=== PATIENT | male | born 1970 | race Caucasian/White ===

== ENCOUNTER → 2023-05-03 08:44 | Outpatient (REF) | payer OTHER, SELFPAY | LOC: PET 08:44 | PROVIDERS: ATTENDING PHYSICIAN Radiology Radiation Oncology | DX: C32.1 Malignant neoplasm of supraglottis (principal) | CPT/HCPCS: 78815; A9552 ==

== ENCOUNTER → 2023-05-12 15:44 | Outpatient (REF) | payer OTHER, SELFPAY ==
[2023-05-12 10:53] LABS: % Basophils 0.7 % (0-2); % Eosinophils 0.7 % (0-6); % Immature Granulocytes 0.2 % (0-0.5); % Lymphocytes 10.5 % (20.5-51.1); % Neutrophils 77.9 % (42.2-75.2); Absolute Lymphocytes 0.4 10^3/uL (1.2-3.4); Absolute Monocytes 0.4 10^3/uL (0.1-0.6); Absolute Neutrophils 3.3 10^3/uL (1.4-6.5); Hematocrit 37.5 % (39.0-52.0); Hemoglobin 13.1 g/dL (13.0-18.0); Mean Corp Hgb Conc. 34.9 g/dL (33.0-37.0); Mean Corpuscular Hgb 33.9 pg (27.0-31.0); Mean Corpuscular Volume 97.2 fL (80.0-94.0); Mean Platelet Volume 11.6 fL (7.4-10.4); Nucleated Red Blood Cells % 0 % (-); Platelet Count 110 10^3/uL (130-400); Red Blood Cell Count 3.86 10^6/uL (4.70-6.10); Red Cell Dist. Width 12.3 % (11.5-14.5); White Blood Cell Count 4.2 10^3/uL (4.8-10.8)
[2023-05-12 11:06] LABS: ALT (SGPT) 22 U/L (0-50); AST (SGOT) 34 U/L (17-59); Albumin 4.3 g/dl (3.5-5.0); Alkaline Phosphatase 70 U/L (38-126); Blood Urea Nitrogen 31 mg/dl (9-20); Calcium 9.4 mg/dl (8.4-10.2); Carbon Dioxide 30 mmol/L (22-30); Chloride 100 mmol/L (98-107); Glucose 103 mg/dl (70-99); Potassium 3.7 mmol/L (3.5-5.1); Sodium 137 mmol/L (135-145); Total Bilirubin 0.6 mg/dl (0.2-1.3); Total Protein 7.2 g/dl (6.3-8.2); eGFR > 60.00
== END ==
LOC: OIDL 15:44
PROVIDERS: ATTENDING PHYSICIAN Internal Medicine Hematology & Oncology
DX: C13.2 Malignant neoplasm of posterior wall of hypopharynx (principal)
CPT/HCPCS: 80053; 85025

== ENCOUNTER → 2023-07-07 12:46 | Outpatient (REF) | payer OTHER, SELFPAY | LOC: RAD 12:46 | PROVIDERS: ATTENDING PHYSICIAN Nurse Practitioner Adult Health; FAMILY PHYSICIAN Family Medicine | DX: C13.2 Malignant neoplasm of posterior wall of hypopharynx (principal) | CPT/HCPCS: 76536; 80053; 85025 ==

== ENCOUNTER → 2023-07-07 15:10 | Outpatient (REF) | payer OTHER, SELFPAY ==
[2023-07-07 11:17] LABS: % Basophils 0.7 % (0-2); % Eosinophils 0.9 % (0-6); % Immature Granulocytes 0.5 % (0-0.5); % Lymphocytes 11.9 % (20.5-51.1); % Monocytes 9.6 % (1.7-9.3); % Neutrophils 76.4 % (42.2-75.2); Absolute Lymphocytes 0.5 10^3/uL (1.2-3.4); Absolute Monocytes 0.4 10^3/uL (0.1-0.6); Absolute Neutrophils 3.3 10^3/uL (1.4-6.5); Hematocrit 34.6 % (39.0-52.0); Hemoglobin 11.9 g/dL (13.0-18.0); Mean Corp Hgb Conc. 34.4 g/dL (33.0-37.0); Mean Corpuscular Hgb 32.9 pg (27.0-31.0); Mean Corpuscular Volume 95.6 fL (80.0-94.0); Mean Platelet Volume 11.8 fL (7.4-10.4); Nucleated Red Blood Cells % 0 % (-); Platelet Count 147 10^3/uL (130-400); Red Blood Cell Count 3.62 10^6/uL (4.70-6.10); Red Cell Dist. Width 14.4 % (11.5-14.5); White Blood Cell Count 4.4 10^3/uL (4.8-10.8)
[2023-07-07 11:30] LABS: ALT (SGPT) 22 U/L (0-50); AST (SGOT) 32 U/L (17-59); Albumin 4.1 g/dl (3.5-5.0); Alkaline Phosphatase 70 U/L (38-126); Blood Urea Nitrogen 26 mg/dl (9-20); Calcium 9.5 mg/dl (8.4-10.2); Carbon Dioxide 29 mmol/L (22-30); Chloride 102 mmol/L (98-107); Glucose 91 mg/dl (70-99); Sodium 137 mmol/L (135-145); Total Bilirubin 0.7 mg/dl (0.2-1.3); eGFR > 60.00
== END ==
LOC: OIDL 15:10
PROVIDERS: ATTENDING PHYSICIAN Internal Medicine Hematology & Oncology
DX: C13.2 Malignant neoplasm of posterior wall of hypopharynx (principal)
CPT/HCPCS: 80053; 85025

== ENCOUNTER → 2023-07-19 12:00 | Outpatient (REF) | payer OTHER, SELFPAY ==
[2023-07-19 12:47] VITALS: BP 113/72; BP_SYST 72
== END ==
LOC: RADI 12:00
PROVIDERS: ATTENDING PHYSICIAN Internal Medicine Hematology & Oncology; FAMILY PHYSICIAN Family Medicine
DX: C49.0 Malignant neoplasm of connective and soft tissue of head, face and neck (principal)
CPT/HCPCS: 88305; 38505; 76942; 88333; 88334; 88342

== ENCOUNTER → 2023-08-03 09:14 | Outpatient (REF) | payer OTHER, SELFPAY | LOC: PET 09:14 | PROVIDERS: ATTENDING PHYSICIAN Internal Medicine Hematology & Oncology | DX: C13.2 Malignant neoplasm of posterior wall of hypopharynx (principal) | CPT/HCPCS: 78815; 80053; 85025; A9552 ==

== ENCOUNTER → 2023-08-03 11:49 | Outpatient (REF) | payer OTHER, SELFPAY ==
[2023-08-03 11:52] LABS: % Basophils 0.3 % (0-2); % Eosinophils 0.9 % (0-6); % Immature Granulocytes 0.2 % (0-0.5); % Lymphocytes 7.9 % (20.5-51.1); % Neutrophils 81.7 % (42.2-75.2); Absolute Eosinophils 0.1 10^3/uL (0-0.7); Absolute Lymphocytes 0.5 10^3/uL (1.2-3.4); Absolute Monocytes 0.6 10^3/uL (0.1-0.6); Absolute Neutrophils 5.2 10^3/uL (1.4-6.5); Hematocrit 37.3 % (39.0-52.0); Hemoglobin 12.5 g/dL (13.0-18.0); Mean Corp Hgb Conc. 33.5 g/dL (33.0-37.0); Mean Corpuscular Volume 95.4 fL (80.0-94.0); Mean Platelet Volume 11.2 fL (7.4-10.4); Platelet Count 198 10^3/uL (130-400); Red Blood Cell Count 3.91 10^6/uL (4.70-6.10); Red Cell Dist. Width 13.6 % (11.5-14.5); White Blood Cell Count 6.4 10^3/uL (4.8-10.8)
[2023-08-03 15:51] LABS: ALT (SGPT) 15 U/L (0-50); AST (SGOT) 27 U/L (17-59); Albumin 4.2 g/dl (3.5-5.0); Alkaline Phosphatase 90 U/L (38-126); Blood Urea Nitrogen 28 mg/dl (9-20); Calcium 9.5 mg/dl (8.4-10.2); Carbon Dioxide 30 mmol/L (22-30); Chloride 99 mmol/L (98-107); Glucose 86 mg/dl (70-99); Potassium 4.3 mmol/L (3.5-5.1); Sodium 138 mmol/L (135-145); Total Bilirubin 0.5 mg/dl (0.2-1.3); Total Protein 7.3 g/dl (6.3-8.2); eGFR > 60.00
== END ==
LOC: OIDL 11:49
PROVIDERS: ATTENDING PHYSICIAN Internal Medicine Hematology & Oncology
DX: C13.2 Malignant neoplasm of posterior wall of hypopharynx (principal)
CPT/HCPCS: 80053; 85025

== ENCOUNTER → 2023-08-15 16:09 | Outpatient (REF) | payer OTHER, SELFPAY ==
[2023-08-15 10:24] LABS: % Basophils 0.4 % (0-2); % Eosinophils 0.6 % (0-6); % Immature Granulocytes 0.1 % (0-0.5); % Monocytes 7.4 % (1.7-9.3); % Neutrophils 85.5 % (42.2-75.2); Absolute Eosinophils 0.1 10^3/uL (0-0.7); Absolute Lymphocytes 0.5 10^3/uL (1.2-3.4); Absolute Monocytes 0.6 10^3/uL (0.1-0.6); Absolute Neutrophils 7.3 10^3/uL (1.4-6.5); Hematocrit 37.9 % (39.0-52.0); Mean Corp Hgb Conc. 34.3 g/dL (33.0-37.0); Mean Corpuscular Hgb 32.2 pg (27.0-31.0); Mean Corpuscular Volume 93.8 fL (80.0-94.0); Mean Platelet Volume 10.6 fL (7.4-10.4); Platelet Count 240 10^3/uL (130-400); Red Blood Cell Count 4.04 10^6/uL (4.70-6.10); White Blood Cell Count 8.5 10^3/uL (4.8-10.8)
[2023-08-15 11:02] LABS: ALT (SGPT) 16 U/L (0-50); AST (SGOT) 25 U/L (17-59); Albumin 4.3 g/dl (3.5-5.0); Alkaline Phosphatase 96 U/L (38-126); Blood Urea Nitrogen 30 mg/dl (9-20); Calcium 9.7 mg/dl (8.4-10.2); Carbon Dioxide 33 mmol/L (22-30); Chloride 95 mmol/L (98-107); Glucose 107 mg/dl (70-99); Potassium 4.1 mmol/L (3.5-5.1); Sodium 137 mmol/L (135-145); Total Bilirubin 0.4 mg/dl (0.2-1.3); Total Protein 7.6 g/dl (6.3-8.2); eGFR > 60.00
== END ==
LOC: OIDL 16:09
PROVIDERS: ATTENDING PHYSICIAN Internal Medicine Hematology & Oncology
DX: C13.2 Malignant neoplasm of posterior wall of hypopharynx (principal)
CPT/HCPCS: 80053; 85025

== ENCOUNTER → 2023-08-25 13:38 | Outpatient (REF) | payer OTHER, SELFPAY ==
[2023-08-25 11:34] LABS: % Basophils 0.5 % (0-2); % Eosinophils 1.3 % (0-6); % Immature Granulocytes 0.3 % (0-0.5); % Lymphocytes 6.4 % (20.5-51.1); % Neutrophils 84.5 % (42.2-75.2); Absolute Eosinophils 0.1 10^3/uL (0-0.7); Absolute Lymphocytes 0.5 10^3/uL (1.2-3.4); Absolute Monocytes 0.6 10^3/uL (0.1-0.6); Absolute Neutrophils 6.7 10^3/uL (1.4-6.5); Hematocrit 39.6 % (39.0-52.0); Hemoglobin 13.1 g/dL (13.0-18.0); Mean Corp Hgb Conc. 33.1 g/dL (33.0-37.0); Mean Corpuscular Hgb 31.3 pg (27.0-31.0); Mean Corpuscular Volume 94.7 fL (80.0-94.0); Mean Platelet Volume 11.2 fL (7.4-10.4); Nucleated Red Blood Cells % 0 % (-); Platelet Count 232 10^3/uL (130-400); Red Blood Cell Count 4.18 10^6/uL (4.70-6.10); Red Cell Dist. Width 13.7 % (11.5-14.5)
[2023-08-25 11:50] LABS: ALT (SGPT) 23 U/L (0-50); AST (SGOT) 28 U/L (17-59); Albumin 4.3 g/dl (3.5-5.0); Alkaline Phosphatase 88 U/L (38-126); Blood Urea Nitrogen 30 mg/dl (9-20); Calcium 9.9 mg/dl (8.4-10.2); Carbon Dioxide 33 mmol/L (22-30); Chloride 101 mmol/L (98-107); Glucose 103 mg/dl (70-99); Potassium 3.8 mmol/L (3.5-5.1); Sodium 143 mmol/L (135-145); Total Bilirubin 0.3 mg/dl (0.2-1.3); Total Protein 7.5 g/dl (6.3-8.2); eGFR > 60.00
== END ==
LOC: OIDL 13:38
PROVIDERS: ATTENDING PHYSICIAN Internal Medicine Hematology & Oncology
DX: C13.2 Malignant neoplasm of posterior wall of hypopharynx (principal)
CPT/HCPCS: 80053; 85025

== ENCOUNTER → 2023-11-13 09:49 | Outpatient (REF) | payer OTHER, SELFPAY | LOC: PET 09:49 | PROVIDERS: ATTENDING PHYSICIAN Internal Medicine Hematology & Oncology | DX: C13.2 Malignant neoplasm of posterior wall of hypopharynx (principal) | CPT/HCPCS: 78815; A9552 ==

== ENCOUNTER → 2023-12-18 14:33 | Outpatient (REF) | payer OTHER, SELFPAY ==
[2023-12-18 10:34] LABS: % Basophils 0.5 % (0-2); % Eosinophils 0.7 % (0-6); % Immature Granulocytes 0.3 % (0-0.5); % Lymphocytes 4.3 % (20.5-51.1); % Monocytes 7.2 % (1.7-9.3); Absolute Basophils 0.1 10^3/uL (0-0.2); Absolute Eosinophils 0.1 10^3/uL (0-0.7); Absolute Lymphocytes 0.4 10^3/uL (1.2-3.4); Absolute Monocytes 0.7 10^3/uL (0.1-0.6); Absolute Neutrophils 8.6 10^3/uL (1.4-6.5); Hematocrit 34.8 % (39.0-52.0); Hemoglobin 11.8 g/dL (13.0-18.0); Mean Corp Hgb Conc. 33.9 g/dL (33.0-37.0); Mean Corpuscular Hgb 30.3 pg (27.0-31.0); Mean Corpuscular Volume 89.5 fL (80.0-94.0); Nucleated Red Blood Cells % 0 % (-); Platelet Count 287 10^3/uL (130-400); Red Blood Cell Count 3.89 10^6/uL (4.70-6.10); Red Cell Dist. Width 12.8 % (11.5-14.5); White Blood Cell Count 9.9 10^3/uL (4.8-10.8)
[2023-12-18 10:46] LABS: ALT (SGPT) 17 U/L (0-50); AST (SGOT) 24 U/L (17-59); Albumin 3.8 g/dl (3.5-5.0); Alkaline Phosphatase 83 U/L (38-126); Blood Urea Nitrogen 25 mg/dl (9-20); Calcium 9.6 mg/dl (8.4-10.2); Carbon Dioxide 30 mmol/L (22-30); Chloride 93 mmol/L (98-107); Glucose 102 mg/dl (70-99); Potassium 4.2 mmol/L (3.5-5.1); Sodium 136 mmol/L (135-145); Total Bilirubin 0.4 mg/dl (0.2-1.3); Total Protein 6.9 g/dl (6.3-8.2); eGFR > 60.00
== END ==
LOC: OIDL 14:33
PROVIDERS: ATTENDING PHYSICIAN Internal Medicine Hematology & Oncology
DX: C13.2 Malignant neoplasm of posterior wall of hypopharynx (principal); C77.0 Secondary and unspecified malignant neoplasm of lymph nodes of head, face and neck
CPT/HCPCS: 80053; 85025

== ENCOUNTER → 2023-12-25 16:09 | Outpatient (REF) | payer OTHER, SELFPAY ==
[2023-12-25 10:42] LABS: ALT (SGPT) 17 U/L (0-50); AST (SGOT) 23 U/L (17-59); Albumin 3.6 g/dl (3.5-5.0); Alkaline Phosphatase 73 U/L (38-126); Blood Urea Nitrogen 27 mg/dl (9-20); Calcium 9.1 mg/dl (8.4-10.2); Carbon Dioxide 32 mmol/L (22-30); Chloride 92 mmol/L (98-107); Glucose 122 mg/dl (70-99); Potassium 4.1 mmol/L (3.5-5.1); Sodium 136 mmol/L (135-145); Total Bilirubin 0.5 mg/dl (0.2-1.3); Total Protein 6.6 g/dl (6.3-8.2); eGFR > 60.00
[2023-12-25 10:47] LABS: Hematocrit 31.2 % (39.0-52.0); Hemoglobin 10.7 g/dL (13.0-18.0); Mean Corp Hgb Conc. 34.3 g/dL (33.0-37.0); Mean Corpuscular Hgb 30.5 pg (27.0-31.0); Mean Corpuscular Volume 88.9 fL (80.0-94.0); Mean Platelet Volume 11.7 fL (7.4-10.4); Platelet Count 158 10^3/uL (130-400); Red Blood Cell Count 3.51 10^6/uL (4.70-6.10); Red Cell Dist. Width 12.4 % (11.5-14.5)
[2023-12-25 11:01] LABS: % Eosinophils 0.5 % (0-6); % Immature Granulocytes 0.8 % (0-0.5); % Lymphocytes 6.3 % (20.5-51.1); % Neutrophils 89.4 % (42.2-75.2); Absolute Lymphocytes 0.3 10^3/uL (1.2-3.4); Absolute Monocytes 0.1 10^3/uL (0.1-0.6); Absolute Neutrophils 3.6 10^3/uL (1.4-6.5); Nucleated Red Blood Cells % 0 % (-)
== END ==
LOC: OIDL 16:09
PROVIDERS: ATTENDING PHYSICIAN Internal Medicine Hematology & Oncology
DX: C13.2 Malignant neoplasm of posterior wall of hypopharynx (principal); C77.0 Secondary and unspecified malignant neoplasm of lymph nodes of head, face and neck
CPT/HCPCS: 80053; 85025

== ENCOUNTER → 2024-01-08 12:56 | Outpatient (REF) | payer OTHER, SELFPAY ==
[2024-01-08 12:15] LABS: % Basophils 0.5 % (0-2); % Eosinophils 0.1 % (0-6); % Immature Granulocytes 2.4 % (0-0.5); % Lymphocytes 3.1 % (20.5-51.1); % Monocytes 5.4 % (1.7-9.3); % Neutrophils 88.5 % (42.2-75.2); Absolute Basophils 0.1 10^3/uL (0-0.2); Absolute Immature Granulocytes 0.4 10^3/uL (0-0.05); Absolute Lymphocytes 0.5 10^3/uL (1.2-3.4); Absolute Monocytes 0.9 10^3/uL (0.1-0.6); Absolute Neutrophils 15.2 10^3/uL (1.4-6.5); Hematocrit 29.3 % (39.0-52.0); Hemoglobin 9.5 g/dL (13.0-18.0); Mean Corp Hgb Conc. 32.4 g/dL (33.0-37.0); Mean Corpuscular Hgb 30.3 pg (27.0-31.0); Mean Corpuscular Volume 93.3 fL (80.0-94.0); Mean Platelet Volume 11.4 fL (7.4-10.4); Nucleated Red Blood Cells % 0 % (-); Platelet Count 345 10^3/uL (130-400); Red Blood Cell Count 3.14 10^6/uL (4.70-6.10); Red Cell Dist. Width 14.6 % (11.5-14.5); White Blood Cell Count 17.2 10^3/uL (4.8-10.8)
[2024-01-08 12:39] LABS: ALT (SGPT) 22 U/L (0-50); AST (SGOT) 27 U/L (17-59); Albumin 3.4 g/dl (3.5-5.0); Alkaline Phosphatase 107 U/L (38-126); Blood Urea Nitrogen 22 mg/dl (9-20); Calcium 9.1 mg/dl (8.4-10.2); Carbon Dioxide 34 mmol/L (22-30); Chloride 91 mmol/L (98-107); Glucose 132 mg/dl (70-99); Potassium 4.3 mmol/L (3.5-5.1); Sodium 135 mmol/L (135-145); Total Bilirubin 0.2 mg/dl (0.2-1.3); Total Protein 6.5 g/dl (6.3-8.2); eGFR > 60.00
== END ==
LOC: OIDL 12:56
PROVIDERS: ATTENDING PHYSICIAN Internal Medicine Hematology & Oncology
DX: C13.2 Malignant neoplasm of posterior wall of hypopharynx (principal); C77.0 Secondary and unspecified malignant neoplasm of lymph nodes of head, face and neck
CPT/HCPCS: 80053; 85025

== ENCOUNTER → 2024-01-15 10:45 | Outpatient (REF) | payer OTHER, SELFPAY ==
[2024-01-15 09:56] LABS: % Basophils 1.1 % (0-2); % Eosinophils 0.3 % (0-6); % Immature Granulocytes 1.4 % (0-0.5); % Lymphocytes 4.7 % (20.5-51.1); % Monocytes 3.6 % (1.7-9.3); % Neutrophils 88.9 % (42.2-75.2); Absolute Basophils 0.1 10^3/uL (0-0.2); Absolute Immature Granulocytes 0.1 10^3/uL (0-0.05); Absolute Lymphocytes 0.3 10^3/uL (1.2-3.4); Absolute Monocytes 0.2 10^3/uL (0.1-0.6); Absolute Neutrophils 5.9 10^3/uL (1.4-6.5); Hematocrit 24.4 % (39.0-52.0); Hemoglobin 8.2 g/dL (13.0-18.0); Mean Corp Hgb Conc. 33.6 g/dL (33.0-37.0); Mean Corpuscular Volume 89.4 fL (80.0-94.0); Mean Platelet Volume 11.5 fL (7.4-10.4); Nucleated Red Blood Cells % 0 % (-); Platelet Count 324 10^3/uL (130-400); Red Blood Cell Count 2.73 10^6/uL (4.70-6.10); Red Cell Dist. Width 14.4 % (11.5-14.5); White Blood Cell Count 6.7 10^3/uL (4.8-10.8)
[2024-01-15 10:09] LABS: ALT (SGPT) 17 U/L (0-50); AST (SGOT) 25 U/L (17-59); Albumin 3.5 g/dl (3.5-5.0); Alkaline Phosphatase 83 U/L (38-126); Blood Urea Nitrogen 32 mg/dl (9-20); Calcium 9.2 mg/dl (8.4-10.2); Carbon Dioxide 32 mmol/L (22-30); Chloride 95 mmol/L (98-107); Glucose 111 mg/dl (70-99); Potassium 4.2 mmol/L (3.5-5.1); Sodium 138 mmol/L (135-145); Total Bilirubin 0.3 mg/dl (0.2-1.3); Total Protein 6.5 g/dl (6.3-8.2); eGFR > 60.00
== END ==
LOC: OIDL 10:45
PROVIDERS: ATTENDING PHYSICIAN Internal Medicine Hematology & Oncology
DX: C13.2 Malignant neoplasm of posterior wall of hypopharynx (principal); C77.0 Secondary and unspecified malignant neoplasm of lymph nodes of head, face and neck
CPT/HCPCS: 80053; 85025

== ENCOUNTER 2024-01-17 10:42 | Outpatient (RCR) | payer OTHER, SELFPAY ==
[2024-01-17 11:30] VITALS: BP 79/49
[2024-01-17 11:47] VITALS: BP 75/43
[2024-01-17 13:44] VITALS: BP 108/60
== END 2024-01-18 10:49 | disposition home or self-care (01) ==
LOC: OID 10:42
PROVIDERS: ATTENDING PHYSICIAN Nurse Practitioner Adult Health; FAMILY PHYSICIAN Family Medicine
DX: C13.2 Malignant neoplasm of posterior wall of hypopharynx (principal); C77.0 Secondary and unspecified malignant neoplasm of lymph nodes of head, face and neck
CPT/HCPCS: 36430; 86850; 86900; 86901; 86920; P9016

== ENCOUNTER 2024-01-24 02:17 | Inpatient (IN) | payer OTHER, SELFPAY ==
[2024-01-23 22:05] VITALS: BP 76/42
[2024-01-23 22:06] VITALS: BMI 15.5
[2024-01-23 22:07] VITALS: BP 71/58
--- NOTE | 2024-01-23 22:26 | ED.GENMED ---
History of Present Illness
<JOSH Powell - Last Filed: 01/24/24 06:16>
General
Chief Complaint: Breathing Problem
Source: patient and ambulance crew
Time Seen by Provider: 01/23/24 22:04
History of Present Illness
History of Present Illness:
A pleasant 53-year-old male with a past medical history of throat cancer, PEG tube, anemia, presents to the emergency department for labored breathing x 1 week. He states that over the last week he has noticed a sudden onset of difficulty breathing
which has not acutely worsened over the last week. He also reports right-sided central chest pain that is pleuritic in nature and increases with deep inspiration. He also reports a mild cough with small amounts of yellow sputum speckled with blood.
He complains of 'sinus problems 'which have worsened since he received neck radiation. He reports intermittent vomiting, which he believes is most likely due to his PEG tube reflux. Most recent episode was yesterday evening and was nonbloody in
nature. He denies nausea, headache, abdominal pain, diarrhea.
Past History
<JOSH Powell - Last Filed: 01/24/24 06:16>
Past History
ED Past Medical History: Cancer
ED Past Surgical History: Other (Tracheostomy tube placement)
Social History
Tobacco: Former smoker
Alcohol: None
Drug: None
Review of Systems
<JOSH Powell - Last Filed: 01/24/24 06:16>
Review of Systems
Allergies reviewed?: Yes
All Other Systems: ROS reviewed and negative except as documented in HPI and ROS
Phy Exam
<JOSH Powell - Last Filed: 01/24/24 06:16>
General Physical Exam
General Presentation: other (Patient Is hypotensive and appears in moderate respiratory distress, on 6 L nasal cannula.)
General age: appears older than age
General Skin: warm and dry
General Habitus: elderly, failure to thrive and frail
General Mental: alert
General Hydration: dry mucous membranes
ENT Exam
ENT Exam: other (Nares pale, right side gisela demonstrates small amounts of dried blood.)
Eye Exam
Eye Exam: PERRL
Cardiovascular Exam
Cardiovascular Exam: no gallop, no murmur, normal peripheral pulses and tachycardia
Pulmonary Exam
Pulmonary Exam: generalized wheezing and respiratory distress
Oxygen Status: oxygen 6 liters via NC
Cough: coarse cough
Respirations: labored
Breath Sounds: Wheeze: generalized (Anterior)
Gastrointestinal Exam
Gastrointestinal Exam: soft and non distended
Neurological Exam
Neurological Exam: alert and oriented x3
Musculoskeletal Exam
Musculoskeletal Exam: full ROM
Skin Exam
Skin Exam: warm/dry, no rash and other (Right anterolateral scarring due to radiation is present. Right side subclavicular port is noted.)
Psychiatric Exam
Psychiatric Exam: normal mood/affect
<Davie Mcqueen DO - Last Filed: 01/24/24 01:18>
Physical Exam
Physical Exam:
GENERAL: The patient is chronically ill in appearance, he is pale, cachectic
HEENT: Very dry oral mucosa,
CARDIOVASCULAR: No murmurs, tachycardic heart rate, regular rhythm, No chest wall tenderness
PULMONARY: Significant transmitted upper airway sounds, mild respiratory distress, breath sounds are equally diminished
ABDOMEN: Soft with no peritoneal signs, no tenderness
NEUROLOGIC: Weak strength all extremities, no coordination deficits, weak speech
PSYCHIATRIC: Appropriate mental status, normal insight and judgement
EXTREMITIES: Nontender, no edema, moves all extremities equally
SKIN: Pale
Scores
<Davie Mcqueen DO - Last Filed: 01/24/24 01:18>
Heart Failure Risk
Heart Failure Risk Score: Not Applicable
Sepsis
<Josue Carlton [facility] - Last Filed: 01/24/24 06:16>
Sepsis Screen
Sepsis Screen: Septic Shock
Date: 01/24/24
Time: 06:13
<Davie Tab Mcqueen DO - Last Filed: 01/24/24 01:18>
Sepsis Screening
Sepsis Assessment: Septic Shock
Sepsis Screening: Lactate >2mmol/L
Sepsis Screen
Sepsis Screen: Septic Shock
Date: 01/24/24
Time: 01:18
Course
<Josue Carlton [facility] - Last Filed: 01/24/24 06:16>
Orders/Labs/Results
Orders:
Orders
01/23/24 22:44
Complete Blood Count/With Diff Urgent
01/23/24 22:58
Basic Metabolic Panel Urgent
01/23/24 23:28
CR Chest Portable - 1 View Urgent
Comment:
Reason For Exam: sob
Reason Study Needs to be Portable: Patient Unstable
01/23/24 23:31
Add On- LAB Urgent
Tests Added?: mag, phos
01/23/24 23:40
Lactic Acid Q4H
Comment: CANCEL 2nd LACTIC ACID IF 1st LACTIC ACID IS LESS THAN 2
Blood Culture Q30M
GT Source: Blood/Venous
Specimen Description:
01/24/24 00:12
Blood Culture Q30M
GT Source: Blood/Venous
Specimen Description:
01/24/24 00:14
Cefepime HCl [Maxipime] 1,000 mg IV NOW STA
01/24/24 00:21
Yuulp-Mtko-Ayxcayy Urgent
Magnesium Urgent
Comment: ADD ON
Phosphorus Urgent
Comment: ADD ON
Potassium Urgent
01/24/24 00:25
0.9% Sodium Chloride 500 ml [Nss] 500 ml IV BOLUS
01/24/24 00:30
NORepinephrine 4 MG/250 ML [Levophed] 4 mg in 250 ml IV PER PROTOCOL
Initial dose in mcg/min, then titrate:: 8
Titrate to keep:: MAP > 65 mmHg
Titrate by mcg/min:: 1-2 mcg/min
Frequency of titrations (minutes):: 5
Maximum dose in ICU in mcg/min:: 30
Maximum dose in IMU in mcg/min:: 8
Maximum dose in IVU in mcg/min:: 4
Begin to taper infusion when:: Remained at goal for 4hrs
Taper by mcg/min:: 1-2 mcg/min
Frequency of taper (minutes) if patient maintains goal:: 30
Taper to off?: Yes
If infusion off & no longer maintaining goal:: Contact Provider
01/24/24 00:52
Vancomycin 1 Gram/200 ml [Vancocin] 1 gram in 200 ml IV NOW
01/24/24 01:13
Admit/Transfer Patient As Directed
Co-Sign Provider:
Level of Care: Inpatient admission
Assign to:: ICU
Physician / Group: Jason
Diagnosis: Pneumonia, Sepsis, Head and Neck Cancer
Reason for Hospitalization: Pneumonia, Sepsis, Head and Neck Cancer
Expected length of stay greater than two midnights?: Yes
ELOS- Estimated Length of Stay in days: 5
I certify the patient meets the requirements for IP care: Yes
PRN Pain Medication Management As Directed
May give lesser potent ordered pain med per pt: Yes
preference::
Protocol:: Medication orders for pain may be administered in a
manner that supports deferring to patient preference
when the pt is:
- Requesting an ordered lesser potent pain medication.
Least to most potent pain medications are defined
as: acetaminophen < NSAID < tramadol < opioids
(morphine, oxycodone, hydromorphone).
- Requesting a lesser dose of the same medication IF
ORDERED.
- Requesting a less intrusive route of administration
if both routes are prescribed by the provider (PO <
IV).
01/24/24 01:14
Code Status As Directed
Resuscitation Status: Do not resuscitate
Reached after discussion with pt or family/Healthcare POA: Yes
01/24/24 01:15
DNR Bracelet Application ONCE
01/24/24 01:23
EKG [Electrocardiogram (*1)] Urgent
Reason for Study: Shortness of Breath
01/24/24 01:31
COVID-19 Antigen Urgent
Source: Nasal Swab
Influenza A+B Rapid Molecular Urgent
GT Source: Nasal Swab
Specimen Description:
01/24/24 02:20
0.9% Sodium Chloride 1000 ml [Nss] 1,000 ml POTASSIUM PHOSPHATE 1mEq=0.7mM [Potassium Phosphate] 20 meq Magnesium Sulfate 1 grams IV 80 mls/hr
0.9% Sodium Chloride 1000 ml [Nss] 1,000 ml IV BOLUS
Acetaminophen [Tylenol] 650 mg TUBE Q4HPRN PRN
Albuterol Nebs [Ventolin Nebules] 2.5 mg INH R Q4HPRN PRN
NORepinephrine 4 MG/250 ML [Levophed] 4 mg in 250 ml IV PER PROTOCOL
Currently infusing. Continue current dose and titrate:: Yes
Titrate to keep:: MAP > 65 mmHg
Titrate by mcg/min:: 1-2 mcg/min
Frequency of titrations (minutes):: 5
Maximum dose in ICU in mcg/min:: 30
Maximum dose in IMU in mcg/min:: 8
Maximum dose in IVU in mcg/min:: 4
Begin to taper infusion when:: Remained at goal for 4hrs
Taper by mcg/min:: 1-2 mcg/min
Frequency of taper (minutes) if patient maintains goal:: 30
Taper to off?: Yes
If infusion off & no longer maintaining goal:: Contact Provider
Ondansetron Injectable [Zofran] 4 mg IV Q6HPRN PRN
Piperacillin/Tazo 4.5 Gram [Zosyn] 4.5 gram in 100 ml IV Q6H
Polyethylene Glycol Powder [Miralax] 17 grams TUBE DAILY PRN
VANCOMYCIN Pharmacy to Dose [VANCOCIN Pharmacy to Dose] 1 each Pharmacy To Prepare [Call Pharmacy To Prepare] 0 ml IV PER PROTOCOL
01/24/24 02:20
Consult Notification Routine
Specialty to Notify: [employer]
Consult Notification Routine
Specialty to Notify: Oncology
DIETARY CONSULT Routine
Reason for Consult: Tube Feeds
[employer] Consult Routine
Consulting Provider: Ivan Ellis
Was physician already notified: No
Reason for consult: Pneumonia, Sepsis, Head and Neck Cancer
ONCOLOGY CONSULT Routine
Consulting Provider: Caity Perez
Was physician already notified: No
Reason for consult: Pneumonia, Sepsis, Head and Neck Cancer
Activity As Directed
Activity Level: Bedrest
Bladder Scan As Directed
Follow Bladder Retention/Intermittent Cath Algorithm?: Yes
PRN if no void in __ hours: 6
Frequency: Per Retention Algorithm
If Bladder Scan Result >: 400
then:: Straight cath
EKG with chest pain [ECG as needed] As Directed
ECG as needed for:: Chest Pain
Gastrointestinal Tubes As Directed
Type: Gastrostomy
To suction?: No
Irrigate tube?: Yes
Irrigant: Tap Water
Frequency: Q4H
Amount in mls: 30
Irrigation Directions: Irrigate Q4H and PRN
I/O [Intake/ Output] As Directed
Frequency: Per unit guidelines
Pneumatic Compression Sleeves As Directed
Type: Knee high
Precautions As Directed
Type of Precautions: Aspiration
Straight Cath As Directed
Frequency: Per Retention Algorithm
Additional Instructions: straight cath as needed per acute urinary retention algorithm for 24 hrs
Additional Instructions: for bladder scan greater than 400 mL
Vital Signs As Directed
Frequency: Per unit guidelines
Oxygen Therapy [O2 Therapy] [RESP] Routine
Titrate/Wean O2 to maintain O2 sat greater than (%): 94
Ot Eval And Treat Routine
PT Consult [Pt Eval And Treat] Routine
Activity Level: Ambulate
With Assistance
DX Deep Vein Thrombosis Video Routine
01/24/24 02:54
Lactic Acid Q4H
Comment: CANCEL 2nd LACTIC ACID IF 1st LACTIC ACID IS LESS THAN 2
Troponin I Q6H
01/24/24 Breakfast
NPO
Allow oral meds: Yes
Allow clear liquids: Sips of Clears
01/24/24 06:05
Basic Metabolic Panel IN AM
Complete Blood Count/No Diff IN AM
LFT [Xptpz-Mhpf-Ocictom] IN AM
Lactic Acid IN AM
01/24/24 08:00
Ipratropium/Albuterol Sulfate [Duoneb] 3 ml INH R QID
Pantoprazole [Protonix IV] 40 mg IV DAILY
01/24/24 08:20
Troponin I Q6H
01/24/24 14:20
Troponin I Q6H
Abnormal Lab Results
01/23/24 01/23/24 01/23/24
22:44 22:58 23:40
WBC 22.1 H 10^3/uL
(4.8-10.8)
RBC 2.93 L 10^6/uL
(4.70-6.10)
Hgb 8.5 L g/dL
(13.0-18.0)
Hct 24.9 L %
(39.0-52.0)
RDW 16.1 H %
(11.5-14.5)
Plt Count 101 L 10^3/uL
(130-400)
MPV 12.8 H fL
(7.4-10.4)
Abs Immat Gran (auto) 0.3 H 10^3/uL
(0-0.05)
Absolute Neuts (auto) 20.4 H 10^3/uL
(1.4-6.5)
Absolute Lymphs (auto) 0.3 L 10^3/uL
(1.2-3.4)
Absolute Monos (auto) 1.1 H 10^3/uL
(0.1-0.6)
Immature Gran % 1.2 H %
(0-0.5)
Neutrophils % 92.4 H %
(42.2-75.2)
Lymphocytes % 1.4 L %
(20.5-51.1)
Chloride 94 L mmol/L
(98-107)
Carbon Dioxide 32 H mmol/L
(22-30)
BUN 49 H mg/dl
(9-20)
Glucose 137 H mg/dl
(70-99)
Lactic Acid 3.0 H mmol/L
(0.7-2.0)
Calcium 7.4 L mg/dl
(8.4-10.2)
Phosphorus
Magnesium
Total Protein
Albumin
01/24/24
00:21
WBC
RBC
Hgb
Hct
RDW
Plt Count
MPV
Abs Immat Gran (auto)
Absolute Neuts (auto)
Absolute Lymphs (auto)
Absolute Monos (auto)
Immature Gran %
Neutrophils %
Lymphocytes %
Chloride
Carbon Dioxide
BUN
Glucose
Lactic Acid
Calcium
Phosphorus 1.7 L mg/dl
(2.5-4.5)
Magnesium 1.5 L mg/dl
(1.6-2.3)
Total Protein 4.7 L g/dl
(6.3-8.2)
Albumin 2.2 L g/dl
(3.5-5.0)
01/23/24 22:44
01/24/24 00:21
Vital Signs
Initial and Last Documented VS:
Initial Vital Signs
BP
76/42
01/23/24 22:05
Last Documented Vital Signs
Temp Pulse Resp BP Pulse Ox
98.3 F 89 21 78/46 92
01/24/24 04:56 01/24/24 06:00 01/24/24 06:00 01/24/24 06:00 01/24/24 06:00
<Davie Mcqueen, DO - Last Filed: 01/24/24 01:18>
Orders/Labs/Results
Orders:
Orders
01/23/24 22:44
Complete Blood Count/With Diff Urgent
01/23/24 22:58
Basic Metabolic Panel Urgent
01/23/24 23:28
CR Chest Portable - 1 View Urgent
Comment:
Reason For Exam: sob
Reason Study Needs to be Portable: Patient Unstable
01/23/24 23:31
Add On- LAB Urgent
Tests Added?: mag, phos
01/23/24 23:40
Lactic Acid Q4H
Comment: CANCEL 2nd LACTIC ACID IF 1st LACTIC ACID IS LESS THAN 2
Blood Culture Q30M
GT Source: Blood/Venous
Specimen Description:
01/24/24 00:12
Blood Culture Q30M
GT Source: Blood/Venous
Specimen Description:
01/24/24 00:14
Cefepime HCl [Maxipime] 1,000 mg IV NOW STA
01/24/24 00:21
Xkeuo-Ikxf-Ueivzet Urgent
Magnesium Urgent
Comment: ADD ON
Phosphorus Urgent
Comment: ADD ON
Potassium Urgent
01/24/24 00:25
0.9% Sodium Chloride 500 ml [Nss] 500 ml IV BOLUS
01/24/24 00:30
NORepinephrine 4 MG/250 ML [Levophed] 4 mg in 250 ml IV PER PROTOCOL
Initial dose in mcg/min, then titrate:: 8
Titrate to keep:: MAP > 65 mmHg
Titrate by mcg/min:: 1-2 mcg/min
Frequency of titrations (minutes):: 5
Maximum dose in ICU in mcg/min:: 30
Maximum dose in IMU in mcg/min:: 8
Maximum dose in IVU in mcg/min:: 4
Begin to taper infusion when:: Remained at goal for 4hrs
Taper by mcg/min:: 1-2 mcg/min
Frequency of taper (minutes) if patient maintains goal:: 30
Taper to off?: Yes
If infusion off & no longer maintaining goal:: Contact Provider
01/24/24 00:52
Vancomycin 1 Gram/200 ml [Vancocin] 1 gram in 200 ml IV NOW
01/24/24 01:13
Admit/Transfer Patient As Directed
Co-Sign Provider:
Level of Care: Inpatient admission
Assign to:: ICU
Physician / Group: Jason
Diagnosis: Pneumonia, Sepsis, Head and Neck Cancer
Reason for Hospitalization: Pneumonia, Sepsis, Head and Neck Cancer
Expected length of stay greater than two midnights?: Yes
ELOS- Estimated Length of Stay in days: 5
I certify the patient meets the requirements for IP care: Yes
PRN Pain Medication Management As Directed
May give lesser potent ordered pain med per pt: Yes
preference::
Protocol:: Medication orders for pain may be administered in a
manner that supports deferring to patient preference
when the pt is:
- Requesting an ordered lesser potent pain medication.
Least to most potent pain medications are defined
as: acetaminophen < NSAID < tramadol < opioids
(morphine, oxycodone, hydromorphone).
- Requesting a lesser dose of the same medication IF
ORDERED.
- Requesting a less intrusive route of administration
if both routes are prescribed by the provider (PO <
IV).
01/24/24 01:14
Code Status As Directed
Resuscitation Status: Do not resuscitate
Reached after discussion with pt or family/Healthcare POA: Yes
01/24/24 01:15
DNR Bracelet Application ONCE
01/24/24 01:23
EKG [Electrocardiogram (*1)] Urgent
Reason for Study: Shortness of Breath
01/24/24 01:31
COVID-19 Antigen Urgent
Source: Nasal Swab
Influenza A+B Rapid Molecular Urgent
GT Source: Nasal Swab
Specimen Description:
01/24/24 02:20
0.9% Sodium Chloride 1000 ml [Nss] 1,000 ml POTASSIUM PHOSPHATE 1mEq=0.7mM [Potassium Phosphate] 20 meq Magnesium Sulfate 1 grams IV 80 mls/hr
0.9% Sodium Chloride 1000 ml [Nss] 1,000 ml IV BOLUS
Acetaminophen [Tylenol] 650 mg TUBE Q4HPRN PRN
Albuterol Nebs [Ventolin Nebules] 2.5 mg INH R Q4HPRN PRN
NORepinephrine 4 MG/250 ML [Levophed] 4 mg in 250 ml IV PER PROTOCOL
Currently infusing. Continue current dose and titrate:: Yes
Titrate to keep:: MAP > 65 mmHg
Titrate by mcg/min:: 1-2 mcg/min
Frequency of titrations (minutes):: 5
Maximum dose in ICU in mcg/min:: 30
Maximum dose in IMU in mcg/min:: 8
Maximum dose in IVU in mcg/min:: 4
Begin to taper infusion when:: Remained at goal for 4hrs
Taper by mcg/min:: 1-2 mcg/min
Frequency of taper (minutes) if patient maintains goal:: 30
Taper to off?: Yes
If infusion off & no longer maintaining goal:: Contact Provider
Ondansetron Injectable [Zofran] 4 mg IV Q6HPRN PRN
Piperacillin/Tazo 4.5 Gram [Zosyn] 4.5 gram in 100 ml IV Q6H
Polyethylene Glycol Powder [Miralax] 17 grams TUBE DAILY PRN
VANCOMYCIN Pharmacy to Dose [VANCOCIN Pharmacy to Dose] 1 each Pharmacy To Prepare [Call Pharmacy To Prepare] 0 ml IV PER PROTOCOL
01/24/24 02:20
Consult Notification Routine
Specialty to Notify: Company [employer]
Consult Notification Routine
Specialty to Notify: Oncology
DIETARY CONSULT Routine
Reason for Consult: Tube Feeds
[employer] Consult Routine
Consulting Provider: Ivan Ellis
Was physician already notified: No
Reason for consult: Pneumonia, Sepsis, Head and Neck Cancer
ONCOLOGY CONSULT Routine
Consulting Provider: Caity Perez
Was physician already notified: No
Reason for consult: Pneumonia, Sepsis, Head and Neck Cancer
Activity As Directed
Activity Level: Bedrest
Bladder Scan As Directed
Follow Bladder Retention/Intermittent Cath Algorithm?: Yes
PRN if no void in __ hours: 6
Frequency: Per Retention Algorithm
If Bladder Scan Result >: 400
then:: Straight cath
EKG with chest pain [ECG as needed] As Directed
ECG as needed for:: Chest Pain
Gastrointestinal Tubes As Directed
Type: Gastrostomy
To suction?: No
Irrigate tube?: Yes
Irrigant: Tap Water
Frequency: Q4H
Amount in mls: 30
Irrigation Directions: Irrigate Q4H and PRN
I/O [Intake/ Output] As Directed
Frequency: Per unit guidelines
Pneumatic Compression Sleeves As Directed
Type: Knee high
Precautions As Directed
Type of Precautions: Aspiration
Straight Cath As Directed
Frequency: Per Retention Algorithm
Additional Instructions: straight cath as needed per acute urinary retention algorithm for 24 hrs
Additional Instructions: for bladder scan greater than 400 mL
Vital Signs As Directed
Frequency: Per unit guidelines
Oxygen Therapy [O2 Therapy] [RESP] Routine
Titrate/Wean O2 to maintain O2 sat greater than (%): 94
Ot Eval And Treat Routine
PT Consult [Pt Eval And Treat] Routine
Activity Level: Ambulate
With Assistance
DX Deep Vein Thrombosis Video Routine
01/24/24 02:54
Lactic Acid Q4H
Comment: CANCEL 2nd LACTIC ACID IF 1st LACTIC ACID IS LESS THAN 2
Troponin I Q6H
01/24/24 Breakfast
NPO
Allow oral meds: Yes
Allow clear liquids: Sips of Clears
01/24/24 06:05
Basic Metabolic Panel IN AM
Complete Blood Count/No Diff IN AM
LFT [Pzhue-Clkz-Ppejnrq] IN AM
Lactic Acid IN AM
01/24/24 08:00
Ipratropium/Albuterol Sulfate [Duoneb] 3 ml INH R QID
Pantoprazole [Protonix IV] 40 mg IV DAILY
01/24/24 08:20
Troponin I Q6H
01/24/24 14:20
Troponin I Q6H
Abnormal Lab Results
01/23/24 01/23/24 01/23/24
22:44 22:58 23:40
WBC 22.1 H 10^3/uL
(4.8-10.8)
RBC 2.93 L 10^6/uL
(4.70-6.10)
Hgb 8.5 L g/dL
(13.0-18.0)
Hct 24.9 L %
(39.0-52.0)
RDW 16.1 H %
(11.5-14.5)
Plt Count 101 L 10^3/uL
(130-400)
MPV 12.8 H fL
(7.4-10.4)
Abs Immat Gran (auto) 0.3 H 10^3/uL
(0-0.05)
Absolute Neuts (auto) 20.4 H 10^3/uL
(1.4-6.5)
Absolute Lymphs (auto) 0.3 L 10^3/uL
(1.2-3.4)
Absolute Monos (auto) 1.1 H 10^3/uL
(0.1-0.6)
Immature Gran % 1.2 H %
(0-0.5)
Neutrophils % 92.4 H %
(42.2-75.2)
Lymphocytes % 1.4 L %
(20.5-51.1)
Chloride 94 L mmol/L
(98-107)
Carbon Dioxide 32 H mmol/L
(22-30)
BUN 49 H mg/dl
(9-20)
Glucose 137 H mg/dl
(70-99)
Lactic Acid 3.0 H mmol/L
(0.7-2.0)
Calcium 7.4 L mg/dl
(8.4-10.2)
Phosphorus
Magnesium
Total Protein
Albumin
01/24/24
00:21
WBC
RBC
Hgb
Hct
RDW
Plt Count
MPV
Abs Immat Gran (auto)
Absolute Neuts (auto)
Absolute Lymphs (auto)
Absolute Monos (auto)
Immature Gran %
Neutrophils %
Lymphocytes %
Chloride
Carbon Dioxide
BUN
Glucose
Lactic Acid
Calcium
Phosphorus 1.7 L mg/dl
(2.5-4.5)
Magnesium 1.5 L mg/dl
(1.6-2.3)
Total Protein 4.7 L g/dl
(6.3-8.2)
Albumin 2.2 L g/dl
(3.5-5.0)
01/23/24 22:44
01/24/24 00:21
Vital Signs
Initial and Last Documented VS:
Initial Vital Signs
BP
76/42
01/23/24 22:05
Last Documented Vital Signs
Temp Pulse Resp BP Pulse Ox
98.3 F 89 21 78/46 92
01/24/24 04:56 01/24/24 06:00 01/24/24 06:00 01/24/24 06:00 01/24/24 06:00
<JOSH Powell - Last Filed: 01/24/24 06:16>
MDM/Problems Addressed
Differential Diagnosis Includes:
Pulmonary embolism, plural effusion, pneumonia, bronchiolitis.
Chronic conditions affecting care: Cancer (Throat)
<JOSH Powell - Last Filed: 01/24/24 06:16>
*Critical Care Note
Total Time (30-74mins, 75-104mins- exclusive of procedures): Not Applicable
<Davie Mcqueen DO - Last Filed: 01/24/24 01:18>
*Critical Care Note
Total Time (30-74mins, 75-104mins- exclusive of procedures): 45min
comment:
The patient has been hypotensive throughout his stay in the emergency department. Treated for pneumonia/sepsis. Aggressive IV fluids given. We did also start pressors as well. Vital signs closely monitored. Discussed case with Dr. Gomez for
admission to the hospital.
<JOSH Powell - Last Filed: 01/24/24 06:16>
Update Note
Update Note:
01/24/2024 0154 AM: [facility]: Just visited with the patient. He confirms his breathing has slightly improved. Currently he is using self manual suction for sputum production.
ED Attending Note
<JOSH Powell - Last Filed: 01/24/24 06:16>
-
Portions of this chart may have been created with voice recognition software.� Occasional wrong word or��sound alike� substitutions may have occurred due to the inherent limitations of voice recognition software.
<Davie Mcqueen DO - Last Filed: 01/24/24 01:18>
ED Attending Note
Patient seen and examined by attending physician: Yes
I performed the substantive portion of visit, reviewed & personally made and approve the management plan that is documented in note by myself or ANG.: Yes
I performed a history and physical exam of patient and discussed management with resident, I reviewed resident's note and agree with documented findings and plan of care.: Yes
ED Attending Note:
Patient has a history of throat cancer, he is ill-appearing. White count is 22.1
Discharge Plan
Departure
Patient Disposition: Admit
Date of Disposition: 01/24/24
Time of Disposition: 00:30
Presentation/result/management discussed w/ accepting MD/DO: Hospitalist
Discharge Problem:
Sepsis
Interventions
Interventions:
*Risk Screen - Suicide Last Done: 01/23/24 22:06
*General Assessment Last Done: 01/23/24 22:06
*Neglect/Abuse Screening Last Done: 01/23/24 22:06
ED- Fall Risk Assessment Last Done: 01/24/24 02:25
*ED COVID-19 Vaccine History Last Done: 01/23/24 22:06
*Nursing Disposition Last Done: 01/24/24 02:25
ED- Cardiac Assessment Last Done: 01/23/24 22:06
ED- Pulmonary Assessment Last Done: 01/23/24 22:06
Discharge Date and Time
Discharge Date/Time: 01/24/24 02:26
[2024-01-23 22:40] VITALS: BP 71/52
[2024-01-23 23:00] VITALS: BP 79/53
[2024-01-23 23:08] VITALS: BP 81/50
[2024-01-23 23:12] LABS: % Basophils 0.1 % (0-2); % Immature Granulocytes 1.2 % (0-0.5); % Lymphocytes 1.4 % (20.5-51.1); % Monocytes 4.9 % (1.7-9.3); % Neutrophils 92.4 % (42.2-75.2); Absolute Immature Granulocytes 0.3 10^3/uL (0-0.05); Absolute Lymphocytes 0.3 10^3/uL (1.2-3.4); Absolute Monocytes 1.1 10^3/uL (0.1-0.6); Absolute Neutrophils 20.4 10^3/uL (1.4-6.5); Hematocrit 24.9 % (39.0-52.0); Hemoglobin 8.5 g/dL (13.0-18.0); Mean Corp Hgb Conc. 34.1 g/dL (33.0-37.0); Mean Platelet Volume 12.8 fL (7.4-10.4); Nucleated Red Blood Cells % 0.6 % (-); Platelet Count 101 10^3/uL (130-400); Red Blood Cell Count 2.93 10^6/uL (4.70-6.10); Red Cell Dist. Width 16.1 % (11.5-14.5); White Blood Cell Count 22.1 10^3/uL (4.8-10.8)
[2024-01-23 23:30] VITALS: BP 80/51
[2024-01-23 23:32] LABS: Blood Urea Nitrogen 49 mg/dl (9-20); Estimated Creatinine Clearance 66 ml/min; Glucose 137 mg/dl (70-99); eGFR > 60.00
[2024-01-23 23:33] LABS: Calcium 7.4 mg/dl (8.4-10.2); Carbon Dioxide 32 mmol/L (22-30); Chloride 94 mmol/L (98-107); Sodium 137 mmol/L (135-145)
[2024-01-24] VITALS (78 sets, daily range): BP systolic 73–117; BP diastolic 44–94; BMI 16.0
[2024-01-24] MEDS: MAXIPIME 1000 MG IV (00:24)
[2024-01-24] MEDS: NSS 500 IV (00:31)
[2024-01-24 00:48] LABS: ALT (SGPT) 25 U/L (0-50); AST (SGOT) 50 U/L (17-59); Albumin 2.2 g/dl (3.5-5.0); Alkaline Phosphatase 63 U/L (38-126); Direct Bilirubin 0.3 mg/dl (0.0-0.4); Potassium 3.5 mmol/L (3.5-5.1); Total Bilirubin 0.5 mg/dl (0.2-1.3); Total Protein 4.7 g/dl (6.3-8.2)
[2024-01-24] MEDS: LEVOPHED 250 IV ×4 (00:54→12:56)
[2024-01-24 01:01] LABS: Magnesium 1.5 mg/dl (1.6-2.3); Phosphorus 1.7 mg/dl (2.5-4.5)
[2024-01-24] MEDS: VANCOCIN 200 IV (01:06)
--- NOTE | 2024-01-24 01:21 | HPS.HSE ---
Family Physician
-
Family Physician: Javier Stallworth
Chief Complaint
-
SOB, Weakness
History of Present Illness
Patient is a 53y M with PMH significant for squamous cell cancer of the head and neck currently on chemotherapy who presents to ED complaining of cough, SOB and fatigue for the past few weeks. Patient states that symptoms started about 3 weeks
ago. They have been much worse over the past week or so. This evening he felt severely SOB and presented to the ED for further evaluation and treatment.
Patient complains of hacking cough that is productive of thick, yellow mucus with significant effort. Some small streaks of blood in the sputum.
Patient complains of chest pressure / pain that occurs with activity or exertion.
Patient is on chemotherapy as noted above.
His most recent chemo was Taxol and Gemzar on 01/08, Gemzar on 01/15.
He received G-CSF on 01/15.
He had a PRBC infusion x 1 unit on 01/16.
Patient receives his nutrition via PEG tube.
He notes that he will swish water in his mouth for dryness and admits that he occasionally accidentally aspirates while doing so.
He does not recall any specific or particular instance of this recently.
Medical History
Past Medical History
Past Medical History: Reports Other
Additional Past Medical History:
Squamous Cell Carcinoma of the Head and Neck
- Initially diagnosed 07/2020
- Recurrence 12/2022
- Recurrence 08/2023
Past Surgical History: Reports Other
Additional Past Surgical History:
Tracheostomy / Removal
PEG Placement
Multiple Biopsies (no debulking / excisions)
Social History
Tobacco: Former Smoker (Quit smoking about 3 years ago. > 30 pack years total use.)
Alcohol: Former (History of significant alcohol intake. None since initial diagnosis in 2020.)
Family History
Family History: Not pertinent
Allergies / Home Medications
Allergies reflects when Allergies were last updated in [facility].
Home Medications with original date entered in [facility]
Allergy/Medication List:
Allergies
Allergy/AdvReac Type Severity Reaction Status Date / Time
No Known Allergies Allergy Verified 01/23/24 22:05
Home Medications
acetaminophen 500 mg tablet (Tylenol Extra Strength) 1,000 mg PO Q6H PRN pain 07/11/22
Review of Systems
-
History Source: Patient
A 12 point ROS was completed and negative except as noted: Yes
Constitutional: Reports Fatigue and Chills; Denies Fever
EENT: Reports Sore Throat
Respiratory: Reports Cough and Trouble Breathing
Cardiac: Reports Chest Pain; Denies Diaphoresis, Palpitations or Syncope
Abdomen/GI: Reports Constipated (chronic - unchanged.); Denies Abdominal Pain, Nausea, Vomiting, Diarrhea, Bloody Stools or Black Stools
: Denies Dysuria, Frequency or Flank Pain
Musculoskeletal: Denies Joint Pain or Edema
Neurological: Reports Dizzy; Denies Headache
Psych: Denies Depression or Anxiety
Physical Exam
Vital Signs
Vital Signs
Temp Pulse Resp BP Pulse Ox
98.9 F 103 21 90/58 99
01/23/24 22:06 01/24/24 01:10 01/24/24 01:10 01/24/24 01:10 01/24/24 01:10
Physical Exam
General: Other (Ill-appearing 53y M. Pale and cachectic.)
HEENT: Other (Dry MM. Bitemporal wasting. Post-surgical changes of the neck.)
Respiratory: Other (Scattered rales. No wheeze / rhonchi.)
Cardiac: S1/S2, Tachycardia and Murmur (II/ SHRUTHI)
GI: Soft, Non Tender, Non Distended, Normal Bowel Sounds and Other (PEG in place. No bleeding.)
Musculoskeletal: No Clubbing, No Cyanosis and No Edema
Neuro: AO x 3 and Nonfocal/grossly intact
Laboratory Results
-
01/23/24 22:44
01/24/24 00:21
Laboratory Results
Lactic Acid 3.0 mmol/L (0.7-2.0) H 01/23/24 23:40
Total Bilirubin 0.5 mg/dl (0.2-1.3) 01/24/24 00:21
AST 50 U/L (17-59) 01/24/24 00:21
ALT 25 U/L (0-50) 01/24/24 00:21
Alkaline Phosphatase 63 U/L (38-126) 01/24/24 00:21
Impression/Plan
-
A/P: Patient is a 53y M with PMH significant for squamous cell cancer of the head and neck who presents to ED complaining of cough and SOB.
Pneumonia
Acute Hypoxemic Respiratory Insufficiency
Septic Shock secondary to the above
- Admit to ICU for further evaluation and treatment.
- Patient presents with leukocytosis, tachycardia, hypotension and abnormal CXR c/w pneumonia.
- Check COVID and influenza - especially give atypical appearance of pneumonia.
- IV abx for now with Vanco / Zosyn.
- Follow-up culture data and adjust treatment as needed.
- Supportive care including IVFs, pressor support, antipyretics, nebs, O2, etc.
- Follow for clinical improvement.
- Follow lactate level.
- Assistant Kitchen Manager evaluation for additional recommendations.
Normocytic Anemia
Thrombocytopenia
- Likely secondary to chemotherapy +/- acute infection and sepsis.
- Received PRBCs on 01/16.
- Follow H&H and transfuse additional PRBCs if indicated (consent signed).
- No evidence of acute / active bleeding at present.
- Follow cell counts for changes.
Hypomagnesemia
Hypophosphatemia
Azotemia
Severe Protein Calorie Malnutrition
- IVFs support with additives / electrolytes to correct deficits.
- Follow labs / lytes for improvement and adjust IVFs as needed.
- Dietary evaluation / resume tube feeds when able.
Chest Discomfort
- Likely secondary to pneumonia.
- EKG with nonspecific ST-T changes laterally.
- Check troponin. Follow for new / worsening symptoms.
- Treat pneumonia as noted above.
Squamous Cell Carcinoma of the Head and Neck
- Currently on chemo with Taxol and Gemzar.
- Received G-CSF on 01/15 which is likely contributing to leukocytosis.
- Currently on his 'off week'.
- Oncology evaluation for additional recommendations.
DVT Prophylaxis: SCDs
Code Status: DNR
[2024-01-24 02:15] LABS: COVID-19 Antigen Negative (Negative)
[2024-01-24] MEDS: NSS 1000 IV (02:47)
[2024-01-24] MEDS: ZOSYN 100 IV ×2 (03:17→08:04)
[2024-01-24 03:24] LABS: Lactic Acid 2.4 mmol/L (0.7-2.0)
[2024-01-24 03:36] LABS: Troponin I 0.017 ng/ml
--- NOTE | 2024-01-24 03:48 | W.PN.SEPSIS ---
Sepsis
Vital Signs
Temp Pulse Resp BP Pulse Ox
97.9 F 93 24 91/61 95
01/24/24 03:21 01/24/24 03:30 01/24/24 03:30 01/24/24 03:30 01/24/24 03:39
Physical Exam
Physical Exam:
A focused exam was performed after fluid resuscitation.
Capillary Refill
Bilateral Upper Extremity:
Sabrina Time: Less than 3 sec
Bilateral Lower Extremity:
Sabrina Time: Less than 3 sec
Pulse Evaluation
Bilateral Radial:
Pulse Evaluation: Present
Bilateral Dorsalis Pedis:
Pulse Evaluation: Present
--- NOTE | 2024-01-24 03:49 | W.PN.UPDATE ---
Update Note
Progress Note Update
Patient has unequal pupils, L 7/8mm and right 2mm, sluggish reactivity. Patient speaking clearly and able to move all extremities without difficulty, patient denies any vision loss, headache, nausea/vomiting or other neurological deficits. Unequal
pupils are likely related to receiving ipratropium and had nebulized medication get into his eyes during the treatment.
[2024-01-24] MEDS: POTASSIUM PHOSPHATE 1006.5455 GRAMS IV (04:26)
[2024-01-24] MEDS: POTASSIUM PHOSPHATE 1006.5455 MEQ IV (04:26)
--- NOTE | 2024-01-24 04:44 | PTCARENOTE ---
Patient came up from ED AAOx3, following commands, denying pain. Garbled speech/hoarse voice. Pupils unequal, right 2 mm and left 7 mm, both reactive to light. BOILERMAKER'S ASSISTANT notified, to bedside, no further interventions. Normal sinus/sinus tach 90s-100s,
normothermic, no edema, palpable radial and pedal pulses b/l. Levo gtt ongoing per protocol to maintain MAP >65. Came up on 15 liters midflow, now on 6 liters humidified midflow saturating 96%. Lung sounds diminished throughout, inspiratory and
expiratory wheeze noted. Strong, productive cough with thick, yellow mucus. PEG tube for tube feed at home, dietary consulted. Abdomen soft, hypoactive bowel sounds. Cachectic. Urinal to void putting out yellow urine. Last BM 01/22/24. CHG bath done.
Breakdown on b/l ears POA, blanchable red sacrum POA. B/l heel, hip, and sacrum foams applied. SCDs on, heels elevated. Right subcutaneous port with levo gtt ongoing. PIVs patent, WNL, NSS gtt ongoing per order. Call martinez within reach.
[2024-01-24 06:20] LABS: Hematocrit 19.6 % (39.0-52.0); Hemoglobin 6.9 g/dL (13.0-18.0); Mean Corp Hgb Conc. 35.2 g/dL (33.0-37.0); Mean Corpuscular Hgb 29.5 pg (27.0-31.0); Mean Corpuscular Volume 83.8 fL (80.0-94.0); Mean Platelet Volume 12.3 fL (7.4-10.4); Platelet Count 94 10^3/uL (130-400); Red Blood Cell Count 2.34 10^6/uL (4.70-6.10); White Blood Cell Count 23.5 10^3/uL (4.8-10.8)
--- NOTE | 2024-01-24 06:32 | PTCARENOTE ---
BP consistently 70s/50s despite increasing levo gtt, LANDSCAPE MANAGEMENT TECHNICIAN notified, vasopressin ordered. Hemoglobin 6.9, LANDSCAPE MANAGEMENT TECHNICIAN aware, type and screen sent, 1 unit PRBCs ordered.
[2024-01-24 06:40] LABS: Lactic Acid 1.5 mmol/L (0.7-2.0)
[2024-01-24 06:44] LABS: INR 1.42; PT 17.2 Sec (11.4-14.6)
[2024-01-24 06:45] LABS: ALT (SGPT) 26 U/L (0-50); APTT 43.8 Sec (23.4-35.0); AST (SGOT) 55 U/L (17-59); Albumin 2.1 g/dl (3.5-5.0); Alkaline Phosphatase 66 U/L (38-126); Blood Urea Nitrogen 41 mg/dl (9-20); Calcium 7.3 mg/dl (8.4-10.2); Carbon Dioxide 26 mmol/L (22-30); Chloride 103 mmol/L (98-107); Direct Bilirubin 0.3 mg/dl (0.0-0.4); Estimated Creatinine Clearance 91 ml/min; Glucose 128 mg/dl (70-99); Magnesium 1.7 mg/dl (1.6-2.3); Phosphorus 2.6 mg/dl (2.5-4.5); Potassium 3.3 mmol/L (3.5-5.1); Sodium 139 mmol/L (135-145); Total Bilirubin 0.6 mg/dl (0.2-1.3); Total Protein 4.5 g/dl (6.3-8.2); eGFR > 60.00
[2024-01-24] MEDS: DUONEB 3 ML INH ×4 (07:22→20:17)
--- NOTE | 2024-01-24 07:52 | PHA.VAN.IN ---
Assessment
- Assessment
Renal Function: Appears similar to baseline (SCR trending down 0.8-->0.6 vs 0.4-0.5 at baseline; BUN may be slightly elevated)
Concomitant Antimicrobials: piperacillin/tazobactam
Plan
- Plan
Initial / Loading Dose: 1000mg - 01/23 01:06
Maintenance Regimen: dosing by level - give 750mg x1 at 1800
Monitoring: random 01/24 600
MRSA Screen: Ordered per protocol
Patient unlikely to follow population-based PK
BMI < 20 and cancer --> may have increased vancomycin clearance compared to population-based PK calculations
However, BUN currently elevated in the 40's and may have decreased clearance
Will tentatively start with dosing by level to follow closely
Give 750mg x1 tonight at 1800 [Vanc 750mg Q12H predicts AUC 422, trough 10.9 using IBW for dosing weight and est CrCl ~91]
Pharmacokinetics Vancomycin I
- -
Patient Age: 53
Patient Sex: Male
Vancomycin Day #: 1
Indication: Pulmonary/Respiratory
Requesting Provider: Dr. Gomez
Pertinent Antimicrobial Allergies:
NKDA
Height / Weight:
Height 5 ft 7 in
Actual Weight 46.3 kg
IBW in k.1
Pertinent Past Medical History: BMI ~16, PEG, Squamous cell carcinoma (head & neck)
- Vital Signs / Lab Results
Temp Pulse Resp BP Pulse Ox
98.0 F 84 18 74/53 96
01/24/24 07:03 01/24/24 07:28 01/24/24 07:28 01/24/24 06:30 01/24/24 07:28
Lab Results - Hematology
01/23/24 01/24/24
22:44 06:05
WBC 22.1 H 23.5 H
Lab Results - Chemistry
01/23/24 01/23/24 01/24/24
22:44 22:58 00:21
BUN Cancelled 49 H
Creatinine Cancelled 0.8
Estimated Creat Clear Cancelled 66
Albumin Cancelled Cancelled 2.2 L
01/24/24
06:05
BUN 41 H
Creatinine 0.6 L
Estimated Creat Clear 91
Albumin 2.1 L
01/23/24 01/24/24 01/24/24
23:40 02:54 06:05
Lactic Acid 3.0 H 2.4 H 1.5
Microbiology Results
01/24/24 01:31 Influenza Types A & B (CHRYSTAL) - Final
Nasal Swab Negative for Influenza A & B, NAAT
Negative results must be combined with clinical observations
and patient history.
Nucleic Acid Amplification test (NAAT)performed on the
[employer] platform.
--- NOTE | 2024-01-24 07:54 | CON.ONC ---
Impression
Impression
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
# Septic shock, acute hypoxemic respiratory insufficiency
- Secondary to bilateral pneumonia
- COVID-negative
- Continue antibiotics (Zosyn/Vanco)
- Pt hypotensive, continue Levophed and taper as tolerated
- Blood culture pending
- Lactic acid downtrending, currently 1.5
- Wean oxygen as able
- Continue to monitor vitals
# Anemia
- Normocytic, likely in the setting of acute infection and chemotherapy
- Hemoglobin 6.9 today, transfuse 1 unit PRBC
- Monitor hemoglobins and transfuse if hemoglobin less than 7
# Hypokalemia
- Replete potassium as needed
# Squamous cell carcinoma of hypopharynx
- Outpatient follow-up with Dr. Lipscomb after discharge
Patient History
History of Present Illness
53-year-old male (BMI 16) with past medical history of metastatic squamous cell carcinoma of hypopharynx presenting with cough, chest pain, and progressive shortness of breath over the past few weeks. He is Dr. Lipscomb's patient and is currently on
chemotherapy, received Taxol and Gemzar on 01/08, Gemzar on 01/15, G-CSF on 01/15, and 1 unit PRBC on 01/16. Upon admission, patient had acute hypoxemic respiratory insufficiency and was in septic shock. Was started on antibiotics (Zosyn/Vanco) and
Levophed (currently on 4 mg). Chest x-ray is evident for bilateral pneumonia. COVID-19 and flu negative. Blood cultures pending.
Last PET/CT dated 11/13/2023 shows lymph node in suprahyoid region, bowel wall thickening suspicious for malignancy, and hepatic cysts.
Past-Medical/Surgical History
Past medical history:
SCC of hypopharynx diagnosed July 2020 with recurrence in 12/2022 and 08/2023
Metastatic lymph nodes in the neck
Past surgical history: PEG placement, tracheostomy
Former smoker and drinker
Patient Medication
�Medication �Instructions �Recorded �Confirmed �Last Taken �Type
acetaminophen 500 mg tablet 1,000 mg PO Q6H PRN pain 07/11/22 01/17/24 07/09/22 History
(Tylenol Extra Strength)
Active Medications
Generic Name Dose Route Start Last Admin
Trade Name Freq PRN Reason Stop Dose Admin
Acetaminophen 650 mg 01/24/24 02:20
Acetaminophen 325 Mg Tablet TUBE 02/21/24 02:19
Q4HPRN PRN
Mild Pain / Temp > 101
Albuterol Sulfate 2.5 mg 01/24/24 02:20
Albuterol Nebs 2.5 Mg/3 Ml Ampul INH
R Q4HPRN PRN
SOB
Protocol
Albuterol/Ipratropium 3 ml 01/24/24 08:00 01/24/24 07:22
Ipratropium 0.5/Albuterol 3 Mg (3 Ml Ampul) INH 3 ml
R QID SUKI Administration
Protocol
Norepinephrine Bitartrate 4 mg in 250 mls @ 0 mls/hr 01/24/24 00:30 01/24/24 06:30
Levophed IV 250 mls
PER PROTOCOL SUKI Administration
Protocol
Per Protocol
Norepinephrine Bitartrate 4 mg in 250 mls @ 0 mls/hr 01/24/24 02:20
Levophed IV
PER PROTOCOL SUKI
Protocol
Per Protocol
Vancomycin HCl 1 each/ Device 0 mls @ 0 mls/hr 01/24/24 02:20
IV
PER PROTOCOL SUKI
As Directed
Piperacillin Sod/Tazobactam Sod 4.5 gram in 100 mls @ 200 mls/hr 01/24/24 02:20 01/24/24 03:17
Zosyn IV 100 mls
Q6H SUKI Administration
Potassium Phosphate 20 meq/ 1,006.5455 mls @ 80 mls/hr 01/24/24 02:20 01/24/24 04:26
Magnesium Sulfate 1 grams/ IV 1,006.5455 mls
Sodium Chloride .[id number] SUKI Administration
Vasopressin 20 units in 100 mls @ 0 mls/hr 01/24/24 06:30
Pitressin IV
PER PROTOCOL SUKI
Protocol
Per Protocol
Ondansetron HCl 4 mg 01/24/24 02:20
Ondansetron 4 Mg/2 Ml Vial IV 02/21/24 02:19
Q6HPRN PRN
nausea and vomiting
Pantoprazole Sodium 40 mg 01/24/24 08:00
Pantoprazole Sodium 40 Mg/10 Ml Vial IV 02/21/24 07:59
DAILY SUKI
Polyethylene Glycol 17 grams 01/24/24 02:20
Polyethylene Glycol Powder 17 Grams Packet TUBE 02/21/24 02:19
DAILY PRN
Constipation
Sodium Chloride 0 flush 01/24/24 03:00
Sodium Chloride 0.9% (Flush) Syringe IV 02/21/24 02:59
PER PROTOCOL SUKI
Review of Systems
-
History Source: Patient
Constitutional: Reports Weakness
Respiratory: Reports Cough and Trouble Breathing
Cardiac: Reports No Symptoms
GI: Reports No Symptoms
: Reports No Symptoms
Neuro: Reports No Symptoms
Physical Exam
-
General: Appears Chronically Ill and Cachetic
Cardiology: Normal Sinus Rhythm, S1 and S2
Pulmonary: Rales (More significant on the right side)
GI: Soft and Normal Bowel Sounds
Musculoskeletal: No Clubbing, No Cyanosis and No Edema
Extremities: Pulses Present
Neurology: Other (Anisocoria, reactive to light )
Psych: Calm
Labs
Lab Results
WBC 23.5 10^3/uL (4.8-10.8) H 01/24/24 06:05
RBC 2.34 10^6/uL (4.70-6.10) L 01/24/24 06:05
Hgb 6.9 g/dL (13.0-18.0) L* 01/24/24 06:05
Hct 19.6 % (39.0-52.0) L* 01/24/24 06:05
MCV 83.8 fL (80.0-94.0) 01/24/24 06:05
MCH 29.5 pg (27.0-31.0) 01/24/24 06:05
MCHC 35.2 g/dL (33.0-37.0) 01/24/24 06:05
RDW 16.0 % (11.5-14.5) H 01/24/24 06:05
Plt Count 94 10^3/uL (130-400) L 01/24/24 06:05
MPV 12.3 fL (7.4-10.4) H 01/24/24 06:05
Abs Immat Gran (auto) 0.3 10^3/uL (0-0.05) H 01/23/24 22:44
Absolute Neuts (auto) 20.4 10^3/uL (1.4-6.5) H 01/23/24 22:44
Absolute Lymphs (auto) 0.3 10^3/uL (1.2-3.4) L 01/23/24 22:44
Absolute Monos (auto) 1.1 10^3/uL (0.1-0.6) H 01/23/24 22:44
Absolute Eos (auto) 0.0 10^3/uL (0-0.7) 01/23/24 22:44
Absolute Basos (auto) 0.0 10^3/uL (0-0.2) 01/23/24 22:44
Immature Gran % 1.2 % (0-0.5) H 01/23/24 22:44
Neutrophils % 92.4 % (42.2-75.2) H 01/23/24 22:44
Lymphocytes % 1.4 % (20.5-51.1) L 01/23/24 22:44
Monocytes % 4.9 % (1.7-9.3) 01/23/24 22:44
Eosinophils % 0.0 % (0-6) 01/23/24 22:44
Basophils % 0.1 % (0-2) 01/23/24 22:44
Creatinine 0.6 mg/dL (0.7-1.3) L 01/24/24 06:05
Vital Signs
Vital Signs
Temp Pulse Resp BP Pulse Ox
98.0 F 84 18 74/53 96
01/24/24 07:03 01/24/24 07:28 01/24/24 07:28 01/24/24 06:30 01/24/24 07:28
[2024-01-24] MEDS: PROTONIX IV 40 MG IV (08:04)
--- NOTE | 2024-01-24 08:08 | W.PN.HOSP.TC ---
Addendum entered and electronically signed by Nidia Tobar MD 01/24/24 17:11:
I saw and evaluated the patient independently. I reviewed the resident�s note and agree with findings and plan as documented by Dr. Herrera.
GENERAL: chronically ill appearing cachectic male in no apparent distress
HEENT: NC/AT on 12L O2 NC--'hot potato like' breathy voice
HEART: regular rate and rhythm, +S1, +S2
LUNGS : clear to auscultation bilaterally
ABDOM: soft, nontender, nondistended, + bowel sounds, + PEG tube
EXT: no cyanosis, clubbing, or edema
NEUROLOGIC: grossly intact
SKIN: wounds on top pinna of ear--has soft barrier on sacrum
septic shock -- due to Community acquired pneumonia with acute hypoxemic resp failure (requiring 12 L) and with pressor requirements and lactic acidosis--pt also immunocompromised due to recent chemotherapy and cancer--elevated WBC with CXR c/w
bilateral PNA (did receive G-CSF so WBC not entirely reliable)---Lactic acid 3.0 --> 2.4 --> 1.5--blood cultures positive for gm positive cocci in chains--apprec swimmer--consult ID--cont vanco/zosyn pending culture data--wean pressors as able
Normocytic anemia with Thrombocytopenia--Likely secondary to chemotherapy +/- acute infection and sepsis--no active blood loss--s/p 1 unit pRBC transfusion
Hypomagnesemia/Hypophosphatemia/Hypokalemia/Azotemia-- replete
Severe protein calorie malnutrition--IVF and start tube feeds--consult nutrition
Elevated troponin--likely due to non-ischemic myocardial injury from sepsis--trend-- EKG with nonspecific ST-T changes laterally
Squamous cell carcinoma of head/neck- Currently on chemo with taxol (01/08 last dose) and gemzar (01/15 last dose)- S/p GCSF 01/15--consult onc
Code status: DNR
DVT proph
Total Critical Care Time 33 minutes. I was immediately available to the patient and staff. I personally examined, reviewed labs, diagnostic images/reports, interpretations, treatment plans, discussed patient care with other providers and family
or caregivers (if patient is unable to make decisions), entered orders as appropriate and documented the medical record.
Original Note:
Today's Communication/Plan
-
transfuse 1u pRBC, trend H&H and troponin, follow blood cultures and continue antibiotics
consults: swimmer, oncology, infectious diseases, nutrition, wound care
Assessment / Plan
Assessment / Plan
53yo M with [facility] H/[facility] currently on chemotherapy who presented to ED 01/23/24 for >1 week of worsening shortness of breath, productive cough. Of note patient has PEG tube for nutrition and notes occasional aspiration while swishing water in mouth.
In ED, patient was found to have tachycardia, hypotension, leukocytosis, and CXR showing pneumonia. He was admitted to ICU and started on vanc/zosyn and pressors.
Community acquired pneumonia
Acute hypoxemic respiratory insufficiency
Septic shock present on admission secondary to pneumonia
Lactic acidosis present on admission
Immunocompromised status secondary to chemotherapy
- Presented with tachycardia, hypotension, leukocytosis, and CXR showing pneumonia.
- WBC 22.1 on admission --> 23.5 today. Infection and GCSF 10/29 likely contributing to leukocytosis.
- Lactic acid 3.0 --> 2.4 --> 1.5
- Remains afebrile.
- COVID, flu negative. Blood cultures pending.
- Contiue vanc/zosyn and adjust as needed based on culture data.
- Continue IVF, pressor support, antipyritics, nebs, O2 etc
Now on levophed 20mg/min, O2 12L via NC. Wean pressors/O2 as tolerated.
- Concession Attendant consult and infectious disease consult, appreciate recommendations
- Continue to trend daily cbc, monitor temperature curve, clinical improvement
- NPO, aspiration precautions
Normocytic anemia
Thrombocytopenia
- Likely secondary to chemotherapy +/- acute infection and sepsis
- S/p pRBC 01/16
- Hgb 8.5 on admission --> 6.9 this AM
- Blood consent signed this admission, on chart.
- Transfuse 1u pRBC this AM
- No signs/symptoms acute or active bleeding
- Follow H&H
Hypomagnesemia
Hypophosphatemia
Hypokalemia
Azotemia
Severe protein calorie malnutrition
- Continue IVF support with electrolyte supplementation to correct deficits
- Repeat BMP, mag, phos this afternoon and continue to trend daily
- Nutrition consult ordered, resume tube feeds when able
Elevated troponin
- Troponin 0.017 on admission --> continue to trend, repeat troponin pending
- EKG with nonspecific ST-T changes laterally
- Not reporting any chest pain or discomfort this AM
Squamous cell carcinoma of head/neck
- Currently on chemo with taxol (01/08 last dose) and gemzar (01/15 last dose)
- S/p GCSF 01/15
- Not due for chemotherapy this week
- Oncology consulted for recommendations
Code status: DNR
VTE ppx: SCDs
Diet: NPO, nutrition via PEG tube
Dispo planning: TBD
Anticipated Discharge: > 48 hours
Subjective/Interval History
-
Date of Service: January 24, 2024
Admitted overnight to ICU, on pressors 20mg levo/min, his oxygen requirements have increased now on NC 12L. Says shortness of breath and trouble breathing is sightly improved compared to when he presented to ED. Denies lightheadedness, dizziness,
headache, chest pain, nausea, vomiting, diarrhea. +Constipation, last BM 1 week ago. NPO, +PEG tube.
Objective Data
-
Labs:
Laboratory Results
01/23/24 01/23/2401/23/24
22:44 22:58 00:21
WBC 22.1 H
Hgb 8.5 L
Hct 24.9 L
Plt Count 101 L
PT
INR
APTT
Sodium Cancelled 137
Potassium Cancelled 3.5
Chloride Cancelled 94 L
Carbon Dioxide Cancelled 32 H
BUN Cancelled 49 H
Creatinine Cancelled 0.8
Glucose Cancelled 137 H
Calcium Cancelled 7.4 L
Total Bilirubin Cancelled Cancelled 0.5
AST Cancelled Cancelled 50
ALT Cancelled Cancelled 25
Alkaline Phosphatase Cancelled Cancelled 63
01/24/24 01/24/24 01/24/24
06:05 10:00 16:00
WBC 23.5 H
Hgb 6.9 L* Pending Pending
Hct 19.6 L* Pending Pending
Plt Count 94 L
PT 17.2 H
INR 1.42
APTT 43.8 H
Sodium 139
Potassium 3.3 L
Chloride 103
Carbon Dioxide 26
BUN 41 H
Creatinine 0.6 L
Glucose 128 H
Calcium 7.3 L
Total Bilirubin 0.6
AST 55
ALT 26
Alkaline Phosphatase 66
01/24/24
22:00
WBC
Hgb Pending
Hct Pending
Plt Count
PT
INR
APTT
Sodium
Potassium
Chloride
Carbon Dioxide
BUN
Creatinine
Glucose
Calcium
Total Bilirubin
AST
ALT
Alkaline Phosphatase
Vital Signs:
Vital Signs
Temp Pulse Resp BP Pulse Ox
98.0 F 84 18 74/53 96
01/24/24 07:03 01/24/24 07:28 01/24/24 07:28 01/24/24 06:30 01/24/24 07:28
I&O
01/23/24 01/24/24 01/25/24
06:59 06:59 06:59
Intake Total 1475 / 1475
Output Total 325 / 325
Balance 1150 / 1150
Review of Systems
-
History Source: Patient
All other systems: Reviewed and negative
Physical Exam
-
General: Respiratory Distress (increased work of breathing), Appears Chronically Ill, Cachectic and Other (hoarse voice); Negative Pain
HEENT: Normocephalic, Atraumatic and Oxygen (NC @ 12L)
Respiratory: Clear to Auscultation; Negative Wheezes or Crackles
Cardiac: Regular Rhythm and S1/S2
GI: Soft, Nontender, Nondistended and Normal Bowel Sounds
Musculoskeletal: No Edema
Skin: Warm, Dry and IV Access / Catheter Site (chemo port R chest wall nonerythematous)
Neuro: Awake, Alert, Oriented and AO x 3
Psych: Calm and Intact Judgement/Insight
Data Reviewed
-
Diagnostic Radiology: Image personally visualized and interpreted and Report Reviewed by me
Labs: Labs Reviewed by me, Discussed with Physician and Discussed with Nurse
--- NOTE | 2024-01-24 08:46 | CON.INTV ---
Consultation
Consultation Request
Date/Time Consultation Requested: 01/24/2024
Date/Time Consultation Performed: 01/24/2024
Requesting Provider: Dr. Gomez
Performing Provider: Dr. Ivan Frias
Reason for Consultation: Septic shock/bilateral pneumonia
Medical History
-
History of Present Illness:
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
breath over several weeks. Patient currently on chemotherapy to receive last round on 01/09/2024, also received G-CSF on 01/16/2024 as well as 1 unit of packed red blood cells.
Patient found to be hypoxemic, hypotensive, not responsive to IV fluids. Necessitating vasopressors.
He was immediately started on broad-spectrum antibiotics per
Chest x-ray consistent with bilateral pneumonia.
Patient has a PEG tube in place. Usually does not eat through the mouth.
Patient able to clear phlegm. Denies hemoptysis.
Denies chest pain at this point.
Past Medical History
Past Medical History: Other (See assessment and plan findings)
Social History
Tobacco: Former Smoker
Alcohol: Former
Drug: None
Family History
Family History: Reviewed & Not Pertinent
Allergies / Home Medications
Allergies
Allergy/AdvReac Type Severity Reaction Status Date / Time
No Known Allergies Allergy Verified 01/23/24 22:05
Home Medications
�Medication �Instructions �Recorded �Confirmed �Last Taken �Type
acetaminophen 500 mg tablet 1,000 mg PO Q6H PRN pain 07/11/22 01/17/24 07/09/22 History
(Tylenol Extra Strength)
Review of Systems
-
History Source: Patient
All other systems: Negative unless noted
Vitals / Labs / Diagnostic Testing
Vital Signs
Temp Pulse Resp BP Pulse Ox
98.0 F 87 16 87/57 93
01/24/24 07:03 01/24/24 08:15 01/24/24 08:15 01/24/24 08:00 01/24/24 08:15
Lab Data
01/24/24 06:05
Laboratory Results
01/24/24
06:05
PT 17.2 H
INR 1.42
APTT 43.8 H
Microbiology
01/24/24 01:31 Nasal Swab Influenza Types A & B (CHRYSTAL) - Final
Negative for Influenza A & B, NAAT
Negative results must be combined with clinical observations
and patient history.
Nucleic Acid Amplification test (NAAT)performed on the
[employer] platform.
Diagnostic Testing:
Physical Exam
-
HEENT: Normocephalic
Cardiovascular: S1/S2
Respiratory: Rales
GI: Soft, Non Distended and Other (PEG tube is in place)
Neurology: Awake, Alert, AO x 3 and No Motor Deficits
Skin: Warm and Other (Pale)
General: Other ( cachectic)
Assessment
-
Septic shock due to bilateral pneumonia-cannot rule out aspiration per
Chest x-ray bilateral infiltrates right greater than left
Mild hypoxemic respiratory sufficiency failure-on nasal cannula
Immunosuppression: Ongoing chemotherapy last around 01/09/2024
Acute on chronic anemia-likely due to chemotherapy-pulmonary and chronic
Status post 1 unit of packed red blood cells 01/17/2020
History of metastatic head and neck cancer
Cachectic-protein caloric malnutrition
-
Conditions present prior admission:
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
Follows up with [facility] -last chemotherapy 01/09/2024
Anemia-of chronic disease
PEG tube in place
Prior tracheotomy status post decannulation
Former smoker
Former alcohol use known since 2019
Assessment and plan:
Patient is critically ill requiring vasopressors due to septic shock.
Chest x-ray significantly abnormal-with bilateral infiltrates right greater than left
Cannot rule out aspiration
-
Patient is significantly immunosuppressed-high risk situation.
Follow fever curve and leukocytosis-currently afebrile
Continue IV broad-spectrum antibiotic
Sputum culture/blood cultures sent and pending.
Currently able to handle secretions, strong cough effort.
-
Septic shock:
Continue Levophed to maintain mean arterial blood pressure greater than 65 mmHg.
Will add vasopressin next if necessary.
Lactic acid has cleared
Renal function is normal
M[facility]uel urinary output
No further aggressive IV fluid resuscitation required
-
Patient does have history of emphysema on CAT scan.
Continue nebulizer for secretion clearance
No indication for systemic corticosteroid
Currently not bronchospastic
-
Follow hemoglobin-to get transfused today
No evidence for bleeding
-
DVT prophylaxis SCDs
Tube feedings as able
-
Critical care statement: A total of 38 minutes of critical care time was provided for this patient today. This includes management of unstable vital signs, evaluation of the patient at bedside, reviewing the patient's pertinent medical records
including radiographs, microbiology, laboratory evaluations and discussion with primary team, critical care nursing, and respiratory therapy.
--- NOTE | 2024-01-24 09:43 | CON.ID ---
Addendum entered and electronically signed by Dione Faulkner MD 01/24/24 14:13:
blood cultures x2 gpcs in chains
stopped doxycycline
zosyn switched to unasyn
Original Note:
Consultation
-
Date/Time Consultation Requested: 01/24/24 9:38
Date/Time Consultation Performed: 01/24/24 9:43
Requesting Provider: Dr Herrera
Performing Provider: Dr Faulkner
Reason for Consultation: septic shock due to pneumonia
Chief Complaint / Past History
Chief Complaint
shortness of breath, weakness
History of Present Illness
Mr Daily is a 53 year old male with history of SCC of head an neck with second recurrence on Taxol and Gemzar on 01/08, Gemzar on 01/15, G-CSF on 01/15, and 1 unit PRBC on 01/16. Patient is not very specific on my evaluations. Reports 'a few
weeks' of cough, shortness of breath and fatigue but isnt certain its that different that his baseline - reporting long standing cough and dyspnea. Then over the last week symptoms markedly progressed to the point that the evening before arrival he
felt severely short of breath. Cough is mostly nonproductive but occasionally with thick, yellow mucous with streaks of blood. Also having chest pressure/pain with activity/exertion. He is fed through his PEG tube and reports that with swishing
water in his mouth he occasionally aspirates.
Since arrival here he has been afebrile, bp unstable requiring pressors currently on norepi at 18 mcg/min down slightly from max of 20, wbc on arrival 22 now 23.5, hgb initially 8.5 now 6.9 and being trended, plt 101,L shift is noted, cr 0.6, lactic
acid 1.5, t bili 0.6, ast 55, alt 26, alk phos 66, covid ag neg, influenza neg, CXR bilateral diffuse infiltrates, mrsa pcr in progress, lactic acid initially 2.4 now 1.5, blood cultures x2 in progress, sputum culture not yet ordered, sputum from 3
years ago with PSA, qtc 448.
Past History
Additional Past Medical History:
Squamous Cell Carcinoma of the Head and Neck
- Initially diagnosed 07/2020
- Recurrence 12/2022
- Recurrence 08/2023
Cachexia
Chronic anemia
Former smoker
Former ETOH abuse
Additional Past Surgical History:
port
Tracheostomy / Removal
PEG Placement
Multiple Biopsies (no debulking / excisions)
Allergy History:
No Known Allergies Allergy (Verified 01/23/24 22:05)
Medications Reviewed: Yes
Social History
Tobacco: Former Smoker
Alcohol: Former (EtOH use disorder)
Drug: None
Family History
Family History: Not Pertinent
Review of Systems
Review of Systems
General: Negative Fever or Chills
All systems: All other systems were reviewed and were negative
Vital Signs
Temp Pulse Resp BP Pulse Ox
97.6 F 87 26 91/56 93
01/24/24 09:24 01/24/24 09:24 01/24/24 09:24 01/24/24 09:24 01/24/24 08:15
Physical Exam
Physical Exam
Constitutional: No Acute Distress, Chronically Ill and Cachetic
Cardiovascular: Regular Rate and S1/S2; Negative Murmur or Rub
Pulmonary: Clear and Symmetric; Negative Wheezes, Rales or Rhonchi
Gastrointestinal: Soft, Non Tender, Non Distended and Normal Bowel Sounds
Skin: Warm and Dry; Negative Rash or Jaundice
Lines: Other (PEG site clean, dry, no erythema)
Lab / Diagnostic Study Results
Abs Immat Gran (auto) 0.3 10^3/uL (0-0.05) H 01/23/24 22:44
Absolute Neuts (auto) 20.4 10^3/uL (1.4-6.5) H 01/23/24 22:44
Absolute Lymphs (auto) 0.3 10^3/uL (1.2-3.4) L 01/23/24 22:44
Absolute Monos (auto) 1.1 10^3/uL (0.1-0.6) H 01/23/24 22:44
Absolute Basos (auto) 0.0 10^3/uL (0-0.2) 01/23/24 22:44
Immature Gran % 1.2 % (0-0.5) H 01/23/24 22:44
Neutrophils % 92.4 % (42.2-75.2) H 01/23/24 22:44
Lymphocytes % 1.4 % (20.5-51.1) L 01/23/24 22:44
Monocytes % 4.9 % (1.7-9.3) 01/23/24 22:44
Eosinophils % 0.0 % (0-6) 01/23/24 22:44
Basophils % 0.1 % (0-2) 01/23/24 22:44
PT 17.2 Sec (11.4-14.6) H 01/24/24 06:05
INR 1.42 01/24/24 06:05
Lactic Acid 1.5 mmol/L (0.7-2.0) 01/24/24 06:05
Microbiology Results
Micro:
01/24/24 09:03 Nasal Screen MRSA (PCR) - Pending
Nose
01/24/24 01:31 Influenza Types A & B (CHRYSTAL) - Final
Nasal Swab Negative for Influenza A & B, NAAT
Negative results must be combined with clinical observations
and patient history.
Nucleic Acid Amplification test (NAAT)performed on the
[employer] platform.
01/24/24 00:12 Blood Culture - Pending
Blood/Venous
01/23/24 23:40 Blood Culture - Pending
Blood/Venous
Assessment / Plan
Acute vs Subacute Pneumonia in Immunosuppressed host, possible aspiration
SCC of head and neck
Chemotherapy: Taxol and Gemzar; also gcsf
S/p PEG and port placement
- sputum culture if able to obtain one
- blood cultures x2 in progress
- mrsa screen pending
- covid and influenza negative
- s pneumo and legionella urine ags
- will consider further workup pending the above and clinical course
- remains on pressors however lactic acidosis did clear
- continue zosyn
- add doxycycline
- continue vancomycin pending MRSA PCR - if negative can stop
- follow clinically
--- NOTE | 2024-01-24 10:11 | PTCARENOTE ---
transfusing 1U PRBC, pt tolerating well. Levo gtt titrated to 18mcg. updates with landfill gas collection operator and hospitalist at bedside. infectious disease currently at bedside. pt updated on POC. cb in reach
[2024-01-24] MEDS: KCL ELIXIR 40 MEQ TUBE (12:51)
[2024-01-24] MEDS: VIBRAMYCIN 100 MG TUBE (13:04)
--- NOTE | 2024-01-24 13:39 | CM ---
Addendum entered by Maddi Mata 01/24/24 13:52:
CM spoke with Eitan Ramsey from [facility] and she indicated that patient has been coming in to the center several times a week and has had difficulty with maintaining his weight recently. Patient did have a brief conversation with Roxy about next
steps in the last several weeks and he indicated at that time he was not ready for hospice. Roxy will come to see him shortly and would be open to being involved in supports for patient. CM will update physician.
Original Note:
Patient seen at bedside with physicians. Patient with difficulty speaking, requested CM call to Roxy Elias, Front End Developer [employer] with [facility]. left for Roxy cell phone [phone]. Patient stated that his 2 daughters Farzaneh and Sofia lived with
him in a 2 story home. Patient currently on O2 but stated he does not have any at home. Patient PCP is Dr. Stallworth and he uses the [facility] on [address]. Patient stated that he did not know provider of TPN but daughter Sofia would. CM will reach out to family
and continue to follow for discharge planning needs.
Plan; home with VN; follow up pending treatment plan
--- NOTE | 2024-01-24 14:15 | WOUNDNOTE ---
WOC RN NOTE: Patient with scabbed ears and abrasions addressed by nursing. TT resident and consult cancelled. Will sign off.
[2024-01-24 14:57] LABS: Hematocrit 25.7 % (39.0-52.0); Hemoglobin 9.1 g/dL (13.0-18.0)
[2024-01-24 15:09] LABS: Troponin I 0.021 ng/ml
[2024-01-24 15:26] LABS: Blood Urea Nitrogen 36 mg/dl (9-20); Calcium 7.6 mg/dl (8.4-10.2); Carbon Dioxide 26 mmol/L (22-30); Chloride 103 mmol/L (98-107); Estimated Creatinine Clearance 91 ml/min; Glucose 126 mg/dl (70-99); Magnesium 1.9 mg/dl (1.6-2.3); Phosphorus 3.1 mg/dl (2.5-4.5); Potassium 3.8 mmol/L (3.5-5.1); Sodium 138 mmol/L (135-145); eGFR > 60.00
[2024-01-24] MEDS: UNASYN IV ×2 (16:25→21:21)
[2024-01-24] MEDS: POTASSIUM PHOSPHATE IV ×2 (16:52)
[2024-01-24] MEDS: LR 1000 IV (16:52)
--- NOTE | 2024-01-24 17:01 | PTCARENOTE ---
pt titrated to 5mcg of levo MAP 75. IV ABT infusing. HGB and electrolytes improved. family at bedside, CB in reach, no change in assessment
[2024-01-24 21:37] LABS: Hemoglobin 8.4 g/dL (13.0-18.0)
--- NOTE | 2024-01-24 21:47 | PTCARENOTE ---
Received patient AAOx3, following commands, denying pain, hoarse/garbled speech. Normal sinus, 80s-90s, BP 80s/60s to maintain MAP>65. Normothermic, palpable radial and pedal pulses b/l. On 3 liters midflow, lung sounds diminished throughout,
inspiratory and expiratory wheeze noted. Strong, productive cough with thick, yellow mucus. PEG tube with jevity 1.5 going through it at 20 ml/hr with 25 ml/hr flush. Hyperactive bowel sounds. Urinal to void. Breakdown on ears and blanchable red
sacrum covered with foams. Foams on heels and hips b/l. Levo gtt ongoing per protocol, IVF ongoing per protocol. Call martinez within reach.
[2024-01-25] VITALS (49 sets, daily range): BP systolic 71–116; BP diastolic 45–84; PULSE 96–103; O2SAT 98; BMI 16.9
--- NOTE | 2024-01-25 00:33 | PTCARENOTE ---
Weaning oxygen and levo gtt as tolerated. Otherwise patient assessment unchanged from previous.
[2024-01-25] MEDS: LEVOPHED 250 IV (03:35)
[2024-01-25] MEDS: UNASYN IV ×4 (03:36→23:40)
[2024-01-25 04:17] LABS: Hematocrit 23.4 % (39.0-52.0); Hemoglobin 8.1 g/dL (13.0-18.0)
[2024-01-25 04:29] LABS: Hematocrit 23.4 % (39.0-52.0); Hemoglobin 8.2 g/dL (13.0-18.0); Mean Corpuscular Hgb 28.7 pg (27.0-31.0); Mean Corpuscular Volume 81.8 fL (80.0-94.0); Mean Platelet Volume 12.6 fL (7.4-10.4); Platelet Count 93 10^3/uL (130-400); Red Blood Cell Count 2.86 10^6/uL (4.70-6.10); Red Cell Dist. Width 16.5 % (11.5-14.5); White Blood Cell Count 25.4 10^3/uL (4.8-10.8)
[2024-01-25 04:39] LABS: ALT (SGPT) 27 U/L (0-50); AST (SGOT) 53 U/L (17-59); Alkaline Phosphatase 80 U/L (38-126); Blood Urea Nitrogen 25 mg/dl (9-20); Calcium 7.9 mg/dl (8.4-10.2); Carbon Dioxide 29 mmol/L (22-30); Chloride 101 mmol/L (98-107); Estimated Creatinine Clearance 91 ml/min; Glucose 89 mg/dl (70-99); Magnesium 1.6 mg/dl (1.6-2.3); Phosphorus 2.1 mg/dl (2.5-4.5); Potassium 2.9 mmol/L (3.5-5.1); Sodium 140 mmol/L (135-145); Total Bilirubin 0.5 mg/dl (0.2-1.3); Total Protein 4.4 g/dl (6.3-8.2); eGFR > 60.00
[2024-01-25] MEDS: LR 1000 IV (05:27)
[2024-01-25] MEDS: KCL ELIXIR 40 MEQ TUBE ×2 (05:27→14:10)
--- NOTE | 2024-01-25 05:37 | PTCARENOTE ---
Potassium repleted, TF advanced 10 ml/hr per order. Patient wants to get washed up later in the morning. Otherwise patient assessment unchanged from previous.
[2024-01-25] MEDS: POTASSIUM PHOSPHATE 259.0909 MEQ IV (05:38)
[2024-01-25] MEDS: DUONEB 3 ML INH ×4 (07:27→21:33)
[2024-01-25] MEDS: PROTONIX IV 40 MG IV (07:45)
--- NOTE | 2024-01-25 08:00 | W.PN.ID1 ---
Date of Service
Date of Service: January 25, 2024
Today's Communication
- continue unasyn
- restart vancomycin for now - if sputum isolate is confirmed MSSA then will stop
- consider port removal when consistently off of pressors
Assessment / Plan
Acute vs Subacute Pneumonia in Immunosuppressed host, possible aspiration
SCC of head and neck
Chemotherapy: Taxol and Gemzar; also gcsf
S/p PEG and port placement
- sputum culture with many presumptive s aureus
- blood cultures x2 obtained about 1 hour apart both with GPCS in chains
- repeat blood cultures x2 in the am
- mrsa screen negative
- s pneumo urine ags - positive
- now on a minimal dose of pressors
- on stress dose steroids with increasing leukocytosis
- continue unasyn
- restart vancomycin for now - if sputum isolate is confirmed MSSA then will stop
- would consider port removal when feasible - perhaps when off of pressors
- follow clinically
Chief Complaint
-: Bacteremia
Subjective / Review of Systems
afebrile
bp stable
strong productive cough noted
Vital Signs / Physical Exam
Vital Signs
Vital Signs
Temp Pulse Resp BP Pulse Ox
98.0 F 90 12 78/60 97
01/25/24 07:53 01/25/24 07:29 01/25/24 07:29 01/25/24 06:30 01/25/24 07:29
Physical Exam
Constitutional: Acutely Ill and Chronically Ill
Cardiovascular: Regular Rate and S1/S2; Negative Murmur or Rub
Pulmonary: Clear and Symmetric; Negative Wheezes or Rales
Gastrointestinal: Soft, Non Tender, Non Distended and Normal Bowel Sounds
Skin: Warm and Dry; Negative Rash or Jaundice
Lines: Port
Objective Data
Lab Data
Lab Results
01/25/24 03:49
01/25/24 03:49
PT 17.2 Sec (11.4-14.6) H 01/24/24 06:05
INR 1.42 01/24/24 06:05
APTT 43.8 Sec (23.4-35.0) H 01/24/24 06:05
Estimated Creat Clear 91 ml/min 01/25/24 03:49
Lactic Acid 1.5 mmol/L (0.7-2.0) 01/24/24 06:05
Total Bilirubin 0.5 mg/dl (0.2-1.3) 01/25/24 03:49
AST 53 U/L (17-59) 01/25/24 03:49
ALT 27 U/L (0-50) 01/25/24 03:49
Alkaline Phosphatase 80 U/L (38-126) 01/25/24 03:49
Most recent labs reviewed.
Micro Results:
01/24/24 16:50 Legionella Urinary Antigen - Final
Urine Negative for Legionella pneumophila Serogroup 1 antigen.
A negative result does not rule out the possiblity of
Legionella infection due to other serogroups or species of
Legionella. Clinical correlation is recommended.
Streptococcus pneumoniae Antigen (M - Final
Positive for Strep pneumo Ag
01/24/24 12:32 Respiratory Culture - Pending
Sputum Gram Stain - Preliminary
01/23/24 23:40 Blood Culture - Preliminary
Blood/Venous Positive culture in progress
Gram Stain - Final
01/24/24 00:12 Blood Culture - Preliminary
Blood/Venous Positive culture in progress
Gram Stain - Final
01/24/24 09:03 Nasal Screen MRSA (PCR) - Final
Nose MRSA not detected - performed by PCR methodology.
01/24/24 01:31 Influenza Types A & B (CHRYSTAL) - Final
Nasal Swab Negative for Influenza A & B, NAAT
Negative results must be combined with clinical observations
and patient history.
Nucleic Acid Amplification test (NAAT)performed on the
[employer] platform.
[2024-01-25 08:26] LABS: % Basophils 0.1 % (0-2); % Immature Granulocytes 2.2 % (0-0.5); % Lymphocytes 3.6 % (20.5-51.1); % Monocytes 1.6 % (1.7-9.3); % Neutrophils 92.5 % (42.2-75.2); Absolute Immature Granulocytes 0.6 10^3/uL (0-0.05); Absolute Lymphocytes 0.9 10^3/uL (1.2-3.4); Absolute Monocytes 0.4 10^3/uL (0.1-0.6); Absolute Neutrophils 23.5 10^3/uL (1.4-6.5); Nucleated Red Blood Cells % 0.3 % (-)
--- NOTE | 2024-01-25 09:16 | W.PN.HOSP.TC ---
Addendum entered and electronically signed by Nidia Tobar MD 01/25/24 19:51:
I saw and evaluated the patient independently. I reviewed the resident�s note and agree with findings and plan as documented by Dr. Herrera.
GENERAL: chronically ill appearing cachectic male in no apparent distress
HEENT: NC/AT on 2L O2 NC--'hot potato like' breathy voice
HEART: regular rate and rhythm, +S1, +S2
LUNGS : clear to auscultation bilaterally
ABDOM: soft, nontender, nondistended, + bowel sounds, + PEG tube
EXT: no cyanosis, clubbing, or edema
NEUROLOGIC: grossly intact
SKIN: wounds on top pinna of ear--has soft barrier on sacrum
septic shock -- due to Community acquired pneumonia with acute hypoxemic resp failure (requiring 12 L down to 2L) and with pressor requirements and lactic acidosis--pt also immunocompromised due to recent chemotherapy and cancer--elevated WBC with
CXR c/w bilateral PNA (did receive G-CSF so WBC not entirely reliable)---Lactic acid 3.0 --> 2.4 --> 1.5--blood cultures positive for gm positive cocci in chains, still await Identification--urine strep antigen positive, resp culture appears
contaminated BUT testing positive for Staph--apprec plate roller/ID--cont vanco/unasyn --wean pressors as able--pt gets premedicated with steroids prior to chemo, will add stress dose steroids in effort to wean pressors
Normocytic anemia with Thrombocytopenia--Likely secondary to chemotherapy +/- acute infection and sepsis--no active blood loss--s/p 1 unit pRBC transfusion
Hypomagnesemia/Hypophosphatemia/Hypokalemia/Azotemia-- replete
Severe protein calorie malnutrition--IVF and start tube feeds--apprec nutrition
Elevated troponin--likely due to non-ischemic myocardial injury from sepsis--trend-- EKG with nonspecific ST-T changes laterally
Squamous cell carcinoma of head/neck- Currently on chemo with taxol (01/08 last dose) and gemzar (01/15 last dose)- S/p GCSF 01/15--apprec onc
Code status: DNR
DVT proph
Total Critical Care Time 31 minutes. I was immediately available to the patient and staff. I personally examined, reviewed labs, diagnostic images/reports, interpretations, treatment plans, discussed patient care with other providers and family
or caregivers (if patient is unable to make decisions), entered orders as appropriate and documented the medical record.
Original Note:
Today's Communication/Plan
-
continue antibiotics per ID, wean pressors per plate roller, SW from cancer center planning to visit today
Assessment / Plan
Assessment / Plan
53yo M with [facility] currently on chemotherapy who presented to ED 01/23/24 for >1 week of worsening shortness of breath, productive cough. Of note patient has PEG tube for nutrition and notes occasional aspiration while swishing water in mouth.
In ED, patient was found to have tachycardia, hypotension, leukocytosis, and CXR showing pneumonia. He was admitted to ICU and started on vanc/zosyn and pressors.
Community acquired pneumonia
Acute hypoxemic respiratory failure (required 12L)
Septic shock present on admission secondary to pneumonia
Lactic acidosis present on admission
Immunocompromised status secondary to chemotherapy
- Presented with tachycardia, hypotension, leukocytosis, and CXR showing pneumonia.
- WBC 22.1 on admission --> 25.4 today. Infection and GCSF 01/15 likely contributing to leukocytosis.
- Lactic acid 3.0 --> 2.4 --> 1.5.
- Remains afebrile.
- COVID, flu negative. Final blood cultures pending, prelim: gram pos cocci in chains. Urine +Strep pneumo Ag.
- ID following, appreciate recs. Continue vanc/unasyn
- Continue IVF, pressor support, antipyritics, nebs, O2 etc
Now on levophed 2mg/min, O2 2L via NC. Wean pressors/O2 as tolerated per plate roller
- Continue to trend daily cbc, monitor temperature curve, clinical improvement
- NPO, aspiration precautions
Normocytic anemia
Thrombocytopenia
- Likely secondary to chemotherapy +/- acute infection and sepsis
- S/p pRBC 01/16 --> hgb 8.5 on admission
- S/p 1u pRBC / after hgb 6.9 --> followed by appropriate rise to 9.1
- Most recent hgb 8.1, stable after transfusion
- Blood consent signed this admission, on chart.
- No signs/symptoms acute or active bleeding
- Follow H&H
Hypomagnesemia
Hypophosphatemia
Hypokalemia
Azotemia
Severe protein calorie malnutrition
- Continue IVF support with electrolyte supplementation to correct deficits
- Nutrition consult ordered, continue tube feeds as tolerated
- Continue to trend labs
Elevated troponin secondary to nonischemic myocardial injury
- Troponin 0.017 on admission --> 0.021 overall stable
- EKG with nonspecific ST-T changes laterally
- Not reporting any chest pain or discomfort
Squamous cell carcinoma of head/neck
- Currently on chemo with taxol (01/08 last dose) and gemzar (01/15 last dose); not due for chemotherapy this week
- Oncology consulted, appreciate recs.
- Will discuss with outpatient oncologist and consider initiating stress dose steroids if appropriate
- SW from cancer center planning to visit today
Code status: DNR
VTE ppx: SCDs
Diet: NPO, nutrition via PEG tube
Dispo planning: TBD
Anticipated Discharge: > 48 hours
Subjective/Interval History
-
Date of Service: January 25, 2024
No acute events overnight. Levophed now at 2, O2 now at 2L. Denies lightheadedness, dizziness, chest pain, shortness of breath, nausea, vomiting, diarrhea. Feeding via PEG tube. Not ambulatory yet.
Objective Data
-
Labs:
Laboratory Results
01/24/24 01/24/24 01/25/24
16:00 21:28 03:49
WBC 25.4 H
Hgb Cancelled 8.4 L 8.2 L
Hct Cancelled 24.0 L
Plt Count
Sodium
Potassium
Chloride
Carbon Dioxide
BUN
Creatinine
Glucose
Calcium
Total Bilirubin
AST
ALT
Alkaline Phosphatase
01/25/24 01/25/24
03:49 03:49
WBC
Hgb 8.1 L
Hct 23.4 L 23.4 L
Plt Count 93 L
Sodium 140
Potassium 2.9 L
Chloride 101
Carbon Dioxide 29
BUN 25 H
Creatinine 0.4 L
Glucose 89
Calcium 7.9 L
Total Bilirubin 0.5
AST 53
ALT 27
Alkaline Phosphatase 80
Vital Signs:
Vital Signs
Temp Pulse Resp BP Pulse Ox
98.0 F 90 12 78/60 95
01/25/24 07:53 01/25/24 07:29 01/25/24 07:29 01/25/24 06:30 01/25/24 08:01
I&O
01/24/24 01/25/24 01/26/24
06:59 06:59 06:59
Intake Total 1475 / 1622.5 4010.7 / 4094.5 197.6 / 197.6
Output Total 325 / 325 1600 / 1900 300 / 300
Balance 1150 / 1297.5 2410.7 / 2194.5 -102.4 / -102.4
Review of Systems
-
History Source: Patient
All other systems: Reviewed and negative
Physical Exam
-
General: Respiratory Distress (increased work of breathing), Appears Chronically Ill, Cachectic and Other (hoarse voice); Negative Pain
HEENT: Normocephalic, Atraumatic and Oxygen (NC @ 2L)
Respiratory: Clear to Auscultation; Negative Wheezes or Crackles
Cardiac: Regular Rhythm and S1/S2
GI: Soft, Nontender, Nondistended, Normal Bowel Sounds and Peg Tube
Musculoskeletal: No Edema
Skin: Warm, Dry and IV Access / Catheter Site (chemo port R chest wall nonerythematous)
Neuro: Awake, Alert, Oriented and AO x 3
Psych: Calm and Intact Judgement/Insight
Data Reviewed
-
Diagnostic Radiology: Image personally visualized and interpreted and Report Reviewed by me
Labs: Labs Reviewed by me, Discussed with Physician and Discussed with Nurse
--- NOTE | 2024-01-25 10:24 | W.PN.ONC2 ---
Today's Communication / Plan
-
daily CBC
abx per ID
Impression
Impression
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
# Septic shock, acute hypoxemic respiratory insufficiency
- Secondary to bilateral pneumonia on IV abx & pressors
# Anemia
- Normocytic, likely in the setting of acute infection and chemotherapy
- Monitor hemoglobins and transfuse if hemoglobin less than 7
# Squamous cell carcinoma of hypopharynx
-Taxol [place] + PEG-filgastrim growth factor (C#2 01/08 & 01/15) - to resume upon recover from PNA
- Outpatient follow-up with Dr. Lipscomb after discharge
Subjective/Objective
Subjective
hypotensive on pressor, 2L midflow NC
daugher at bedside during visit, questions answered
Vital Signs:
Vital Signs
Temp Pulse Resp BP Pulse Ox
98.0 F 90 12 78/60 95
01/25/24 07:53 01/25/24 07:29 01/25/24 07:29 01/25/24 06:30 01/25/24 08:01
Lab Results:
Laboratory Data
WBC 25.4 10^3/uL (4.8-10.8) H 01/25/24 03:49
Hgb 8.1 g/dL (13.0-18.0) L 01/25/24 03:49
Hgb 8.2 g/dL (13.0-18.0) L 01/25/24 03:49
Plt Count 93 10^3/uL (130-400) L 01/25/24 03:49
PT 17.2 Sec (11.4-14.6) H 01/24/24 06:05
INR 1.42 01/24/24 06:05
APTT 43.8 Sec (23.4-35.0) H 01/24/24 06:05
eGFR > 60.00 01/25/24 03:49
Physical Exam
HEENT: No Jaundice
Cardiology: Normal Sinus Rhythm
Pulmonary: Rales
GI: Soft
Extremities: Pulses Present
--- NOTE | 2024-01-25 10:56 | PTCARENOTE ---
Pt tolerating TF @30/hr and levo titration. currently 1 mcg/hr. 90/62 96% on 2L. Pt worked with PT/OT, OOB to chair. tolerated well. CB in reach. No change in assessment.
--- NOTE | 2024-01-25 11:19 | PHA.VAN.IN ---
Assessment
- Assessment
Renal Function: Appears similar to baseline (BUN & SCR trending down from admission)
Concomitant Antimicrobials: ampicillin/sulbactam
AUC Dosing Plan
- Dosing Variables
Dosing Weight (kg): 66
Dosing CrCl (ml/min): 91-125
Vd coefficient (L/kg): 0.7
Patient may have enhanced clearance compared to population PK due to low BMI and cancer
Utilized IBW for dosing weight for BMI < 20 and utilized TBW and IBW for CrCl range
- Empiric Dosing
Initial / Loading Dose: 1500mg - administration pending
Maintenance Regimen: Vanc 1000mg Q12H starting 01/25 600
Estimated AUC (mcg*h/mL): 422 - 563
Estimated Peak (mcg*h/mL): 29.8 - 35.1
Estimated Trough (mcg/ml): 9.1 - 14.6
Estimated Half Life (H): 6.4 - 8.7
- Monitoring
No levels ordered at this time: consider levels in next few days
Pharmacokinetics Vancomycin I
- -
Patient Age: 53
Patient Sex: Male
Vancomycin Day #: 1 (originally discontinued 01/23 [likely does not have detectable level at this time])
Indication: Pulmonary/Respiratory
Requesting Provider: Dr. Faulkner
Pertinent Antimicrobial Allergies:
NKDA
Height / Weight:
Height 5 ft 7 in
Actual Weight 48.8 kg
IBW in k
Pertinent Past Medical History: BMI ~16, PEG, Squamous cell carcinoma (head & neck)
- Vital Signs / Lab Results
Temp Pulse Resp BP Pulse Ox
98.0 F 90 12 78/60 95
01/25/24 07:53 01/25/24 07:29 01/25/24 07:29 01/25/24 06:30 01/25/24 08:01
Lab Results - Hematology
01/23/24 01/24/24 01/25/24
22:44 06:05 03:49
WBC 22.1 H 23.5 H 25.4 H
Lab Results - Chemistry
01/23/24 01/23/24 01/24/24
22:44 22:58 00:21
BUN Cancelled 49 H
Creatinine Cancelled 0.8
Estimated Creat Clear Cancelled 66
Albumin Cancelled Cancelled 2.2 L
01/24/24 01/24/24 01/25/24
06:05 14:31 03:49
BUN 41 H 36 H 25 H
Creatinine 0.6 L 0.6 L 0.4 L
Estimated Creat Clear 91 91 91
Albumin 2.1 L 2.0 L
01/23/24 01/24/24 01/24/24
23:40 02:54 06:05
Lactic Acid 3.0 H 2.4 H 1.5
Microbiology Results
01/24/24 12:32 Respiratory Culture - Preliminary
Sputum Staphylococcus aureus
Gram Stain - Preliminary
01/23/24 23:40 Blood Culture - Preliminary
Blood/Venous Positive culture in progress
Gram Stain - Final
01/24/24 16:50 Legionella Urinary Antigen - Final
Urine Negative for Legionella pneumophila Serogroup 1 antigen.
A negative result does not rule out the possiblity of
Legionella infection due to other serogroups or species of
Legionella. Clinical correlation is recommended.
Streptococcus pneumoniae Antigen (M - Final
Positive for Strep pneumo Ag
01/24/24 00:12 Blood Culture - Preliminary
Blood/Venous Positive culture in progress
Gram Stain - Final
01/24/24 09:03 Nasal Screen MRSA (PCR) - Final
Nose MRSA not detected - performed by PCR methodology.
01/24/24 01:31 Influenza Types A & B (CHRYSTAL) - Final
Nasal Swab Negative for Influenza A & B, NAAT
Negative results must be combined with clinical observations
and patient history.
Nucleic Acid Amplification test (NAAT)performed on the
[employer] platform.
--- NOTE | 2024-01-25 11:49 | W.PN.INTV ---
Today's Communication / Plan
Recommendations
Weaned off vasopressors
Continue antibiotics
Stress dose of steroid
Nutritional support
Follow CBC
Assessment
-
Septic shock due to bilateral pneumonia-cannot rule out aspiration per
Chest x-ray bilateral infiltrates right greater than left
Mild hypoxemic respiratory sufficiency failure-on nasal cannula
Immunosuppression: Ongoing chemotherapy last around 01/09/2024
Acute on chronic anemia-likely due to chemotherapy-pulmonary and chronic
Status post 1 unit of packed red blood cells 01/17/2020
History of metastatic head and neck cancer
Cachectic-protein caloric malnutrition
-
Conditions present prior admission:
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
Follows up with [facility] -last chemotherapy 01/09/2024
Anemia-of chronic disease
PEG tube in place
Prior tracheotomy status post decannulation
Former smoker
Former alcohol use known since 2019
Assessment and plan:
Patient is critically ill requiring vasopressors due to septic shock.
Chest x-ray significantly abnormal-with bilateral infiltrates right greater than left
Cannot rule out aspiration
-
Patient is significantly immunosuppressed-high risk situation.
Clinically improved, vasopressor requirements better
Lactic acidosis has cleared
-
Sputum culture with staph aureous
Streptococcal antibody in the urine positive
Currently on Unasyn per infectious disease
-
Septic shock:
Continue Levophed to maintain mean arterial blood pressure greater than 65 mmHg.
Currently at 2 mics per minute
Patient received frequent steroids as part of chemotherapy regimen-discussed with Dr. Tobar will start stress dose of IV hydrocortisone.
Hopefully will help wean off vasopressors
Lactic acid has cleared
Renal function is normal
[facility] urinary output
No further aggressive IV fluid resuscitation required-will be capped after last bag
-
Patient does have history of emphysema on CAT scan.
Continue nebulizer for secretion clearance
No indication for systemic corticosteroid
Currently not bronchospastic
-
Anemia: Status post transfusion.
Good response.
Continue to follow daily CBC
No evidence for bleeding
-
Oncology following the patient: Poor prognosis regarding cancer therapy.
-
DVT prophylaxis SCDs
Tube feedings continue to advance to goal.
Patient is n.p.o. due to his prior cancer for the last 4 years.
-
Critical care statement: A total of 33 minutes of critical care time was provided for this patient today. This includes management of unstable vital signs, evaluation of the patient at bedside, reviewing the patient's pertinent medical records
including radiographs, microbiology, laboratory evaluations and discussion with primary team, critical care nursing, and respiratory therapy.
Subjective Dataa
Subjective Data
Date of Service:
Date of Service: January 25, 2024
Chief Complaint: Galvanizer Follow Up (Septic shock/bilateral pneumonia)
Subjective:
Patient feels better this morning
Remains on low-dose vasopressors
Denies significant hemoptysis or significant phlegm production
Denies shortness of breath at rest
Review of Systems
General: Fever (n)
Cardiopulmonary: Dyspnea (none at rest) and Sputum Production (minimal)
GI: Abdominal Pain (n) and Nausea (n)
Neuro: Headache (n)
Objective Data
Data Reviewed
Vital Signs / I&O / Oxygen:
Vital Signs
Temp Pulse Resp BP Pulse Ox
98.0 F 90 14 78/60 97
01/25/24 07:53 01/25/24 11:19 01/25/24 11:19 01/25/24 06:30 01/25/24 11:19
Intake and Output
01/24/24 01/25/24 01/26/24
06:59 06:59 06:59
Intake Total 1475 / 1622.5 4010.7 / 4124.5 585.2 / 585.2
Output Total 325 / 325 1600 / 1900 700 / 700
Balance 1150 / 1297.5 2410.7 / 2224.5 -114.8 / -114.8
SaO2 97
Nasal Cannula flow liters per 2
minute
Physical Exam
General: Comfortable and Other (Cachectic)
HEENT: Normocephalic
Cardiovascular: S1-S2
Respiratory: Crackles and Non-Labored Respirations
GI: Soft and Non Distended
Neurology: Awake, Alert and Oriented
Skin: Warm
Labs/Micro/Reports
Lab Data
01/25/24 03:49
01/25/24 03:49
Microbiology
01/24/24 12:32 Sputum Respiratory Culture - Preliminary
Staphylococcus aureus
01/24/24 12:32 Sputum Gram Stain - Preliminary
01/23/24 23:40 Blood/Venous Blood Culture - Preliminary
Positive culture in progress
01/23/24 23:40 Blood/Venous Gram Stain - Final
01/24/24 16:50 Urine Legionella Urinary Antigen - Final
Negative for Legionella pneumophila Serogroup 1 antigen.
A negative result does not rule out the possiblity of
Legionella infection due to other serogroups or species of
Legionella. Clinical correlation is recommended.
01/24/24 16:50 Urine Streptococcus pneumoniae Antigen (M - Final
Positive for Strep pneumo Ag
01/24/24 00:12 Blood/Venous Blood Culture - Preliminary
Positive culture in progress
01/24/24 00:12 Blood/Venous Gram Stain - Final
01/24/24 09:03 Nose Nasal Screen MRSA (PCR) - Final
MRSA not detected - performed by PCR methodology.
01/24/24 01:31 Nasal Swab Influenza Types A & B (CHRYSTAL) - Final
Negative for Influenza A & B, NAAT
Negative results must be combined with clinical observations
and patient history.
Nucleic Acid Amplification test (NAAT)performed on the
[employer] platform.
[2024-01-25] MEDS: VANCOCIN 530 MG IV (12:05)
[2024-01-25] MEDS: MAGNESIUM SULFATE 50 IV (14:10)
--- NOTE | 2024-01-25 14:53 | CM ---
Patient seen at bedside with physicians. Patient states he fells better today. Roxy cerrato from [facility] to visit. CM will continue to follow for discharge planning needs.
Plan; SNF vs home with VN pending functional status/medical treatment plan
[2024-01-25] MEDS: SOLU-CORTEF 50 MG IV ×2 (16:00→23:40)
--- NOTE | 2024-01-25 16:49 | PTCARENOTE ---
Pt tolerated OOB to chair. Continue to titrate levo per protocol. x2 assist back to bed, linens changed and pm care provided. pt in good spirits, CB in reach. No change in assessment
[2024-01-25] MEDS: COLACE LIQUID 100 MG TUBE (19:31)
--- NOTE | 2024-01-25 20:59 | PTCARENOTE ---
Resumed care of pt laying in bed AAOx3. Pt with flat affect. HR in the 70's in NSR on the monitor. POX 97% on 2 LO2 NC. Lungs course with ins wheezes. Moist productive cough, pt using yankour as needed. Hypo bowel, Bowel regimen in place. Pt stating
he would rather be constipated rather than having loose stools. Bowel education provided. Peg tube in place infusing Jevity 1.5 @40ml/hr with 25/flush. Pt using urinal as needed. Pale skin, trace pedal edema. Ears, heels and sacral foams in place.
Pt positioning self per comfort, refusing turning device at this time. Knee high seq in place. Right SQ port infusing Levophed @2mcg/min to keep SBP >90. Pt denies any complaints at this time. Call martinez in reach. Will continue to monitor.
[2024-01-25 21:44] LABS: Blood Urea Nitrogen 22 mg/dl (9-20); Carbon Dioxide 32 mmol/L (22-30); Chloride 100 mmol/L (98-107); Estimated Creatinine Clearance 96 ml/min; Glucose 133 mg/dl (70-99); Magnesium 1.8 mg/dl (1.6-2.3); Potassium 3.6 mmol/L (3.5-5.1); Sodium 137 mmol/L (135-145); eGFR > 60.00
[2024-01-25] MEDS: SENOKOT 8.6 MG TUBE (23:40)
[2024-01-26] VITALS (27 sets, daily range): BP systolic 84–102; BP diastolic 53–80; PULSE 99; O2SAT 96; BMI 17.8
--- NOTE | 2024-01-26 00:02 | PTCARENOTE ---
Pt resting comfortably. Attempting to wean off Levophed. No other changes in assessment noted at this time. Will continue to monitor.
--- NOTE | 2024-01-26 04:00 | PTCARENOTE ---
BP unable to tolerate Levophed taper. Levophed remains infusing @2mcg/min. Pt with frequent moist productive cough t/o the night, using yankour to suction sputum. TF now infusing at goal rate of 65ml.hr. No issues to report. pt denies any
complaints. Will continue to monitor.
[2024-01-26] MEDS: UNASYN IV ×4 (04:05→22:37)
[2024-01-26 04:58] LABS: Blood Urea Nitrogen 24 mg/dl (9-20); Calcium 7.9 mg/dl (8.4-10.2); Carbon Dioxide 30 mmol/L (22-30); Chloride 100 mmol/L (98-107); Estimated Creatinine Clearance 96 ml/min; Glucose 139 mg/dl (70-99); Magnesium 1.6 mg/dl (1.6-2.3); Potassium 3.7 mmol/L (3.5-5.1); Sodium 140 mmol/L (135-145); eGFR > 60.00
[2024-01-26 05:12] LABS: Hemoglobin 8.7 g/dL (13.0-18.0); Mean Corp Hgb Conc. 34.8 g/dL (33.0-37.0); Mean Corpuscular Hgb 29.4 pg (27.0-31.0); Mean Corpuscular Volume 84.5 fL (80.0-94.0); Platelet Count 141 10^3/uL (130-400); Red Blood Cell Count 2.96 10^6/uL (4.70-6.10); Red Cell Dist. Width 16.4 % (11.5-14.5); White Blood Cell Count 23.2 10^3/uL (4.8-10.8)
[2024-01-26] MEDS: VANCOCIN 200 IV (05:13)
[2024-01-26] MEDS: MAGNESIUM SULFATE 102 GRAMS IV (05:41)
[2024-01-26] MEDS: DUONEB 3 ML INH ×4 (07:09→20:37)
[2024-01-26] MEDS: PROTONIX IV 40 MG IV (07:52)
[2024-01-26] MEDS: COLACE LIQUID 100 MG TUBE ×2 (07:52→19:11)
[2024-01-26] MEDS: SOLU-CORTEF 50 MG IV ×2 (07:52→15:59)
--- NOTE | 2024-01-26 08:14 | W.PN.ONC2 ---
Today's Communication / Plan
-
septic shock secondary to bilateral pneumonia management per ID, pulm, ICU
transfuse if hemoglobin less than 7
Outpatient follow-up with Dr. Lipscomb after discharge to resume antineoplastic therapy upon hospital recovery
Impression
Impression
53-year-old male with recurrent metachronous metastatic SCC of hypopharynx admitted with septic shock secondary to bilateral pneumonia management per ID, pulm, ICU
# Anemia likely in the setting of acute infection and chemotherapy
# thrombocytopenia 2/2 chemo and infection -resolved
# leukocytosis 2/2 GCSF, infection, steroids
# Squamous cell carcinoma of hypopharynx s/p-Taxol [place] + PEG-filgastrim growth factor (C#2 01/08 & 01/15)
Subjective/Objective
Subjective
no new complaints
denies pain
Vital Signs:
Vital Signs
Temp Pulse Resp BP Pulse Ox
97.9 F 91 23 94/63 97
01/26/24 08:09 01/26/24 08:00 01/26/24 08:00 01/26/24 08:00 01/26/24 08:00
Lab Results:
Laboratory Data
WBC 23.2 10^3/uL (4.8-10.8) H 01/26/24 04:19
Hgb 8.7 g/dL (13.0-18.0) L 01/26/24 04:19
Plt Count 141 10^3/uL (130-400) D 01/26/24 04:19
PT 17.2 Sec (11.4-14.6) H 01/24/24 06:05
INR 1.42 01/24/24 06:05
APTT 43.8 Sec (23.4-35.0) H 01/24/24 06:05
eGFR > 60.00 01/26/24 04:19
Physical Exam
HEENT: No Jaundice
Cardiology: Normal Sinus Rhythm
Pulmonary: Rales
GI: Soft
Extremities: Pulses Present
--- NOTE | 2024-01-26 08:33 | W.PN.HOSP.TC ---
Addendum entered and electronically signed by Nidia Tobar MD 01/26/24 13:27:
I saw and evaluated the patient independently. I reviewed the resident�s note and agree with findings and plan as documented by Dr. Herrera.
GENERAL: chronically ill appearing cachectic male in no apparent distress
HEENT: NC/AT on 2L O2 NC--'hot potato like' breathy voice
HEART: regular rate and rhythm, +S1, +S2
LUNGS : clear to auscultation bilaterally
ABDOM: soft, nontender, nondistended, + bowel sounds, + PEG tube
EXT: no cyanosis, clubbing, or edema
NEUROLOGIC: grossly intact
SKIN: wounds on top pinna of ear--has soft barrier on sacrum
septic shock -- due to Community acquired pneumonia with acute hypoxemic resp failure (requiring 12 L down to 2L) and with pressor requirements and lactic acidosis--pt also immunocompromised due to recent chemotherapy and cancer--elevated WBC with
CXR c/w bilateral PNA (did receive G-CSF so WBC not entirely reliable)---Lactic acid 3.0 --> 2.4 --> 1.5--blood cultures positive for strep pneumo--urine strep antigen positive, resp culture appears contaminated BUT testing positive for MSSA
--apprec bottle washer machine/ID--cont unasyn --wean pressors as able--pt gets premedicated with steroids prior to chemo, will add stress dose steroids in effort to wean pressors--once off pressors can transfer out of ICU
Normocytic anemia with Thrombocytopenia--Likely secondary to chemotherapy +/- acute infection and sepsis--no active blood loss--s/p 1 unit pRBC transfusion
Hypomagnesemia/Hypophosphatemia/Hypokalemia/Azotemia-- replete
Severe protein calorie malnutrition--IVF and start tube feeds--apprec nutrition
Elevated troponin--likely due to non-ischemic myocardial injury from sepsis--trend-- EKG with nonspecific ST-T changes laterally
Squamous cell carcinoma of head/neck- Currently on chemo with taxol (01/08 last dose) and gemzar (01/15 last dose)- S/p GCSF 01/15--apprec onc
Code status: DNR
DVT proph
Total Critical Care Time 30 minutes. I was immediately available to the patient and staff. I personally examined, reviewed labs, diagnostic images/reports, interpretations, treatment plans, discussed patient care with other providers and family
or caregivers (if patient is unable to make decisions), entered orders as appropriate and documented the medical record.
Original Note:
Today's Communication/Plan
-
continue antibiotics, stress dose steroids, wean pressors per bottle washer machine
Assessment / Plan
Assessment / Plan
53yo M with [facility] currently on chemotherapy who presented to ED 01/23/24 for >1 week of worsening shortness of breath, productive cough. Of note patient has PEG tube for nutrition and notes occasional aspiration while swishing water in mouth.
In ED, patient was found to have tachycardia, hypotension, leukocytosis, and CXR showing pneumonia. He was admitted to ICU and started on vanc/zosyn and pressors.
Community acquired pneumonia
Acute hypoxemic respiratory failure (required 12L)
Septic shock present on admission secondary to pneumonia
Lactic acidosis present on admission
Immunocompromised status secondary to chemotherapy
- Presented with tachycardia, hypotension, leukocytosis, and CXR showing pneumonia.
- WBC 22.1 on admission --> 23.2 today. Infection and GCSF 01/15 likely contributing to leukocytosis.
- Lactic acid 3.0 --> 2.4 --> 1.5.
- Remains afebrile.
- COVID, flu negative. Initial blood cultures, prelim: gram pos cocci in chains. Final results/sensitivites pending. Urine +Strep pneumo Ag.
- Sputum culture MSSA though specimen was poor quality (primarily oropharyngeal contamination)
- ID following, appreciate recs. Continue unasyn/vanc
- Continue IVF, pressor support, antipyritics, nebs, O2 etc
Now on levophed 1mg/min, O2 2L via NC. Wean pressors/O2 as tolerated per bottle washer machine
- Continue stress dose steroids- hydrocortisone 50mg iv q8h
- Continue to trend daily cbc, monitor temperature curve, clinical improvement
- NPO, aspiration precautions
Normocytic anemia
Thrombocytopenia
- Likely secondary to chemotherapy +/- acute infection and sepsis
- S/p pRBC 01/16 --> hgb 8.5 on admission
- S/p 1u pRBC 01/23 after hgb 6.9 --> followed by appropriate rise to 9.1
- Most recent hgb 8.7, stable after transfusion
- Blood consent signed this admission, on chart.
- No signs/symptoms acute or active bleeding
- Follow H&H
Hypomagnesemia
Hypophosphatemia
Hypokalemia
Azotemia
Severe protein calorie malnutrition
- Continue IVF support with electrolyte supplementation to correct deficits
- Nutrition consulted, appreciate recs. Continue tube feeds as tolerated
- Continue to trend labs
Elevated troponin secondary to nonischemic myocardial injury
- Troponin 0.017 on admission --> 0.021 overall stable
- EKG with nonspecific ST-T changes laterally
- Not reporting any chest pain or discomfort
Metastatic squamous cell carcinoma of hypopharynx
- Currently on chemo with taxol (01/08 last dose) and gemzar (01/15 last dose); not due for chemotherapy this week
- Oncology following. Patient to follow up with onc outpatient
- SW from cancer center visited this admission, appreciated by patient.
Code status: DNR
VTE ppx: SCDs
Diet: NPO, nutrition via PEG tube
Dispo planning: TBD
Anticipated Discharge: > 48 hours
Subjective/Interval History
-
Date of Service: January 26, 2024
No acute events overnight. Levophed now at 1, O2 at 2L NC. Reports some shortness of breath and cough. Denies lightheadedness, dizziness, chest pain, abdominal pain, nausea, vomiting, diarrhea. Chronic constipation but last BM 2 days ago. Feeding
via PEG tube. Has been OOB to chair with PT/OT.
Objective Data
-
Labs:
Laboratory Results
01/25/24 01/26/24
21:08 04:19
WBC 23.2 H
Hgb 8.7 L
Hct 25.0 L
Plt Count 141 D
Sodium 137 140
Potassium 3.6 3.7
Chloride 100 100
Carbon Dioxide 32 H 30
BUN 22 H 24 H
Creatinine 0.3 L 0.3 L
Glucose 133 H 139 H
Calcium 8.0 L 7.9 L
Vital Signs:
Vital Signs
Temp Pulse Resp BP Pulse Ox
97.9 F 91 23 94/63 97
01/26/24 08:09 01/26/24 08:00 01/26/24 08:00 01/26/24 08:00 01/26/24 08:15
I&O
01/25/24 01/26/24 01/27/24
06:59 06:59 06:59
Intake Total 4010.7 / 4124.5 3509.35 / 3606.85 210.0 / 210.0
Output Total 1600 / 1900 1350 / 1350 150 / 150
Balance 2410.7 / 2224.5 2159.35 / 2256.85 60.0 / 60.0
Review of Systems
-
History Source: Patient
All other systems: Reviewed and negative
Physical Exam
-
General: Respiratory Distress (increased work of breathing), Appears Chronically Ill, Cachectic and Other (hoarse voice); Negative Pain
HEENT: Normocephalic, Atraumatic and Oxygen (NC @ 2L)
Respiratory: Rales; Negative Wheezes
Cardiac: Regular Rhythm and S1/S2
GI: Soft, Nontender, Nondistended, Normal Bowel Sounds and Peg Tube
Musculoskeletal: No Edema
Skin: Warm, Dry and IV Access / Catheter Site (chemo port R chest wall nonerythematous)
Neuro: Awake, Alert, Oriented and AO x 3
Psych: Calm and Intact Judgement/Insight
Data Reviewed
-
Diagnostic Radiology: Image personally visualized and interpreted and Report Reviewed by me
Labs: Labs Reviewed by me, Discussed with Physician and Discussed with Nurse
--- NOTE | 2024-01-26 08:39 | PHA.VAN.FU ---
Vancomycin Assessment / Plan
- Assessment
Renal Function: Stable
WBC's are: Trending Down (down slightly 25.4->23.2)
In the past 24 hrs, patient has been: Afebrile
Concomitant Antimicrobials: ampicillin/sulbactam
- Dosing Plan
Continue: vancomycin 1000 mg q12h - first maint dose 01/25 600
Dosing Comments: pt may have enhanced clearance compared to population PK (low BMI; Cancer)
- Monitoring Plan
No level(s) ordered at this time: consider levels when pt reaches steady state
- Follow Up
Pharmacy will continue to follow.
Vancomycin Follow UP
- -
Patient Age: 53
Patient Sex: Male
Vancomycin Day #: 2 (originally discontinued 01/23 [likely does not have detectable level at this time])
Indication: Pulmonary/Respiratory
Requesting Provider: Dr. Faulkner
Pertinent Antimicrobial Allergies:
NKDA
Height / Weight:
Height 5 ft 7 in
Actual Weight 51.6 kg
IBW in k
Pertinent Past Medical History: BMI ~16, PEG, Squamous cell carcinoma (head & neck)
- Vital Signs / Lab Results
Temp Pulse Resp BP Pulse Ox
97.9 F 91 23 94/63 97
01/26/24 08:09 01/26/24 08:00 01/26/24 08:00 01/26/24 08:00 01/26/24 08:15
Lab Results - Hematology
01/23/24 01/24/24 01/25/24
22:44 06:05 03:49
WBC 22.1 H 23.5 H 25.4 H
01/26/24
04:19
WBC 23.2 H
Lab Results - Chemistry
01/23/24 01/23/24 01/24/24
22:44 22:58 00:21
BUN Cancelled 49 H
Creatinine Cancelled 0.8
Estimated Creat Clear Cancelled 66
Albumin Cancelled Cancelled 2.2 L
01/24/24 01/24/24 01/25/24
06:05 14:31 03:49
BUN 41 H 36 H 25 H
Creatinine 0.6 L 0.6 L 0.4 L
Estimated Creat Clear 91 91 91
Albumin 2.1 L 2.0 L
01/25/24 01/26/24
21:08 04:19
BUN 22 H 24 H
Creatinine 0.3 L 0.3 L
Estimated Creat Clear 96 96
Albumin
01/23/24 01/24/24 01/24/24
23:40 02:54 06:05
Lactic Acid 3.0 H 2.4 H 1.5
Microbiology Results
01/24/24 12:32 Respiratory Culture - Preliminary
Sputum Staphylococcus aureus
Gram Stain - Preliminary
01/23/24 23:40 Blood Culture - Preliminary
Blood/Venous Positive culture in progress
Gram Stain - Final
01/24/24 00:12 Blood Culture - Preliminary
Blood/Venous Positive culture in progress
Gram Stain - Final
01/24/24 16:50 Legionella Urinary Antigen - Final
Urine Negative for Legionella pneumophila Serogroup 1 antigen.
A negative result does not rule out the possiblity of
Legionella infection due to other serogroups or species of
Legionella. Clinical correlation is recommended.
Streptococcus pneumoniae Antigen (M - Final
Positive for Strep pneumo Ag
01/24/24 09:03 Nasal Screen MRSA (PCR) - Final
Nose MRSA not detected - performed by PCR methodology.
--- NOTE | 2024-01-26 08:59 | W.PN.ID1 ---
Date of Service
Date of Service: January 26, 2024
Today's Communication
- two sets of blood cultures ordered- reviewed with RN
- continue unasyn
- c/w vancomycin for now - if sputum isolate is confirmed MSSA then will stop
- would consider port removal when feasible (off of pressors)
Assessment / Plan
Acute vs Subacute Pneumonia in Immunosuppressed host, possible aspiration
Bacteremia - likely strep pneumo
SCC of head and neck
Chemotherapy: Taxol and Gemzar; also gcsf
S/p PEG and port placement
- sputum culture with many presumptive s aureus
- blood cultures x2 obtained about 1 hour apart both with GPCS in chains - awaiting ID suspect strep pneumo
- repeat blood cultures x2 today - reviewed with RN via tiger text that both sets are necessary
- mrsa screen negative
- s pneumo urine ags - positive
- now on a minimal dose of pressors - difficulty weaning off
- on stress dose steroids with leukocytosis
- continue unasyn
- stopped vancomycin - sputum isolate confirmed MSSA
- would consider port removal when feasible (off of pressors)
- follow clinically
Chief Complaint
-: Leukocytosis and Bacteremia
Subjective / Review of Systems
afebrile
remains on minimal pressors
remains on steroids
in good spirits
Vital Signs / Physical Exam
Vital Signs
Vital Signs
Temp Pulse Resp BP Pulse Ox
97.9 F 91 23 94/63 97
01/26/24 08:09 01/26/24 08:00 01/26/24 08:00 01/26/24 08:00 01/26/24 08:15
Physical Exam
Constitutional: No Acute Distress and Chronically Ill
Cardiovascular: Regular Rate and S1/S2; Negative Murmur or Rub
Pulmonary: Clear and Symmetric; Negative Wheezes or Rales
Gastrointestinal: Soft, Non Tender, Non Distended and Normal Bowel Sounds
Skin: Warm and Dry; Negative Rash or Jaundice
Lines: Port (no erythema, warmth or drainage, accessed and fucntional )
Objective Data
Lab Data
Lab Results
01/26/24 04:19
01/26/24 04:19
PT 17.2 Sec (11.4-14.6) H 01/24/24 06:05
INR 1.42 01/24/24 06:05
APTT 43.8 Sec (23.4-35.0) H 01/24/24 06:05
Estimated Creat Clear 96 ml/min 01/26/24 04:19
Lactic Acid 1.5 mmol/L (0.7-2.0) 01/24/24 06:05
Total Bilirubin 0.5 mg/dl (0.2-1.3) 01/25/24 03:49
AST 53 U/L (17-59) 01/25/24 03:49
ALT 27 U/L (0-50) 01/25/24 03:49
Alkaline Phosphatase 80 U/L (38-126) 01/25/24 03:49
Most recent labs reviewed.
Micro Results:
01/24/24 12:32 Respiratory Culture - Preliminary
Sputum Staphylococcus aureus
Gram Stain - Preliminary
01/26/24 04:19 Blood Culture - Pending
Blood/Venous
01/23/24 23:40 Blood Culture - Preliminary
Blood/Venous Positive culture in progress
Gram Stain - Final
01/24/24 00:12 Blood Culture - Preliminary
Blood/Venous Positive culture in progress
Gram Stain - Final
01/24/24 16:50 Legionella Urinary Antigen - Final
Urine Negative for Legionella pneumophila Serogroup 1 antigen.
A negative result does not rule out the possiblity of
Legionella infection due to other serogroups or species of
Legionella. Clinical correlation is recommended.
Streptococcus pneumoniae Antigen (M - Final
Positive for Strep pneumo Ag
01/24/24 09:03 Nasal Screen MRSA (PCR) - Final
Nose MRSA not detected - performed by PCR methodology.
01/24/24 01:31 Influenza Types A & B (CHRYSTAL) - Final
Nasal Swab Negative for Influenza A & B, NAAT
Negative results must be combined with clinical observations
and patient history.
Nucleic Acid Amplification test (NAAT)performed on the
[employer] platform.
[2024-01-26] MEDS: MIRALAX 17 GRAMS TUBE (10:25)
--- NOTE | 2024-01-26 12:00 | PTCARENOTE ---
Pt AAOx3. Sinus rhythm. Trace pedal edema. SpO2 97-99% on 2L NC. Crackles noted at RLL and inspiratory wheeze on auscultation. Tolerating tube feeds at goal. Voiding in urinal. One assist OOB to chair. All other assessments unchanged.
--- NOTE | 2024-01-26 12:07 | W.PN.INTV ---
Today's Communication / Plan
Recommendations
Wean down vasopressors
Start midodrine
Continue hydrocortisone
Continue antibiotics per infectious disease
Nutritional support
Aspiration precaution
Assessment
-
Septic shock due to bilateral pneumonia-cannot rule out aspiration per
Chest x-ray bilateral infiltrates right greater than left
Mild hypoxemic respiratory sufficiency failure-on nasal cannula
Immunosuppression: Ongoing chemotherapy last around 01/09/2024
Acute on chronic anemia-likely due to chemotherapy-pulmonary and chronic
Status post 1 unit of packed red blood cells 01/17/2020
History of metastatic head and neck cancer
Cachectic-protein caloric malnutrition
-
Conditions present prior admission:
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
Follows up with [facility] -last chemotherapy 01/09/2024
Anemia-of chronic disease
PEG tube in place
Prior tracheotomy status post decannulation
Former smoker
Former alcohol use known since 2019
Assessment and plan:
Patient is critically ill requiring vasopressors due to septic shock.
Chest x-ray significantly abnormal-with bilateral infiltrates right greater than left
Cannot rule out aspiration-patient n.p.o. only on tube feedings.
-
Overall clinically improved.
Lactic acidosis resolved
Vasopressor requirements improved.
This morning on only 1 [place] per minute
Midodrine will be started
Hydrocortisone added for relative adrenal insufficiency. Patient received frequent IV dexamethasone during chemotherapy.
-
Sputum culture with staph aureous
Streptococcal antibody in the urine positive
Currently on Unasyn per infectious disease
-
Patient does have history of emphysema on CAT scan.
Continue nebulizer for secretion clearance
No indication for systemic corticosteroid from the COPD/emphysema perspective-not bronchospastic on exam
-
Anemia: Status post transfusion.
Good response.
Continue to follow daily CBC
No evidence for bleeding
-
Oncology following the patient: Poor prognosis regarding cancer therapy.
-
DVT prophylaxis SCDs
Tube feedings continue to advance to goal.
Patient is n.p.o. due to his prior cancer for the last 4 years.
-
Critical care statement: A total of 31 minutes of critical care time was provided for this patient today. This includes management of unstable vital signs, evaluation of the patient at bedside, reviewing the patient's pertinent medical records
including radiographs, microbiology, laboratory evaluations and discussion with primary team, critical care nursing, and respiratory therapy.
-
If able to wean off vasopressors hopefully can transfer to [facility] later today or tomorrow.
Subjective Dataa
Subjective Data
Date of Service:
Date of Service: January 26, 2024
Chief Complaint: [employer] Follow Up (Septic shock/bilateral pneumonia)
Subjective:
Patient states that he feels better.
Denies significant phlegm production
reports improvement on dyspnea
Continues to tolerate tube feeding
Review of Systems
General: Fever (n)
Cardiopulmonary: Dyspnea (none at rest)
GI: Abdominal Pain (n) and Nausea (n)
Objective Data
Data Reviewed
Vital Signs / I&O / Oxygen:
Vital Signs
Temp Pulse Resp BP Pulse Ox
97.8 F 87 16 94/80 95
01/26/24 11:33 01/26/24 11:27 01/26/24 11:27 01/26/24 10:00 01/26/24 11:27
Intake and Output
01/25/24 01/26/24 01/27/24
06:59 06:59 06:59
Intake Total 4010.7 / 4124.5 3509.35 / 3606.85 217.5 / 217.5
Output Total 1600 / 1900 1350 / 1350 300 / 300
Balance 2410.7 / 2224.5 2159.35 / 2256.85 -82.5 / -82.5
SaO2 95
Nasal Cannula flow liters per 2
minute
Physical Exam
General: Comfortable and Other (Cachectic)
HEENT: Normocephalic
Cardiovascular: S1-S2
Respiratory: Crackles and Non-Labored Respirations
GI: Soft and Non Distended
Neurology: Awake, Alert and Oriented
Skin: Warm
Labs/Micro/Reports
Lab Data
01/26/24 04:19
01/26/24 04:19
Microbiology
01/24/24 00:12 Blood/Venous Blood Culture - Final
Streptococcus pneumoniae
01/24/24 00:12 Blood/Venous Gram Stain - Final
01/23/24 23:40 Blood/Venous Blood Culture - Final
Streptococcus pneumoniae
01/23/24 23:40 Blood/Venous Gram Stain - Final
01/24/24 12:32 Sputum Respiratory Culture - Final
S aureus-Methicillin Sensitive
01/24/24 12:32 Sputum Gram Stain - Final
01/24/24 16:50 Urine Legionella Urinary Antigen - Final
Negative for Legionella pneumophila Serogroup 1 antigen.
A negative result does not rule out the possiblity of
Legionella infection due to other serogroups or species of
Legionella. Clinical correlation is recommended.
01/24/24 16:50 Urine Streptococcus pneumoniae Antigen (M - Final
Positive for Strep pneumo Ag
01/24/24 09:03 Nose Nasal Screen MRSA (PCR) - Final
MRSA not detected - performed by PCR methodology.
01/24/24 01:31 Nasal Swab Influenza Types A & B (CHRYSTAL) - Final
Negative for Influenza A & B, NAAT
Negative results must be combined with clinical observations
and patient history.
Nucleic Acid Amplification test (NAAT)performed on the
[employer] platform.
--- NOTE | 2024-01-26 15:36 | CM ---
Patient seen at bedside with physicians. Patient indicated that he is feeling better. CM will continue to follow for discharge planning needs.
Plan; home with VN; watch for possible antibiotic needs
[2024-01-26] MEDS: ProAmatine 10 MG TUBE ×2 (15:59→22:32)
--- NOTE | 2024-01-26 16:13 | W.PN.UPDATE ---
Update Note
Progress Note Update
Patient has been hemodynamically stable.
Vasopressors discontinued
Patient appears nontoxic and feels better.
Will transfer to [facility].
Critical care team will sign off.
Pulmonary will continue to follow for pneumonia/hypoxemia
--- NOTE | 2024-01-26 20:07 | PTCARENOTE ---
Received patient in bed on 2L/o2 nasal canula. The patient is AAOx4 and able to make his needs known. Denies pain at this time. Plan of care for the shift reviewed with the patient. Reviewed scheduled medications with the patient. The patient
vocalized not needing his stool softeners as he typically has one to two bowel movements per month. The patient stated that he prefers to be 'constipated.' The patient also stated that for as long as he could remember, he'd always been constipated
and does not mind it. Patient fears having 'liquid stool.' Encouraged the patient to at least take one of his two bowel regimen..either the 1999 or 0 order. The patient is agreeable. Sinus rhythm on the monitor. Pulses are palpable. +1 pedal
edema to bilateral feet. coarse breath sounds, crackles to RLL with some inspiratory wheezes. The patient has a harsh cough. Pt utilizes yankauer to suction himself. Hypoactive bowel sounds. Jevity 1.5 at 65 ml/hr with 25 ml flush via left peg
tube. Pt's tolerating feeding. The patient uses the urinal. UOP is dark yellow. Pt turns and repositions himself. Teaching provided on the importances of turning and repositioning while in bed. SCDs in use. All needs are met at this time. Full
documentation on the worklist.
[2024-01-26] MEDS: SENOKOT TUBE (22:30)
[2024-01-27] VITALS (16 sets, daily range): BP systolic 81–107; BP diastolic 57–71; BMI 17.9
[2024-01-27] MEDS: SOLU-CORTEF 50 MG IV ×2 (00:01→07:09)
--- NOTE | 2024-01-27 00:11 | PTCARENOTE ---
Patient reassessed. SpO2 at 95% on room air. HR 75. PT turns and repositions himself. All needs are met at this time. Call martinez and personal belongings are within reach.
[2024-01-27] MEDS: UNASYN IV ×4 (03:58→22:25)
[2024-01-27 04:21] LABS: Hematocrit 25.4 % (39.0-52.0); Hemoglobin 8.6 g/dL (13.0-18.0); Mean Corp Hgb Conc. 33.9 g/dL (33.0-37.0); Mean Corpuscular Hgb 28.9 pg (27.0-31.0); Mean Corpuscular Volume 85.2 fL (80.0-94.0); Mean Platelet Volume 12.9 fL (7.4-10.4); Platelet Count 197 10^3/uL (130-400); Red Blood Cell Count 2.98 10^6/uL (4.70-6.10); White Blood Cell Count 21.2 10^3/uL (4.8-10.8)
[2024-01-27 04:33] LABS: ALT (SGPT) 31 U/L (0-50); AST (SGOT) 39 U/L (17-59); Albumin 2.2 g/dl (3.5-5.0); Alkaline Phosphatase 79 U/L (38-126); Blood Urea Nitrogen 28 mg/dl (9-20); Calcium 8.2 mg/dl (8.4-10.2); Carbon Dioxide 35 mmol/L (22-30); Chloride 99 mmol/L (98-107); Estimated Creatinine Clearance 102 ml/min; Glucose 111 mg/dl (70-99); Magnesium 1.5 mg/dl (1.6-2.3); Phosphorus 3.1 mg/dl (2.5-4.5); Potassium 3.2 mmol/L (3.5-5.1); Sodium 140 mmol/L (135-145); Total Bilirubin 0.3 mg/dl (0.2-1.3); Total Protein 4.7 g/dl (6.3-8.2); eGFR > 60.00
[2024-01-27] MEDS: KCL ELIXIR 40 MEQ TUBE (05:18)
[2024-01-27] MEDS: OCEAN, SALINE MIST 2 SPRAYS NASAL (06:40)
--- NOTE | 2024-01-27 06:45 | PTCARENOTE ---
Patient's potassium 3.2; potassium chloride 40 meq elixir administered. ocean spray for dry nostrils per pt's request.
[2024-01-27] MEDS: MIRALAX TUBE (07:08)
[2024-01-27] MEDS: COLACE LIQUID TUBE (07:08)
[2024-01-27] MEDS: PROTONIX IV 40 MG IV (07:10)
[2024-01-27] MEDS: ProAmatine 10 MG TUBE ×3 (07:10→22:27)
--- NOTE | 2024-01-27 07:12 | PTCARENOTE ---
0700 patient in bed. SR 81 with PVC. BP via RT upper arm 93/61 MAP 70 RR 17; 93%RA. pt denies pain, nausea. Refused Miralex and Colace.Left chest port and left peripheral line Ac flushe capped. PEG tube auscultated for placement. Jevity 65/25water
flush. Call martinez within reach
[2024-01-27] MEDS: DUONEB 3 ML INH ×4 (07:21→19:41)
--- NOTE | 2024-01-27 08:55 | W.PN.HOSP.TC ---
Addendum entered and electronically signed by Nidia Tobar MD 01/27/24 13:11:
I saw and evaluated the patient independently. I reviewed the resident�s note and agree with findings and plan as documented by Dr. Herrera.
GENERAL: chronically ill appearing cachectic male in no apparent distress
HEENT: NC/AT on 2L O2 NC--'hot potato like' breathy voice
HEART: regular rate and rhythm, +S1, +S2
LUNGS : clear to auscultation bilaterally
ABDOM: soft, nontender, nondistended, + bowel sounds, + PEG tube
EXT: no cyanosis, clubbing, or edema
NEUROLOGIC: grossly intact
SKIN: wounds on top pinna of ear--has soft barrier on sacrum
septic shock -- due to Community acquired pneumonia with acute hypoxemic resp failure (requiring 12 L down to 2L, now on room air) and with pressor requirements and lactic acidosis--pt also immunocompromised due to recent chemotherapy and
cancer--elevated WBC with CXR c/w bilateral PNA (did receive G-CSF so WBC not entirely reliable)---blood cultures positive for strep pneumo--urine strep antigen positive, resp culture appears contaminated BUT testing positive for MSSA --apprec
third mate/ID--cont unasyn --off pressors--pt gets premedicated with steroids prior to chemo, wean stress dose steroids
Normocytic anemia with Thrombocytopenia--Likely secondary to chemotherapy +/- acute infection and sepsis--no active blood loss--s/p 1 unit pRBC transfusion
Hypomagnesemia/Hypophosphatemia/Hypokalemia/Azotemia-- replete
Severe protein calorie malnutrition--IVF and start tube feeds--apprec nutrition
Elevated troponin--likely due to non-ischemic myocardial injury from sepsis--trend-- EKG with nonspecific ST-T changes laterally
Squamous cell carcinoma of head/neck- Currently on chemo with taxol (01/08 last dose) and gemzar (01/15 last dose)- S/p GCSF 01/15--apprec onc
Code status: DNR
DVT proph
transfer to med/surg--PT/OT
Original Note:
Today's Communication/Plan
-
supplement K and mag, continue antibiotics per ID, adjust steroids and bowel regimen
Assessment / Plan
Assessment / Plan
53yo M with PMH SCC H/N currently on chemotherapy who presented to ED 01/23/24 for >1 week of worsening shortness of breath, productive cough. Of note patient has PEG tube for nutrition and notes occasional aspiration while swishing water in mouth.
In ED, patient was found to have tachycardia, hypotension, leukocytosis, and CXR showing pneumonia. He was admitted to ICU and started on vanc/zosyn and pressors.
Community acquired pneumonia
Acute hypoxemic respiratory failure (required 12L)
Septic shock present on admission secondary to pneumonia
Lactic acidosis present on admission
Immunocompromised status secondary to chemotherapy
- Presented with tachycardia, hypotension, leukocytosis, and CXR showing pneumonia.
- WBC 22.1 on admission --> 21.2 today. Infection and GCSF 01/15 likely contributing to leukocytosis.
- Lactic acid 3.0 --> 2.4 --> 1.5.
- Remains afebrile.
- COVID, flu negative. Blood cultures on admission 01/23/24: Strep pneumo. Urine +Strep pneumo Ag.
- Sputum culture MSSA though specimen was poor quality (primarily oropharyngeal contamination)
- Repeat blood culture 01/26/24: NG 24h, final report pending.
- ID following, appreciate recs. Continue antibiotics per ID.
- 01/25: no longer on levophed or supplemental O2 --> downgraded from icu to med/surg
- Continue midodrine 10mg TID
- Continue stress dose steroids- decrease hydrocortisone dose to 25mg IV q12h
- Continue to trend daily cbc, monitor temperature curve, clinical improvement
- NPO, aspiration precautions
Normocytic anemia
Thrombocytopenia
- Likely secondary to chemotherapy +/- acute infection and sepsis
- S/p pRBC 01/16 --> hgb 8.5 on admission
- S/p 1u pRBC 01/23 after hgb 6.9 --> followed by appropriate rise to 9.1
- Most recent hgb 8.6 today, stable after transfusion
- Blood consent signed this admission, on chart.
- No signs/symptoms acute or active bleeding
- Follow daily cbc
Hypomagnesemia
Hypophosphatemia
Hypokalemia
Azotemia
Severe protein calorie malnutrition
- Continue IVF support with electrolyte supplementation to correct deficits
- Nutrition consulted, appreciate recs. Continue tube feeds as tolerated
- Continue to trend labs
- Will add additional 40meq K supplementation and 4g mag supplementation today
Elevated troponin secondary to nonischemic myocardial injury
- Troponin 0.017 on admission --> 0.021 overall stable
- EKG with nonspecific ST-T changes laterally
- Not reporting any chest pain or discomfort
Metastatic squamous cell carcinoma of hypopharynx
- Currently on chemo with taxol (01/08 last dose) and gemzar (01/15 last dose); not due for chemotherapy this week
- Oncology following. Patient to follow up with onc outpatient
- SW from cancer center visited this admission, appreciated by patient.
Constipation
- Continue bowel regimen, adjust for stool consistency
Code status: DNR
VTE ppx: SCDs
Diet: NPO, nutrition via PEG tube
Dispo planning: TBD
Anticipated Discharge: > 48 hours
Subjective/Interval History
-
Date of Service: January 27, 2024
No acute events overnight. No new complaints though reports continued intermittent productive cough which is causing cramp in chest and some shortness of breath. Denies fevers, chills, lightheadedness, dizziness, nausea, vomiting, abdominal pain,
constipation. Had loose BM yesterday AM, no black or bloody stools. Feeding via PEG tube. OOB with assistance.
Objective Data
-
Labs:
Laboratory Results
01/27/24
03:56
WBC 21.2 H
Hgb 8.6 L
Hct 25.4 L
Plt Count 197 D
Sodium 140
Potassium 3.2 L
Chloride 99
Carbon Dioxide 35 H
BUN 28 H
Creatinine 0.3 L
Glucose 111 H
Calcium 8.2 L
Total Bilirubin 0.3
AST 39
ALT 31
Alkaline Phosphatase 79
01/26/24 04:19 Blood Culture - Preliminary
Blood/Venous No Growth in 24 hours- Final report to follow
01/24/24 00:12 Blood Culture - Final
Blood/Venous Streptococcus pneumoniae
Gram Stain - Final
01/23/24 23:40 Blood Culture - Final
Blood/Venous Streptococcus pneumoniae
Gram Stain - Final
01/24/24 12:32 Respiratory Culture - Final
Sputum S aureus-Methicillin Sensitive
Gram Stain - Final
01/24/24 16:50 Legionella Urinary Antigen - Final
Urine Negative for Legionella pneumophila Serogroup 1 antigen.
A negative result does not rule out the possiblity of
Legionella infection due to other serogroups or species of
Legionella. Clinical correlation is recommended.
Streptococcus pneumoniae Antigen (M - Final
Positive for Strep pneumo Ag
01/24/24 09:03 Nasal Screen MRSA (PCR) - Final
Nose MRSA not detected - performed by PCR methodology.
01/24/24 01:31 Influenza Types A & B (CHRYSTAL) - Final
Nasal Swab Negative for Influenza A & B, NAAT
Negative results must be combined with clinical observations
and patient history.
Nucleic Acid Amplification test (NAAT)performed on the
[employer] platform.
Vital Signs:
Vital Signs
Temp Pulse Resp BP Pulse Ox
97.9 F 82 16 93/61 93
01/27/24 07:00 01/27/24 07:23 01/27/24 07:23 01/27/24 07:10 01/27/24 07:29
I&O
01/26/24 01/27/24 01/28/24
06:59 06:59 06:59
Intake Total 3509.35 / 3606.85 2477.5 / 2477.5
Output Total 1350 / 1350 945 / 945
Balance 2159.35 / 2256.85 1532.5 / 1532.5
Review of Systems
-
History Source: Patient
All other systems: Reviewed and negative
Physical Exam
-
General: No Apparent Distress, Comfortable, Conversant (increased work of breathing while talking), Appears Chronically Ill, Cachectic and Other (hoarse voice); Negative Pain
HEENT: Normocephalic and Atraumatic; Negative Oxygen
Respiratory: Rhonchi (bilaterally lower lobes); Negative Wheezes
Cardiac: Regular Rhythm and S1/S2
GI: Soft, Nontender, Nondistended, Normal Bowel Sounds and Peg Tube
Musculoskeletal: No Edema
Skin: Warm, Dry and IV Access / Catheter Site (chemo port R chest wall nonerythematous)
Neuro: Awake, Alert, Oriented and AO x 3
Psych: Calm and Intact Judgement/Insight
Data Reviewed
-
Diagnostic Radiology: Image personally visualized and interpreted and Report Reviewed by me
Labs: Labs Reviewed by me, Discussed with Physician and Discussed with Nurse
--- NOTE | 2024-01-27 09:07 | W.PN.ID1 ---
Date of Service
Date of Service: January 27, 2024
Today's Communication
- on stress dose steroids with leukocytosis - day 2
- c/w unasyn - day 4 of effective antibiotics - eventual transition to orals, duration pending course
- would consider port removal when feasible
Assessment / Plan
Acute vs Subacute Pneumonia in Immunosuppressed host, possible aspiration
Bacteremia - likely strep pneumo
SCC of head and neck
Chemotherapy: Taxol and Gemzar; also gcsf
S/p PEG and port placement
- sputum culture with many presumptive MSSA
- blood cultures x2 01/22 and 01/23 both with s pneumoniae
- repeat blood cultures x2 01/25 in progress no growth to date
- s pneumo urine ags - positive
- on stress dose steroids with leukocytosis - day 2
- c/w unasyn - day 4 of effective antibiotics - eventual transition to orals, duration pending course
- would consider port removal when feasible
- follow clinically
Chief Complaint
-: Leukocytosis, Pneumonia and Bacteremia
Subjective / Review of Systems
remains afebrile
now off of pressors
cough remains productive
Vital Signs / Physical Exam
Vital Signs
Vital Signs
Temp Pulse Resp BP Pulse Ox
97.9 F 82 16 93/61 93
01/27/24 07:00 01/27/24 07:23 01/27/24 07:23 01/27/24 07:10 01/27/24 07:29
Physical Exam
Constitutional: Acutely Ill and Chronically Ill
Cardiovascular: Regular Rate and S1/S2; Negative Murmur or Rub
Pulmonary: Clear and Symmetric; Negative Wheezes or Rales
Gastrointestinal: Soft, Non Tender, Non Distended and Normal Bowel Sounds
Skin: Warm and Dry; Negative Rash or Jaundice
Lines: Port (no erythema, warmth, tenderness or dysfunction)
Objective Data
Lab Data
Lab Results
01/27/24 03:56
01/27/24 03:56
PT 17.2 Sec (11.4-14.6) H 01/24/24 06:05
INR 1.42 01/24/24 06:05
APTT 43.8 Sec (23.4-35.0) H 01/24/24 06:05
Estimated Creat Clear 102 ml/min 01/27/24 03:56
Lactic Acid 1.5 mmol/L (0.7-2.0) 01/24/24 06:05
Total Bilirubin 0.3 mg/dl (0.2-1.3) 01/27/24 03:56
AST 39 U/L (17-59) 01/27/24 03:56
ALT 31 U/L (0-50) 01/27/24 03:56
Alkaline Phosphatase 79 U/L (38-126) 01/27/24 03:56
Most recent labs reviewed.
Blood Culture Final 01/26/24-1133
Streptococcus pneumoniae
Organism 1 Streptococcus pneumoniae
1. Streptococcus pneumoniae
M.I.C. RX
--------- ---
Azithromycin <=0.5 S
Ceftriaxone <=0.25 S
Meningitis:
<=0.5 Susceptible
1 Intermediate
>=2 Resistant
Non-meningitis:
<=1 Susceptible
2 Intermediate
>=4 Resistant
Clindamycin <=0.06 S
Levofloxacin 0.5 S
Penicillin G <=0.03 S
Meningitis:
<=0.06 Susceptible
>=0.12 Resistant
Non-meningitis:
<=2 Susceptible
4 Intermediate
>=8 Resistant
Tetracycline <=0.5 S
Trimethoprim/Sulfamethoxazole <=.25/4.7 S
Vancomycin 0.25 S
Chest X-Ray: Image Reviewed and Report Reviewed (slightly improved pneumonia)
Micro Results:
01/26/24 04:19 Blood Culture - Preliminary
Blood/Venous No Growth in 24 hours- Final report to follow
01/24/24 00:12 Blood Culture - Final
Blood/Venous Streptococcus pneumoniae
Gram Stain - Final
01/23/24 23:40 Blood Culture - Final
Blood/Venous Streptococcus pneumoniae
Gram Stain - Final
01/26/24 11:23 Blood Culture - Pending
Blood/Venous
01/24/24 12:32 Respiratory Culture - Final
Sputum S aureus-Methicillin Sensitive
Gram Stain - Final
01/24/24 16:50 Legionella Urinary Antigen - Final
Urine Negative for Legionella pneumophila Serogroup 1 antigen.
A negative result does not rule out the possiblity of
Legionella infection due to other serogroups or species of
Legionella. Clinical correlation is recommended.
Streptococcus pneumoniae Antigen (M - Final
Positive for Strep pneumo Ag
01/24/24 09:03 Nasal Screen MRSA (PCR) - Final
Nose MRSA not detected - performed by PCR methodology.
01/24/24 01:31 Influenza Types A & B (CHRYSTAL) - Final
Nasal Swab Negative for Influenza A & B, NAAT
Negative results must be combined with clinical observations
and patient history.
Nucleic Acid Amplification test (NAAT)performed on the
[employer] platform.
--- NOTE | 2024-01-27 10:45 | W.PN.PUL3 ---
Today's Communication / Plan
-
Continue antibiotics per infectious disease
Secretion clearance with nebulizer while in the hospital
Nutritional support
Aspiration precautions
Oxygen has been weaned off
No additional recommendation from the pulmonary perspective
Sign off
Assessment
-
53-year-old man with history of metastatic head and neck cancer. Admitted with shortness of breath, hypoxemia, found to have bilateral pneumonia, septic shock in the critical care unit.
Transfer to [facility] 01/26/2024. Pulmonary following for hypoxemia.
Bilateral pneumonia: Possibly aspiration.
Chest x-ray bilateral infiltrates right greater than left
Hypoxemic respiratory failure secondary to above-on low rate supplemental oxygen
-
Septic shock due to bilateral pneumonia-cannot rule out aspiration-resolved
Immunosuppression: Ongoing chemotherapy last around 01/09/2024
Acute on chronic anemia-likely due to chemotherapy-pulmonary and chronic
Status post 1 unit of packed red blood cells 01/17/2020
History of metastatic head and neck cancer
Cachectic-protein caloric malnutrition
-
Conditions present prior admission:
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
Follows up with [facility] -last chemotherapy 01/09/2024
Anemia-of chronic disease
PEG tube in place
Prior tracheotomy status post decannulation
Former smoker
Former alcohol use known since 2019
Assessment and plan:
-
Bilateral pneumonia with mild acute respiratory failure.
Septic shock resolved
Objectively and subjectively improved
oxygen supplementation has been weaned off.
Leukocytosis possibly from steroids.
Wean down stress dose of steroids. With wean off in the next 24- 48 hours if patient remains stable
-
Continue antibiotics-Unasyn per infectious disease
-
Sputum culture with staph aureous
Streptococcal antibody in the urine positive
Currently on Unasyn per infectious disease
-
Patient does have history of emphysema on CAT scan.
Continue nebulizer for secretion clearance-while in the hospital
No indication for systemic corticosteroid from the COPD/emphysema perspective-not bronchospastic on exam
Patient not usually on inhalers
-
Anemia: Status post transfusion.
Good response.
Continue to follow daily CBC
No evidence for bleeding
-
Oncology following the patient: Poor prognosis regarding cancer therapy.
-
DVT prophylaxis SCDs
Tube feedings at goal
Patient is n.p.o. due to his prior cancer for the last 4 years.
-
Subjective Data
-
Date of Service:
Date of Service: January 27, 2024
Chief Complaint: Pulmonary Follow Up (Bilateral pneumonia)
Subjective:
Overall patient feels better
Less short of breath
Cough and able to clear secretions
Denies hemoptysis.
Review of Systems
General: Fever (n)
Cardiopulmonary: Dyspnea (none at rest)
GI: Abdominal Pain (n) and Nausea (n)
Objective Data
Data Reviewed
Vital Signs / I&O / Oxygen:
Vital Signs
Temp Pulse Resp BP Pulse Ox
97.9 F 82 16 93/61 93
01/27/24 07:00 01/27/24 07:23 01/27/24 07:23 01/27/24 07:10 01/27/24 07:29
Intake and Output
01/26/24 01/27/24 01/28/24
06:59 06:59 06:59
Intake Total 3509.35 / 3606.85 2477.5 / 2477.5
Output Total 1350 / 1350 945 / 945
Balance 2159.35 / 2256.85 1532.5 / 1532.5
SaO2 93
Nasal Cannula flow liters per 2
minute
Physical Exam
General: Comfortable, Other (Able to speak in full sentences) and Other (Cachectic)
HEENT: Normocephalic
Cardiovascular: S1-S2
Respiratory: Crackles and Rhonchi (Minimal.)
GI: Soft and Non Distended
Neurology: No Motor Deficits
Skin: Warm
Labs/Micro/Reports
Lab Data
01/27/24 03:56
01/27/24 03:56
Microbiology
01/26/24 04:19 Blood/Venous Blood Culture - Preliminary
No Growth in 24 hours- Final report to follow
01/24/24 00:12 Blood/Venous Blood Culture - Final
Streptococcus pneumoniae
01/24/24 00:12 Blood/Venous Gram Stain - Final
01/23/24 23:40 Blood/Venous Blood Culture - Final
Streptococcus pneumoniae
01/23/24 23:40 Blood/Venous Gram Stain - Final
01/24/24 12:32 Sputum Respiratory Culture - Final
S aureus-Methicillin Sensitive
01/24/24 12:32 Sputum Gram Stain - Final
01/24/24 16:50 Urine Legionella Urinary Antigen - Final
Negative for Legionella pneumophila Serogroup 1 antigen.
A negative result does not rule out the possiblity of
Legionella infection due to other serogroups or species of
Legionella. Clinical correlation is recommended.
01/24/24 16:50 Urine Streptococcus pneumoniae Antigen (M - Final
Positive for Strep pneumo Ag
01/24/24 09:03 Nose Nasal Screen MRSA (PCR) - Final
MRSA not detected - performed by PCR methodology.
[2024-01-27] MEDS: MAGNESIUM SULFATE 100 IV (11:12)
[2024-01-27] MEDS: KCL 270 MEQ IV (11:23)
--- NOTE | 2024-01-27 13:04 | CM ---
CM met with pt and daughters Sofia and Farzaneh at bedside. Discuss dispo. Pt and family are interested in VN at [place]. Offered choice of agency. Preference is for [place]. Will send referral via [facility]. Pt's preference is that daughters be the
point of contact for VN appointments Sofia being first then Farzaneh second. Will note that in the referral.
--- NOTE | 2024-01-27 16:18 | PTCARENOTE ---
pt in bed. offered a few times to get out of bed to sit in a chair; pt refusing. BP via RT upper arm 88/57 Sr 80 93% RA. Midodrine given via PEG Tube
--- NOTE | 2024-01-27 18:41 | PTCARENOTE ---
Received patient from ICU via bed. Pt AAOX3. Pox: 94% RA. Patient denies pain/SOB. Call martinez within reach. Plan of care ongoing.
--- NOTE | 2024-01-27 18:51 | PTCARENOTE ---
Patient transfer to room 321 via bed. Report given via phone to upcoming shift. At time of transfer patient AAO x3; VSS. Voiding in a urinal dark shaw urine. Farzaneh (daughter ) made aware via phone regarding transfer
[2024-01-27] MEDS: SOLU-CORTEF 25 MG IV (20:46)
[2024-01-27] MEDS: FLUSH (NSS) 2 FLUSH IV ×2 (20:48→22:26)
[2024-01-28 04:35] LABS: Hematocrit 27.6 % (39.0-52.0); Hemoglobin 9.2 g/dL (13.0-18.0); Mean Corp Hgb Conc. 33.3 g/dL (33.0-37.0); Mean Corpuscular Hgb 29.3 pg (27.0-31.0); Mean Corpuscular Volume 87.9 fL (80.0-94.0); Mean Platelet Volume 12.2 fL (7.4-10.4); Platelet Count 253 10^3/uL (130-400); Red Blood Cell Count 3.14 10^6/uL (4.70-6.10); Red Cell Dist. Width 16.8 % (11.5-14.5); White Blood Cell Count 20.7 10^3/uL (4.8-10.8)
[2024-01-28 04:51] LABS: ALT (SGPT) 35 U/L (0-50); AST (SGOT) 39 U/L (17-59); Albumin 2.2 g/dl (3.5-5.0); Alkaline Phosphatase 91 U/L (38-126); Blood Urea Nitrogen 24 mg/dl (9-20); Calcium 7.9 mg/dl (8.4-10.2); Carbon Dioxide 35 mmol/L (22-30); Chloride 100 mmol/L (98-107); Estimated Creatinine Clearance 102 ml/min; Glucose 104 mg/dl (70-99); Magnesium 1.8 mg/dl (1.6-2.3); Potassium 3.5 mmol/L (3.5-5.1); Sodium 143 mmol/L (135-145); Total Bilirubin 0.2 mg/dl (0.2-1.3); Total Protein 4.9 g/dl (6.3-8.2); eGFR > 60.00
[2024-01-28] MEDS: FLUSH (NSS) 2 FLUSH IV ×2 (05:06→19:30)
[2024-01-28] MEDS: UNASYN IV ×4 (05:06→21:34)
[2024-01-28 07:00] VITALS: BP 87/55
[2024-01-28] MEDS: MIRALAX TUBE (07:15)
[2024-01-28] MEDS: ProAmatine 10 MG TUBE ×3 (08:01→21:34)
[2024-01-28] MEDS: SOLU-CORTEF 25 MG IV ×2 (08:01→19:29)
--- NOTE | 2024-01-28 08:01 | W.PN.HOSP.TC ---
Addendum entered and electronically signed by Nidia Tobar MD 01/28/24 13:03:
I saw and evaluated the patient independently. I reviewed the resident�s note and agree with findings and plan as documented by Dr. Herrera.
GENERAL: chronically ill appearing cachectic male in no apparent distress
HEENT: NC/AT--'hot potato like' breathy voice
HEART: regular rate and rhythm, +S1, +S2
LUNGS : clear to auscultation bilaterally
ABDOM: soft, nontender, nondistended, + bowel sounds, + PEG tube
EXT: no cyanosis, clubbing, or edema
NEUROLOGIC: grossly intact
SKIN: wounds on top pinna of ear--has soft barrier on sacrum
septic shock -- due to Community acquired pneumonia with acute hypoxemic resp failure (required 12 L, now on room air) and with pressor requirements and lactic acidosis--pt also immunocompromised due to recent chemotherapy and cancer--elevated WBC
with CXR c/w bilateral PNA, repeat CXR shows improvement (did receive G-CSF so WBC not entirely reliable)---blood cultures positive for strep pneumo--urine strep antigen positive, resp culture appears contaminated BUT testing positive for MSSA
--apprec sink cutter/ID--cont unasyn --off pressors--pt gets premedicated with steroids prior to chemo, weaning stress dose steroids
Normocytic anemia with Thrombocytopenia--Likely secondary to chemotherapy +/- acute infection and sepsis--no active blood loss--s/p 1 unit pRBC transfusion
Hypomagnesemia/Hypophosphatemia/Hypokalemia/Azotemia-- replete
Severe protein calorie malnutrition--IVF and start tube feeds--apprec nutrition
Elevated troponin--likely due to non-ischemic myocardial injury from sepsis--trend-- EKG with nonspecific ST-T changes laterally
Squamous cell carcinoma of head/neck- Currently on chemo with taxol (01/08 last dose) and gemzar (01/15 last dose)- S/p GCSF 01/15--apprec onc
Code status: DNR
DVT proph
anticipate d/c this week
Original Note:
Today's Communication/Plan
-
continue antibiotics per ID and steroids
Assessment / Plan
Assessment / Plan
53yo M with [facility] currently on chemotherapy who presented to ED 01/23/24 for >1 week of worsening shortness of breath, productive cough. Of note patient has PEG tube for nutrition and notes occasional aspiration while swishing water in mouth.
In ED, patient was found to have tachycardia, hypotension, leukocytosis, and CXR showing pneumonia. He was admitted to ICU and started on vanc/zosyn and pressors.
Community acquired pneumonia
Acute hypoxemic respiratory failure (required 12L)
Septic shock present on admission secondary to pneumonia
Lactic acidosis present on admission
Immunocompromised status secondary to chemotherapy
- Presented with tachycardia, hypotension, leukocytosis, and CXR showing pneumonia.
- WBC 22.1 on admission --> 20.7 today. Infection and GCSF 01/15 likely contributing to leukocytosis.
- Lactic acid 3.0 --> 2.4 --> 1.5.
- Remains afebrile.
- COVID, flu negative. Blood cultures on admission 01/23/24: Strep pneumo. Urine +Strep pneumo Ag.
- Sputum culture MSSA though specimen was poor quality (primarily oropharyngeal contamination)
- Repeat blood culture 01/26/24: NG 48h, final report pending.
- ID following, appreciate recs. Continue antibiotics per ID.
- 01/25: no longer on levophed or supplemental O2, downgraded from icu to med/surg
- Continue midodrine 10mg TID
- Continue stress dose steroids (started 01/24)- now on hydrocortisone 25mg IV q12h
- Continue to trend daily cbc, monitor temperature curve, clinical improvement
- NPO, aspiration precautions
Normocytic anemia
Thrombocytopenia- resolved
- Likely secondary to chemotherapy +/- acute infection and sepsis
- S/p pRBC 01/16 --> hgb 8.5 on admission
- S/p 1u pRBC 01/23 after hgb 6.9 --> followed by appropriate rise to 9.1
- Most recent hgb 9.1 today, stable after transfusion
- Blood consent signed this admission, on chart.
- No signs/symptoms acute or active bleeding
- Follow daily cbc
Hypomagnesemia
Hypophosphatemia
Hypokalemia
Azotemia
Severe protein calorie malnutrition
- Continue IVF support with electrolyte supplementation to correct deficits
- Nutrition consulted, appreciate recs. Continue tube feeds as tolerated
- Continue to trend labs, supplement prn
Elevated troponin secondary to nonischemic myocardial injury
- Troponin 0.017 on admission --> 0.021 overall stable
- EKG with nonspecific ST-T changes laterally
- Not reporting any chest pain or discomfort
Metastatic squamous cell carcinoma of hypopharynx
- Currently on chemo with taxol (01/08 last dose) and gemzar (01/15 last dose); not due for chemotherapy this week
- Oncology following. Patient to follow up with onc outpatient
- SW from cancer center visited this admission, appreciated by patient.
- ID recommend port removal when feasible
Constipation
- Continue bowel regimen, adjust for stool consistency
Code status: DNR
VTE ppx: SCDs
Diet: NPO, nutrition via PEG tube
Dispo planning: TBD
Anticipated Discharge: > 48 hours
Subjective/Interval History
-
Date of Service: January 28, 2024
No acute events overnight. Says his breathing is improving. Reports blood-tinged mucus when blowing nose, feels congested. Denies lightheadedness, dizziness, chest pain, shortness of breath, abdominal pain, constipation. Reports loose bowel
movement, no black or bloody stools. Ambulating as tolerated with PT, minimal assistance. Feeding via PEG tube.
Objective Data
-
Labs:
Laboratory Results
01/28/24
04:03
WBC 20.7 H
Hgb 9.2 L
Hct 27.6 L
Plt Count 253 D
Sodium 143
Potassium 3.5
Chloride 100
Carbon Dioxide 35 H
BUN 24 H
Creatinine 0.4 L
Glucose 104 H
Calcium 7.9 L
Total Bilirubin 0.2
AST 39
ALT 35
Alkaline Phosphatase 91
01/26/24 11:23 Blood Culture - Preliminary
Blood/Venous No Growth in 48 hours- Final report to follow
01/26/24 04:19 Blood Culture - Preliminary
Blood/Venous No Growth in 48 hours- Final report to follow
01/24/24 00:12 Blood Culture - Final
Blood/Venous Streptococcus pneumoniae
Gram Stain - Final
01/23/24 23:40 Blood Culture - Final
Blood/Venous Streptococcus pneumoniae
Gram Stain - Final
01/24/24 12:32 Respiratory Culture - Final
Sputum S aureus-Methicillin Sensitive
Gram Stain - Final
01/24/24 16:50 Legionella Urinary Antigen - Final
Urine Negative for Legionella pneumophila Serogroup 1 antigen.
A negative result does not rule out the possiblity of
Legionella infection due to other serogroups or species of
Legionella. Clinical correlation is recommended.
Streptococcus pneumoniae Antigen (M - Final
Positive for Strep pneumo Ag
01/24/24 09:03 Nasal Screen MRSA (PCR) - Final
Nose MRSA not detected - performed by PCR methodology.
01/24/24 01:31 Influenza Types A & B (CHRYSTAL) - Final
Nasal Swab Negative for Influenza A & B, NAAT
Negative results must be combined with clinical observations
and patient history.
Nucleic Acid Amplification test (NAAT)performed on the
[employer] platform.
Vital Signs:
Vital Signs
Temp Pulse Resp BP Pulse Ox
97.2 F 77 20 87/55 95
01/28/24 07:00 01/28/24 07:00 01/28/24 07:00 01/28/24 07:00 01/28/24 07:00
I&O
01/27/24 01/28/24 01/29/24
06:59 06:59 06:59
Intake Total 2477.5 / 2477.5 1535 / 1535
Output Total 945 / 945 700 / 700
Balance 1532.5 / 1532.5 835 / 835
Review of Systems
-
History Source: Patient
All other systems: Reviewed and negative
Physical Exam
-
General: No Apparent Distress, Comfortable, Conversant (Appears intermittently out of breath during conversation), Appears Chronically Ill, Cachectic and Other (hoarse voice); Negative Pain
HEENT: Normocephalic and Atraumatic; Negative Oxygen
Respiratory: Rhonchi (bilaterally lower lobes); Negative Wheezes
Cardiac: Regular Rhythm and S1/S2
GI: Soft, Nontender, Nondistended, Normal Bowel Sounds and Peg Tube
Musculoskeletal: No Edema
Skin: Warm, Dry and IV Access / Catheter Site (chemo port R chest wall nonerythematous)
Neuro: Awake, Alert, Oriented and AO x 3
Psych: Calm and Intact Judgement/Insight
Data Reviewed
-
Diagnostic Radiology: Image personally visualized and interpreted and Report Reviewed by me
Labs: Labs Reviewed by me, Discussed with Physician and Discussed with Nurse
[2024-01-28] MEDS: NSS (PRESERVATIVE FREE) 10 ML IV (08:03)
[2024-01-28] MEDS: PROTONIX IV 40 MG IV (08:03)
[2024-01-28] MEDS: DUONEB 3 ML INH ×4 (08:11→17:50)
--- NOTE | 2024-01-28 08:45 | VATNOTE ---
Contacted infectious disease MD (ID) regarding possible port removal, asked if we can continue to use it or if it should be deaccessed and establish peripheral vascular access. Per ID, better to deaccess at this time. Completed.
[2024-01-28] MEDS: FLUSH (NSS) 1 FLUSH IV (10:28)
[2024-01-28 14:44] VITALS: BP 85/55
[2024-01-28 18:01] VITALS: BP 96/58
[2024-01-28 23:00] VITALS: BP 98/63
[2024-01-29] VITALS (9 sets, daily range): BP systolic 87–121; BP diastolic 57–79; PULSE 94–96; O2SAT 94
[2024-01-29] MEDS: TYLENOL 650 MG TUBE (02:46)
[2024-01-29] MEDS: UNASYN IV ×4 (04:26→21:54)
[2024-01-29 07:44] LABS: Hematocrit 30.1 % (39.0-52.0); Hemoglobin 9.7 g/dL (13.0-18.0); Mean Corp Hgb Conc. 32.2 g/dL (33.0-37.0); Mean Corpuscular Hgb 29.4 pg (27.0-31.0); Mean Corpuscular Volume 91.2 fL (80.0-94.0); Mean Platelet Volume 12.4 fL (7.4-10.4); Platelet Count 306 10^3/uL (130-400); Red Cell Dist. Width 18.2 % (11.5-14.5); White Blood Cell Count 18.6 10^3/uL (4.8-10.8)
[2024-01-29] MEDS: DUONEB 3 ML INH ×4 (08:10→19:50)
[2024-01-29 08:23] LABS: ALT (SGPT) 35 U/L (0-50); AST (SGOT) 41 U/L (17-59); Albumin 2.2 g/dl (3.5-5.0); Alkaline Phosphatase 95 U/L (38-126); Blood Urea Nitrogen 21 mg/dl (9-20); Calcium 7.9 mg/dl (8.4-10.2); Carbon Dioxide 35 mmol/L (22-30); Chloride 99 mmol/L (98-107); Estimated Creatinine Clearance 102 ml/min; Glucose 91 mg/dl (70-99); Magnesium 1.6 mg/dl (1.6-2.3); Potassium 3.4 mmol/L (3.5-5.1); Sodium 141 mmol/L (135-145); Total Bilirubin 0.2 mg/dl (0.2-1.3); Total Protein 4.6 g/dl (6.3-8.2); eGFR > 60.00
--- NOTE | 2024-01-29 08:50 | W.PN.HOSP.TC ---
Today's Communication/Plan
-
continue antibiotics per ID and steroids
Assessment / Plan
Assessment / Plan
53yo M with [facility] H/N currently on chemotherapy who presented to ED 01/23/24 for >1 week of worsening shortness of breath, productive cough. Of note patient has PEG tube for nutrition and notes occasional aspiration while swishing water in mouth.
In ED, patient was found to have tachycardia, hypotension, leukocytosis, and CXR showing pneumonia. He was admitted to ICU and started on vanc/zosyn and pressors.
Community acquired pneumonia
Acute hypoxemic respiratory failure (required 12L)
Septic shock present on admission secondary to pneumonia
Lactic acidosis present on admission
Immunocompromised status secondary to chemotherapy
- Presented with tachycardia, hypotension, leukocytosis, and CXR showing pneumonia.
- WBC 22.1 on admission- Infection and GCSF 01/15 likely contributing to leukocytosis. WBC downtrending, now 18.6 today.
- Lactic acid 3.0 --> 2.4 --> 1.5.
- Remains afebrile throughout entire admission
- COVID, flu negative. Blood cultures on admission 01/23/24: Strep pneumo. Urine +Strep pneumo Ag.
- Sputum culture MSSA though specimen was poor quality (primarily oropharyngeal contamination)
- Repeat blood culture 01/26/24: NG 72h, final report pending.
- ID following, appreciate recs. Continue IV antibiotics per ID. Antibiotic duration TBD, eventual transition to PO.
- 01/25: no longer on levophed or supplemental O2, downgraded from icu to med/surg
- Continue midodrine 10mg TID
- Continue stress dose steroids (started 01/24)- now on hydrocortisone 25mg IV q12h
- Continue to trend daily cbc, monitor temperature curve, clinical improvement
- NPO, aspiration precautions
Normocytic anemia
Thrombocytopenia- resolved
- Likely secondary to chemotherapy +/- acute infection and sepsis
- S/p pRBC 01/16 --> hgb 8.5 on admission
- S/p 1u pRBC 01/23 after hgb 6.9 --> followed by appropriate rise to 9.1. Remains stable after transfusion.
- Most recent hgb 9.7 today, stable
- Blood consent signed this admission, on chart.
- No signs/symptoms acute or active bleeding
- Follow daily cbc
Hypomagnesemia
Hypophosphatemia
Hypokalemia
Azotemia
Severe protein calorie malnutrition
- Continue IVF support with electrolyte supplementation to correct deficits
- Nutrition consulted, appreciate recs. Continue tube feeds as tolerated
- Continue to trend labs, supplement prn
Elevated troponin secondary to nonischemic myocardial injury
- Troponin 0.017 on admission --> 0.021 overall stable
- EKG with nonspecific ST-T changes laterally
- Not reporting any chest pain or discomfort
Metastatic squamous cell carcinoma of hypopharynx
- Currently on chemo with taxol (01/08 last dose) and gemzar (01/15 last dose); not due for chemotherapy this week
- Oncology following. Patient to follow up with onc outpatient
- SW from cancer center visited this admission, appreciated by patient.
- Port removal. Reviewed with patient, per ID concern for biofilm development and relapse of bacteremia if left in.
Constipation
- Continue bowel regimen prn, adjust for stool consistency
Code status: DNR
VTE ppx: SCDs
Diet: NPO, nutrition via PEG tube
Dispo planning: TBD
Anticipated Discharge: > 48 hours
Subjective/Interval History
-
Date of Service: January 29, 2024
No acute events overnight. Reports episode of diarrhea this AM, feels short of breath with ambulation and just got back in bed. Some cramp-like chest pain associated with coughing. Congestion improving. Denies lightheadedness, dizziness, nausea,
vomiting, abdominal pain, constipation. Ambulating without assistance. Feeding via PEG tube.
Objective Data
-
Labs:
Laboratory Results
01/29/24
06:23
WBC 18.6 H
Hgb 9.7 L
Hct 30.1 L
Plt Count 306 D
Sodium 141
Potassium 3.4 L
Chloride 99
Carbon Dioxide 35 H
BUN 21 H
Creatinine 0.4 L
Glucose 91
Calcium 7.9 L
Total Bilirubin 0.2
AST 41
ALT 35
Alkaline Phosphatase 95
01/26/24 04:19 Blood/Venous Blood Culture - Preliminary
No Growth in 72 hours- Final report to follow
01/26/24 11:23 Blood/Venous Blood Culture - Preliminary
No Growth in 48 hours- Final report to follow
01/24/24 00:12 Blood/Venous Blood Culture - Final
Streptococcus pneumoniae
01/24/24 00:12 Blood/Venous Gram Stain - Final
01/23/24 23:40 Blood/Venous Blood Culture - Final
Streptococcus pneumoniae
01/23/24 23:40 Blood/Venous Gram Stain - Final
01/24/24 12:32 Sputum Respiratory Culture - Final
S aureus-Methicillin Sensitive
01/24/24 12:32 Sputum Gram Stain - Final
01/24/24 16:50 Urine Legionella Urinary Antigen - Final
Negative for Legionella pneumophila Serogroup 1 antigen.
A negative result does not rule out the possiblity of
Legionella infection due to other serogroups or species of
Legionella. Clinical correlation is recommended.
01/24/24 16:50 Urine Streptococcus pneumoniae Antigen (M - Final
Positive for Strep pneumo Ag
01/24/24 09:03 Nose Nasal Screen MRSA (PCR) - Final
MRSA not detected - performed by PCR methodology.
01/24/24 01:31 Nasal Swab Influenza Types A & B (CHRYSTAL) - Final
Negative for Influenza A & B, NAAT
Negative results must be combined with clinical observations
and patient history.
Nucleic Acid Amplification test (NAAT)performed on the
[employer] platform.
Vital Signs:
Vital Signs
Temp Pulse Resp BP Pulse Ox
97.9 F 89 18 87/57 92
01/29/24 07:40 01/29/24 08:13 01/29/24 08:13 01/29/24 07:40 01/29/24 08:13
I&O
01/28/24 01/29/24 01/30/24
06:59 06:59 06:59
Intake Total 1535 / 1535 1480 / 1480
Output Total 700 / 700 970 / 970
Balance 835 / 835 510 / 510
Review of Systems
-
History Source: Patient (see subjective)
Physical Exam
-
General: No Apparent Distress, Comfortable, Conversant (Appears intermittently out of breath during conversation), Appears Chronically Ill, Cachectic and Other (hoarse voice); Negative Pain
HEENT: Normocephalic and Atraumatic; Negative Oxygen
Respiratory: Rhonchi (bilaterally lower lobes) and Other (increased work of breathing during conversation, needs time to catch breath after ambulating); Negative Wheezes
Cardiac: Regular Rhythm and S1/S2
GI: Soft, Nontender, Nondistended, Normal Bowel Sounds and Peg Tube
Musculoskeletal: No Edema
Skin: Warm, Dry and IV Access / Catheter Site (chemo port R chest wall nonerythematous)
Neuro: Awake, Alert, Oriented and AO x 3
Psych: Calm and Intact Judgement/Insight
Data Reviewed
-
Diagnostic Radiology: Image personally visualized and interpreted and Report Reviewed by me
Labs: Labs Reviewed by me, Discussed with Physician, Discussed with Nurse and Discussed with Patient
[2024-01-29] MEDS: MIRALAX TUBE (09:56)
[2024-01-29] MEDS: ProAmatine 10 MG TUBE ×3 (10:04→21:54)
[2024-01-29] MEDS: PROTONIX IV 40 MG IV (10:05)
[2024-01-29] MEDS: SOLU-CORTEF 25 MG IV ×2 (10:07→19:25)
[2024-01-29] MEDS: NSS (PRESERVATIVE FREE) 10 ML IV (10:07)
--- NOTE | 2024-01-29 10:09 | PTCARENOTE ---
Patient inc of large loose BM. Patient states, 'I do not want any bowel medications. I cannot take them.' Patient ambulating to bathroom with assist x1 with weak, steady gait. Patient moistens mouth with gingerale and then suctions secretions out of
his mouth.
--- NOTE | 2024-01-29 10:28 | W.PN.UPDATE ---
Update Note
Progress Note Update
I saw and evaluated the patient independently. I reviewed the resident�s note and agree with findings and plan as documented by Dr. Herrera.
Pt SOB after ambulating in the hallway with PT.
Gen: NAD, AAOx3, appears chronically ill and malnourished.
Eyes: EOMI, PERRLA, no scleral icterus.
Neck: supple.
CV: RRR, +S1/S2, no m/r/g.
Resp: CTAB, no rales, wheezes, or rhonchi.
Abd: +BS, soft, NT, ND
Skin: No rashes.
Neuro: CN 2-12 intact, non-focal.
Psych: Normal mood and affect.
Septic shock and acute hypoxemic respiratory failure due to PNA:
-was on 12L, now on RA
-was on vasopressors, now off
-lactic acidosis, now resolved
-immunocompromised due to recent chemotherapy and cancer
-cont Ampicillin
-BCxs with strep pneumo
-weaning steroids
Normocytic anemia with Thrombocytopenia:
-likely due to chemotherapy +/- sepsis
-no active blood loss
-s/p 1U pRBC transfusion
Electrolyte abnormalities:
-Hypomagnesemia
-Hypophosphatemia
-Hypokalemia
-replete all PRN
Hypotension:
-cont Midodrine
Other problems:
Severe protein calorie malnutrition: cont TFs
Elevated troponin due to non-ischemic myocardial injury due to sepsis
Squamous cell carcinoma of head/neck: on Taxol/Gemzar as outpt, s/p G-CSF 01/16/24. Onc following
DNR
--- NOTE | 2024-01-29 12:21 | VNURNOTE ---
Home Health Liaison spoke with patient's daughter Sofia to discuss [facility] nurse/therapy, visits, schedule and homebound status. She is agreeable and understands that visits at home will be 2-3 x per week to assess and teach medical management.
Daughter requesting a wheelchair with larger wheels as current wheelchair is not sturdy. Aware it may be out of pocket, [facility] liaison will submit paperwork to DME. Per daughter patient independent with tube feeds/ [facility]. Daughter aware that
VN will contact them for start of care in 1-2 days after discharge from .
[facility] referral updated in [facility].
--- NOTE | 2024-01-29 13:07 | PTCARENOTE ---
KRISHNA note: Port tip did not send for culture after Confirming with .
--- NOTE | 2024-01-29 14:30 | PTCARENOTE ---
Received patient from IR, s/p removed of right SQP. Patient AAOx3, no c/o pain. Right chest wall dressing CDI. Call [facility] in reach.
[2024-01-29] MEDS: MAGNESIUM SULFATE 50 IV (14:45)
--- NOTE | 2024-01-29 15:23 | W.PN.UPDATE ---
Update Note
Progress Note Update
Patient requires a lightweight wheelchair due to ambulatory dysfunction. Patient is unable to self-propel in a standard wheelchair. A walker has been considered, but is clinically ineffective due to patient's condition.
[2024-01-29] MEDS: KCL 270 MEQ IV (16:16)
[2024-01-29] MEDS: LOVENOX 40 MG SC (16:17)
--- NOTE | 2024-01-29 17:17 | W.PN.ID1 ---
Date of Service
Date of Service: January 29, 2024
Today's Communication
- on stress dose steroids with leukocytosis
- c/w unasyn today, tomorrow switch to augmentin for 7 more days
- s/p port removal
Assessment / Plan
Acute vs Subacute Pneumonia in Immunosuppressed host, possible aspiration
Bacteremia - likely strep pneumo
SCC of head and neck
Chemotherapy: Taxol and Gemzar; also gcsf
S/p PEG and port placement
- sputum culture with many presumptive MSSA
- blood cultures x2 01/22 and 01/23 both with s pneumoniae
- repeat blood cultures x2 01/25 in progress no growth to date
- s pneumo urine ags - positive
- on stress dose steroids with leukocytosis
- c/w unasyn today, tomorrow switch to augmentin for 7 more days
- s/p port removal
- follow clinically
Chief Complaint
-: Leukocytosis, Pneumonia and Bacteremia
Subjective / Review of Systems
afebrile
bp stable
port removed
for steroid taper
Vital Signs / Physical Exam
Vital Signs
Vital Signs
Temp Pulse Resp BP Pulse Ox
97.9 F 87 16 101/66 94
01/29/24 15:20 01/29/24 16:00 01/29/24 16:00 01/29/24 15:20 01/29/24 16:00
Physical Exam
Constitutional: No Acute Distress and Chronically Ill
Cardiovascular: Regular Rate and S1/S2; Negative Murmur or Rub
Pulmonary: Clear and Symmetric; Negative Wheezes or Rales
Gastrointestinal: Soft, Non Tender, Non Distended and Normal Bowel Sounds
Skin: Warm and Dry; Negative Rash or Jaundice
Objective Data
Lab Data
Lab Results
01/29/24 06:23
01/29/24 06:23
PT 17.2 Sec (11.4-14.6) H 01/24/24 06:05
INR 1.42 01/24/24 06:05
APTT 43.8 Sec (23.4-35.0) H 01/24/24 06:05
Estimated Creat Clear 102 ml/min 01/29/24 06:23
Lactic Acid 1.5 mmol/L (0.7-2.0) 01/24/24 06:05
Total Bilirubin 0.2 mg/dl (0.2-1.3) 01/29/24 06:23
AST 41 U/L (17-59) 01/29/24 06:23
ALT 35 U/L (0-50) 01/29/24 06:23
Alkaline Phosphatase 95 U/L (38-126) 01/29/24 06:23
Most recent labs reviewed.
Micro Results:
01/26/24 11:23 Blood Culture - Preliminary
Blood/Venous No Growth in 72 hours- Final report to follow
01/26/24 04:19 Blood Culture - Preliminary
Blood/Venous No Growth in 72 hours- Final report to follow
01/24/24 00:12 Blood Culture - Final
Blood/Venous Streptococcus pneumoniae
Gram Stain - Final
01/23/24 23:40 Blood Culture - Final
Blood/Venous Streptococcus pneumoniae
Gram Stain - Final
01/24/24 12:32 Respiratory Culture - Final
Sputum S aureus-Methicillin Sensitive
Gram Stain - Final
01/24/24 16:50 Legionella Urinary Antigen - Final
Urine Negative for Legionella pneumophila Serogroup 1 antigen.
A negative result does not rule out the possiblity of
Legionella infection due to other serogroups or species of
Legionella. Clinical correlation is recommended.
Streptococcus pneumoniae Antigen (M - Final
Positive for Strep pneumo Ag
01/24/24 09:03 Nasal Screen MRSA (PCR) - Final
Nose MRSA not detected - performed by PCR methodology.
01/24/24 01:31 Influenza Types A & B (CHRYSTAL) - Final
Nasal Swab Negative for Influenza A & B, NAAT
Negative results must be combined with clinical observations
and patient history.
Nucleic Acid Amplification test (NAAT)performed on the
[employer] platform.
Care Review
Plan reviewed with: Physician (Dr Mayo - steroid taper)
[2024-01-30] MEDS: AUGMENTIN 250 MG/5 ML 500 MG PO (05:35)
[2024-01-30 06:29] LABS: Hematocrit 31.2 % (39.0-52.0); Mean Corp Hgb Conc. 32.1 g/dL (33.0-37.0); Mean Corpuscular Hgb 29.2 pg (27.0-31.0); Platelet Count 364 10^3/uL (130-400); Red Blood Cell Count 3.43 10^6/uL (4.70-6.10); Red Cell Dist. Width 18.8 % (11.5-14.5); White Blood Cell Count 15.4 10^3/uL (4.8-10.8)
[2024-01-30 07:00] LABS: ALT (SGPT) 32 U/L (0-50); AST (SGOT) 35 U/L (17-59); Albumin 2.4 g/dl (3.5-5.0); Alkaline Phosphatase 92 U/L (38-126); Blood Urea Nitrogen 20 mg/dl (9-20); Carbon Dioxide 36 mmol/L (22-30); Chloride 97 mmol/L (98-107); Estimated Creatinine Clearance 102 ml/min; Glucose 85 mg/dl (70-99); Magnesium 1.7 mg/dl (1.6-2.3); Potassium 3.8 mmol/L (3.5-5.1); Sodium 140 mmol/L (135-145); Total Bilirubin 0.2 mg/dl (0.2-1.3); eGFR > 60.00
[2024-01-30] MEDS: DUONEB 3 ML INH ×2 (07:29→11:32)
[2024-01-30 07:35] VITALS: BP 97/63
--- NOTE | 2024-01-30 09:13 | W.PN.HOSP.TC ---
Today's Communication/Plan
-
transition to Augmentin per ID, decrease steroids, monitor clinically
Assessment / Plan
Assessment / Plan
53yo M with [facility] currently on chemotherapy who presented to ED 01/23/24 for >1 week of worsening shortness of breath, productive cough. Of note patient has PEG tube for nutrition and notes occasional aspiration while swishing water in mouth.
In ED, patient was found to have tachycardia, hypotension, leukocytosis, and CXR showing pneumonia. He was admitted to ICU and started on vanc/zosyn and pressors.
Community acquired pneumonia
Acute hypoxemic respiratory failure (required 12L)
Septic shock present on admission secondary to pneumonia
Lactic acidosis present on admission
Immunocompromised status secondary to chemotherapy
- Presented with tachycardia, hypotension, leukocytosis, and CXR showing pneumonia.
- WBC 22.1 on admission- Infection and GCSF 10/29 likely contributing to leukocytosis. WBC downtrending, now 15.4 today.
- Lactic acid 3.0 --> 2.4 --> 1.5.
- Remains afebrile throughout entire admission
- COVID, flu negative. Blood cultures on admission 01/23/24: Strep pneumo. Urine +Strep pneumo Ag.
- Sputum culture MSSA though specimen was poor quality (primarily oropharyngeal contamination)
- Repeat blood culture 01/26/24: NG at 4 days, final report pending.
- ID following, appreciate recs. Change unasyn to augmentin today for 7 more days per ID.
- 01/25: no longer on levophed or supplemental O2, downgraded from icu to med/surg
- Continue midodrine 10mg TID
- Wean down stress dose steroids (started 01/24)- prednisone 10mg today, 5mg tomorrow
- Continue to trend daily cbc, monitor temperature curve, clinical improvement
- NPO, aspiration precautions
- Continue to monitor clinically on oral antibiotics and reduced steroids.
Normocytic anemia
Thrombocytopenia- resolved
- Likely secondary to chemotherapy +/- acute infection and sepsis
- S/p pRBC 01/16 --> hgb 8.5 on admission
- S/p 1u pRBC 01/23 after hgb 6.9 --> followed by appropriate rise to 9.1. Remains stable after transfusion.
- Most recent hgb 10.0 today, stable
- Blood consent signed this admission, on chart.
- No signs/symptoms acute or active bleeding
- Follow daily cbc
Hypomagnesemia
Hypophosphatemia
Hypokalemia
Azotemia
Severe protein calorie malnutrition
- Continue IVF support with electrolyte supplementation to correct deficits
- Nutrition consulted, appreciate recs. Continue tube feeds as tolerated
- Continue to trend labs, supplement prn
Elevated troponin secondary to nonischemic myocardial injury
- Troponin 0.017 on admission --> 0.021 overall stable
- EKG with nonspecific ST-T changes laterally
- Not reporting any chest pain or discomfort
Metastatic squamous cell carcinoma of hypopharynx
- Currently on chemo with taxol (01/08 last dose) and gemzar (01/15 last dose); not due for chemotherapy this week
- Oncology following. Patient to follow up with onc outpatient
- SW from cancer center visited this admission, appreciated by patient.
- S/p port removal. Reviewed with patient, per ID concern for biofilm development and relapse of bacteremia if left in.
Constipation- Continue bowel regimen prn, adjust for stool consistency
Former smoker
Code status: DNR
VTE ppx: SCDs
Diet: NPO, nutrition via PEG tube
Dispo planning: likely home with home health
Anticipated Discharge: 24 - 48 hours
Subjective/Interval History
-
Date of Service: January 30, 2024
No acute events overnight. Reports he slept well last night, and it took an hour to 'clear out' congestion and productive cough- he says the nebs are helping. Denies lightheadedness, dizziness, chest pain, shortness of breath, nausea, vomiting.
Ambulating as tolerating. Feeding via peg tube.
Objective Data
-
Labs:
Laboratory Results
01/30/24
06:04
WBC 15.4 H
Hgb 10.0 L
Hct 31.2 L
Plt Count 364
Sodium 140
Potassium 3.8
Chloride 97 L
Carbon Dioxide 36 H
BUN 20
Creatinine 0.4 L
Glucose 85
Calcium 8.0 L
Total Bilirubin 0.2
AST 35
ALT 32
Alkaline Phosphatase 92
01/26/24 04:19 Blood/Venous Blood Culture - Preliminary
No Growth in 4 days- Final report to follow
01/26/24 11:23 Blood/Venous Blood Culture - Preliminary
No Growth in 72 hours- Final report to follow
01/24/24 00:12 Blood/Venous Blood Culture - Final
Streptococcus pneumoniae
01/24/24 00:12 Blood/Venous Gram Stain - Final
01/23/24 23:40 Blood/Venous Blood Culture - Final
Streptococcus pneumoniae
01/23/24 23:40 Blood/Venous Gram Stain - Final
01/24/24 12:32 Sputum Respiratory Culture - Final
S aureus-Methicillin Sensitive
01/24/24 12:32 Sputum Gram Stain - Final
01/24/24 16:50 Urine Legionella Urinary Antigen - Final
Negative for Legionella pneumophila Serogroup 1 antigen.
A negative result does not rule out the possiblity of
Legionella infection due to other serogroups or species of
Legionella. Clinical correlation is recommended.
01/24/24 16:50 Urine Streptococcus pneumoniae Antigen (M - Final
Positive for Strep pneumo Ag
01/24/24 09:03 Nose Nasal Screen MRSA (PCR) - Final
MRSA not detected - performed by PCR methodology.
11/06/24 01:31 Nasal Swab Influenza Types A & B (CHRYSTAL) - Final
Negative for Influenza A & B, NAAT
Negative results must be combined with clinical observations
and patient history.
Nucleic Acid Amplification test (NAAT)performed on the
[employer] platform.
Vital Signs:
Vital Signs
Temp Pulse Resp BP Pulse Ox
97.5 F 95 16 97/63 95
01/30/24 07:35 01/30/24 07:35 01/30/24 07:35 01/30/24 07:35 01/30/24 07:35
I&O
01/29/24 01/30/24 01/31/24
06:59 06:59 06:59
Intake Total 1480 / 1480 2690 / 2690
Output Total 970 / 970 1400 / 1400
Balance 510 / 510 1290 / 1290
Review of Systems
-
History Source: Patient (see subjective)
Physical Exam
-
General: No Apparent Distress, Comfortable, Conversant (Appears intermittently out of breath during conversation), Appears Chronically Ill, Cachectic and Other (hoarse voice); Negative Pain
HEENT: Normocephalic and Atraumatic; Negative Oxygen
Respiratory: Clear to Auscultation and Other (increased work of breathing during conversation, needs time to catch breath after ambulating); Negative Wheezes
Cardiac: Regular Rhythm and S1/S2
GI: Soft, Nontender, Nondistended, Normal Bowel Sounds and Peg Tube
Musculoskeletal: No Edema
Skin: Warm and Dry
Neuro: Awake, Alert, Oriented and AO x 3
Psych: Calm and Intact Judgement/Insight
Data Reviewed
-
Diagnostic Radiology: Image personally visualized and interpreted and Report Reviewed by me
Labs: Labs Reviewed by me, Discussed with Physician, Discussed with Nurse and Discussed with Patient
[2024-01-30] MEDS: ProAmatine 10 MG TUBE (09:31)
[2024-01-30] MEDS: NSS (PRESERVATIVE FREE) 10 ML IV (09:34)
[2024-01-30] MEDS: PROTONIX IV 40 MG IV (09:35)
--- NOTE | 2024-01-30 09:43 | W.PN.UPDATE ---
Update Note
Progress Note Update
I saw and evaluated the patient independently. I reviewed the resident�s note and agree with findings and plan as documented by Dr. Herrera.
No new complaints.
Gen: NAD, AAOx3, appears chronically ill and malnourished.
Eyes: EOMI, PERRLA, no scleral icterus.
Neck: supple.
CV: remains RRR, +S1/S2, no m/r/g.
Resp: CTAB anteriorly, no rales, wheezes, or rhonchi.
Abd: remains +BS, soft, NT, ND
Skin: No rashes.
Neuro: CN 2-12 intact, non-focal.
Psych: Normal mood and affect.
Septic shock and acute hypoxemic respiratory failure due to PNA:
-was on 12L, now on RA
-was on vasopressors, now off
-lactic acidosis, now resolved
-immunocompromised due to recent chemotherapy and cancer
-was on Ampicillin, now on Augmentin
-BCxs with strep pneumo
-weaning steroids
Normocytic anemia with Thrombocytopenia:
-likely due to chemotherapy +/- sepsis
-no active blood loss
-s/p 1U pRBC transfusion
Electrolyte abnormalities:
-Hypomagnesemia
-Hypophosphatemia
-Hypokalemia
-replete all PRN
Hypotension:
-cont Midodrine
Other problems:
Severe protein calorie malnutrition: cont TFs
Elevated troponin due to non-ischemic myocardial injury due to sepsis
Squamous cell carcinoma of head/neck: on Taxol/Gemzar as outpt, s/p G-CSF 01/16/24. Onc following
DNR
Medically cleared for d/c. Case management aware.
[2024-01-30] MEDS: DELTASONE 10 MG TUBE (09:49)
--- NOTE | 2024-01-30 11:06 | W.PN.ID1 ---
Date of Service
Date of Service: January 30, 2024
Today's Communication
- switch to augmentin for 6 more days - patient requests suspension for ease of administration - ordered
follow up with oncology
Assessment / Plan
Acute vs Subacute Pneumonia in Immunosuppressed host, possible aspiration
Bacteremia - likely strep pneumo
SCC of head and neck
Chemotherapy: Taxol and Gemzar; also gcsf
S/p PEG and port placement
- switch to augmentin for 6 more days - patient requests suspension for ease of administration - ordered; aske manager rn case to confirm his outpatient pharmacy stocks it or can get it delivered
- follow up with oncology
Chief Complaint
-: Leukocytosis, Pneumonia and Bacteremia
Subjective / Review of Systems
afebrile
bp stable
no events overnight
Vital Signs / Physical Exam
Vital Signs
Vital Signs
Temp Pulse Resp BP Pulse Ox
97.5 F 95 16 97/63 95
01/30/24 07:35 01/30/24 09:31 01/30/24 07:35 01/30/24 09:31 01/30/24 07:35
Physical Exam
Constitutional: No Acute Distress and Chronically Ill
Cardiovascular: Regular Rate and S1/S2; Negative Murmur or Rub
Pulmonary: Clear and Symmetric; Negative Wheezes or Rales
Gastrointestinal: Soft, Non Tender, Non Distended and Normal Bowel Sounds
Skin: Warm and Dry; Negative Rash or Jaundice
Lines: Other (PEG, dressing site of port clean, dry, intact)
Objective Data
Lab Data
Lab Results
01/30/24 06:04
01/30/24 06:04
PT 17.2 Sec (11.4-14.6) H 01/24/24 06:05
INR 1.42 01/24/24 06:05
APTT 43.8 Sec (23.4-35.0) H 01/24/24 06:05
Estimated Creat Clear 102 ml/min 01/30/24 06:04
Lactic Acid 1.5 mmol/L (0.7-2.0) 01/24/24 06:05
Total Bilirubin 0.2 mg/dl (0.2-1.3) 01/30/24 06:04
AST 35 U/L (17-59) 01/30/24 06:04
ALT 32 U/L (0-50) 01/30/24 06:04
Alkaline Phosphatase 92 U/L (38-126) 01/30/24 06:04
Most recent labs reviewed.
Micro Results:
01/26/24 04:19 Blood Culture - Preliminary
Blood/Venous No Growth in 4 days- Final report to follow
01/26/24 11:23 Blood Culture - Preliminary
Blood/Venous No Growth in 72 hours- Final report to follow
01/24/24 00:12 Blood Culture - Final
Blood/Venous Streptococcus pneumoniae
Gram Stain - Final
01/23/24 23:40 Blood Culture - Final
Blood/Venous Streptococcus pneumoniae
Gram Stain - Final
01/24/24 12:32 Respiratory Culture - Final
Sputum S aureus-Methicillin Sensitive
Gram Stain - Final
01/24/24 16:50 Legionella Urinary Antigen - Final
Urine Negative for Legionella pneumophila Serogroup 1 antigen.
A negative result does not rule out the possiblity of
Legionella infection due to other serogroups or species of
Legionella. Clinical correlation is recommended.
Streptococcus pneumoniae Antigen (M - Final
Positive for Strep pneumo Ag
01/24/24 09:03 Nasal Screen MRSA (PCR) - Final
Nose MRSA not detected - performed by PCR methodology.
01/24/24 01:31 Influenza Types A & B (CHRYSTAL) - Final
Nasal Swab Negative for Influenza A & B, NAAT
Negative results must be combined with clinical observations
and patient history.
Nucleic Acid Amplification test (NAAT)performed on the
[employer] platform.
--- NOTE | 2024-01-30 13:43 | W.DCSUMMARY ---
Addendum entered and electronically signed by Cuba Mayo MD 01/30/24 14:55:
Read, reviewed, and agree. See same day progress note for additional details.
Total time spent on d/c = 34 min. This included today's physical exam, progress note, review of laboratory and diagnostic data, preparation of discharge documents and prescriptions, and discussions about the pt's hospital course and discharge plan
with the patient and other medical laboratory technicians involved in the patient's care.
Original Note:
Discharge Summary
Discharge Data
Date of Admission: 01/24/24
Date of Discharge: 01/30/24
-
Pending Results: Yes
Additional Pending Results:
01/26/24 11:23 Blood/Venous Blood Culture - Preliminary
No Growth in 4 days- Final report to follow
01/26/24 04:19 Blood/Venous Blood Culture - Preliminary
No Growth in 4 days- Final report to follow
Hospital Course
Discharging Physician : Dr. Herrera, Dr. Olvera
Disposition : Home with home health
Primary care physician : Javier Stallworth
Principal Discharge diagnosis : Community acquired pneumonia, septic shock and lactic acidosis present on admission, acute hypoxemic respiratory failure, immunocompromised status secondary to chemotherapy, electrolyte abnormalities, elevated
troponin secondary to nonischemic myocardial injury, hypotension
Chronic Discharge diagnosis : Metastatic squamous cell carcinoma of hypopharynx, PEG tube and chronic NPO, anemia of chronic disease, severe protein calorie malnutrition
Hospital Course : Presented to ED 01/23/24 for worsening shortness of breath and productive cough. He had septic shock present on admission with signs of pneumonia on chest xray, as well as acute hypoxemic respiratory failure. He was admitted to
the ICU and treated with antibiotics, pressors, and supplemental oxygen. He also received stress dose steroids because he is treated with steroids prior to chemotherapy. His urine was positive for strep pneumo antigen, and his blood cultures from
admission were also positive for strep pneumo. ID, cold mill inspector, oncology, and pulmonology were consulted this hospitalization. His condition improved and no longer required IV pressors or supplemental oxygen; he was downgraded to med/surg level.
Midodrine TID was continued for blood pressure support, and his steroids were weaned. During this hospitalization, he also had anemia requiring 1 blood transfusion, electrolyte abnormalities which resolved with appropriate supplementation, and
elevated troponin secondary to nonischemic myocardial injury which trended down. His chemotherapy port was removed due to concern for biofilm formation given bacteremia. His condition improved, chest xray showed slight improvement, repeat blood
cultures showed no growth at 4 days. On day of discharge he was stable. He was discharged home with home health, and he will follow up closely with his primary care provider and oncologist.
Important imaging findings :
Chest xray 01/23/24
IMPRESSION:
Bilateral pneumonia.
Chest xray 01/27/24
IMPRESSION:
Bilateral opacification suspicious for pneumonia, slightly improved.
Procedure findings :
Interventional radiology 01/29/24:
IMPRESSION: Single lumen right internal jugular Mediport removal.
Discharge Plan
-
Patient Disposition: Home with Home Care
Discharge Diagnosis/Procedures: Community acquired pneumonia, septic shock and lactic acidosis present on admission, acute hypoxemic respiratory failure, immunocompromised status secondary to chemotherapy, electrolyte abnormalities, elevated
troponin secondary to nonischemic myocardial injury, hypotension, metastatic squamous cell carcinoma of hypopharynx
Condition: Fair
Diet: Tube feeding
Activity: As tolerated
Driving Restrictions: No driving
Bathing Restrictions: OK to Shower
Other Services: VN, PT and OT
Instructions: Community-Acquired Pneumonia, Adult (DC)
Referrals:
Cliff Lipscomb, DO [Active] - in less than 1 week (Call your oncologist to schedule your next appointment or treatment.)
Javier Stallworth MD [Family Provider] - in less than 1 week (Call your Primary Care Provider to schedule appointment within 1 week of hospital discharge.)
Additional Discharge Medication Instructions: New medications:
- Amoxicillin/Clavulanate- Take 10mL through the feeding tube (each dose is 500mg amoxicillin) every 8 hours. Take for 7 days, then stop (01/30/24-02/05/24).
- Prednisone- Take 5mg through the feeding tube ONCE on 01/31/24. Then stop taking this medication.
- Midodrine- Take 10mg through the feeding tube three times per day. Continue taking until you see your primary care doctor or oncologist. You should ask them for refills if needed.
- Ipratropium-albuterol nebulizer- Use 4 times per day.
- Albuterol nebulizer- Use as needed, up to once every 4 hours.
Continue taking your other medications as you were prior to this hospitalization. Follow up with your primary care doctor and your oncologist about any changes or refills.
Prescriptions:
New
amoxicillin-pot clavulanate 250-62.5 mg/5 mL Suspension For Reconstitution
10 ml feeding tube Q8 7 Days Qty: 210 0RF
ipratropium-albuterol 0.5 mg-3 mg(2.5 mg base)/3 mL Solution For Nebulization
3 ml inhalation R QID Qty: 90 0RF
midodrine 5 mg Tablet
10 mg feeding tube TID Qty: 90 0RF
albuterol sulfate 2.5 mg /3 mL (0.083 %) Solution For Nebulization
2.5 mg inhalation R Q4HPRN PRN (Reason: SOB) Qty: 75 0RF
prednisone 5 mg/5 mL solution
5 mg feeding tube ONCE Qty: 120 0RF
Continued
acetaminophen [Tylenol Extra Strength] 500 mg Tablet
1,000 mg PO Q6H PRN (Reason: pain )
paclitaxel protein-bound 100 mg Suspension For Reconstitution
300 mg IV . DIRECTED
gemcitabine 2 gram Recon Soln
IV . DIRECTED
Nyvepria 6 mg/0.6 mL Syringe
6 mg SC . DIRECTED
Discharge Orders:
Discharge Patient (As Directed); Ordered 01/30/24
Ordered By: Heena Herrera
Discharge Date and Time
Print Language: GERMAN
[2024-01-30] MEDS: DUONEB INH (15:22)
[2024-01-30 15:40] VITALS: BP 114/73
--- NOTE | 2024-01-30 17:44 | CM ---
Reviewed chart, patient medically stable for discharge. Spoke with patient's daughter who confirmed that VN was set up and that she had heard from RAZIA, Dinorah sanders. She also stated that she had received a call from a wallpaper embosser helper for
tomorrow. She had no further questions or concerns.
Plan: Case management will continue to follow and assist with discharge planning. Home with [facility].
--- NOTE | 2024-01-31 12:10 | VNURNOTE ---
late entry: clinicals, rx faxed to [facility] for WC. RIMA Oconnor will reach out to daughter Sofia to explain coverage for other DME needed.
--- NOTE | 2024-01-31 12:42 | VNURNOTE ---
Late Entry Addendum:
[facility] does not accept patient's insurance. Faxed info and Rx to Rita at [facility]. DME co can deliver WC tomorrow.
--- NOTE | 2024-01-31 17:10 | CM ---
Placed a call to patient's daughter, Sofia, to discuss DME. She stated that the 20 percent co-pay for the w/c is going to make it difficult for her to afford other DME for patient. She confirmed she can warp picker the Neb, scripts and can get a
script at patient's MD for a suction. She was provided with information for pre-owned medical equipment for a shower chair and other items that may be beneficial.
[phone]. Patient's daughter stated that she is appreciative of the resource and will call them.
== END 2024-01-30 15:40 | disposition home health service (06) | DRG 871 ==
LOC: 3 WEST ACU 02:17
PROVIDERS: Nurse Practitioner Family; Nurse Practitioner Primary Care; Radiology Vascular & Interventional Radiology; Student in an Organized Health Care Education/Training Program; ADMITTING PHYSICIAN Hospitalist; ATTENDING PHYSICIAN Internal Medicine; CONSULT PHYSICIAN Internal Medicine Critical Care Medicine; CONSULT PHYSICIAN Student in an Organized Health Care Education/Training Program; EMERGENCY PHYSICIAN Emergency Medicine; FAMILY PHYSICIAN Family Medicine; OTHER PHYSICIAN Internal Medicine Hematology & Oncology
PROC: 30233N1 Transfusion of Nonautologous Red Blood Cells into Peripheral Vein, Percutaneous Approach (ICD-10-PCS; 2024-01-24)
PROC: 02PY33Z Removal of Infusion Device from Great Vessel, Percutaneous Approach (ICD-10-PCS; 2024-01-29)
PROC: 0JPT0WZ Removal of Totally Implantable Vascular Access Device from Trunk Subcutaneous Tissue and Fascia, Open Approach (ICD-10-PCS; 2024-01-29)
DX: A40.3 Sepsis due to Streptococcus pneumoniae (principal); E43 Unspecified severe protein-calorie malnutrition; J96.01 Acute respiratory failure with hypoxia; R65.21 Severe sepsis with septic shock; J15.211 Pneumonia due to Methicillin susceptible Staphylococcus aureus; J69.0 Pneumonitis due to inhalation of food and vomit; R64 Cachexia; I5A Non-ischemic myocardial injury (non-traumatic); E87.20 Acidosis, unspecified; Z68.1 Body mass index [BMI] 19.9 or less, adult; D84.821 Immunodeficiency due to drugs; C79.9 Secondary malignant neoplasm of unspecified site; Z66 Do not resuscitate; R62.7 Adult failure to thrive; K21.9 Gastro-esophageal reflux disease without esophagitis; D64.81 Anemia due to antineoplastic chemotherapy; T45.1X5A Adverse effect of antineoplastic and immunosuppressive drugs, initial encounter; D69.59 Other secondary thrombocytopenia; E83.39 Other disorders of phosphorus metabolism; E83.42 Hypomagnesemia; E87.6 Hypokalemia; I95.89 Other hypotension; C13.9 Malignant neoplasm of hypopharynx, unspecified; D63.0 Anemia in neoplastic disease; Z95.828 Presence of other vascular implants and grafts; Z93.1 Gastrostomy status; Z87.891 Personal history of nicotine dependence; Z79.899 Other long term (current) drug therapy; Z20.822 Contact with and (suspected) exposure to COVID-19
CPT/HCPCS: 36590; 71045; 77001; 80048; 80053; 80076; 83605; 83735; 84100; 84132; 84484; 85014; 85018; 85025; 85027; 85610; 85730; 86850; 86900; 86901; 86920; 87040; 87070; 87077; 87147; 87186; 87205; 87449; 87502; 87641; 87811; 87899; 90686; 93005; 93306; 94640; 97116; 97163; 97166; 97530; 97535; 99291; G0008; P9016

== ENCOUNTER 2024-02-08 12:58 | Inpatient (IN) | payer OTHER, SELFPAY ==
[2024-02-08] VITALS (8 sets, daily range): BP systolic 87–93; BP diastolic 57–75; BMI 15.5; BMI 15.6
--- NOTE | 2024-02-08 10:07 | ED.GENMED ---
History of Present Illness
<Geno Schafer PA-C - Last Filed: 02/08/24 15:36>
General
Chief Complaint: Throat Problem
Source: patient
Exam Limitations: none
Time Seen by Provider: 02/08/24 09:46
Nursing documentation reviewed up to this point in time: agreed with
History of Present Illness
History of Present Illness:
53 y/o M with h/o throat cancer, vocal cord paralysis, h/o tracheostomy
dysphagia chroinc PEG tube
anemia
was just admitted 01/23-01/29 for strep pna bacteremia and b/l PNA, ws in septic shock and received pressors and o2 (not intubated), steroids
transitioned to aumentin and completed course 02/04
here with hemoptysis
says that he is still trying to bring up secretions, which he chronically needs to becuase he has such issues with vocal cord paralysis
but normally it is not blood-tinged. Patient says that the blood was floating within the saliva and not a significant volume but enough that he was worried about it. He talked to his daughter who spoke with a home visiting nurse who did not
actually physically see him yesterday or today but said he should come in and get seen. Patient does not have oxygen supplementation at home. He does use nebulizer treatments routinely 4 times a day and has been continuing with that regimen. He
has not had a new fever that he knows of. He does need midodrine for his chronic hypotension and he says he did use it today, took via PEG.
Past History
<Geno Schafer PA-C - Last Filed: 02/08/24 15:36>
Past History
ED Past Medical History: Cancer
ED Past Surgical History: Other (Tracheostomy tube placement, PEG)
Social History
Tobacco: Former smoker
Alcohol: None
Drug: None
Review of Systems
<Geno Schafer PA-C - Last Filed: 02/08/24 15:36>
Review of Systems
Allergies reviewed?: Yes
All Other Systems: Not applicable
Phy Exam
<Geno Schafer PA-C - Last Filed: 02/08/24 15:36>
Physical Exam
Physical Exam:
GENERAL: Alert , in no apparent distress
EYE: pupils equal and reactive, pale
NECK: Supple
VOCAL CORD PARALYSIS, HOARSE VOICE CHRONICALLY
SPITS SECRETIONS
ENT: o/p clr, mmm.
CARDIAC: Regular rate and rhythm .
LUNGS: Clear breath sounds bilaterally, no acute respiratory distress, no wheezes/rales/rhonchi
ABDOMEN: Soft, without focal tenderness, no r/g, no cvat, normal bowel sounds
NEUROLOGICAL: Alert and oriented, no focal neuro deficits
SKIN: Warm and dry, skin intact.
MUSCULOSKELETAL: No edema, well perfused. neg nya's sign
PSYCH: Normal and appropriate interaction.
Course
<Geno Schafer PA-C - Last Filed: 02/08/24 15:36>
Orders/Labs/Results
Orders:
Orders
02/08/24 Breakfast
Tube Feeding
At Your Request: Non-Participating
Tube Feeding Product: Jevity 1.5
Initial continuous pump rate (mL/hr): 20 ml/hr
Advance to goal rate (mL/hr): 65
Flush Continuous pump feedings with water (mL/hr): 25
02/08/24 10:05
0.9% Sodium Chloride 500 ml [Nss] 500 ml IV BOLUS
CR Chest - 2 Views Urgent
Comment:
Reason For Exam: pna recently, worsening cough with blood tinged
02/08/24 10:13
Complete Blood Count/With Diff Urgent
Comprehensive Metabolic Panel Urgent
Lactic Acid Q4H
Comment: CANCEL 2nd LACTIC ACID IF 1st LACTIC ACID IS LESS THAN 2
PTT Urgent
Prothrombin Time Urgent
02/08/24 11:36
Ampicillin/Sulbactam 3 G [Unasyn] 3 gm 0.9% Sodium Chloride 100 ml [Nss] 100 ml IV NOW
02/08/24 12:39
Admit/Transfer Patient As Directed
Co-Sign Provider:
Level of Care: Inpatient admission
Assign to:: Medical/Surgical
Physician / Group: Burak Pickering
Diagnosis: hemoptysis, recovering PNA
Reason for Hospitalization: hemoptysis, recovering PNA
Expected length of stay greater than two midnights?: Yes
ELOS- Estimated Length of Stay in days: 2
I certify the patient meets the requirements for IP care: Yes
PRN Pain Medication Management As Directed
May give lesser potent ordered pain med per pt: Yes
preference::
Protocol:: Medication orders for pain may be administered in a
manner that supports deferring to patient preference
when the pt is:
- Requesting an ordered lesser potent pain medication.
Least to most potent pain medications are defined
as: acetaminophen < NSAID < tramadol < opioids
(morphine, oxycodone, hydromorphone).
- Requesting a lesser dose of the same medication IF
ORDERED.
- Requesting a less intrusive route of administration
if both routes are prescribed by the provider (PO <
IV).
02/08/24 12:41
Code Status As Directed
Resuscitation Status: Do not resuscitate
Reached after discussion with pt or family/Healthcare POA: Yes
DNR Bracelet Application ONCE
02/08/24 12:45
Sodium Chloride [Herscher, Saline Mist] See Dose Instructions NASAL QIDPRN PRN
02/08/24 13:59
Acetaminophen [Tylenol] 650 mg TUBE Q4HPRN PRN
Bisacodyl [Dulcolax] 10 mg RECTAL [id number] PRN
Docusate W/Senna [Senokot-S] 1 tablet PO BIDPRN PRN
Glycopyrrolate [Robinul] 1 mg TUBE TID PRN
Ipratropium/Albuterol Sulfate [Duoneb] 3 ml INH R QID PRN
Ondansetron Injectable [Zofran] 4 mg IV Q6HPRN PRN
Polyethylene Glycol Powder [Miralax] 17 grams TUBE DAILYPRN PRN
02/08/24 13:59
Consult Pulmonary [PULMONARY CONSULT] Routine
Consulting Provider: Kath Mckay
Was physician already notified: Yes
Reason for consult: hemoptysis
Activity As Directed
Activity Level: As Tolerated
Pneumatic Compression Sleeves As Directed
Type: Knee high
Vital Signs As Directed
Frequency: Per unit guidelines
DX Deep Vein Thrombosis Video Routine
02/08/24 16:00
Lactated Ringers [Lr] 1,000 ml IV 75 mls/hr
02/08/24 18:00
Midodrine [ProAmatine] 10 mg TUBE TID@0800,1300,1800
02/08/24 20:00
Sodium Chloride 3% INH [Sodium Chloride 3% For Inhalation] 1 vial INH R Q6
02/09/24 06:00
Basic Metabolic Panel IN AM
Complete Blood Count/No Diff IN AM
02/10/24 06:00
Basic Metabolic Panel IN AM
Complete Blood Count/No Diff IN AM
Abnormal Lab Results
02/08/24
10:13
WBC 16.3 H 10^3/uL
(4.8-10.8)
RBC 3.29 L 10^6/uL
(4.70-6.10)
Hgb 10.0 L g/dL
(13.0-18.0)
Hct 30.5 L %
(39.0-52.0)
MCHC 32.8 L g/dL
(33.0-37.0)
RDW 19.1 H %
(11.5-14.5)
MPV 11.8 H fL
(7.4-10.4)
Abs Immat Gran (auto) 0.1 H 10^3/uL
(0-0.05)
Absolute Neuts (auto) 14.5 H 10^3/uL
(1.4-6.5)
Absolute Lymphs (auto) 0.4 L 10^3/uL
(1.2-3.4)
Absolute Monos (auto) 1.2 H 10^3/uL
(0.1-0.6)
Immature Gran % 0.6 H %
(0-0.5)
Neutrophils % 89.0 H %
(42.2-75.2)
Lymphocytes % 2.3 L %
(20.5-51.1)
APTT 37.8 H Sec
(23.4-35.0)
Sodium 134 L mmol/L
(135-145)
Chloride 88 L mmol/L
(98-107)
Carbon Dioxide 36 H mmol/L
(22-30)
BUN 27 H mg/dl
(9-20)
Creatinine 0.4 L mg/dL
(0.7-1.3)
02/08/24 10:13
02/08/24 10:13
Vital Signs
Blood pressure: 97/62
Initial and Last Documented VS:
Initial Vital Signs
Pulse Resp BP Pulse Ox
96 13 87/62 96
02/08/24 09:49 02/08/24 09:49 02/08/24 09:49 02/08/24 09:49
Last Documented Vital Signs
Temp Pulse Resp BP Pulse Ox
37.5 C 93 17 91/60 94
02/08/24 14:04 02/08/24 14:04 02/08/24 14:04 02/08/24 14:04 02/08/24 14:04
<Davie Tab Mcqueen, DO - Last Filed: 02/08/24 11:14>
Orders/Labs/Results
Orders:
Orders
02/08/24 Breakfast
Tube Feeding
At Your Request: Non-Participating
Tube Feeding Product: Jevity 1.5
Initial continuous pump rate (mL/hr): 20 ml/hr
Advance to goal rate (mL/hr): 65
Flush Continuous pump feedings with water (mL/hr): 25
02/08/24 10:05
0.9% Sodium Chloride 500 ml [Nss] 500 ml IV BOLUS
CR Chest - 2 Views Urgent
Comment:
Reason For Exam: pna recently, worsening cough with blood tinged
02/08/24 10:13
Complete Blood Count/With Diff Urgent
Comprehensive Metabolic Panel Urgent
Lactic Acid Q4H
Comment: CANCEL 2nd LACTIC ACID IF 1st LACTIC ACID IS LESS THAN 2
PTT Urgent
Prothrombin Time Urgent
02/08/24 11:36
Ampicillin/Sulbactam 3 G [Unasyn] 3 gm 0.9% Sodium Chloride 100 ml [Nss] 100 ml IV NOW
02/08/24 12:39
Admit/Transfer Patient As Directed
Co-Sign Provider:
Level of Care: Inpatient admission
Assign to:: Medical/Surgical
Physician / Group: Burak Pickering
Diagnosis: hemoptysis, recovering PNA
Reason for Hospitalization: hemoptysis, recovering PNA
Expected length of stay greater than two midnights?: Yes
ELOS- Estimated Length of Stay in days: 2
I certify the patient meets the requirements for IP care: Yes
PRN Pain Medication Management As Directed
May give lesser potent ordered pain med per pt: Yes
preference::
Protocol:: Medication orders for pain may be administered in a
manner that supports deferring to patient preference
when the pt is:
- Requesting an ordered lesser potent pain medication.
Least to most potent pain medications are defined
as: acetaminophen < NSAID < tramadol < opioids
(morphine, oxycodone, hydromorphone).
- Requesting a lesser dose of the same medication IF
ORDERED.
- Requesting a less intrusive route of administration
if both routes are prescribed by the provider (PO <
IV).
02/08/24 12:41
Code Status As Directed
Resuscitation Status: Do not resuscitate
Reached after discussion with pt or family/Healthcare POA: Yes
DNR Bracelet Application ONCE
02/08/24 12:45
Sodium Chloride [Herscher, Saline Mist] See Dose Instructions NASAL QIDPRN PRN
02/08/24 13:59
Acetaminophen [Tylenol] 650 mg TUBE Q4HPRN PRN
Bisacodyl [Dulcolax] 10 mg RECTAL [id number] PRN
Docusate W/Senna [Senokot-S] 1 tablet PO BIDPRN PRN
Glycopyrrolate [Robinul] 1 mg TUBE TID PRN
Ipratropium/Albuterol Sulfate [Duoneb] 3 ml INH R QID PRN
Ondansetron Injectable [Zofran] 4 mg IV Q6HPRN PRN
Polyethylene Glycol Powder [Miralax] 17 grams TUBE DAILYPRN PRN
02/08/24 13:59
Consult Pulmonary [PULMONARY CONSULT] Routine
Consulting Provider: Kath Mckay
Was physician already notified: Yes
Reason for consult: hemoptysis
Activity As Directed
Activity Level: As Tolerated
Pneumatic Compression Sleeves As Directed
Type: Knee high
Vital Signs As Directed
Frequency: Per unit guidelines
DX Deep Vein Thrombosis Video Routine
02/08/24 16:00
Lactated Ringers [Lr] 1,000 ml IV 75 mls/hr
02/08/24 18:00
Midodrine [ProAmatine] 10 mg TUBE TID@0800,1300,1800
02/08/24 20:00
Sodium Chloride 3% INH [Sodium Chloride 3% For Inhalation] 1 vial INH R Q6
02/09/24 06:00
Basic Metabolic Panel IN AM
Complete Blood Count/No Diff IN AM
02/10/24 06:00
Basic Metabolic Panel IN AM
Complete Blood Count/No Diff IN AM
Abnormal Lab Results
02/08/24
10:13
WBC 16.3 H 10^3/uL
(4.8-10.8)
RBC 3.29 L 10^6/uL
(4.70-6.10)
Hgb 10.0 L g/dL
(13.0-18.0)
Hct 30.5 L %
(39.0-52.0)
MCHC 32.8 L g/dL
(33.0-37.0)
RDW 19.1 H %
(11.5-14.5)
MPV 11.8 H fL
(7.4-10.4)
Abs Immat Gran (auto) 0.1 H 10^3/uL
(0-0.05)
Absolute Neuts (auto) 14.5 H 10^3/uL
(1.4-6.5)
Absolute Lymphs (auto) 0.4 L 10^3/uL
(1.2-3.4)
Absolute Monos (auto) 1.2 H 10^3/uL
(0.1-0.6)
Immature Gran % 0.6 H %
(0-0.5)
Neutrophils % 89.0 H %
(42.2-75.2)
Lymphocytes % 2.3 L %
(20.5-51.1)
APTT 37.8 H Sec
(23.4-35.0)
Sodium 134 L mmol/L
(135-145)
Chloride 88 L mmol/L
(98-107)
Carbon Dioxide 36 H mmol/L
(22-30)
BUN 27 H mg/dl
(9-20)
Creatinine 0.4 L mg/dL
(0.7-1.3)
02/08/24 10:13
02/08/24 10:13
Vital Signs
Initial and Last Documented VS:
Initial Vital Signs
Pulse Resp BP Pulse Ox
96 13 87/62 96
02/08/24 09:49 02/08/24 09:49 02/08/24 09:49 02/08/24 09:49
Last Documented Vital Signs
Temp Pulse Resp BP Pulse Ox
37.5 C 93 17 91/60 94
02/08/24 14:04 02/08/24 14:04 02/08/24 14:04 02/08/24 14:04 02/08/24 14:04
<Geno Schafer PA-C - Last Filed: 02/08/24 15:36>
MDM/Problems Addressed
Differential Diagnosis Includes:
pna, dehydartion, hypotension sepsis
MDM/Problems Addressed:
53 y/o M with throat cancer admitted 01/23-01/29 by josé luis shaffer for pna, strep pneum bacteremia, septic shock requiring pressors (chronically hypotensive on midodrine)
went home on augmentin, completed the course 2 dyas ago
getting worse again, more secretions
had small amount of hemoptysis yesterday and urine has been dark, feels weak and dehydrated
bp 80s/60s, improved to 90s after IVF, o2 stable on RA, rhonchi throughout lungs, no resp distress
bun elevated from baseline, wbc chronically elevated; pna does look improved minimally on CXR;
restarting abx
<Geno Schafer PA-C - Last Filed: 02/08/24 15:36>
*Critical Care Note
Total Time (30-74mins, 75-104mins- exclusive of procedures): Not Applicable
ED Attending Note
<Geno Schafer PA-C - Last Filed: 02/08/24 15:36>
-
Portions of this chart may have been created with voice recognition software.� Occasional wrong word or��sound alike� substitutions may have occurred due to the inherent limitations of voice recognition software.
<Davie Mcqueen DO - Last Filed: 02/08/24 11:14>
ED Attending Note
Patient seen and examined by attending physician: Yes
I performed the substantive portion of visit, reviewed & personally made and approve the management plan that is documented in note by myself or ANG.: Yes
ED Attending Note:
I evaluated the patient at bedside. The patient is hypotensive and was recently here with pneumonia/septic shock. He is chronically ill in appearance. He now has hemoptysis transiently. However hemoglobin is improved. White count is chronically
elevated. Daughter feels that he is doing poorly at home.
Discharge Plan
Departure
Patient Disposition: Admit
Date of Disposition: 02/08/24
Time of Disposition: 11:25
Admit to: IMU
Presentation/result/management discussed w/ accepting MD/DO: Hospitalist
Condition: Fair
Covid-19: Negative COVID-19
Discharge Problem:
Hemoptysis, Dehydration, Chronic hypotension
Interventions
Interventions:
*Risk Screen - Suicide Last Done: 02/08/24 09:54
*General Assessment Last Done: 02/08/24 09:54
*Neglect/Abuse Screening Last Done: 02/08/24 09:54
*ED COVID-19 Vaccine History Last Done: 02/08/24 09:54
*Nursing Disposition Last Done: 02/08/24 14:27
ED-EENT Assessment Last Done: 02/08/24 10:52
ED- Pulmonary Assessment Last Done: 02/08/24 10:52
Discharge Date and Time
Discharge Date/Time: 02/08/24 14:28
[2024-02-08] MEDS: NSS 500 IV (10:16)
--- NOTE | 2024-02-08 10:33 | PHANOTE ---
med rec note- as per daughter patient chemo medications are on hold, previous chemo: Paclitaxel IV 266mg on day 1, followed by gemcitabine IV 1900mg on days 1 and day 8 and these repeat every 21 days, last dose of gemcitabine=01/16/24, last dose of
paclitaxel=01/09/24, next dose scheduled for 02/20/24 for both paclitaxel and gemcitabine
[2024-02-08 10:51] LABS: INR 1.05; PT 14.2 Sec (11.4-14.6)
[2024-02-08 10:52] LABS: APTT 37.8 Sec (23.4-35.0)
[2024-02-08 10:59] LABS: ALT (SGPT) 16 U/L (0-50); AST (SGOT) 27 U/L (17-59); Albumin 3.5 g/dl (3.5-5.0); Alkaline Phosphatase 84 U/L (38-126); Blood Urea Nitrogen 27 mg/dl (9-20); Calcium 9.2 mg/dl (8.4-10.2); Carbon Dioxide 36 mmol/L (22-30); Chloride 88 mmol/L (98-107); Estimated Creatinine Clearance 88 ml/min; Glucose 94 mg/dl (70-99); Potassium 3.9 mmol/L (3.5-5.1); Sodium 134 mmol/L (135-145); Total Bilirubin 0.5 mg/dl (0.2-1.3); Total Protein 6.6 g/dl (6.3-8.2); eGFR > 60.00
[2024-02-08 11:02] LABS: % Basophils 0.6 % (0-2); % Eosinophils 0.1 % (0-6); % Immature Granulocytes 0.6 % (0-0.5); % Lymphocytes 2.3 % (20.5-51.1); % Monocytes 7.4 % (1.7-9.3); Absolute Basophils 0.1 10^3/uL (0-0.2); Absolute Immature Granulocytes 0.1 10^3/uL (0-0.05); Absolute Lymphocytes 0.4 10^3/uL (1.2-3.4); Absolute Monocytes 1.2 10^3/uL (0.1-0.6); Absolute Neutrophils 14.5 10^3/uL (1.4-6.5); Hematocrit 30.5 % (39.0-52.0); Mean Corp Hgb Conc. 32.8 g/dL (33.0-37.0); Mean Corpuscular Hgb 30.4 pg (27.0-31.0); Mean Corpuscular Volume 92.7 fL (80.0-94.0); Mean Platelet Volume 11.8 fL (7.4-10.4); Nucleated Red Blood Cells % 0 % (-); Platelet Count 381 10^3/uL (130-400); Red Blood Cell Count 3.29 10^6/uL (4.70-6.10); Red Cell Dist. Width 19.1 % (11.5-14.5); White Blood Cell Count 16.3 10^3/uL (4.8-10.8)
[2024-02-08 11:14] LABS: Lactic Acid 1.1 mmol/L (0.7-2.0)
[2024-02-08] MEDS: UNASYN IV (11:50)
--- NOTE | 2024-02-08 12:46 | HPS.HSE ---
Family Physician
-
Family Physician: Javier Stallworth
Chief Complaint
-
Cough/hemoptysis
History of Present Illness
Patient is a 53-year-old male with history of squamous cell carcinoma of head and neck diagnosed in , history of tracheostomy with reversal, status post PEG tube, former smoker/alcohol use, recent aspiration pneumonia, chronic anemia, severe
protein calorie malnutrition came to ER after noticing blood in sputum. Patient had recent hospitalization from 01/23 to 01/29 for aspiration pneumonia/septic shock and was treated with antibiotic therapy. Patient finished home course of oral
Augmentin on 02/04. Yesterday evening patient noticed to having some blood in the sputum which persisted through the morning. Patient denies of having any dyspnea/fever. Patient have history of vocal cord paresis and dysphonia which has not
changed. Patient does also have nasal septal dryness although denies of having any epistaxis/postnasal drip noticed. Patient is on tube feed and daughter has noted that patient have regurgitation episode with tube feed.
Patient denies any associated chest pain/palpitation/dizziness/syncope. No abdominal pain/nausea/vomiting/diarrhea/dysuria.
Medical History
Past Medical History
Past Medical History: Reports Other
Additional Past Medical History:
squamous cell carcinoma of head and neck diagnosed in , history of tracheostomy with reversal, status post PEG tube, former smoker/alcohol use, recent aspiration pneumonia, chronic anemia, severe protein calorie malnutrition
Past Surgical History: Reports Other
Social History
Tobacco: Former Smoker
Alcohol: Former
Drug: None
Living: With Family
Family History
Family History: Not pertinent
Allergies / Home Medications
Allergies reflects when Allergies were last updated in [facility].
Home Medications with original date entered in [facility]
Allergy/Medication List:
Allergies
Allergy/AdvReac Type Severity Reaction Status Date / Time
No Known Allergies Allergy Verified 01/23/24 22:05
Home Medications
acetaminophen 500 mg tablet (Tylenol Extra Strength) ,000 mg feeding tube Q6H PRN pain 07/11/22
albuterol sulfate 2.5 mg/3 mL (0.083 %) solution for nebulization 2.5 mg (3 mL) inhalation R Q4HPRN PRN SOB #75 mL 01/30/24
ipratropium 0.5 mg-albuterol 3 mg (2.5 mg base)/3 mL nebulization soln 3 ml inhalation R QID Cough #90 mL 01/30/24
midodrine 5 mg tablet 10 mg (2 x 5 mg) feeding tube TID Blood pressure #90 tabs 01/30/24
Review of Systems
-
A 12 point ROS was completed and negative except as noted: Yes
Physical Exam
Vital Signs
Vital Signs
Temp Pulse Resp BP Pulse Ox
99.2 F 87 14 97/62 97
02/08/24 09:54 02/08/24 11:15 02/08/24 11:15 02/08/24 11:20 02/08/24 11:15
Physical Exam
General: No Apparent Distress and Cachectic
HEENT: Other (No stridor); No Oxygen
Respiratory: Clear
Cardiac: S1/S2 and Regular Rhythm; No Murmur or Rub
GI: Soft, Non Tender, Non Distended and Peg Tube; No Organomegaly
Musculoskeletal: No Clubbing, No Cyanosis and No Edema
Skin: No Rash
Neuro: Awake, Alert, Oriented and Nonfocal/grossly intact
Laboratory Results
-
02/08/24 10:13
02/08/24 10:13
Laboratory Results
PT 14.2 Sec (11.4-14.6) 02/08/24 10:13
INR 1.05 02/08/24 10:13
APTT 37.8 Sec (23.4-35.0) H 02/08/24 10:13
Lactic Acid Cancelled 02/08/24 14:15
Total Bilirubin 0.5 mg/dl (0.2-1.3) 02/08/24 10:13
AST 27 U/L (17-59) 02/08/24 10:13
ALT 16 U/L (0-50) 02/08/24 10:13
Alkaline Phosphatase 84 U/L (38-126) 02/08/24 10:13
Impression/Plan
-
1. Hemoptysis
-Patient of increased phlegm production/secretion and unable to clear at times
-Yesterday patient had blood in the phlegm, no mark hematemesis
-Chest x-ray reviewed and showing resolving bilateral pneumonia
-Patient has chronic hypertension, not hypoxic, not tachycardic -PE is less likely to be the reason for the hemoptysis
-No reported epistaxis/postnasal drip
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
-Will involve ENT if patient have persistent true hemoptysis issue
-Pulmonology asked for further help as well
2. SCC of pharynx/h&n
Chronic dysphagia
s/p PEG tube
Increased pharyngeal secretions
history of tracheostomy with reversal
-Patient follows up with Dr. Lipscomb, plan to get next round of chemotherapy on february
-Patient got Taxol and Gemzar Last month.
-Port-A-Cath was removed last admission with bacteremia, patient will get an PICC line by oncology office
-Patient to be put back on Jevity 1.5 at rate of 65 mL/h, daughter reported patient having some regurgitation/increased residual issues, continue monitoring
-Add lansoprazole through tube to help with reflux/GI ppx
-Starting patient on 3% saline nebulizer therapy and Robinul as needed for increased secretion
-Mechanical suction to help clear throat secretion as possible
3. Recovering bilateral pneumonia
Leukocytosis without fever
-Patient has finished course of antibiotic on 02/04
-patient afebrile and chest x-ray showing improving infiltrate
-Continue monitoring off of antibiotics with resumption of antibiotics if needed
former smoker/alcohol use
chronic anemia
severe protein calorie malnutrition
DVTPPX -scd
DNR - confirmed with patient at bedside
Total time spent : 78 mins
I personally saw and examined the patient.
I have reviewed all diagnostic interpretations and treatment plans as written.
Time includes patient management by me, time spent at the patients bedside, time to review lab and imaging results, discussing patient care, documentation in the medical record, and time spent with the family or caregiver and discussing care plan
with RN/Consultants.
--- NOTE | 2024-02-08 13:58 | CON.PUL ---
Consultation
Consultation Request
Date/Time Consultation Requested: 02/08/24
Date/Time Consultation Performed: 02/08/24
Performing Provider: Woody
Reason for Consultation: Hemoptysis
Medical History
-
History of Present Illness:
Patient is a 53-year-old male with history of squamous cell carcinoma of head and neck, history of tracheostomy with reversal, former smoker/alcohol use, chronic aspiration pneumonia s/p PEG tube, chronic anemia, severe protein calorie malnutrition
presenting to ER for hemoptysis. He notes that he saw streaks of blood in mucus, was able to produce about 1 cup size of sputum in several hours, but not all of it was blood. He notes very little of it was but could not better quantify. Since
then, he has not had recurrence. Denies any active SOB, wheezing, chest tightness, or cough.
Patient had recent hospitalization from 01/23-01/29 for aspiration pneumonia. Patient has history of vocal cord paresis and dysphonia and evaluated by speech with high aspiration risk on VSE around that time. He does still note occasional
regurgitation with TFs. CXR showing chronic RUL infiltrates, but improved from prior.
Past Medical History
Past Medical History: Other (see list below)
Social History
Tobacco: Former Smoker
Alcohol: Former
Drug: None
Family History
Family History: Reviewed & Not Pertinent
Allergies / Home Medications
Allergies
Allergy/AdvReac Type Severity Reaction Status Date / Time
No Known Allergies Allergy Verified 01/23/24 22:05
Home Medications
�Medication �Instructions �Recorded �Confirmed �Last Taken �Type
acetaminophen 500 mg tablet 1,000 mg feeding tube Q6H PRN pain 07/11/22 02/08/24 07/09/22 History
(Tylenol Extra Strength)
albuterol sulfate 2.5 mg/3 mL 2.5 mg (3 mL) inhalation R Q4HPRN 01/30/24 02/08/24 Unknown Rx
(0.083 %) solution for nebulization PRN SOB #75 mL
ipratropium 0.5 mg-albuterol 3 mg 3 ml inhalation R QID Cough #90 mL 01/30/24 02/08/24 Unknown Rx
(2.5 mg base)/3 mL nebulization
soln
midodrine 5 mg tablet 10 mg (2 x 5 mg) feeding tube TID 01/30/24 02/08/24 Unknown Rx
Blood pressure #90 tabs
Review of Systems
-
History Source: Patient
All other systems: Negative unless noted
Vitals / Labs / Diagnostic Testing
Vital Signs
Temp Pulse Resp BP Pulse Ox
99.2 F 87 14 97/62 97
02/08/24 09:54 02/08/24 11:15 02/08/24 11:15 02/08/24 11:20 02/08/24 11:15
Lab Data
02/08/24 10:13
02/08/24 10:13
Laboratory Results
02/08/24
10:13
PT 14.2
INR 1.05
APTT 37.8 H
Diagnostic Testing:
Physical Exam
-
HEENT: Normocephalic, Anicteric, Moist Mucous Membranes and Other (vocal quality poor)
Cardiovascular: S1/S2 and Regular Rhythm
Respiratory: Rales and Non-Labored Respirations
GI: Soft, Non Distended and Non Tender
Neurology: Awake, Alert and Oriented
Skin: Warm, Dry and Good Color
General: Comfortable and Other (thin appearing, cachectic, weak)
Assessment
-
Patient is a 53-year-old male with history of squamous cell carcinoma of head and neck, history of tracheostomy with reversal, former smoker/alcohol use, chronic aspiration pneumonia s/p PEG tube, chronic anemia, severe protein calorie malnutrition
presenting to ER for hemoptysis. He notes that he saw streaks of blood in mucus, was able to produce about 1 cup size of sputum in several hours, but not all of it was blood. He notes very little of it was but could not better quantify. Since
then, he has not had recurrence. Denies any active SOB, wheezing, chest tightness, or cough. We are consulted for eval.
Hemoptysis
Chronic R sided infiltrate
Chronic aspiration suspected
Hypoxemic respiratory failure secondary to above-on low rate supplemental oxygen
Cachectic-protein caloric malnutrition
Leukocytosis
Hyponatremia, mild
Metabolic alkalosis
Conditions present prior admission:
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
Follows up with [employer] -last chemotherapy 01/09/2024
Anemia-of chronic disease
PEG tube in place
Prior tracheotomy status post decannulation
Former smoker
Former alcohol use known since [address]
Plan
No oxygen was needed on admission, currently saturating >90% on RA
No complaints of SOB/wheezing, has since stopped coughing
Hemoptysis was noted at home, difficult to quantify by patient's history
Produced 1 cup of mucus that was not all blood, scant/mixed in
This has since stopped
CXR was obtained and does not show significant changes, he has chronic RUL infiltrate but better than before
Continue to quantify
Can send for sputum culture to r/o infection
More likely bleeding is from upper airway mass, most recent PET/CT showing active there with progression in size
I am hesitant to perform invasive diagnostic testing
Patient had recent hospitalization from 01/23-01/29 for aspiration pneumonia.
Patient has history of vocal cord paresis and dysphonia and evaluated by speech with high aspiration risk on VSE around that time.
He does still note occasional regurgitation with TFs. CXR showing chronic RUL infiltrates, but improved from prior.
He is NPO s/p PEG
Prior history of lung disease is noted --likely has COPD
Emphysema is noted on CT
Telephone Claims Representative PFTs for review as OP
He takes Duonebs at home QID
I can add budesonide to help if there is any airways inflammation contributing
Prior ECHO results are reviewed indicating stable function
FTT noted, chronic aspiration
Cachectic, optimize nutrition but this is difficult given constant regurgitation with TFs, ongoing
Overall prognosis poor with patient, given advanced H&N cancer/disease progression on PET
He is known to [place]
Consideration for GOC discussions
He is DNR
We will follow
Diagnostic Data
Chest X-Ray: 02/08/24-Slightly improved bilateral pneumonia.
01/27/24-Bilateral opacification suspicious for pneumonia, slightly improved.
PET/CT 11/13/23- FINDINGS:
Face and neck: There is a confluent pancho mass in the posterior triangle of the right suprahyoid neck that measures approximately 4.8 x 4.0 x 6.0 cm in AP, transverse and craniocaudal dimensions, 18.1 SUV max on initial imaging and 19.4 SUV max on
delayed imaging. This mass measured approximately 3.0 x 3.5 x 5.0 cm and 16.6 SUV max on delayed imaging. This mass has increased in both size and FDG avidity in the interval since the prior study There is low-level inflammatory FDG avidity in the
hypopharynx and oropharynx, stable compared with the prior study
CHEST: There are no areas of abnormal FDG avidity in the chest. There is a port catheter in place through right internal jugular access with its tip extending into the superior vena cava. There is mild linear interstitial scarring in the right upper
lobe and there are mild emphysematous changes in both lungs. There is no hilar, mediastinal or axillary lymphadenopathy
CT Scan:
Echo: 01/29/24- 1. Normal left ventricular size and hyperdynamic LV systolic function. Estimated LVEF of 65-70%. 2. Normal right ventricular size and systolic function. 3. No significant valvular abnormalities. 4. No significant pericardial
effusion. No prior echocardiogram available for comparison.
PFT's:
Reports and relevant images were personally reviewed.
Total time spent on this consultation __75__ minutes which includes review of history, physical exam, medications, laboratory data, personal review of imaging, extensive review of outpatient records, discussion with care team and respiratory therapy.
[2024-02-08 14:04] LABS: Urine Albumin Trace (Neg - Trace); Urine Bilirubin Negative (Negative); Urine Character Clear (Clear); Urine Color Yellow; Urine Glucose Negative (Negative); Urine Ketone Negative (Negative); Urine Leukocyte Negative (Negative); Urine Nitrite Negative (Negative); Urine Occult Blood Negative (Negative); Urine Specific Gravity 1.015 (<1.030); Urine Urobilinogen Negative (Neg - 1+)
[2024-02-08] MEDS: DUONEB 3 ML INH ×2 (15:46→19:14)
[2024-02-08] MEDS: LR 1000 IV (15:54)
[2024-02-08] MEDS: PREVACID 30 MG TUBE (16:14)
--- NOTE | 2024-02-08 18:26 | PTCARENOTE ---
Received pt from [facility] on stretcher. Walked from stretcher to bed with assist x1 no device. Jevity 1.5 ordered fro 20ml/hr with 25ml/hr flush with goal of 65ml/hr. AAOx3 able to make needs known. Oriented to room and use of call martinez. Daughter
in to visit during shift. Call martinez within reach.
[2024-02-08] MEDS: ProAmatine 10 MG TUBE (18:40)
[2024-02-08] MEDS: PULMICORT 0.5 MG INH (19:14)
[2024-02-08] MEDS: SODIUM CHLORIDE 3% FOR INHALATION 1 VIAL INH (19:14)
[2024-02-09] MEDS: SODIUM CHLORIDE 3% FOR INHALATION 1 VIAL INH ×4 (01:18→19:32)
[2024-02-09 06:00] VITALS: BMI 15.7
[2024-02-09] MEDS: LR 1000 IV ×2 (06:23→22:55)
[2024-02-09] MEDS: DUONEB 3 ML INH ×4 (07:47→19:32)
[2024-02-09] MEDS: PULMICORT 0.5 MG INH ×2 (07:47→19:32)
--- NOTE | 2024-02-09 08:29 | VNURNOTE ---
Chart reviewed. Patient is current with [facility] nursing, PT, OT, EQUIPMENT DETAILER, CARE MANAGEMENT ASSOCIATE. Will continue to follow hospital course and DC plans.
[2024-02-09 08:37] VITALS: BP 104/66
[2024-02-09] MEDS: ProAmatine 10 MG TUBE ×3 (09:08→17:01)
[2024-02-09] MEDS: PREVACID 30 MG TUBE (09:08)
[2024-02-09 09:55] VITALS: BMI 15.7
[2024-02-09 10:07] LABS: Blood Urea Nitrogen 16 mg/dl (9-20); Calcium 8.5 mg/dl (8.4-10.2); Carbon Dioxide 31 mmol/L (22-30); Chloride 94 mmol/L (98-107); Estimated Creatinine Clearance 89 ml/min; Glucose 108 mg/dl (70-99); Potassium 3.5 mmol/L (3.5-5.1); Sodium 134 mmol/L (135-145); eGFR > 60.00
[2024-02-09 10:23] LABS: Hemoglobin 8.5 g/dL (13.0-18.0); Mean Corp Hgb Conc. 32.7 g/dL (33.0-37.0); Mean Corpuscular Volume 91.9 fL (80.0-94.0); Mean Platelet Volume 10.8 fL (7.4-10.4); Platelet Count 302 10^3/uL (130-400); Red Blood Cell Count 2.83 10^6/uL (4.70-6.10); Red Cell Dist. Width 18.4 % (11.5-14.5)
--- NOTE | 2024-02-09 11:09 | W.PN.PUL3 ---
Today's Communication / Plan
-
No events ON, remains stable on RA
No further hemoptysis, sputum culture pending, prelim showing few GNR
Can treat wtih abx if indicated, chronic aspiration a likely source
Otherwise, optimize nutrition, difficult situation given recurrent regurgitation of contents
GOC discussions would be warranted here
Assessment
-
Patient is a 53-year-old male with history of squamous cell carcinoma of head and neck, history of tracheostomy with reversal, former smoker/alcohol use, chronic aspiration pneumonia s/p PEG tube, chronic anemia, severe protein calorie malnutrition
presenting to ER for hemoptysis. He notes that he saw streaks of blood in mucus, was able to produce about 1 cup size of sputum in several hours, but not all of it was blood. He notes very little of it was but could not better quantify. Since
then, he has not had recurrence. Denies any active SOB, wheezing, chest tightness, or cough. We are consulted for eval.
Hemoptysis
Chronic R sided infiltrate
Chronic aspiration suspected
Hypoxemic respiratory failure secondary to above-on low rate supplemental oxygen
Cachectic-protein caloric malnutrition
Leukocytosis
Hyponatremia, mild
Metabolic alkalosis
Conditions present prior admission:
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
Follows up with [facility] -last chemotherapy 01/09/2024
Anemia-of chronic disease
PEG tube in place
Prior tracheotomy status post decannulation
Former smoker
Former alcohol use known since [address]
Plan
No oxygen was needed on admission, currently saturating >90% on RA
No complaints of SOB/wheezing, has since stopped coughing
Hemoptysis was noted at home, difficult to quantify by patient's history
Produced 1 cup of mucus that was not all blood, scant/mixed in
This has since stopped
CXR was obtained and does not show significant changes, he has chronic RUL infiltrate but better than before
Continue to quantify
Can send for sputum culture to r/o infection--pending
More likely bleeding is from upper airway mass, most recent PET/CT showing active there with progression in size
I am hesitant to perform invasive diagnostic testing
Patient had recent hospitalization from 01/23-01/29 for aspiration pneumonia.
Patient has history of vocal cord paresis and dysphonia and evaluated by speech with high aspiration risk on VSE around that time.
He does still note occasional regurgitation with TFs. CXR showing chronic RUL infiltrates, but improved from prior.
He is NPO s/p PEG
Prior history of lung disease is noted --likely has COPD
Emphysema is noted on CT
Pressure Washer PFTs for review as OP
He takes Duonebs at home QID
I can add budesonide to help if there is any airways inflammation contributing
Prior ECHO results are reviewed indicating stable function
FTT noted, chronic aspiration
Cachectic, optimize nutrition but this is difficult given constant regurgitation with TFs, ongoing
Overall prognosis poor with patient, given advanced H&N cancer/disease progression on PET
He is known to [place]
Consideration for GOC discussions
He is DNR
Diagnostic Data
Chest X-Ray: 02/08/24-Slightly improved bilateral pneumonia.
01/27/24-Bilateral opacification suspicious for pneumonia, slightly improved.
PET/CT 11/13/23- FINDINGS:
Face and neck: There is a confluent pancho mass in the posterior triangle of the right suprahyoid neck that measures approximately 4.8 x 4.0 x 6.0 cm in AP, transverse and craniocaudal dimensions, 18.1 SUV max on initial imaging and 19.4 SUV max on
delayed imaging. This mass measured approximately 3.0 x 3.5 x 5.0 cm and 16.6 SUV max on delayed imaging. This mass has increased in both size and FDG avidity in the interval since the prior study There is low-level inflammatory FDG avidity in the
hypopharynx and oropharynx, stable compared with the prior study
CHEST: There are no areas of abnormal FDG avidity in the chest. There is a port catheter in place through right internal jugular access with its tip extending into the superior vena cava. There is mild linear interstitial scarring in the right upper
lobe and there are mild emphysematous changes in both lungs. There is no hilar, mediastinal or axillary lymphadenopathy
CT Scan:
Echo: 01/29/24- 1. Normal left ventricular size and hyperdynamic LV systolic function. Estimated LVEF of 65-70%. 2. Normal right ventricular size and systolic function. 3. No significant valvular abnormalities. 4. No significant pericardial
effusion. No prior echocardiogram available for comparison.
PFT's:
Reports and relevant images were personally reviewed.
Total time spent on this encounter __50__ minutes which includes review of history, physical exam, medications, laboratory data, personal review of imaging, extensive review of outpatient records, discussion with care team and respiratory therapy.
Subjective Data
-
Date of Service:
Date of Service: February 09, 2024
Chief Complaint: Pulmonary Follow Up
Subjective:
No events ON, remains stable on RA
Sleeping, no new complaints
Objective Data
Data Reviewed
Vital Signs / I&O / Oxygen:
Vital Signs
Temp Pulse Resp BP Pulse Ox
100.3 F 94 18 104/66 97
02/09/24 08:37 02/09/24 11:00 02/09/24 11:00 02/09/24 08:37 02/09/24 11:00
Intake and Output
02/08/24 02/09/24 02/10/24
06:59 06:59 06:59
Output Total 800 / 800
Balance -800 / -800
SaO2 97
Physical Exam
General: Comfortable, Poor Appetite and Other (thin/cachectic)
HEENT: Normocephalic, Anicteric and Other (dry MM)
Cardiovascular: S1-S2 and Regular Rhythm
Respiratory: Crackles and Non-Labored Respirations
GI: Soft, Non Distended and Non Tender
Neurology: Awake, Alert, Oriented, No Motor Deficits and Depressed
Skin: Warm and Dry
Labs/Micro/Reports
Lab Data
02/09/24 09:37
02/09/24 09:36
Microbiology
02/09/24 01:48 Sputum Gram Stain - Preliminary
[2024-02-09] MEDS: ROBINUL 1 MG TUBE (12:17)
--- NOTE | 2024-02-09 13:11 | W.PN.HOSP.TC ---
Today's Communication/Plan
-
see note
Assessment / Plan
Assessment / Plan
1. Hemoptysis - Improved
-Patient of increased phlegm production/secretion and unable to clear at times
-Yesterday patient had blood in the phlegm, no mark hematemesis
-Chest x-ray reviewed and showing resolving bilateral pneumonia
-Patient has chronic hypertension, not hypoxic, not tachycardic -PE is less likely to be the reason for the hemoptysis
-No reported epistaxis/postnasal drip
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
-Will involve ENT if patient have persistent true hemoptysis issue
-Pulmonology input noted, continue observation
2. SCC of pharynx/h&n
Chronic dysphagia
s/p PEG tube
Increased pharyngeal secretions
history of tracheostomy with reversal
-Patient follows up with Dr. Lipscomb, plan to get next round of chemotherapy on february
-Patient got Taxol and Gemzar Last month.
-Port-A-Cath was removed last admission with bacteremia, patient will get an PICC line by oncology office
-Added lansoprazole through tube to help with reflux/GI ppx
-Starting patient on 3% saline nebulizer therapy and Robinul as needed for increased secretion. Asked RN to provide a dose of robuinol
-Patient problem regurgitation with tube feed, lower regular to 55 mL/h. Continue checking residual volume. Dietitian consult requested as well.
-Mechanical suction to help clear throat secretion as possible
3. Recovering bilateral pneumonia
Leukocytosis without fever
-Patient has finished course of antibiotic on 02/04
-Patient janell 100.3F at night
-repeat cxr 2 views ordered
-possible malignancy fever vs aspiration pneumonitis
-continue watching off of abx
former smoker/alcohol use
chronic anemia
severe protein calorie malnutrition
DVTPPX -scd
DNR - confirmed with patient at bedside
Anticipated Discharge: 24 - 48 hours
Subjective/Interval History
-
Date of Service: February 09, 2024
subjectively feeling better
no blood in sputum
mild fever at night
Objective Data
-
Labs:
Laboratory Results
02/09/24 02/09/24
09:36 09:37
WBC 10.0
Hgb 8.5 L
Hct 26.0 L
Plt Count 302 D
Sodium 134 L
Potassium 3.5
Chloride 94 L
Carbon Dioxide 31 H
BUN 16
Creatinine 0.4 L
Glucose 108 H
Calcium 8.5
Vital Signs:
Vital Signs
Temp Pulse Resp BP Pulse Ox
100.3 F 94 18 104/66 97
02/09/24 08:37 02/09/24 11:00 02/09/24 11:00 02/09/24 08:37 02/09/24 11:00
I&O
02/08/24 02/09/24 02/10/24
06:59 06:59 06:59
Output Total 800 / 800
Balance -800 / -800
Review of Systems
-
Respiratory: Reports Cough; Denies Hemoptysis or Trouble Breathing
Cardiac: Reports No Symptoms
Abdomen/GI: Reports No Symptoms
Physical Exam
-
General: Comfortable and Cachectic
HEENT: Negative Oxygen
Respiratory: Clear to Auscultation
Cardiac: Regular Rhythm and S1/S2; Negative Murmur or Rub
GI: Soft, Nontender and Nondistended
Musculoskeletal: No Edema
Neuro: Awake, Alert, Oriented, No Motor Deficits and Nonfocal/Grossly Intact
Psych: Calm
[2024-02-09 15:52] VITALS: BP 105/66
--- NOTE | 2024-02-09 17:43 | CM ---
Alert awake oriented patient who lives with his dgt Sofia who lives in a 2 story home with 0 step to enter and 0 steps to bed and bathroom. He is assisted in all activities of daily living.He was offered VN he requested [facility] who is is current Dinorah [facility]
Liaison set up VN.
[facility] hx / No SNF history
Pharmacy [facility]
PCP DR Javier Stallworth
PLAN Home with [facility] resumption
[2024-02-09 23:35] VITALS: BP 101/63
[2024-02-10] MEDS: SODIUM CHLORIDE 3% FOR INHALATION INH (01:52)
[2024-02-10 06:00] VITALS: BMI 15.8
[2024-02-10 07:00] VITALS: BP 94/61
[2024-02-10] MEDS: DUONEB 3 ML INH ×4 (07:34→19:36)
[2024-02-10] MEDS: PULMICORT 0.5 MG INH ×2 (07:34→19:36)
[2024-02-10] MEDS: SODIUM CHLORIDE 3% FOR INHALATION 1 VIAL INH ×3 (07:35→19:42)
[2024-02-10] MEDS: ROBINUL 1 MG TUBE ×2 (08:08→17:58)
[2024-02-10] MEDS: PREVACID 30 MG TUBE (08:09)
[2024-02-10] MEDS: ProAmatine 10 MG TUBE ×3 (08:09→17:56)
[2024-02-10 08:36] LABS: Hematocrit 30.1 % (39.0-52.0); Hemoglobin 9.7 g/dL (13.0-18.0); Mean Corp Hgb Conc. 32.2 g/dL (33.0-37.0); Mean Corpuscular Hgb 29.9 pg (27.0-31.0); Mean Corpuscular Volume 92.9 fL (80.0-94.0); Mean Platelet Volume 11.2 fL (7.4-10.4); Platelet Count 333 10^3/uL (130-400); Red Blood Cell Count 3.24 10^6/uL (4.70-6.10); Red Cell Dist. Width 18.4 % (11.5-14.5); White Blood Cell Count 9.6 10^3/uL (4.8-10.8)
[2024-02-10 09:10] LABS: Blood Urea Nitrogen 13 mg/dl (9-20); Calcium 8.8 mg/dl (8.4-10.2); Carbon Dioxide 33 mmol/L (22-30); Chloride 92 mmol/L (98-107); Estimated Creatinine Clearance 90 ml/min; Glucose 98 mg/dl (70-99); Potassium 3.9 mmol/L (3.5-5.1); Sodium 134 mmol/L (135-145); eGFR > 60.00
--- NOTE | 2024-02-10 12:46 | W.PN.HOSP.TC ---
Today's Communication/Plan
-
reviewed with Dr. Zhu, await his further input and will then call dgt
Assessment / Plan
Assessment / Plan
1. Hemoptysis - Improved
-Patient of increased phlegm production/secretion and unable to clear at times
-Initially patient had blood in the phlegm, no mark hematemesis
-Chest x-ray 02/08: Pneumonia on the right appears more extensive but less consolidated compared to the prior study. On the left airspace disease appears unchanged
-Patient has chronic hypertension, not hypoxic, not tachycardic -PE is less likely to be the reason for the hemoptysis
-No reported epistaxis/postnasal drip
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
-Will involve ENT if patient have persistent true hemoptysis issue
-Pulmonology input noted, call placed and reviewed with Dr. Zhu
discussed with pt, he is feeling better, but would like to give it another day and request discuss further with dgt at time of dc
2. SCC of pharynx/h&n
Chronic dysphagia
s/p PEG tube
Increased pharyngeal secretions
history of tracheostomy with reversal
-Patient follows up with Dr. Lipscomb, plan to get next round of chemotherapy on february
-Patient got Taxol and Gemzar Last month.
-Port-A-Cath was removed last admission with bacteremia, patient will get an PICC line by oncology office
-Added lansoprazole through tube to help with reflux/GI ppx
-Starting patient on 3% saline nebulizer therapy and Robinul as needed for increased secretion. Asked RN to provide a dose of robuinol
-Patient problem regurgitation with tube feed, lower regular to 55 mL/h. Continue checking residual volume. Dietitian consult requested as well.
-Mechanical suction to help clear throat secretion as possible
3. Recovering bilateral pneumonia
Leukocytosis on admission without fever
WBC 16.3-->10.0-->9.6k
-Patient has finished course of antibiotic on 02/04
-Patient janell 100.3F at night of 02/08, afebrile past 24 hrs
-possible malignancy fever vs aspiration pneumonitis
-continue watching off of abx
former smoker/alcohol use
chronic anemia
severe protein calorie malnutrition
DVTPPX -scd
DNR - confirmed with patient at bedside
Anticipated Discharge: 24 - 48 hours
Subjective/Interval History
-
Date of Service: February 10, 2024
Obviously very weak
Objective Data
-
Labs:
Laboratory Results
02/10/24
08:15
WBC 9.6
Hgb 9.7 L
Hct 30.1 L
Plt Count 333
Sodium 134 L
Potassium 3.9
Chloride 92 L
Carbon Dioxide 33 H
BUN 13
Creatinine 0.4 L
Glucose 98
Calcium 8.8
Vital Signs:
Vital Signs
Temp Pulse Resp BP Pulse Ox
98.7 F 90 16 94/61 97
02/10/24 07:00 02/10/24 12:04 02/10/24 12:04 02/10/24 07:00 02/10/24 12:04
I&O
02/09/24 02/10/24 02/11/24
06:59 06:59 06:59
Intake Total 1914
Output Total 800 / 800 950 / 950
Balance -800 / -800 965 / 965
Review of Systems
-
History Source: Patient and Coordinated Provider
Constitutional: Denies Fever
EENT: Reports No Symptoms Reported
Respiratory: Reports Cough
Cardiac: Denies Chest Pain
Abdomen/GI: Reports No Symptoms
Physical Exam
-
General: Comfortable, Appears Chronically Ill and Cachectic
HEENT: Negative Oxygen
Respiratory: Clear to Auscultation (on shallow respirations)
Cardiac: Regular Rhythm and S1/S2; Negative Murmur or Rub
GI: Soft, Nontender and Nondistended
Musculoskeletal: No Edema
Neuro: Awake, Alert, Oriented, No Motor Deficits and Nonfocal/Grossly Intact
Psych: Calm
--- NOTE | 2024-02-10 12:47 | W.PN.PUL.V3 ---
Today's Communication / Plan
-
Nebulizers
Supplemental oxygen as needed
Aspiration precautions
Observe off antibiotics
Goals of care/comfort a priority
Reviewed with Dr. Lynn
Assessment
-
Patient is a 53-year-old male with history of squamous cell carcinoma of head and neck, history of tracheostomy with reversal, former smoker/alcohol use, chronic aspiration pneumonia s/p PEG tube, chronic anemia, severe protein calorie malnutrition
presenting to ER for hemoptysis. He notes that he saw streaks of blood in mucus, was able to produce about 1 cup size of sputum in several hours, but not all of it was blood. He notes very little of it was but could not better quantify. Since
then, he has not had recurrence. Denies any active SOB, wheezing, chest tightness, or cough. We are consulted for eval.
Hemoptysis
Chronic R sided infiltrate
Chronic aspiration suspected
Hypoxemic respiratory failure secondary to above-on low rate supplemental oxygen
Cachectic-protein caloric malnutrition
Leukocytosis
Hyponatremia, mild
Metabolic alkalosis
Conditions present prior admission:
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
Follows up with [facility] -last chemotherapy 01/09/2024
Anemia-of chronic disease
PEG tube in place
Prior tracheotomy status post decannulation
Former smoker
Former alcohol use known since [address]
Plan
Respiratory status is relatively stable
Supplemental oxygen if needed
Monitor oxygen saturation
Aspiration precautions
Incentive spirometry mucus clearing devices if needed
Monitor hemoptysis-appears to have resolved
CXR was obtained and does not show significant changes, he has chronic RUL infiltrate but better than before
Patient had recent hospitalization from 01/23-01/30/24 for aspiration pneumonia.
Patient has history of vocal cord paresis and dysphonia and evaluated by speech with high aspiration risk on VSE around that time.
He does still note occasional regurgitation with TFs.
CXR showing chronic RUL infiltrates, but improved from prior.
He is NPO s/p PEG
Prior history of lung disease is noted --likely has COPD
Emphysema is noted on CT
No PFTs for review as OP
He takes Duonebs at home QID
We added budesonide to help if there is any airways inflammation contributing
Cultures reviewed
Sputum culture with Pseudomonas
Recent streptococcal pneumonia antigen 01/24/2024 positive for strep
Leukocytosis resolved
Currently afebrile
Reviewed with Dr. [id number] off antibiotics
Prior ECHO results are reviewed indicating stable function
Failure to thrive and chronic aspiration noted
Cachectic, optimize nutrition but this is difficult given constant regurgitation with TFs, ongoing
Overall prognosis poor with patient, given advanced H&N cancer/disease progression on PET
He is known to [place]
Consideration for GOC discussions
He is DNR
Diagnostic Data
Chest X-Ray: 02/08/24-Slightly improved bilateral pneumonia.
01/27/24-Bilateral opacification suspicious for pneumonia, slightly improved.
PET/CT 11/13/23- FINDINGS:
Face and neck: There is a confluent pancho mass in the posterior triangle of the right suprahyoid neck that measures approximately 4.8 x 4.0 x 6.0 cm in AP, transverse and craniocaudal dimensions, 18.1 SUV max on initial imaging and 19.4 SUV max on
delayed imaging. This mass measured approximately 3.0 x 3.5 x 5.0 cm and 16.6 SUV max on delayed imaging. This mass has increased in both size and FDG avidity in the interval since the prior study There is low-level inflammatory FDG avidity in the
hypopharynx and oropharynx, stable compared with the prior study
CHEST: There are no areas of abnormal FDG avidity in the chest. There is a port catheter in place through right internal jugular access with its tip extending into the superior vena cava. There is mild linear interstitial scarring in the right upper
lobe and there are mild emphysematous changes in both lungs. There is no hilar, mediastinal or axillary lymphadenopathy
CT Scan:
Echo: 01/29/24- 1. Normal left ventricular size and hyperdynamic LV systolic function. Estimated LVEF of 65-70%. 2. Normal right ventricular size and systolic function. 3. No significant valvular abnormalities. 4. No significant pericardial
effusion. No prior echocardiogram available for comparison.
PFT's:
Reports and relevant images were personally reviewed.
Total time spent on this encounter __50__ minutes which includes review of history, physical exam, medications, laboratory data, personal review of imaging, extensive review of outpatient records, discussion with care team and respiratory therapy.
Subjective Data
-
Date of Service:
Date of Service: February 10, 2024
Chief Complaint: Pulmonary Follow Up and Dyspnea Follow Up
Subjective:
No complaints of shortness of breath, chest congestion, productive cough, states that his 'sinuses' are acting up, no abdominal pain
Review of Systems
General: Other (Per HPI)
Objective Data
Data Reviewed
Vital Signs / I&O:
Vital Signs
Temp Pulse Resp BP Pulse Ox
98.7 F 90 16 94/61 97
02/10/24 07:00 02/10/24 12:04 02/10/24 12:04 02/10/24 07:00 02/10/24 12:04
Intake and Output
02/09/24 02/10/24 02/11/24
06:59 06:59 06:59
Intake Total 1914 / 1914
Output Total 800 / 800 950 / 950
Balance -800 / -800 965 / 965
SaO2: 97
Physical Exam
General: Respiratory Distress (n), Comfortable, Poor Appetite and Other (thin/cachectic)
HEENT: Normocephalic, Anicteric and Other (dry MM)
Cardiovascular: Regular Rhythm
Respiratory: Wheeze (n), Crackles, Rhonchi (n), Non-Labored Respirations, Accessory Resp Muscle Use (n) and Stridor (n)
GI: Soft, Non Distended and Non Tender
Neurology: Awake, Alert, No Motor Deficits and Depressed
Skin: Warm, Dry and Cyanosis
Labs/Micro/Reports
Lab Data
02/10/24 08:15
02/10/24 08:15
Microbiology
02/09/24 01:48 Sputum Gram Stain - Preliminary
[2024-02-10 15:00] VITALS: BP 81/46
[2024-02-10 15:22] VITALS: BP 96/60
[2024-02-10] MEDS: TYLENOL 650 MG TUBE (18:00)
[2024-02-10 23:33] VITALS: BP 83/52
--- NOTE | 2024-02-10 23:44 | PTCARENOTE ---
patient's manual BPP 83/52 HR 88. Asymptomatic. [facility] [employer] notified and a 500ml bolus ordered and administered.
[2024-02-11] MEDS: NSS 500 IV
[2024-02-11] MEDS: SODIUM CHLORIDE 3% FOR INHALATION INH ×2 (02:32→19:45)
[2024-02-11 02:53] VITALS: BP 99/53
[2024-02-11 05:43] VITALS: BMI 15.8
[2024-02-11 07:00] VITALS: BP 86/60
[2024-02-11] MEDS: PULMICORT 0.5 MG INH (07:16)
[2024-02-11] MEDS: DUONEB 3 ML INH ×2 (07:16→15:19)
[2024-02-11] MEDS: SODIUM CHLORIDE 3% FOR INHALATION 1 VIAL INH ×2 (07:17→15:19)
[2024-02-11] MEDS: ProAmatine 10 MG TUBE ×3 (09:15→17:20)
[2024-02-11] MEDS: PREVACID 30 MG TUBE (09:16)
[2024-02-11 10:28] VITALS: BP 96/46
[2024-02-11 12:59] VITALS: BP 82/36
[2024-02-11] MEDS: TYLENOL 650 MG TUBE ×2 (13:01→23:33)
--- NOTE | 2024-02-11 13:46 | W.PN.PUL.V3 ---
Today's Communication / Plan
-
Relatively stable
Supplemental oxygen as needed
Aspiration precautions
Observe off antibiotics
Stable for proposed discharge-high risk for fairly rapid reinitiation with multiple comorbidities and extremely poor performance status
Comfort a priority
Assessment
-
Patient is a 53-year-old male with history of squamous cell carcinoma of head and neck, history of tracheostomy with reversal, former smoker/alcohol use, chronic aspiration pneumonia s/p PEG tube, chronic anemia, severe protein calorie malnutrition
presenting to ER for hemoptysis. He notes that he saw streaks of blood in mucus, was able to produce about 1 cup size of sputum in several hours, but not all of it was blood. He notes very little of it was but could not better quantify. Since
then, he has not had recurrence. Denies any active SOB, wheezing, chest tightness, or cough. We are consulted for eval.
Hemoptysis
Chronic R sided infiltrate
Chronic aspiration suspected
Hypoxemic respiratory failure secondary to above-on low rate supplemental oxygen
Cachectic-protein caloric malnutrition
Leukocytosis
Hyponatremia, mild
Metabolic alkalosis
Conditions present prior admission:
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
Follows up with [facility] -last chemotherapy 01/09/2024
Anemia-of chronic disease
PEG tube in place
Prior tracheotomy status post decannulation
Former smoker
Former alcohol use known since [address]
Plan
He continues to be stable from a respiratory perspective
Supplemental oxygen as needed
Monitor oxygen saturation
Aspiration precautions continues
Incentive spirometry mucus clearing devices if needed
Monitor hemoptysis-appears to have resolved
CXR was obtained and does not show significant changes, he has chronic RUL infiltrate but better than before
Patient had recent hospitalization from 01/23-01/30/24 for aspiration pneumonia.
Patient has history of vocal cord paresis and dysphonia and evaluated by speech with high aspiration risk on VSE around that time.
He does still note occasional regurgitation with TFs.
CXR showing chronic RUL infiltrates, but improved from prior.
He is NPO s/p PEG
Prior history of lung disease is noted --likely has COPD
Emphysema is noted on CT
No PFTs for review as OP
He takes Duonebs at home QID
We added budesonide to help if there is any airways inflammation contributing
Cultures reviewed
Sputum culture with Pseudomonas
Recent streptococcal pneumonia antigen 01/24/2024 positive for strep
Leukocytosis resolved
Currently Tmax of 100.[address] Lynn 02/09 and [id number] off antibiotics
Prior ECHO results are reviewed indicating stable function
Failure to thrive and chronic aspiration noted
Cachectic, optimize nutrition but this is difficult given constant regurgitation with TFs, ongoing
Overall prognosis poor with patient, given advanced H&N cancer/disease progression on PET
He is known to [place]
Consideration for GOC discussions
He is DNR
Stable from a pulmonary perspective for proposed discharge-high risk for rapid rehospitalization based on comorbidities and extremely poor performance status
Diagnostic Data
Chest X-Ray: 02/08/24-Slightly improved bilateral pneumonia.
01/27/24-Bilateral opacification suspicious for pneumonia, slightly improved.
PET/CT 11/13/23- FINDINGS:
Face and neck: There is a confluent pancho mass in the posterior triangle of the right suprahyoid neck that measures approximately 4.8 x 4.0 x 6.0 cm in AP, transverse and craniocaudal dimensions, 18.1 SUV max on initial imaging and 19.4 SUV max on
delayed imaging. This mass measured approximately 3.0 x 3.5 x 5.0 cm and 16.6 SUV max on delayed imaging. This mass has increased in both size and FDG avidity in the interval since the prior study There is low-level inflammatory FDG avidity in the
hypopharynx and oropharynx, stable compared with the prior study
CHEST: There are no areas of abnormal FDG avidity in the chest. There is a port catheter in place through right internal jugular access with its tip extending into the superior vena cava. There is mild linear interstitial scarring in the right upper
lobe and there are mild emphysematous changes in both lungs. There is no hilar, mediastinal or axillary lymphadenopathy
Echo: 01/29/24- 1. Normal left ventricular size and hyperdynamic LV systolic function. Estimated LVEF of 65-70%. 2. Normal right ventricular size and systolic function. 3. No significant valvular abnormalities. 4. No significant pericardial
effusion. No prior echocardiogram available for comparison.
Subjective Data
-
Date of Service:
Date of Service: February 11, 2024
Chief Complaint: Pulmonary Follow Up and Dyspnea Follow Up
Subjective:
No complaints of shortness of breath, 'better', has some chest congestion, minimal cough, no chest pain or abdominal pain
Review of Systems
General: Other (Per HPI)
Objective Data
Data Reviewed
Vital Signs / I&O:
Vital Signs
Temp Pulse Resp BP Pulse Ox
100.4 F H 99 16 82/36 97
02/11/24 12:59 02/11/24 13:02 02/11/24 07:20 02/11/24 13:02 02/11/24 07:20
Intake and Output
02/10/24 02/11/24 02/12/24
06:59 06:59 06:59
Intake Total 5 / 1915 1460 / 1460
Output Total 950 / 950 1370 / 1370
Balance 965 / 965 90 / 90
SaO2: 97
Physical Exam
General: Respiratory Distress (n), Comfortable, Poor Appetite and Other (thin/cachectic)
HEENT: Normocephalic, Anicteric and Other (dry MM)
Cardiovascular: Regular Rhythm
Respiratory: Wheeze (n), Crackles, Rhonchi (n), Non-Labored Respirations, Accessory Resp Muscle Use (n) and Stridor (n)
GI: Soft, Non Distended and Non Tender
Neurology: Awake, Alert, No Motor Deficits and Depressed
Skin: Warm, Dry and Cyanosis
Labs/Micro/Reports
Lab Data
02/10/24 08:15
02/10/24 08:15
Microbiology
02/09/24 01:48 Sputum Respiratory Culture - Final
Pseudomonas aeruginosa
Serratia marcescens
02/09/24 01:48 Sputum Gram Stain - Final
[2024-02-11 15:00] VITALS: BP 87/57
[2024-02-11] MEDS: DUONEB INH ×2 (15:19→19:45)
--- NOTE | 2024-02-11 15:53 | W.PN.HOSP.TC ---
Today's Communication/Plan
-
will watch for potential fever recurrence next 24 hrs and if remains afebrile, dc to follow
Assessment / Plan
Assessment / Plan
1. Hemoptysis - Improved
-Patient of increased phlegm production/secretion and unable to clear at times
-Initially patient had blood in the phlegm, no mark hematemesis
-Chest x-ray 02/08: Pneumonia on the right appears more extensive but less consolidated compared to the prior study. On the left airspace disease appears unchanged
-Patient has chronic hypertension, not hypoxic, not tachycardic -PE is less likely to be the reason for the hemoptysis
-No reported epistaxis/postnasal drip
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
-Pulmonology input noted, reviewed with Dr. Zhu, has cleared pt for dc, though does point out that pt is at high risk for recurrent admissions due to burden of disease
discussed with pt, he is feeling better, but would like to give it another day and request discuss further with dgt at time of dc
2. SCC of pharynx/h&n
Chronic dysphagia
s/p PEG tube
Increased pharyngeal secretions
history of tracheostomy with reversal
-Patient follows up with Dr. Lipscomb, plan to get next round of chemotherapy on february
-Patient got Taxol and Gemzar Last month.
-Port-A-Cath was removed last admission with bacteremia, patient will get an PICC line by oncology office
-Added lansoprazole through tube to help with reflux/GI ppx
-Patient remains on tube feed, lower regular to 55 mL/h. Continue checking residual volume. Dietitian consult requested as well.
-Mechanical suction to help clear throat secretion as possible
3. Recovering bilateral pneumonia
Leukocytosis on admission without fever
WBC 16.3-->10.0-->9.6k
-Patient has finished course of antibiotic on 02/04
-Patient janell 100.4F this afternoon
-possible malignancy fever vs aspiration pneumonitis
-continue watching off of abx
former smoker/alcohol use
chronic anemia
severe protein calorie malnutrition
DVTPPX -scd
DNR - confirmed with patient at bedside
Anticipated Discharge: 24 - 48 hours
Subjective/Interval History
-
Date of Service: February 11, 2024
Remains weak, but generally feels better
Objective Data
-
Vital Signs:
Vital Signs
Temp Pulse Resp BP Pulse Ox
98.7 F 79 16 87/57 95
02/11/24 15:00 02/11/24 15:21 02/11/24 15:21 02/11/24 15:00 02/11/24 15:21
I&O
02/10/24 02/11/24 02/12/24
06:59 06:59 06:59
Intake Total 1915 / 1915 1460 / 1460
Output Total 950 / 950 1370 / 1370
Balance 965 / 965 90 / 90
Review of Systems
-
History Source: Patient and Coordinated Provider
Constitutional: Denies Fever
EENT: Reports No Symptoms Reported
Respiratory: Reports Cough (better, no blood noted in sputum)
Cardiac: Denies Chest Pain
Abdomen/GI: Reports No Symptoms
Physical Exam
-
General: Comfortable, Appears Chronically Ill and Cachectic
HEENT: Negative Oxygen
Respiratory: Clear to Auscultation (on shallow respirations)
Cardiac: Regular Rhythm and S1/S2; Negative Murmur or Rub
GI: Soft, Nontender and Nondistended
Musculoskeletal: No Edema
Neuro: Awake, Alert, Oriented, No Motor Deficits and Nonfocal/Grossly Intact
Psych: Calm
[2024-02-11] MEDS: PULMICORT INH (19:45)
[2024-02-11 23:30] VITALS: BP 87/54
--- NOTE | 2024-02-11 23:46 | PTCARENOTE ---
Addendum entered by Pamela Donahue RN 02/12/24 02:04:
Updated BP at 2:00am is 83/53. CHARLEY Erickson notified. Received electronic orders for midodrine. Patient updated on plan of care.
Original Note:
PCT alerted this RN of blood pressure of 87/54. Patient is asymptomatic. CHARLEY Erickson notified. Awaiting orders.
[2024-02-12 02:03] VITALS: BP 83/53
[2024-02-12] MEDS: ProAmatine 10 MG TUBE ×2 (02:13→08:58)
[2024-02-12 05:30] VITALS: BP 84/50
[2024-02-12 05:43] VITALS: BMI 15.3
--- NOTE | 2024-02-12 05:51 | PTCARENOTE ---
Tube feed changed per protocol. Patient receiving Jevity 1.5 at 55 ml/hr and a 25 ml/hr flush. Tolerating feeds well.
[2024-02-12] MEDS: DUONEB 3 ML INH (07:14)
[2024-02-12] MEDS: PULMICORT 0.5 MG INH (07:14)
[2024-02-12] MEDS: SODIUM CHLORIDE 3% FOR INHALATION 1 VIAL INH (07:15)
[2024-02-12 07:24] VITALS: BP 96/44
[2024-02-12 07:30] LABS: % Basophils 0.7 % (0-2); % Eosinophils 1.6 % (0-6); % Immature Granulocytes 0.3 % (0-0.5); % Lymphocytes 3.5 % (20.5-51.1); % Monocytes 9.1 % (1.7-9.3); % Neutrophils 84.8 % (42.2-75.2); Absolute Basophils 0.1 10^3/uL (0-0.2); Absolute Eosinophils 0.1 10^3/uL (0-0.7); Absolute Lymphocytes 0.3 10^3/uL (1.2-3.4); Absolute Monocytes 0.8 10^3/uL (0.1-0.6); Absolute Neutrophils 7.6 10^3/uL (1.4-6.5); Hematocrit 27.7 % (39.0-52.0); Mean Corp Hgb Conc. 32.5 g/dL (33.0-37.0); Mean Corpuscular Hgb 29.7 pg (27.0-31.0); Mean Corpuscular Volume 91.4 fL (80.0-94.0); Mean Platelet Volume 11.4 fL (7.4-10.4); Nucleated Red Blood Cells % 0 % (-); Platelet Count 277 10^3/uL (130-400); Red Blood Cell Count 3.03 10^6/uL (4.70-6.10); Red Cell Dist. Width 17.8 % (11.5-14.5)
[2024-02-12 08:18] LABS: Blood Urea Nitrogen 14 mg/dl (9-20); Calcium 8.9 mg/dl (8.4-10.2); Carbon Dioxide 33 mmol/L (22-30); Chloride 91 mmol/L (98-107); Estimated Creatinine Clearance 87 ml/min; Glucose 90 mg/dl (70-99); Potassium 4.5 mmol/L (3.5-5.1); Sodium 134 mmol/L (135-145); eGFR > 60.00
[2024-02-12] MEDS: PREVACID 30 MG TUBE (08:58)
--- NOTE | 2024-02-12 09:53 | W.PN.HOSP.TC ---
Today's Communication/Plan
-
dc to home
Assessment / Plan
Assessment / Plan
1. Hemoptysis - Improved
-Patient of increased phlegm production/secretion and unable to clear at times
-Initially patient had blood in the phlegm, no mark hematemesis, now resolved
-Chest x-ray 02/08: Pneumonia on the right appears more extensive but less consolidated compared to the prior study. On the left airspace disease appears unchanged
-Patient has chronic hypertension, not hypoxic, not tachycardic -PE is less likely to be the reason for the hemoptysis
-No reported epistaxis/postnasal drip
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
-Pulmonology input noted, reviewed with Dr. Zhu, has cleared pt for dc, though does point out that pt is at high risk for recurrent admissions due to burden of disease
discussed with pt, he is feeling better, and would like to go home. Call placed and discussed with dgt, Sofia, she is okay with him going home
2. SCC of pharynx/h&n
Chronic dysphagia
s/p PEG tube
Increased pharyngeal secretions
history of tracheostomy with reversal
-Patient follows up with Dr. Lipscomb, plan to get next round of chemotherapy on february
-Patient got Taxol and Gemzar Last month.
-Port-A-Cath was removed last admission with bacteremia, patient will get an PICC line by oncology office
-Added lansoprazole through tube to help with reflux/GI ppx
-Patient remains on tube feed, lower regular to 55 mL/h. Continue checking residual volume. Dietitian consult requested as well.
-Mechanical suction to help clear throat secretion as possible
Noted pt has not had a BM in 3 days, discussed with pt, he prefer to wait until he is home and will take a laxative there if stillneeds
3. Recovering bilateral pneumonia
Leukocytosis on admission without fever
WBC 16.3-->10.0-->9.6-->9k
-Patient has finished course of antibiotic on 02/04
-Patient temp 100.4F yesterday, none today
-possible malignancy fever vs aspiration pneumonitis
-continue watching off of abx
former smoker/alcohol use
chronic anemia
severe protein calorie malnutrition
DVTPPX -scd
DNR - confirmed with patient at bedside
reviewed with RN and dgt. Will dc now
More than 30 minutes spent in discharge including
Final examination of the patient
Summarizing hospital stay
Instructions for continuing care to all relevant caregivers
Preparation of discharge records, prescriptions, and referral forms
Total time spent (in minutes): 45
dc now
Anticipated Discharge: Today
Subjective/Interval History
-
Date of Service: February 12, 2024
Remains weak, but alert
Objective Data
-
Labs:
Laboratory Results
02/12/24
06:46
WBC 9.0
Hgb 9.0 L
Hct 27.7 L
Plt Count 277
Sodium 134 L
Potassium 4.5
Chloride 91 L
Carbon Dioxide 33 H
BUN 14
Creatinine 0.5 L
Glucose 90
Calcium 8.9
Vital Signs:
Vital Signs
Temp Pulse Resp BP Pulse Ox
98.2 F 88 17 96/44 98
02/12/24 07:24 02/12/24 08:58 02/12/24 07:24 02/12/24 08:58 02/12/24 07:24
I&O
02/11/24 02/12/24 02/13/24
06:59 06:59 06:59
Intake Total 1460 / 1460
Output Total 1370 / 1370 1850 / 1850
Balance 90 / 90 -1850 / -1850
Review of Systems
-
History Source: Patient and Coordinated Provider
Constitutional: Denies Fever
EENT: Reports No Symptoms Reported
Respiratory: Reports Cough (better, no blood noted in sputum)
Cardiac: Denies Chest Pain
Abdomen/GI: Reports No Symptoms
Physical Exam
-
General: Comfortable, Appears Chronically Ill and Cachectic
HEENT: Negative Oxygen
Respiratory: Clear to Auscultation (on shallow respirations)
Cardiac: Regular Rhythm and S1/S2; Negative Murmur or Rub
GI: Soft, Nontender and Nondistended
Musculoskeletal: No Edema
Neuro: Awake, Alert, Oriented, No Motor Deficits and Nonfocal/Grossly Intact
Psych: Calm
--- NOTE | 2024-02-12 10:51 | CM ---
CM reviewed chart and noted dc order
Bedside meeting with pt who deferred dc planning to dtr
Call with dtr- plan for home with [facility]
Info provided regarding home and community based services per her request
Community health choices info provided along with [employer] and independent enrollment anthropology instructor contact info
Hard copies of waiver resource info placed with dc packet
Update to [facility]/Dinorah S
Discharge Disposition-home with [facility], dtr transport
[2024-02-12 11:00] VITALS: BP 94/42
--- NOTE | 2024-02-12 14:12 | W.DS.TRANS ---
DC Summary - [employer]
-
Discharge Instructions:
Discharge Diagnosis/Procedures Hemoptysis, Hx of Squamous Cell Cancer of head
and Neck
Diet Tube feeding
Activity As tolerated,With assistance
Driving Restrictions No driving
Bathing Restrictions None
Other Services VN
Instructions:
Stand-Alone Forms:
Changes to Home Medications: No
Discharge Medications:
DC Medications w/original date entered in [employer]
acetaminophen 500 mg tablet (Tylenol Extra Strength) 1,000 mg feeding tube Q6H PRN pain 07/11/22
albuterol sulfate 2.5 mg/3 mL (0.083 %) solution for nebulization 2.5 mg (3 mL) inhalation R Q4HPRN PRN SOB #75 mL 01/30/24
ipratropium 0.5 mg-albuterol 3 mg (2.5 mg base)/3 mL nebulization soln 3 ml inhalation R QID Cough #90 mL 01/30/24
midodrine 5 mg tablet 10 mg (2 x 5 mg) feeding tube TID Blood pressure #90 tabs 01/30/24
Home Medication Changes
Pending Results: No
== END 2024-02-12 11:16 | disposition home health service (06) | DRG 177 ==
LOC: 3 WEST ACU 12:58
PROVIDERS: Nurse Practitioner Family; Physician Assistant; ADMITTING PHYSICIAN Hospitalist; ATTENDING PHYSICIAN Internal Medicine; CONSULT PHYSICIAN Internal Medicine; EMERGENCY PHYSICIAN Emergency Medicine; FAMILY PHYSICIAN Family Medicine
DX: J69.0 Pneumonitis due to inhalation of food and vomit (principal); E43 Unspecified severe protein-calorie malnutrition; J96.91 Respiratory failure, unspecified with hypoxia; R04.2 Hemoptysis; Z68.1 Body mass index [BMI] 19.9 or less, adult; E87.1 Hypo-osmolality and hyponatremia; E87.3 Alkalosis; R64 Cachexia; C13.9 Malignant neoplasm of hypopharynx, unspecified; R13.10 Dysphagia, unspecified; I10 Essential (primary) hypertension; J43.9 Emphysema, unspecified; R62.7 Adult failure to thrive; J38.00 Paralysis of vocal cords and larynx, unspecified; I95.89 Other hypotension; E86.0 Dehydration; R49.0 Dysphonia; D63.8 Anemia in other chronic diseases classified elsewhere; Z66 Do not resuscitate; Z87.891 Personal history of nicotine dependence; Z93.1 Gastrostomy status; Z87.01 Personal history of pneumonia (recurrent); Z85.89 Personal history of malignant neoplasm of other organs and systems; Z92.21 Personal history of antineoplastic chemotherapy
CPT/HCPCS: 71046; 80048; 80053; 81003; 83605; 85025; 85027; 85610; 85730; 87070; 87077; 87186; 87205; 94640; 96361; 96365; 99285

== ENCOUNTER → 2024-02-19 12:21 | Outpatient (REF) | payer OTHER, SELFPAY ==
[2024-02-19 12:48] VITALS: BP 92/67; BP_SYST 94
== END ==
LOC: RADI 12:21
PROVIDERS: ATTENDING PHYSICIAN Internal Medicine Hematology & Oncology; FAMILY PHYSICIAN Family Medicine
DX: Z45.2 Encounter for adjustment and management of vascular access device (principal); C13.2 Malignant neoplasm of posterior wall of hypopharynx
CPT/HCPCS: 36573; C1751; C1769

== ENCOUNTER → 2024-02-27 15:59 | Outpatient (REF) | payer OTHER, SELFPAY ==
[2024-02-27 09:40] LABS: % Basophils 0.1 % (0-2); % Eosinophils 0.1 % (0-6); % Immature Granulocytes 0.5 % (0-0.5); % Lymphocytes 2.2 % (20.5-51.1); % Monocytes 3.1 % (1.7-9.3); Absolute Immature Granulocytes 0.1 10^3/uL (0-0.05); Absolute Lymphocytes 0.5 10^3/uL (1.2-3.4); Absolute Monocytes 0.7 10^3/uL (0.1-0.6); Absolute Neutrophils 20.9 10^3/uL (1.4-6.5); Hematocrit 30.2 % (39.0-52.0); Hemoglobin 9.2 g/dL (13.0-18.0); Mean Corp Hgb Conc. 30.5 g/dL (33.0-37.0); Mean Corpuscular Hgb 29.1 pg (27.0-31.0); Mean Corpuscular Volume 95.6 fL (80.0-94.0); Platelet Count 320 10^3/uL (130-400); Red Blood Cell Count 3.16 10^6/uL (4.70-6.10); White Blood Cell Count 22.2 10^3/uL (4.8-10.8)
[2024-02-27 10:23] LABS: ALT (SGPT) 15 U/L (0-50); AST (SGOT) 23 U/L (17-59); Albumin 3.5 g/dl (3.5-5.0); Alkaline Phosphatase 81 U/L (38-126); Blood Urea Nitrogen 32 mg/dl (9-20); Calcium 11.5 mg/dl (8.4-10.2); Chloride 97 mmol/L (98-107); Glucose 147 mg/dl (70-99); Potassium 3.1 mmol/L (3.5-5.1); Sodium 146 mmol/L (135-145); Total Bilirubin 0.5 mg/dl (0.2-1.3); eGFR > 60.00
[2024-02-27 10:44] LABS: Carbon Dioxide 35 mmol/L (22-30)
== END ==
LOC: OIDL 15:59
PROVIDERS: ATTENDING PHYSICIAN Internal Medicine Hematology & Oncology
DX: C13.2 Malignant neoplasm of posterior wall of hypopharynx (principal)
CPT/HCPCS: 80053; 85025

== ENCOUNTER 2024-03-07 19:24 | Inpatient (IN) | payer OTHER, SELFPAY ==
[2024-03-07] VITALS (46 sets, daily range): BP systolic 57–113; BP diastolic 34–76; BMI 16.5; BMI 16.6
--- NOTE | 2024-03-07 15:52 | CHAP ---
Emotional and spiritual support provided for Marc's daughter, Sofia, as we walked over to the ER from the [facility]. She shared that Marc is not adventism, so if he is admitted we will introduce the emotional side of what
[facility] offers, rather than the spiritual. Will follow as able.
[2024-03-07] MEDS: NSS 1000 IV ×3 (16:00→20:46)
[2024-03-07] MEDS: OFIRMEV 100 IV (16:05)
[2024-03-07 16:24] LABS: ALT (SGPT) 17 U/L (0-50); AST (SGOT) 30 U/L (17-59); Albumin 2.8 g/dl (3.5-5.0); Alkaline Phosphatase 56 U/L (38-126); Blood Urea Nitrogen 52 mg/dl (9-20); Calcium 9.6 mg/dl (8.4-10.2); Carbon Dioxide 34 mmol/L (22-30); Chloride 104 mmol/L (98-107); Estimated Creatinine Clearance 94 ml/min; Glucose 110 mg/dl (70-99); Potassium 3.8 mmol/L (3.5-5.1); Sodium 144 mmol/L (135-145); Total Bilirubin 0.6 mg/dl (0.2-1.3); Total Protein 5.5 g/dl (6.3-8.2); eGFR > 60.00
[2024-03-07 16:33] LABS: Urine Albumin Trace (Neg - Trace); Urine Bilirubin Negative (Negative); Urine Character Clear (Clear); Urine Color Yellow; Urine Glucose Negative (Negative); Urine Ketone Negative (Negative); Urine Leukocyte Negative (Negative); Urine Nitrite Negative (Negative); Urine Occult Blood Negative (Negative); Urine Specific Gravity 1.015 (<1.030); Urine Urobilinogen 1+ (Neg - 1+)
[2024-03-07 16:34] LABS: Hematocrit 22.2 % (39.0-52.0); Hemoglobin 6.8 g/dL (13.0-18.0); Mean Corp Hgb Conc. 30.6 g/dL (33.0-37.0); Mean Corpuscular Hgb 28.5 pg (27.0-31.0); Mean Corpuscular Volume 92.9 fL (80.0-94.0); Red Blood Cell Count 2.39 10^6/uL (4.70-6.10); Red Cell Dist. Width 16.5 % (11.5-14.5); White Blood Cell Count 6.2 10^3/uL (4.8-10.8)
--- NOTE | 2024-03-07 16:34 | EDRN ---
Critical HGB reported to Jennifer WHITEHEAD at this time of 6.8.
[2024-03-07 16:37] LABS: Lactic Acid 1.8 mmol/L (0.7-2.0)
--- NOTE | 2024-03-07 16:49 | ED.GENMED ---
History of Present Illness
General
Chief Complaint: Fever
Source: patient and family (Daughter)
Exam Limitations: none
Time Seen by Provider: 03/07/24 15:48
Nursing documentation reviewed up to this point in time: agreed with
History of Present Illness
History of Present Illness:
Patient to ED from cancer center. According to daughter, he received chemo treatment yesterday and today returned for immune booster. While at center he became increasingly weak, elevated HR with low BP. Rapid response called and he was
transferred to ED. Temp 104 rectal on arrival. Daughter states he has been weak for the past week. He denies any SOB, cp/pressure, abdominal pain.
Past History
Past History
ED Past Medical History: Cancer (pharyngeal )
ED Past Surgical History: Other (Tracheostomy tube placement, PEG)
Social History
Tobacco: Former smoker
Alcohol: None
Drug: None
Review of Systems
Review of Systems
Allergies reviewed?: Yes
All Other Systems: ROS reviewed and negative except as documented in HPI and ROS
Constitutional: Reports fever
EENT: Reports no symptoms
Respiratory: Reports no symptoms
Cardiac: Reports other (Hypotensive)
ABD/GI: Reports no symptoms
: Reports no symptoms
Musculoskeletal: Reports no symptoms
Skin: Reports no symptoms
Neurological: Reports weakness
Psychiatric: Reports no symptoms
Phy Exam
General Physical Exam
General Presentation: moderate distress
General age: appears older than age
General Skin: dry
General Habitus: debilitated and frail
General Mental: alert
Cardiovascular Exam
Cardiovascular Exam: regular rate/rhythm and tachycardia
Pulmonary Exam
Pulmonary Exam: decreased breath sounds
Gastrointestinal Exam
Gastrointestinal Exam: normal bowel sounds, non tender and soft
Musculoskeletal Exam
Musculoskeletal Exam: full ROM and neuro vasc intact
Skin Exam
Skin Exam: normal color, no rash and no petechia
Psychiatric Exam
Psychiatric Exam: normal mood/affect
Sepsis
Sepsis Screening
Sepsis Assessment: Sepsis
Sepsis Screen
Sepsis Screen: Sepsis
Date: 03/10/24
Time: 21:54
Course
Orders/Labs/Results
Orders:
Orders
03/07/24 Breakfast
Tube Feeding
At Your Request: Limited, Mica Patcher Required
Reason for opting out of Merchandising Intern order writing: Provider Decision
Tube Feeding Product: Osmolite 1.2
Initial continuous pump rate (mL/hr): 20 ml/hr
Additional Tube Feeding Instructions: consult dietary to dose tube feeding
03/07/24 15:57
Electrocardiogram (*1) Urgent
Reason for Study: Chest Pain
Cardiac Monitoring- Treatment ONCE
EKG- Treatment ONCE
IV Insert/Care/Rem.- Treatment PRN
03/07/24 15:58
Complete Blood Count/With Diff Urgent
Comprehensive Metabolic Panel Urgent
Lactic Acid Urgent
Blood Culture Urgent
GT Source: Blood/Venous
Specimen Description:
03/07/24 16:04
Acetaminophen 1000MG/100Ml [Ofirmev] 1,000 mg in 100 ml .ROUTE .STK-MED
03/07/24 16:06
0.9% Sodium Chloride 1000 ml [Nss] 1,000 ml IV BOLUS
Acetaminophen 1000MG/100Ml [Ofirmev] 1,000 mg in 100 ml IV ONCE
Acetaminophen IV Indication:: No IN & No Enteral Access
03/07/24 16:20
Urinalysis Reflex To Culture Urgent
Date Specimen was Collected: 03/07/24
Time Specimen was Collected: 16:18
Blood Culture Urgent
GT Source: Blood/Venous
Specimen Description:
03/07/24 17:14
* Blood Bank Products Urgent
Blood Bank Products: *Packed RBC Leuko(PRBC's)
Quantity: 2
Transfuse Today: Yes
Reason: Anemia
03/07/24 17:24
CR Chest Portable - 1 View Urgent
Comment:
Reason For Exam: sepsis
Reason Study Needs to be Portable: Patient Unstable
03/07/24 17:26
Cefepime HCl [Maxipime] 2,000 mg IV NOW STA
03/07/24 17:28
Type And Crossmatch [Type+Screen] Urgent
03/07/24 17:30
NORepinephrine 4 MG/250 ML [Levophed] 4 mg in 250 ml IV PER PROTOCOL
Initial dose in mcg/min, then titrate:: 4
Titrate to keep:: SBP > 90 mmHg
Titrate by mcg/min:: 1-2 mcg/min
Frequency of titrations (minutes):: 5
Maximum dose in ICU in mcg/min:: 30
Maximum dose in IMU in mcg/min:: 8
Maximum dose in IVU in mcg/min:: 4
Begin to taper infusion when:: Remained at goal for 4hrs
Taper by mcg/min:: 1-2 mcg/min
Frequency of taper (minutes) if patient maintains goal:: 30
Taper to off?: Yes
If infusion off & no longer maintaining goal:: Contact Provider
03/07/24 18:31
0.9% Sodium Chloride 500 ml [Nss] 1,000 ml IV BOLUS
03/07/24 18:47
Admit/Transfer Patient As Directed
Co-Sign Provider:
Level of Care: Inpatient admission
Assign to:: ICU
Physician / Group: Annalee Adame
Diagnosis: Sepsis, anemia
Reason for Hospitalization: Sepsis, anemia
Expected length of stay greater than two midnights?: Yes
ELOS- Estimated Length of Stay in days: 3
I certify the patient meets the requirements for IP care: Yes
03/07/24 18:48
PRN Pain Medication Management As Directed
May give lesser potent ordered pain med per pt: Yes
preference::
Protocol:: Medication orders for pain may be administered in a
manner that supports deferring to patient preference
when the pt is:
- Requesting an ordered lesser potent pain medication.
Least to most potent pain medications are defined
as: acetaminophen < NSAID < tramadol < opioids
(morphine, oxycodone, hydromorphone).
- Requesting a lesser dose of the same medication IF
ORDERED.
- Requesting a less intrusive route of administration
if both routes are prescribed by the provider (PO <
IV).
03/07/24 18:49
Code Status As Directed
Resuscitation Status: Do not resuscitate
Reached after discussion with pt or family/Healthcare POA: Yes
DNR Bracelet Application ONCE
03/07/24 19:21
Code Status As Directed
Resuscitation Status: Limited DNR
Limited DNR: -No intubation
Reached after discussion with pt or family/Healthcare POA: Yes
03/07/24 19:28
0.9% Sodium Chloride 1000 ml [Nss] 1,000 ml IV 100 mls/hr
Acetaminophen [Tylenol] 650 mg TUBE Q4HPRN PRN
Ondansetron Injectable [Zofran] 4 mg IV Q6HPRN PRN
Vancomycin [Vancocin] 1,500 mg 0.9% Sodium Chloride 500 ml [Nss] 500 ml IV NOW
03/07/24 19:28
DIETARY CONSULT Routine
Reason for Consult: Dietary to Dose Tube Feeding
Hospital Housekeeper Consult Routine
Consulting Provider: Crispin Hunter
Was physician already notified: Yes
ONCOLOGY CONSULT Routine
Consulting Provider: Rudy Mcneal
Was physician already notified: Yes
Activity As Directed
Activity Level: With Assistance
Head of Bed-Restrictions As Directed
Elevation Level: 30 degress
Frequency: At all times
Intake/ Output As Directed
Frequency: Per unit guidelines
Pneumatic Compression Sleeves As Directed
Type: Knee high
Precautions As Directed
Type of Precautions: Aspiration
Vital Signs As Directed
Frequency: Per unit guidelines
Weight As Directed
Frequency: Daily
O2 Therapy [RESP] Routine
Titrate/Wean O2 to maintain O2 sat greater than (%): 93
DX Deep Vein Thrombosis Video Routine
03/07/24 20:00
Ipratropium/Albuterol Sulfate [Duoneb] 3 ml INH R QID
03/07/24 22:00
Guaifenesin Solution [Robitussin] 200 mg TUBE QID
Midodrine [ProAmatine] 10 mg TUBE TID
03/07/24 22:09
Lactic Acid Q4H
Comment: repeat q4 hours x 4 or until less than 2 mmol/L
03/08/24 02:00
Cefepime HCl [Maxipime] 2,000 mg IV Q8H
03/08/24 03:47
Complete Blood Count/No Diff IN AM
Comprehensive Metabolic Panel IN AM
Glycohemoglobin (HgbA1c) IN AM
03/08/24 06:00
CR Chest Portable - 1 View IN AM
Comment:
Reason For Exam: hypoxia
Reason Study Needs to be Portable: Unable to Transport
03/08/24 08:00
Pantoprazole [Protonix IV] 40 mg IV DAILY
Abnormal Lab Results
03/07/24 03/07/24
15:58 17:28
RBC 2.39 L 10^6/uL
(4.70-6.10)
Hgb 6.8 L* g/dL
(13.0-18.0)
Hct 22.2 L %
(39.0-52.0)
MCHC 30.6 L g/dL
(33.0-37.0)
RDW 16.5 H %
(11.5-14.5)
Plt Count 88 L 10^3/uL
(130-400)
MPV 12.8 H fL
(7.4-10.4)
Absolute Lymphs (auto) 0.2 L 10^3/uL
(1.2-3.4)
Neutrophils % 94.2 H %
(42.2-75.2)
Lymphocytes % 2.7 L %
(20.5-51.1)
Monocytes % 1.6 L %
(1.7-9.3)
Carbon Dioxide 34 H mmol/L
(22-30)
BUN 52 H mg/dl
(9-20)
Creatinine 0.6 L mg/dL
(0.7-1.3)
Glucose 110 H mg/dl
(70-99)
Total Protein 5.5 L g/dl
(6.3-8.2)
Albumin 2.8 L g/dl
(3.5-5.0)
Crossmatch IS Only See Detail
03/07/24 15:58
03/07/24 15:58
Vital Signs
Initial and Last Documented VS:
Initial Vital Signs
Pulse Resp BP Pulse Ox
128 29 113/50 85
03/07/24 15:32 03/07/24 15:32 03/07/24 15:32 03/07/24 15:32
Last Documented Vital Signs
Temp Pulse Resp BP Pulse Ox
97.5 F 91 18 113/98 94
03/10/24 19:27 03/10/24 19:20 03/10/24 19:20 03/10/24 18:00 03/10/24 19:20
*Critical Care Note
Total Time (30-74mins, 75-104mins- exclusive of procedures): Not Applicable
Update Note
Update Note:
Patient to ED from cancer center. Daughter states he has become increasingly weak over the past week. He received chemo last week and again yesterday. Returned to the cancer center today for neupogen injection. While at infusion center he was
noted to be hypoxic, hypotensive, tachycardic. Rapid response was called and he was transported to ED. Temp on aarrival to ED was 104 rectal. Given dose of ofirmev. Given 2L NSS rapid infusion. BP 80's/40's initally, incrased to mid 90's over
50's and then dropped again. Levophed infusion ordered. He is anemic at 6.8. WBC normal. Platelets 88. 2u PRBC's ordered. Daughter states he had a large amt of bleeding from his right neck tumor this AM. PUlse ox low 80's on RA. Placed on 3L
NC and he is holding at 95%. CXR pending. Cefapime ordered. Will admit to hospitalist for hypotension, fever unknown origin, hypoxemia
ED Attending Note
-
Portions of this chart may have been created with voice recognition software.� Occasional wrong word or��sound alike� substitutions may have occurred due to the inherent limitations of voice recognition software.
Discharge Plan
Departure
Patient Disposition: Admit
Date of Disposition: 03/07/24
Time of Disposition: 17:28
Presentation/result/management discussed w/ accepting MD/DO: Hospitalist
Condition: Fair
Covid-19: Not Applicable
Discharge Problem:
Fever of unknown origin, Anemia, Hypotension
Interventions
Interventions:
*Risk Screen - Suicide Last Done: 03/07/24 15:39
*General Assessment Last Done: 03/07/24 16:14
*Neglect/Abuse Screening Last Done: 03/07/24 15:39
ED- Fall Risk Assessment Last Done: 03/07/24 16:15
*ED COVID-19 Vaccine History Last Done: 03/07/24 16:14
*Nursing Disposition Last Done: 03/07/24 19:30
ED- Neurological Assessment Last Done: 03/07/24 16:15
ED-Skin Assessment Last Done: 03/07/24 16:17
Discharge Date and Time
Discharge Date/Time: 03/07/24 20:12
[2024-03-07 16:58] LABS: Platelet Count 88 10^3/uL (130-400)
[2024-03-07 16:59] LABS: Mean Platelet Volume 12.8 fL (7.4-10.4)
[2024-03-07 17:07] LABS: % Basophils 0.8 % (0-2); % Eosinophils 0.5 % (0-6); % Immature Granulocytes 0.2 % (0-0.5); % Lymphocytes 2.7 % (20.5-51.1); % Monocytes 1.6 % (1.7-9.3); % Neutrophils 94.2 % (42.2-75.2); Absolute Basophils 0.1 10^3/uL (0-0.2); Absolute Lymphocytes 0.2 10^3/uL (1.2-3.4); Absolute Monocytes 0.1 10^3/uL (0.1-0.6); Absolute Neutrophils 5.8 10^3/uL (1.4-6.5); Nucleated Red Blood Cells % 0.6 % (-)
[2024-03-07] MEDS: LEVOPHED 250 IV (17:34)
[2024-03-07] MEDS: MAXIPIME 2000 MG IV (17:39)
--- NOTE | 2024-03-07 17:49 | HPS.HSE ---
Addendum entered and electronically signed by Annalee Adame MD 03/07/24 19:23:
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 follows up with Dr. Lipscomb. Patient is currently on chemotherapy with Taxol and gemcitabine. He received PEG-filgastrim
growth factor today at the infusion center and was found to have a fever and was hypotensive. He was sent over. Patient denies any abdominal pain nausea or vomiting. He denies any fever at home but he had a fever at the infusion center and in the
ER. Denies any dysuria. No sick contacts. He has a PEG tube. History of tracheostomy which was decannulated. Daughter said that he had scratched right-sided neck and had some bleeding this morning at home.
I saw and examined the patient.
The CAPONIZER or PA's note was reviewed and I agree with the note.
Comment:
Patient is awake alert oriented denies any symptoms
Cardiovascular system S1-S2 slightly tachycardic
Chest mostly clear to auscultation
Pharynx status post surgery with abnormalities
Right side of the neck with scarring no active bleeding
No pedal edema no redness on the skin
Abdomen soft and nontender
Plan
Daughter does say that patient has chronic hypotension and his pressures were low during the previous hospital stay also. But in the setting of fever infection and septic shock should be considered admit to ICU
IV fluids, cefepime and vancomycin
History of Pseudomonas and respiratory cultures in the past
Panculture
Urinalysis and chest x-ray (reviewed by me )does not reveal any clear source of infection
Patient is immunosuppressed and on ongoing chemotherapy.
Will transfuse 2 units of packed red blood cells for anemia
Continue midodrine for chronic hypotension
Aspiration precautions and head of bed elevation
CODE STATUS addressed with daughter. Patient wants to be DNI. CPR okay. I did discuss that 1 does not work without the other in most cases.
They are in the process of getting a living will done.
Case discussed with ER nursing at bedside
Discussed with patient's daughter on the phone
Patient also has at least moderate protein calorie malnutrition--continue PEG tube feeds.
Total Critical Care Time 45 minutes. I was immediately available to the patient and staff. I personally examined, reviewed labs, diagnostic images/reports, interpretations, treatment plans, discussed patient care with other providers and family ,
entered orders as appropriate and documented the medical record.
Original Note:
Family Physician
-
Family Physician: Narayan Carey MD
Chief Complaint
-
fever
History of Present Illness
Patient is a 53-year-old male with past medical history significant for pharyngeal cancer who presented to [place] ED for evaluation of change in VS while in cancer center. Patient received chemo yesterday and returned to Cancer Center today for
immune booster where he had increased weakness, tachycardia and hypotension, rapid response called and patient transferred to ED and found to have Temp 104 rectally. Patient and daughter assist with HPI and states he has had increased weakness the
past few days, thought to possibly have temperature, daughter describes him complaining of being hot, sleeping with window open and would observe what sounds to be rigors. Patient with thick secretions that are hard to clear and this is baseline for
him. Daughter states he had a fall at home yesterday and this morning he was scratching tumor on right neck and it took >20mins to stop bleeding. Denies any chest pain, nausea, vomiting, diarrhea or urinary symptoms.
Medical History
Past Medical History
Past Medical History: Reports Other
Additional Past Medical History:
pharyngeal cancer
Past Surgical History: Reports Other
Additional Past Surgical History:
Esophageal mass biopsy
tracheotomy
PEG tube
Right chest wall port
Social History
Tobacco: Former Smoker (quit July 2020, >50 pack year history)
Alcohol: Former
Drug: Marijuana (used to smoke occasionally )
Personal: Single
Living: With Family
Employment: Not Employed
Family History
Family History: Not pertinent
Allergies / Home Medications
Allergies reflects when Allergies were last updated in [employer].
Home Medications with original date entered in [employer]
Allergy/Medication List:
Allergies
Allergy/AdvReac Type Severity Reaction Status Date / Time
No Known Allergies Allergy Verified 01/23/24 22:05
Home Medications
acetaminophen 500 mg tablet (Tylenol Extra Strength) 1,000 mg feeding tube Q6H PRN pain 07/11/22
albuterol sulfate 2.5 mg/3 mL (0.083 %) solution for nebulization 2.5 mg (3 mL) inhalation R Q4HPRN PRN SOB #75 mL 01/30/24
ipratropium 0.5 mg-albuterol 3 mg (2.5 mg base)/3 mL nebulization soln 3 ml inhalation R QID Cough #90 mL 01/30/24
midodrine 5 mg tablet 10 mg (2 x 5 mg) feeding tube TID Blood pressure #90 tabs 01/30/24
guaifenesin 600 mg tablet, extended release 12 hr (Mucinex) 600 mg PO BID 02/16/24
ondansetron 8 mg disintegrating tablet 8 mg PO Q8H PRN nausea 02/16/24
Review of Systems
-
History Source: Patient and Family
Constitutional: Reports Fever, Fatigue and Chills
EENT: Reports No Symptoms
Respiratory: Reports Cough and Trouble Breathing
Cardiac: Reports No Symptoms
Abdomen/GI: Reports No Symptoms
: Reports No Symptoms
Musculoskeletal: Reports No Symptoms
Skin: Reports No Symptoms
Neurological: Reports Weakness
Endocrine: Reports No Symptoms
Hematologic/Lymphatic: Reports No Symptoms
Psych: Reports No Symptoms
Physical Exam
Vital Signs
Vital Signs
Temp Pulse Resp BP Pulse Ox
104.4 F H 98 26 97/60 97
03/07/24 15:34 03/07/24 17:40 03/07/24 17:40 03/07/24 17:40 03/07/24 17:40
Physical Exam
General: Well Developed and No Apparent Distress
HEENT: NormoCephalic, Moist mucous membranes, Atraumatic, [place] Conjunctivae, Nose Appears Normal and Ears Appear Normal
Respiratory: Clear, Rhonchi, Crackles and Decreased Breath Sounds
Cardiac: S1/S2 and Tachycardia; No Murmur, Rub or Gallop
Breast: Deferred by me
GI: Soft, Non Tender, Non Distended and Normal Bowel Sounds; No Organomegaly
Rectal: Deferred by Provider
Genito-urinary: Deferred by me
Musculoskeletal: No Clubbing, No Cyanosis and No Edema
Skin: Warm and IV/Catheter Site; No Rash
Neuro: Awake, Alert, AO x 3 and Nonfocal/grossly intact
Hematologic/Lymphatic: No Lymphadenopathy
Psych: Calm and Intact Judgment/Insight
Laboratory Results
-
03/07/24 15:58
03/07/24 15:58
Laboratory Results
Lactic Acid 1.8 mmol/L (0.7-2.0) 03/07/24 15:58
Total Bilirubin 0.6 mg/dl (0.2-1.3) 03/07/24 15:58
AST 30 U/L (17-59) 03/07/24 15:58
ALT 17 U/L (0-50) 03/07/24 15:58
Alkaline Phosphatase 56 U/L (38-126) 03/07/24 15:58
Data Reviewed
-
Diagnostic Radiology: Report Reviewed by me (CXR: Left PICC line catheter tip at the superior right atrial margin. This may be withdrawn approximately 3 cm. No pneumothorax)
Medical Tests (Nuc Med, Echo, EKG etc): Report Reviewed by me (EKG: SINUS TACHYCARDIA WITH SHORT IN WITH PREMATURE ATRIAL COMPLEXES NONSPECIFIC ST AND T WAVE ABNORMALITY ABNORMAL ECG)
Lab Data: Labs Reviewed by me (hgb 6.8/hct 22.2, )
Impression/Plan
-
IMPRESSION/PLAN:
#Sepsis vs. neutropenic fever
WBC 6.2
CXR: Left PICC line catheter tip at the superior right atrial margin. This may be withdrawn approximately 3 cm. No pneumothorax.
- Admit to ICU
- IV Vanco and Cefepime
- Repeat CXR in morning
- IVF
- Levo gtt to maintain SBP>90
#pharyngeal cancer
increased thick secretions, difficult to clear
- Consult Oncology
- continue supportive care
- continue Mucinex, albuterol Neb PRN
#anemia
tumor bleeding after scratching on neck for >20 mins
hgb 6.8/Hct 22.2
- Consult hematology
- 2 units PRBCs
- trend H/H
Code Status: DNR
DVT Prophylaxis: SCDs
--- NOTE | 2024-03-07 18:07 | EDRN ---
Rosa WHITEHEAD in room w/ pt (w/ hospitalist group).
--- NOTE | 2024-03-07 18:26 | EDRN ---
Blood bank called and still processing blood at this time.
--- NOTE | 2024-03-07 18:38 | EDRN ---
Dr. Adame in room w/ pt at this time. Card sent to blood bank for 1st unit of blood at this time.
--- NOTE | 2024-03-07 18:58 | EDRN ---
Microwave Engineer called saying PICC needs to be pulled back. IV VAT RN called, new IV started and Levophed started in new IV access.
--- NOTE | 2024-03-07 19:20 | EDRN ---
Report to CLINICAL SOCIOLOGIST at this time for room ICU 4897
[2024-03-07] MEDS: DUONEB 3 ML INH (19:41)
--- NOTE | 2024-03-07 19:53 | PHA.VAN.IN ---
Assessment
- Assessment
Renal Function: Appears similar to baseline
Maximum Temperature: 104.4 F rectal 03/07 @ 1534
Concomitant Antimicrobials: cefepime
Plan
- Plan
Initial / Loading Dose: vanc 1500mg
Maintenance Regimen: dosing by level
Monitoring: random level 03/08 0600
MRSA Screen: Ordered per protocol
Pharmacokinetics Vancomycin I
- -
Patient Age: 53
Patient Sex: Male
Vancomycin Day #: 1
Indication: Pulmonary/Respiratory
Requesting Provider: Lisa Santos
Pertinent Antimicrobial Allergies:
no pertinent antimicrobial allergies
Height / Weight:
Height 5 ft 7 in
Actual Weight 47.6 kg
Pertinent Past Medical History: squamous cell carcinoma receiving chemotherapy, BMI ~16
- Vital Signs / Lab Results
Temp Pulse Resp BP Pulse Ox
98.5 F 96 23 95/60 98
03/07/24 19:05 03/07/24 19:45 03/07/24 19:45 03/07/24 19:05 03/07/24 19:45
Lab Results - Hematology
03/07/24
15:58
WBC 6.2
Lab Results - Chemistry
03/07/24
15:58
BUN 52 H
Creatinine 0.6 L
Estimated Creat Clear 94
Albumin 2.8 L
03/07/24
15:58
Lactic Acid 1.8
Lab Results - Urine
03/07/24
16:20
Urine Nitrite (Reflex) Negative
Leukocyte Esterase Rfl Negative
--- NOTE | 2024-03-07 20:18 | PTCARENOTE ---
On arrival pt AAOx3, denies pain and SOB at this time, 2L NC, coughing up thick white secretions,GT due to dysphasia, LUE PICC verified by IV team per dayshift RN who spoke with IV team, LEVO and blood running per MD orders, call martinez in reach
[2024-03-07] MEDS: VANCOCIN 530 MG IV (20:47)
[2024-03-07] MEDS: ProAmatine 10 MG TUBE (21:09)
[2024-03-07] MEDS: ROBITUSSIN 200 MG TUBE (21:10)
--- NOTE | 2024-03-07 21:41 | VATNOTE ---
SPOKE WITH PCN RELATED TO CXR DONE 03/07 WHICH REPORTED PICC TO BE IN RA AND SUGGESTED THAT PICC BE RETRACTED 3CM. POST INSERTION PICC FILM IN IR ON 02/18 REPORTED PICC TIP TO BE SVC WITH A TCL OF 44CM. PICC TCL REMAINS AT 44CM. WILL NOT RETRACT PICC
AT THIS TIME AND HAVE RADIOLOGY RE-EVALUATE IN AM. PICC WITH A GOOD BR. VAT TO FOLLOW.
[2024-03-07 22:34] LABS: Hematocrit 26.5 % (39.0-52.0); Hemoglobin 8.3 g/dL (13.0-18.0); Lactic Acid 0.8 mmol/L (0.7-2.0)
[2024-03-08] VITALS (70 sets, daily range): BP systolic 74–131; BP diastolic 40–81; BMI 17.7
--- NOTE | 2024-03-08 | PTCARENOTE ---
no changes from prior assessment, condom cath applied, call martinez in reach
[2024-03-08] MEDS: LEVOPHED 250 IV ×2 (00:23→05:24)
[2024-03-08] MEDS: MAXIPIME 2000 MG IV ×3 (01:22→17:04)
[2024-03-08] MEDS: NSS 1000 IV ×2 (03:52→16:04)
[2024-03-08 03:58] LABS: Hematocrit 25.5 % (39.0-52.0); Hemoglobin 7.9 g/dL (13.0-18.0); Mean Corpuscular Hgb 28.4 pg (27.0-31.0); Mean Corpuscular Volume 91.7 fL (80.0-94.0); Mean Platelet Volume 12.8 fL (7.4-10.4); Platelet Count 62 10^3/uL (130-400); Red Blood Cell Count 2.78 10^6/uL (4.70-6.10); Red Cell Dist. Width 16.3 % (11.5-14.5); White Blood Cell Count 8.1 10^3/uL (4.8-10.8)
[2024-03-08 04:03] LABS: INR 1.19; PT 15.7 Sec (11.4-14.6)
[2024-03-08 04:04] LABS: APTT 47.3 Sec (23.4-35.0)
[2024-03-08 04:20] LABS: ALT (SGPT) 18 U/L (0-50); AST (SGOT) 28 U/L (17-59); Albumin 2.4 g/dl (3.5-5.0); Alkaline Phosphatase 58 U/L (38-126); Blood Urea Nitrogen 35 mg/dl (9-20); Calcium 8.6 mg/dl (8.4-10.2); Carbon Dioxide 31 mmol/L (22-30); Chloride 110 mmol/L (98-107); Estimated Creatinine Clearance 101 ml/min; Glucose 128 mg/dl (70-99); Potassium 3.4 mmol/L (3.5-5.1); Sodium 144 mmol/L (135-145); Total Bilirubin 0.9 mg/dl (0.2-1.3); eGFR > 60.00
[2024-03-08 04:27] LABS: Vancomycin Random 12.4 ug/ml
--- NOTE | 2024-03-08 04:30 | PTCARENOTE ---
pt appears to be resting comfortably in bed, remains on Levo gtt per orders, call martinez in reach
[2024-03-08] MEDS: KCL ELIXIR 40 MEQ PO (05:24)
[2024-03-08] MEDS: PROTONIX IV 40 MG IV (07:46)
[2024-03-08] MEDS: ROBITUSSIN 200 MG TUBE ×4 (07:47→22:12)
[2024-03-08] MEDS: NSS (PRESERVATIVE FREE) 10 ML IV (07:47)
[2024-03-08] MEDS: ProAmatine 10 MG TUBE ×3 (07:47→22:12)
[2024-03-08] MEDS: DUONEB 3 ML INH ×4 (08:11→19:38)
--- NOTE | 2024-03-08 08:21 | CON.INTV ---
Consultation
Consultation Request
Date/Time Consultation Requested: 03/07/2024 - 1927
Date/Time Consultation Performed: 03/08/2024 - 819
Requesting Provider: CHARLEY Coyle
Performing Provider: Crispin Hunter MD
Reason for Consultation: Hypotension on pressors
Medical History
-
Chief Complaint: Confusion, rapid heart rate and low blood pressure with fever
History of Present Illness:
53-year-old male with a past medical history of head and neck cancer on chemotherapy + filgastrim who presented after a rapid response called at cancer center for increased confusion. Found to have rapid heart rate with low blood pressure with
fever on arrival to 104.4 �F. Patient was pale and weak. In the ER, pulse rate 128, respiratory rate 29 breaths/min, BP 113/50 and he was saturating 85% on room air. Saturations improved to 94% with 2 L/min nasal cannula. Initial labs showed Hb
6.8, WBC 6.2, platelet count 88, creatinine 0.6, BUN 52, albumin level 2.8, and urinalysis was negative for signs of UTI. Blood cultures were collected. CXR showed stable chronic pleural�parenchymal opacities. In the ER, he was given cefepime,
Ofirmev, 2 L IVF with NS 0.9%, and due to persistent hypotension with SBP in the 70s he was started on Levophed was started. He was admitted to the ICU for further care and lumber marker services consulted for additional management/recommendations.
Of note, he follows with Dr. Lipscomb with [place]. His recent PET/CT on 11/13/2023 showed progressive disease with interval increase in size of his pancho mass in the right suprahyoid neck region, now 6cm from 3cm three months prior. His prior
immunotherapy with nivolumab was DC'd and his cetuximab was also discontinued. He has multidrug-resistant disease. He initially had gone to the hospital in July 2020 with difficulty swallowing, hoarseness and throat pain and CT revealed a tumor in
the left piriform sinus. Subsequent biopsy was done on the hypopharynx and epiglottis with pathology revealing invasive squamous of carcinoma. His treatment was delayed for several weeks as he had difficulty obtaining a Medicaid number.
Patient was seen and evaluated this morning. Currently on Levophed at 10mcg/min and getting his second unit of PRBCs this morning. Heart rate 104, saturating 91% on room air BP 121/76. Currently on midodrine 10 mg TID. His daughter, Sofia, and
his daughter's fianc�, Arpit, were both at bedside. All questions were answered. He currently feels well although he overall feels fatigued and generally weak. He currently denies any worsening cough, and denies chest pain, RAINES, abdominal pain,
nausea, diarrhea, fevers or chills. He says that a few days ago he was at home and passed out in the bathroom while having a bowel movement. He denies any head trauma or preceding chest pain or shortness of breath.
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
midodrine, former tobacco smoker
PSHx: Esophageal mass biopsy, tracheotomy, PEG tube (placed at [place]), right chest wall port, tooth extractions in childhood
Past Medical History
Past Medical History: Other (Above as per HPI)
Past Surgical History: Other (Above as per HPI)
Social History
Tobacco: Former Smoker (Quit July 2020 with >10-dbgg-vktu history)
Alcohol: Former
Drug: None
Family History
Family History: Reviewed & Not Pertinent
Allergies / Home Medications
Allergies
Allergy/AdvReac Type Severity Reaction Status Date / Time
No Known Allergies Allergy Verified 01/23/24 22:05
Home Medications
�Medication �Instructions �Recorded �Confirmed �Last Taken �Type
acetaminophen 500 mg tablet 1,000 mg feeding tube Q6H PRN pain 07/11/22 03/07/24 07/09/22 History
(Tylenol Extra Strength)
albuterol sulfate 2.5 mg/3 mL 2.5 mg (3 mL) inhalation R Q4HPRN 01/30/24 03/07/24 Unknown Rx
(0.083 %) solution for nebulization PRN SOB #75 mL
ipratropium 0.5 mg-albuterol 3 mg 3 ml inhalation R QID Cough #90 mL 01/30/24 03/07/24 Unknown Rx
(2.5 mg base)/3 mL nebulization
soln
midodrine 5 mg tablet 10 mg (2 x 5 mg) feeding tube TID 01/30/24 03/07/24 Unknown Rx
Blood pressure #90 tabs
guaifenesin 600 mg tablet, 600 mg PO BID 02/16/24 03/07/24 Unknown History
extended release 12 hr (Mucinex)
ondansetron 8 mg disintegrating 8 mg PO Q8H PRN nausea 02/16/24 03/07/24 Unknown History
tablet
Review of Systems
-
History Source: Patient
All other systems: Negative unless noted
Vitals / Labs / Diagnostic Testing
Vital Signs
Temp Pulse Resp BP Pulse Ox
97.9 F 91 22 123/70 97
03/08/24 08:42 03/08/24 08:42 03/08/24 08:42 03/08/24 08:42 03/08/24 06:15
Lab Data
03/08/24 03:47
03/08/24 03:47
Laboratory Results
03/08/24
03:47
PT 15.7 H
INR 1.19
APTT 47.3 H
Diagnostic Testing:
Physical Exam
-
HEENT: Normocephalic and Anicteric
Cardiovascular: S1/S2, Rub (negative), Peripheral Edema (negative) and Other (Tachycardic)
Respiratory: Wheeze (negative), Rales (Faint rales heard on anterior right hemithorax), Rhonchi (negative), Non-Labored Respirations and Other (Diminished breath sounds bilaterally)
GI: Soft, Non Distended, Non Tender and Normal Bowel Sounds
Neurology: AO x 3 and Tremors (negative)
Skin: Warm and Dry
General: Respiratory Distress (negative), Comfortable, Fever (negative), Chills (negative) and Sweats (negative)
Assessment
-
Assessment: 53-year-old male with a past medical history of head and neck cancer on chemotherapy + filgastrim who presented after a rapid response called at cancer center for increased confusion. Found to have rapid heart rate with low blood
pressure with fever on arrival to 104.4 �F. Patient was pale and weak. In the ER, pulse rate 128, respiratory rate 29 breaths/min, BP 113/50 and he was saturating 85% on room air. Saturations improved to 94% with 2 L/min nasal cannula. Initial
labs showed Hb 6.8, WBC 6.2, platelet count 88, creatinine 0.6, BUN 52, albumin level 2.8, and urinalysis was negative for signs of UTI. Blood cultures were collected. CXR showed stable chronic pleural�parenchymal opacities. In the ER, he was
given cefepime, Ofirmev, 2 L IVF with NS 0.9%, and due to persistent hypotension with SBP in the 70s he was started on Levophed was started. He was admitted to the ICU for further care and lumber marker services consulted for additional
management/recommendations.
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
hypotension on midodrine, former tobacco smoker
Impression:
#Shock-unclear etiology at this juncture as he was in his usual state of health prior to getting filgastrim on 03/07/2024; he did syncopize at home few days ago while going to the bathroom (?vasovagal)
#History of bilateral pneumonia (R >L) first seen on CXR and 01/23/2024 with patchy opacities seen in [facility] on PET/CT on 11/13/2023
#Centrilobular emphysema
#History of invasive squamous of carcinoma in the hypopharynx + epiglottis (first biopsied in July 2020) on chemotherapy + Neupogen
#Acute anemia (baseline Hb 8.5�10g/dL)
#History of chronic thrombocytopenia
#Hypokalemia
#Hypomagnesemia
#Metabolic alkalosis
#Chronic hypotension on midodrine
#Former tobacco smoker
#Failure to thrive/severe malnutrition with PEG tube to assist with caloric intake
Plan:
- Source of his hypotension is unclear, although it does seem like he had a reaction to the filgastrim on 03/07 as he states he was in his usual state of health all day prior
- The fever does make sepsis a concerning possibility, so I do believe we should empirically continue Abx (IV vanco + cefepime) for now while blood Cx are cooking
- He does not endorse worsening cough, and appears non-toxic currently; also UA appears normal
- Blood Cx x2 (collected 03/07/2024) show NGTD
- Collect sputum Cx if pt can provide a decent sample
- He also is acutely anemic and this could be related to recent chemotherapy with bone marrow suppression --> he is being transfused his 2nd unit now (received 1 u PRBC last night) --> follow up CBC s/p transfusion with goal Hb>7g/dL
- Keep plt>20k
- Continue IVF at 100cc/hr --> once tube feeds are resumed then we can stop his IVF
- Continue with Levophed and titrate down as tolerated while keeping MAP>65
- Continue with midodrine (home med)
- Check random cortisol --> If <10 then would start stress dose steroids, and if 10-19 then consider co-syntropin stimulation test
- Of note, his lactate was normal at 1.8 --> 0.8 on 03/07/2024; no longer need to continue trending at this juncture
- Maintain SpO2 >90-94%
- Continue with DuoNebs QID with mucolytics (takes mucinex at home and this will be continued)
- prn nebulized bronchodilators - not currently bronchospastic
- Incentive spirometer encouraged 10x per hour for at least 4 hrs a day
- Of note, his serum HCO3 level is elevated; check blood gas to assess pH and pCO2
- Replete electrolytes with K>4, Mg>2
- Maintain euglycemia with goal BG 140-180
- DVT ppx: SCDs for now given his acute anemia requiring blood transfusion x2
Code Status: he wishes to be DNR/DNI; we did briefly discuss goals of care today as he feels that he is 'worsening' while on chemotherapy. He does want to keep fighting, but he is not sure how much more he can take. This will be an ongoing
discussion between him, his family and Oncology team.
If patient is weaned off of Levophed and remains hemodynamically stable off vasopressors for >6 hours, then we can downgrade him out of ICU to either telemetry or IMU. Once downgraded then we will sign off, and then please call back if there are
any additional questions or concerns.
Critical care statement: A total of 42 minutes of critical care time was provided for this patient today. This includes management of unstable vital signs, evaluation of the patient at bedside, reviewing the patient's pertinent medical records
including radiographs, microbiology, laboratory evaluations, and discussion with primary team, consultants, pharmacy, nutrition, physical therapy, case management, charge nurse, critical care nursing, and respiratory therapy.
Data:
CXR 03/07/2024: Left PICC line catheter tip at the superior right atrial margin. This may be withdrawn approximately 3 cm. No pneumothorax.
CXR 03/08/2024: No significant interval change of extensive peripheral airspace disease in the right lung. Questionable new small right pleural effusion; Left PICC line in stable position.
--- NOTE | 2024-03-08 08:33 | VNURNOTE ---
Chart reviewed. Patient is current with [facility] nursing, PT, OT, [employer]MENT OPERATOR. Will continue to follow hospital course and DC plans.
--- NOTE | 2024-03-08 09:02 | W.PN.HOSP.TC ---
Today's Communication/Plan
-
Broad-spectrum antibiotics pending cultures
Attempt to wean off Levophed
Transfuse and follow CBC
Vitamin K
Assessment / Plan
Assessment / Plan
Impression:
Sepsis with septic shock not responding to IV fluids and requiring vasopressor
Pancytopenia secondary to chemotherapy
PICC line in place upon presentation
Squamous cell carcinoma of head and neck on chemotherapy with Taxol and gemfibrozil followed by G-CSF day prior to presentation.
Other conditions:
Squamous cell carcinoma of the head and neck diagnosed in .
Dysphagia secondary to above PEG tube in place. No oral intake at baseline.
Chronic hypotension on midodrine [employer]ING [employer].
Chronic right-sided infiltrate
History of tracheostomy status post decannulation.
Cachexia with severe protein calorie malnutrition BMI of 17.
Former smoker
Former alcohol use.
Emphysema by imaging.
Plan
Sepsis with septic shock not responding to IV fluids requiring initiation of Levophed.
Status post chemotherapy with Taxol and gemfibrozil
Chest x-ray with chronic right-sided infiltrate
Remains aspiration risk.
Known airway colonization with Pseudomonas.
PICC line in place upon presentation
Offers no gastrointestinal or urinary complaints.
Broad-spectrum antibiotics: Vancomycin and cefepime
Blood cultures pending.
Aspiration precautions.
Continue isotonic solution. Getting transfused packed red blood cells.
Attempt to wean off Levophed with reintroduction of midodrine.
Pancytopenia secondary to chemotherapy.
Status post G-CSF day prior to presentation.
Severe anemia secondary to chemotherapy. Patient reports minor bleeding from the right side of the neck tumor currently resolved. Hemoglobin at the lowest at 6.9. Being transfused 2 units of packed red blood cells. Follow CBC
Thrombocytopenia. Noted coagulopathy. Monitor platelet count closely. Vitamin K.
Chronic dysphagia with PEG tube in place.
Continue tube feeding with aspiration precautions.
Squamous cell carcinoma of the head and neck.
Recurrent
Recent PET scan reviewed. Known confluent pancho mass posterior to the angle of the right suprahyoid neck. No FDG uptake at the chest, abdomen and pelvis or bony metastatic process.
DVT prophylaxis: Mechanical
DNR
Anticipated Discharge: > 48 hours
Subjective/Interval History
-
Date of Service: March 08, 2024
Objective Data
-
Labs:
Laboratory Results
03/07/24 03/08/24
22:09 03:47
WBC 8.1
Hgb 8.3 L D 7.9 L
Hct 26.5 L 25.5 L
Plt Count 62 L D
PT 15.7 H
INR 1.19
APTT 47.3 H
Sodium 144
Potassium 3.4 L
Chloride 110 H
Carbon Dioxide 31 H
BUN 35 H
Creatinine 0.4 L
Glucose 128 H
Calcium 8.6
Total Bilirubin 0.9
AST 28
ALT 18
Alkaline Phosphatase 58
Vital Signs:
Vital Signs
Temp Pulse Resp BP Pulse Ox
97.9 F 91 22 123/70 97
03/08/24 08:42 03/08/24 08:42 03/08/24 08:42 03/08/24 08:42 03/08/24 06:15
I&O
03/07/24 03/08/24 03/09/24
06:59 06:59 06:59
Intake Total 250 / 250 0 / 0
Output Total 400 / 400
Balance -150 / -150 0 / 0
Physical Exam
-
General: Well Developed and No Apparent Distress
HEENT: Normocephalic, Atraumatic, Moist Mucous Membranes and Other (Right posterior neck tumor with no evidence of bleeding)
Respiratory: Rhonchi; Negative Wheezes
Cardiac: Regular Rhythm and S1/S2; Negative Murmur, Rub or Gallop
GI: Soft, Nontender, Nondistended, Normal Bowel Sounds and Peg Tube; Negative Organomegaly
Rectal: Deferred by Provider
Musculoskeletal: No Clubbing, No Cyanosis and No Edema
Skin: Negative Rash
Neuro: Nonfocal/Grossly Intact
--- NOTE | 2024-03-08 09:29 | PTCARENOTE ---
Received pt. @ change of shift. AAOx3, denies pain. Pupils unequal in size per previous shift; verified baseline. SR on monitor. SpO2 93-94% on RA. Auscultated dim breath sounds throughout. Frequent moist productive cough w thick
white/yellow/bloody tinged sputum. +BS, cachectic. NPO w peg in place- TF initiated per orders- Osmolite @ 20mL/hr w standard 25mL/hr H20 flush; tolerating feed thus far; meds via peg. #[address] w yellow urine. L SL PICC w NSS @ 100mL/hr
and levo- see flow sheet. #20 R AC w 1 unit PRBC infusing-see TAR. Pt. able to turn self in bed, generalized weakness. Instructed on how to report care concerns and call martinez w in reach.
[2024-03-08] MEDS: MEPHYTON 10 MG TUBE (09:58)
[2024-03-08 10:02] LABS: Glycohemoglobin (HgbA1c) 5.2 % (4.0-5.6)
--- NOTE | 2024-03-08 10:58 | W.PN.UPDATE ---
Update Note
Progress Note Update
At bedside with Dr. Hunter at patient's request to discuss code status. Daughter and her fiance at bedside as well. Patient now wants to be DNR and family in agreement. Orders updated in chart.
Daughter also brought up hospice, and I informed patient and family of the option to consult the medical director of hospice while admitted. Patient would like to hold off on the consult right now as his current goals are treatment-oriented. They have no
further questions at this time. Dr. Randle updated.
--- NOTE | 2024-03-08 12:12 | CON.ONC ---
Impression
Impression
sepsis/ hypotension
pancytopenia post chemotherapy
stage IV head and neck malignancy
Plan
Plan
1. 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
-end stage malignancy w/ poor performance status
-patient is apparently interested in being DNR
-on review of case - appears to be a hospice candidate
-cont supportive care
Will continue to follow with you.
Patient History
History of Present Illness
53y/o male seen in consultation today regarding metastatic squamous cell carcinoma of the head and neck, followed by Dr. Lipscomb, currently being treated w/ palliative taxol/ gemcitabine.
He is now admitted w/ hypotension/ sepsis, on broad spectrum antibiotics and pressors.
He is anemic and receiving PRBCs today.
Clinically, he denies pain. No SOB at rest or chest pain.
Past-Medical/Surgical History
PMH:
metastatic squamous cell carcinoma of the head and neck
PSH:
Esophageal mass biopsy
tracheotomy
PEG tube
Right chest wall port
Social History
Tobacco: Former Smoker (quit July 2020, >50 pack year history)
Alcohol: Former
Family History
Family History: Not pertinent
Allergies: NKDA
Patient Medication
�Medication �Instructions �Recorded �Confirmed �Last Taken �Type
acetaminophen 500 mg tablet 1,000 mg feeding tube Q6H PRN pain 07/11/22 03/07/24 07/09/22 History
(Tylenol Extra Strength)
albuterol sulfate 2.5 mg/3 mL 2.5 mg (3 mL) inhalation R Q4HPRN 01/30/24 03/07/24 Unknown Rx
(0.083 %) solution for nebulization PRN SOB #75 mL
ipratropium 0.5 mg-albuterol 3 mg 3 ml inhalation R QID Cough #90 mL 01/30/24 03/07/24 Unknown Rx
(2.5 mg base)/3 mL nebulization
soln
midodrine 5 mg tablet 10 mg (2 x 5 mg) feeding tube TID 01/30/24 03/07/24 Unknown Rx
Blood pressure #90 tabs
guaifenesin 600 mg tablet, 600 mg PO BID Congestion 02/16/24 03/07/24 Unknown History
extended release 12 hr (Mucinex)
ondansetron 8 mg disintegrating 8 mg PO Q8H PRN nausea 02/16/24 03/07/24 Unknown History
tablet
Active Medications
Generic Name Dose Route Start Last Admin
Trade Name Freq PRN Reason Stop Dose Admin
Acetaminophen 650 mg 03/07/24 19:28
Acetaminophen 325 Mg Tablet TUBE 04/04/24 19:27
Q4HPRN PRN
mild pain/ fever>100.5F
Albuterol/Ipratropium 3 ml 03/07/24 20:00 03/08/24 11:19
Ipratropium 0.5/Albuterol 3 Mg (3 Ml Ampul) INH 3 ml
R QID SUKI Administration
Protocol
Cefepime HCl 2,000 mg 03/08/24 02:00 03/08/24 11:01
Cefepime Hcl 2,000 Mg/12.5 Ml Vial IV 2,000 mg
Q8H SUKI Administration
Guaifenesin 200 mg 03/07/24 22:00 03/08/24 12:11
Guaifenesin Oral Solution (200 Mg/10 Ml) Cup TUBE 04/04/24 21:59 200 mg
QID SUKI Administration
Norepinephrine Bitartrate 4 mg in 250 mls @ 0 mls/hr 03/07/24 17:30 03/08/24 05:24
Levophed IV 250 mls
PER PROTOCOL SUKI Administration
Protocol
Per Protocol
Sodium Chloride 1,000 mls @ 100 mls/hr 03/07/24 19:28 03/08/24 03:52
Nss IV 1,000 mls
.Q10H SUKI Administration
Vancomycin HCl 1 each/ Device 0 mls @ 0 mls/hr 03/07/24 20:00
IV
PER PROTOCOL SUKI
Protocol
As Directed
Midodrine 10 mg 03/07/24 22:00 03/08/24 07:47
Midodrine 5 Mg Tablet TUBE 04/04/24 21:59 10 mg
TID SUKI Administration
Ondansetron HCl 4 mg 03/07/24 19:28
Ondansetron 4 Mg/2 Ml Vial IV 04/04/24 19:27
Q6HPRN PRN
NAUSEA/VOMITING
Pantoprazole Sodium 40 mg 03/08/24 08:00 03/08/24 07:46
Pantoprazole Sodium 40 Mg/10 Ml Vial IV 04/05/24 07:59 40 mg
DAILY SUKI Administration
Sodium Chloride 0 flush 03/07/24 20:00
Sodium Chloride 0.9% (Flush) Syringe IV 04/04/24 19:59
PER PROTOCOL SUKI
Sodium Chloride 10 ml 03/08/24 08:00 03/08/24 07:47
Sodium Chloride 0.9% (Preservative Free) 10 Ml Vial IV 04/05/24 07:59 10 ml
DAILY SUKI Administration
Review of Systems
-
A ROS was performed w/ pertinent findings as per HPI.
Physical Exam
-
General: Appears Chronically Ill
HEENT: Negative Jaundice
Cardiology: Other (tachycardic)
Pulmonary: Other (decreased breath sounds at bases)
GI: Soft
Extremities: No C/C/E
Labs
Lab Results
WBC 8.1 10^3/uL (4.8-10.8) 03/08/24 03:47
RBC 2.78 10^6/uL (4.70-6.10) L 03/08/24 03:47
Hgb 7.9 g/dL (13.0-18.0) L 03/08/24 03:47
Hct 25.5 % (39.0-52.0) L 03/08/24 03:47
MCV 91.7 fL (80.0-94.0) 03/08/24 03:47
MCH 28.4 pg (27.0-31.0) 03/08/24 03:47
MCHC 31.0 g/dL (33.0-37.0) L 03/08/24 03:47
RDW 16.3 % (11.5-14.5) H 03/08/24 03:47
Plt Count 62 10^3/uL (130-400) L D 03/08/24 03:47
MPV 12.8 fL (7.4-10.4) H 03/08/24 03:47
Abs Immat Gran (auto) 0.0 10^3/uL (0-0.05) 03/07/24 15:58
Absolute Neuts (auto) 5.8 10^3/uL (1.4-6.5) 03/07/24 15:58
Absolute Lymphs (auto) 0.2 10^3/uL (1.2-3.4) L 03/07/24 15:58
Absolute Monos (auto) 0.1 10^3/uL (0.1-0.6) 03/07/24 15:58
Absolute Eos (auto) 0.0 10^3/uL (0-0.7) 03/07/24 15:58
Absolute Basos (auto) 0.1 10^3/uL (0-0.2) 03/07/24 15:58
Immature Gran % 0.2 % (0-0.5) 03/07/24 15:58
Neutrophils % 94.2 % (42.2-75.2) H 03/07/24 15:58
Lymphocytes % 2.7 % (20.5-51.1) L 03/07/24 15:58
Monocytes % 1.6 % (1.7-9.3) L 03/07/24 15:58
Eosinophils % 0.5 % (0-6) 03/07/24 15:58
Basophils % 0.8 % (0-2) 03/07/24 15:58
Creatinine 0.4 mg/dL (0.7-1.3) L 03/08/24 03:47
Vital Signs
Vital Signs
Temp Pulse Resp BP Pulse Ox
99.2 F 99 23 100/61 93
03/08/24 11:00 03/08/24 11:00 03/08/24 11:00 03/08/24 11:00 03/08/24 11:24
--- NOTE | 2024-03-08 12:41 | PTCARENOTE ---
Pt. and daughter requested code status discussion w . Dr. Hunter made aware and to bedside. S/P discussion further orders placed to make pt. DNR. 1 unit PRBC completed- see TAR. Attempted to wean to RA, desaturated to 84% and placed on 1LNC;
SpO2 recovered and maintaining >90%. Levo gtt weaned to off- see flow sheet; SBP remains in goal range. Lab work sent per orders; awaiting results. Call martinez placed w in reach.
[2024-03-08 12:42] LABS: Hematocrit 29.6 % (39.0-52.0); Mean Corp Hgb Conc. 33.1 g/dL (33.0-37.0); Mean Corpuscular Hgb 29.7 pg (27.0-31.0); Mean Corpuscular Volume 89.7 fL (80.0-94.0); Mean Platelet Volume 13.4 fL (7.4-10.4); Platelet Count 51 10^3/uL (130-400); Red Cell Dist. Width 15.7 % (11.5-14.5); White Blood Cell Count 7.7 10^3/uL (4.8-10.8)
[2024-03-08 12:44] LABS: Hemoglobin 9.5 g/dL (13.0-18.0)
[2024-03-08 13:00] LABS: Blood Urea Nitrogen 25 mg/dl (9-20); Carbon Dioxide 27 mmol/L (22-30); Chloride 108 mmol/L (98-107); Estimated Creatinine Clearance 101 ml/min; Glucose 105 mg/dl (70-99); Magnesium 1.3 mg/dl (1.6-2.3); Phosphorus 2.4 mg/dl (2.5-4.5); Potassium 3.7 mmol/L (3.5-5.1); Sodium 140 mmol/L (135-145); eGFR > 60.00
--- NOTE | 2024-03-08 13:14 | PHA.VAN.FU ---
Vancomycin Assessment / Plan
- Assessment
Renal Function: Stable
WBC's are: WNL
Concomitant Antimicrobials: cefepime
- Assessment - Therapeutic Drug Monitoring
Random Level: 12.4 - drawn ~7H after 1500mg loading dose
- Dosing Plan
Adjust Regimen to: Vanc 1000mg Q12H first dose now then 0600
- Monitoring Plan
No level(s) ordered at this time: consider levels in next few days
- Follow Up
Pharmacy will continue to follow.
Vancomycin Follow UP
- -
Patient Age: 53
Patient Sex: Male
Vancomycin Day #: 2
Indication: Pulmonary/Respiratory
Requesting Provider: Lisa Santos
Pertinent Antimicrobial Allergies:
no pertinent antimicrobial allergies
Height / Weight:
Height 5 ft 7 in
Actual Weight 51.2 kg
IBW in k.1
Pertinent Past Medical History: squamous cell carcinoma receiving chemotherapy, BMI ~16
- Vital Signs / Lab Results
Temp Pulse Resp BP Pulse Ox
99.2 F 99 23 100/61 93
03/08/24 11:00 03/08/24 11:00 03/08/24 11:00 03/08/24 11:00 03/08/24 11:24
Lab Results - Hematology
03/07/24 03/08/24 03/08/24
15:58 03:47 12:19
WBC 6.2 8.1 7.7
Lab Results - Chemistry
03/07/24 03/08/24 03/08/24
15:58 03:47 12:19
BUN 52 H 35 H 25 H
Creatinine 0.6 L 0.4 L 0.4 L
Estimated Creat Clear 94 101 101
Albumin 2.8 L 2.4 L
03/07/24 03/07/24 03/07/24
15:58 19:28 22:09
Lactic Acid 1.8 Cancelled 0.8
03/08/24 03/08/24
03:28 07:28
Lactic Acid Cancelled Cancelled
Lab Results - Urine
03/07/24
16:20
Urine Nitrite (Reflex) Negative
Leukocyte Esterase Rfl Negative
Microbiology Results
03/07/24 22:09 Nasal Screen MRSA (PCR) - Final
Nose MRSA not detected - performed by PCR methodology.
Therapeutic Drug Monitoring
Random Vancomycin 12.4 ug/ml 03/08/24 03:47
--- NOTE | 2024-03-08 13:34 | CM ---
CM following re: discharge planning.
Reviewed pt's chart, met with pt.
Pt is a 53 year old male admitted with primary dx of Sepsis with septic shock.
Pt reports he lives with 2 daughters in a 2[address], no steps to enter. Pt reports he uses a wheelchair to get around, has peg tube - [employer] supplier, and was getting chemotherapy at [facility]. Pt reports he is known to [facility].
PT and OT will evaluate the pt to determine a level of care at discharge. pt stated he is not sure whether or not he will continue chemotherapy treatment.
PCP: Javier Stallworth
Pharmacy: [facility]
D/C plan: uncertain at this time and will depend on pt's progress.
CM will follow with discharge plan updates as hospitalization progresses
[2024-03-08] MEDS: MAGNESIUM OXIDE 500 MG TUBE (14:13)
[2024-03-08] MEDS: MAGNESIUM SULFATE 50 IV (14:13)
[2024-03-08] MEDS: VANCOCIN 200 IV (14:13)
[2024-03-08] MEDS: KCL ELIXIR 20 MEQ TUBE (14:13)
[2024-03-08] MEDS: NEUTRA-PHOS POWDER PACKET 500 MG TUBE ×2 (14:14→17:05)
--- NOTE | 2024-03-08 15:35 | PTCARENOTE ---
Critical micro report received w positive blood cultures. Relayed to Dr. Randle. Pt. maintained on IVF and IV anx per orders. Remains off levo gtt. Call michelle w in reach.
[2024-03-08 16:09] LABS: Cortisol, Random 24.5 ug/dl
--- NOTE | 2024-03-08 18:12 | W.PN.UPDATE ---
Addendum entered and electronically signed by Crispin Hunter MD 03/08/24 18:16:
In addition, patient is DNR/DNI.
Original Note:
Update Note
Progress Note Update
Patient has been weaned off of vasopressors but still remains hypotensive with MAP in the mid 60s. Patient is stable for downgrade out of ICU to IMU. No additional recommendation at this time. Cushion Maker Hand/Pulmonary service will now sign off.
Thank you for allowing us to be involved in the care of this patient. Please reconsult if there are any additional questions/concerns, or if patient's respiratory status deteriorates.
[2024-03-09] VITALS (20 sets, daily range): BP systolic 76–108; BP diastolic 48–71; PULSE 94; O2SAT 97; BMI 17.6
[2024-03-09] MEDS: ProAmatine 10 MG PO (00:19)
--- NOTE | 2024-03-09 00:25 | PTCARENOTE ---
Marc arrived into room 3355 from ICU around 1999. Report received from LINE SUPERVISOR. CHG done, tele applied, NSR. Small incont BM in diaper. Sacrum red and intact; encouraged to turn self while in bed, pt agreed. Osmolite TF via PEG. Meds given in PEG.
IVF continue via PICC line. Condom cath intact, yellow urine. SCDs applied. HOB 30 degrees. Call michelle and jose suction at bedside, pt having large amount of oral secretions which is not new.
0000: BPs trending downward. CHARLEY Johnson made aware; order for one time dose of midodrine received, pt updated. thankful. call michelle within reach.
[2024-03-09] MEDS: MAXIPIME 2000 MG IV ×3 (02:11→18:19)
[2024-03-09] MEDS: NSS 1000 IV ×2 (02:12→12:34)
--- NOTE | 2024-03-09 02:29 | PTCARENOTE ---
BP 84/58 MAP 65 post midodrine administration. ELECTRONIC SCIENCE TEACHER Hephziba made aware. Order for STAT CBC received. Patient resting in bed, eyes closed, respirations even and unlabored. TF & IVF infusing. Call martinez within reach.
[2024-03-09 02:31] LABS: Hematocrit 26.2 % (39.0-52.0); Hemoglobin 8.5 g/dL (13.0-18.0); Mean Corp Hgb Conc. 32.4 g/dL (33.0-37.0); Mean Corpuscular Hgb 28.9 pg (27.0-31.0); Mean Corpuscular Volume 89.1 fL (80.0-94.0); Mean Platelet Volume 12.9 fL (7.4-10.4); Platelet Count 49 10^3/uL (130-400); Red Blood Cell Count 2.94 10^6/uL (4.70-6.10); Red Cell Dist. Width 15.5 % (11.5-14.5); White Blood Cell Count 7.8 10^3/uL (4.8-10.8)
[2024-03-09] MEDS: VANCOCIN 200 IV ×2 (06:14→18:19)
[2024-03-09 06:24] LABS: Venous Blood Gas B.E. 4.3 mmol/L (-4 to +4); Venous Blood Gas HCO3 29.7 mmol/L (22-27); Venous Blood Gas pCO2 48 mmHg (35-48); Venous Blood Gas pO2 129 mmHg (30-50)
[2024-03-09 06:29] LABS: PT 14.5 Sec (11.4-14.6)
[2024-03-09 06:30] LABS: APTT 42.6 Sec (23.4-35.0)
[2024-03-09 06:34] LABS: Blood Urea Nitrogen 18 mg/dl (9-20); Calcium 8.9 mg/dl (8.4-10.2); Carbon Dioxide 30 mmol/L (22-30); Chloride 102 mmol/L (98-107); Estimated Creatinine Clearance 100 ml/min; Glucose 88 mg/dl (70-99); Magnesium 1.5 mg/dl (1.6-2.3); Phosphorus 2.3 mg/dl (2.5-4.5); Potassium 3.4 mmol/L (3.5-5.1); Sodium 135 mmol/L (135-145); eGFR > 60.00
[2024-03-09 06:37] LABS: Hematocrit 27.1 % (39.0-52.0); Hemoglobin 8.8 g/dL (13.0-18.0); Mean Corp Hgb Conc. 32.5 g/dL (33.0-37.0); Mean Corpuscular Hgb 28.9 pg (27.0-31.0); Mean Corpuscular Volume 89.1 fL (80.0-94.0); Mean Platelet Volume 12.9 fL (7.4-10.4); Platelet Count 44 10^3/uL (130-400); Red Blood Cell Count 3.04 10^6/uL (4.70-6.10); Red Cell Dist. Width 15.6 % (11.5-14.5); White Blood Cell Count 8.5 10^3/uL (4.8-10.8)
[2024-03-09 06:49] LABS: Procalcitonin 0.55 ng/ml (0.0-0.25)
[2024-03-09] MEDS: DUONEB 3 ML INH ×2 (07:29→15:31)
[2024-03-09] MEDS: ROBITUSSIN 200 MG TUBE ×4 (08:15→21:34)
[2024-03-09] MEDS: PROTONIX IV 40 MG IV (08:15)
[2024-03-09] MEDS: ProAmatine 10 MG TUBE ×3 (08:15→21:34)
[2024-03-09] MEDS: NSS (PRESERVATIVE FREE) 10 ML IV (08:15)
[2024-03-09 10:03] LABS: Absolute Neutrophils -Man Diff 7.7 10^3/uL (1.4-6.5); Band Neutrophils 9 % (0-3); Eosinophils 3 % (0-6); Lymphocytes 2 % (20-51); Monocytes 1 % (2-9); Segmented Neutrophils 82 % (42-75)
[2024-03-09 10:04] LABS: Metamyelocytes 2 % (-); Myelocytes 1 % (-); Normal RBC Morphology No; Platelets Checked Yes
--- NOTE | 2024-03-09 10:04 | PHA.VAN.FU ---
Vancomycin Assessment / Plan
- Assessment
Renal Function: Stable
WBC's are: Stable
In the past 24 hrs, patient has been: Afebrile
Concomitant Antimicrobials: CEFEPIME
- Dosing Plan
Continue: Vanc 1000mg q12h
- Monitoring Plan
No level(s) ordered at this time: consider in the upcoming days
- Follow Up
Pharmacy will continue to follow.
Vancomycin Follow UP
- -
Patient Age: 53
Patient Sex: Male
Vancomycin Day #: 3
Indication: Pulmonary/Respiratory
Requesting Provider: Lisa Santos
Pertinent Antimicrobial Allergies:
no pertinent antimicrobial allergies
Height / Weight:
Height 5 ft 7 in
Actual Weight 50.9 kg
IBW in k.1
Pertinent Past Medical History: squamous cell carcinoma receiving chemotherapy, BMI ~16
- Vital Signs / Lab Results
Temp Pulse Resp BP Pulse Ox
97.9 F 93 22 90/62 94
03/09/24 07:55 03/09/24 07:31 03/09/24 07:31 03/09/24 06:14 03/09/24 07:31
Lab Results - Hematology
03/07/24 03/08/24 03/08/24
15:58 03:47 12:19
WBC 6.2 8.1 7.7
03/09/24 03/09/24
02:22 06:09
WBC 7.8 8.5
Lab Results - Chemistry
03/07/24 03/08/24 03/08/24
15:58 03:47 12:19
BUN 52 H 35 H 25 H
Creatinine 0.6 L 0.4 L 0.4 L
Estimated Creat Clear 94 101 101
Albumin 2.8 L 2.4 L
03/09/24
06:09
BUN 18
Creatinine 0.4 L
Estimated Creat Clear 100
Albumin
03/07/24 03/07/24 03/07/24
15:58 19:28 22:09
Lactic Acid 1.8 Cancelled 0.8
03/08/24 03/08/24
03:28 07:28
Lactic Acid Cancelled Cancelled
Microbiology Results
03/07/24 16:20 Blood Culture - Preliminary
Blood/Venous Staphylococcus aureus
Gram Stain - Preliminary
03/07/24 15:58 Blood Culture - Preliminary
Blood/Venous No Growth in 24 hours- Final report to follow
03/07/24 22:09 Nasal Screen MRSA (PCR) - Final
Nose MRSA not detected - performed by PCR methodology.
Therapeutic Drug Monitoring
Random Vancomycin 12.4 ug/ml 03/08/24 03:47
[2024-03-09 10:06] LABS: Anisocytosis 1+; Hypochromasia 1+; Ovalocytes Slight; Tear Drop Red Blood Cells FEW; Total Cells Counted 100
[2024-03-09] MEDS: DUONEB INH ×2 (11:23→19:06)
--- NOTE | 2024-03-09 12:46 | W.PN.ONC ---
Today's Communication / Plan
-
continue supportive care
patient with failure of multiple lines of chemotherapy and now progressive disease locally in the right neck
hospice appropriate currently not a chemotherapy candidate
Impression
Impression
sepsis/ hypotension
pancytopenia post chemotherapy
stage IV head and neck malignancy
Plan
Plan
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
Respiratory insufficiency
Recurrent aspiration
Symptomatic anemia
Subjective/Objective
Subjective/Objective
Patient having less shortness of breath.
Vital Signs:
Vital Signs
Temp Pulse Resp BP Pulse Ox
98.2 F 95 25 87/63 97
03/09/24 11:35 03/09/24 12:19 03/09/24 12:19 03/09/24 12:19 03/09/24 12:19
No scleral icterus, neck lesion appears more nodular
Upper airway wheezing improved
Lab Results:
Laboratory Data
WBC 8.5 10^3/uL (4.8-10.8) 03/09/24 06:09
Hgb 8.8 g/dL (13.0-18.0) L 03/09/24 06:09
Plt Count 44 10^3/uL (130-400) L 03/09/24 06:09
PT 14.5 Sec (11.4-14.6) 03/09/24 06:09
INR 1.10 03/09/24 06:09
APTT 42.6 Sec (23.4-35.0) H 03/09/24 06:09
eGFR > 60.00 03/09/24 06:09
--- NOTE | 2024-03-09 16:03 | W.PN.HOSP.TC ---
Today's Communication/Plan
-
Assessment / Plan
Assessment / Plan
Impression:
Sepsis with septic shock not responding to IV fluids and requiring vasopressor
Pancytopenia secondary to chemotherapy
PICC line in place upon presentation
GPB - Staph aureus in 1 bottle
Squamous cell carcinoma of head and neck on chemotherapy with Taxol and gemfibrozil followed by G-CSF day prior to presentation.
Other conditions:
Squamous cell carcinoma of the head and neck diagnosed in rr.
Dysphagia secondary to above PEG tube in place. No oral intake at baseline.
Chronic hypotension on midodrine EVENT PLANNING MANAGER.
Chronic right-sided infiltrate
History of tracheostomy status post decannulation.
Cachexia with severe protein calorie malnutrition BMI of 17.
Former smoker
Former alcohol use.
Emphysema by imaging.
Plan
Sepsis with septic shock not responding to IV fluids requiring initiation of Levophed.
Status post chemotherapy with Taxol and gemfibrozil
Chest x-ray with chronic right-sided infiltrate
Remains aspiration risk.
Known airway colonization with Pseudomonas.
PICC line in place upon presentation
Offers no gastrointestinal or urinary complaints.
Broad-spectrum antibiotics: Vancomycin and cefepime
Blood cultures pending.
Aspiration precautions.
Continue isotonic solution. Getting transfused packed red blood cells.
Attempt to wean off Levophed with reintroduction of midodrine.
Pancytopenia secondary to chemotherapy.
Status post G-CSF day prior to presentation.
Severe anemia secondary to chemotherapy. Patient reports minor bleeding from the right side of the neck tumor currently resolved. Hemoglobin at the lowest at 6.9. Being transfused 2 units of packed red blood cells. Follow CBC
Thrombocytopenia. Noted coagulopathy. Monitor platelet count closely. Vitamin K.
Chronic dysphagia with PEG tube in place.
Continue tube feeding with aspiration precautions.
Squamous cell carcinoma of the head and neck.
Recurrent
Recent PET scan reviewed. Known confluent pancho mass posterior to the angle of the right suprahyoid neck. No FDG uptake at the chest, abdomen and pelvis or bony metastatic process.
GPB - Staph aureus in 1 bottle, could be CoNs
-Repeat cultures
-2d ehco
-IV vanc, check trough prior to 4th dose
-Stop Ceepime
-Consult ID
-If determined to be a true infection, Picc line will need to be removed
Continue to have GoC discussio
DVT prophylaxis: Mechanical
DNR
Anticipated Discharge: > 48 hours
Subjective/Interval History
-
Date of Service: March 09, 2024
seen and examined
no new complaints
no acute overnight events
working with pt
-was just placed in bedside cjair
Objective Data
-
Labs:
Laboratory Results
03/09/24
06:09
WBC 8.5
Hgb 8.8 L
Hct 27.1 L
Plt Count 44 L
PT 14.5
INR 1.10
APTT 42.6 H
Sodium 135
Potassium 3.4 L
Chloride 102
Carbon Dioxide 30
BUN 18
Creatinine 0.4 L
Glucose 88
Calcium 8.9
Vital Signs:
Vital Signs
Temp Pulse Resp BP Pulse Ox
98.5 F 93 21 87/63 92
03/09/24 14:45 03/09/24 15:27 03/09/24 15:27 03/09/24 12:19 03/09/24 15:27
I&O
03/08/24 03/09/24 03/10/24
06:59 06:59 06:59
Intake Total 250 / 395 2237.5 / 2237.5
Output Total 400 / 400 2100 / 2100
Balance -150 / -5 137.5 / 137.5
Physical Exam
-
General: No Apparent Distress
HEENT: Normocephalic
Respiratory: Clear to Auscultation
Cardiac: Regular Rhythm and S1/S2
GI: Soft, Nontender, Nondistended and Normal Bowel Sounds
Skin: Warm
Neuro: Awake, Alert, Oriented and AO x 3
[2024-03-09] MEDS: KCL ELIXIR 40 MEQ TUBE (18:19)
[2024-03-10] VITALS (12 sets, daily range): BP systolic 80–113; BP diastolic 54–98; BMI 17.5
[2024-03-10] MEDS: NSS 1000 IV ×2 (00:24→14:19)
[2024-03-10] MEDS: STERILE WATER FOR INJECTION 10 ML IV ×2 (02:33→10:14)
[2024-03-10] MEDS: MAXIPIME 2000 MG IV ×2 (02:33→10:14)
[2024-03-10 04:23] LABS: Hematocrit 27.7 % (39.0-52.0); Hemoglobin 9.1 g/dL (13.0-18.0); Mean Corp Hgb Conc. 32.9 g/dL (33.0-37.0); Mean Corpuscular Hgb 29.1 pg (27.0-31.0); Mean Corpuscular Volume 88.5 fL (80.0-94.0); Mean Platelet Volume 12.2 fL (7.4-10.4); Platelet Count 34 10^3/uL (130-400); Red Blood Cell Count 3.13 10^6/uL (4.70-6.10); Red Cell Dist. Width 15.1 % (11.5-14.5); White Blood Cell Count 13.3 10^3/uL (4.8-10.8)
[2024-03-10 04:40] LABS: Blood Urea Nitrogen 13 mg/dl (9-20); Calcium 9.5 mg/dl (8.4-10.2); Carbon Dioxide 31 mmol/L (22-30); Chloride 101 mmol/L (98-107); Estimated Creatinine Clearance 100 ml/min; Glucose 93 mg/dl (70-99); Potassium 3.6 mmol/L (3.5-5.1); Sodium 134 mmol/L (135-145); eGFR > 60.00
--- NOTE | 2024-03-10 05:20 | PTCARENOTE ---
Received pt at change of shift. Pt appears comfortable. AAOx3. BP remains stable throughout shift. TF running as ordered. CC#[address] and working well. Pt c/o very dry nose and requested saline nasal spray. Notified DYE TUB OPERATOR. Ordered and
administered.
[2024-03-10] MEDS: OCEAN, SALINE MIST 2 SPRAYS NASAL (05:48)
[2024-03-10] MEDS: VANCOCIN 200 IV (05:48)
[2024-03-10] MEDS: DUONEB 3 ML INH ×3 (07:28→19:17)
[2024-03-10] MEDS: ProAmatine 10 MG TUBE ×3 (08:50→20:37)
[2024-03-10] MEDS: NSS (PRESERVATIVE FREE) 10 ML IV (08:50)
[2024-03-10] MEDS: PROTONIX IV 40 MG IV (08:50)
[2024-03-10] MEDS: ROBITUSSIN 200 MG TUBE ×4 (08:50→20:37)
--- NOTE | 2024-03-10 09:17 | PHA.VAN.FU ---
Vancomycin Assessment / Plan
- Assessment
Renal Function: Stable
WBC's are: Trending Up
In the past 24 hrs, patient has been: Afebrile
Concomitant Antimicrobials: Cefepime
- Dosing Plan
Continue: vanc 1000mg q12h
- Monitoring Plan
Peak Level: 03/10 2030
Trough Level: 03/11 530
- Follow Up
Pharmacy will continue to follow.
Vancomycin Follow UP
- -
Patient Age: 53
Patient Sex: Male
Vancomycin Day #: 4
Indication: Pulmonary/Respiratory
Requesting Provider: Lisa Santos
Pertinent Antimicrobial Allergies:
no pertinent antimicrobial allergies
Height / Weight:
Height 5 ft 7 in
Actual Weight 50.6 kg
IBW in k.1
Pertinent Past Medical History: squamous cell carcinoma receiving chemotherapy, BMI ~16
- Vital Signs / Lab Results
Temp Pulse Resp BP Pulse Ox
98.0 F 92 22 89/63 94
03/10/24 07:35 03/10/24 07:30 03/10/24 07:30 03/10/24 06:00 03/10/24 07:30
Lab Results - Hematology
03/07/24 03/08/24 03/08/24
15:58 03:47 12:19
WBC 6.2 8.1 7.7
Band Neutrophils
03/09/24 03/09/24 03/10/24
02:22 06:09 04:06
WBC 7.8 8.5 13.3 H
Band Neutrophils 9 H
Lab Results - Chemistry
03/07/24 03/08/24 03/08/24
15:58 03:47 12:19
BUN 52 H 35 H 25 H
Creatinine 0.6 L 0.4 L 0.4 L
Estimated Creat Clear 94 101 101
Albumin 2.8 L 2.4 L
03/09/24 03/10/24
06:09 04:06
BUN 18 13
Creatinine 0.4 L 0.4 L
Estimated Creat Clear 100 100
Albumin
03/07/24 03/07/24 03/07/24
15:58 19:28 22:09
Lactic Acid 1.8 Cancelled 0.8
03/08/24 03/08/24
03:28 07:28
Lactic Acid Cancelled Cancelled
Microbiology Results
03/07/24 16:20 Blood Culture - Preliminary
Blood/Venous S aureus-Methicillin Sensitive
Gram Stain - Preliminary
03/07/24 15:58 Blood Culture - Preliminary
Blood/Venous No Growth in 48 hours- Final report to follow
03/07/24 22:09 Nasal Screen MRSA (PCR) - Final
Nose MRSA not detected - performed by PCR methodology.
Therapeutic Drug Monitoring
Random Vancomycin 12.4 ug/ml 03/08/24 03:47
--- NOTE | 2024-03-10 10:12 | CON.ID ---
Consultation
-
Date/Time Consultation Requested: 03/09/24 11:35
Date/Time Consultation Performed: 03/09/24 10:12
Requesting Provider: Dr Cristina Pickering
Performing Provider: Dr Faulkner
Reason for Consultation: gram positive bacteremia
Chief Complaint / Past History
Chief Complaint
fever and hypotension at infusion center
History of Present Illness
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
to be hypotensive and febrile and referred to the ER. Note chronic hypotension on FUSE COILER midodrine. Family reported rigors at home and weakness. No abdominal pain, nausea, vomiting, dysuria, sick contacts. Port was removed 01/28 for bacteremia.
PICC was placed 02/18 and was present on arrival
Patient was febrile in the ER to 104.4 none since, bp initially hypotensive requiring levohped up to 12 mcg/min now weaned off since 03/08, on arrival wbc 6.2, hgb 6.8, plt 88, L shift, cr 0.6, ua no pyuria, previous sputum culture with pseudomonas
and serratia, 03/07 1 of two sets of blood cultures with mssa, repeat blood cultures x2 on vancomycin and cefepime no growth to date, CXR: 03/07 stable pulmonary consolidation compared to last month, 03/08 cxr: perhaps with some progression, a
sputum culture was ordered but has not been collected
Past History
Additional Past Medical History:
as per hpi
cachexia
Additional Past Surgical History:
Esophageal mass biopsy
tracheotomy
PEG tube
Right chest wall port
Allergy History:
No Known Allergies Allergy (Verified 01/23/24 22:05)
Medications Reviewed: Yes
Social History
Tobacco: Former Smoker
Alcohol: Former
Drug: Marijuana
Family History
Family History: Not Pertinent
Review of Systems
Review of Systems
General: Fever and Chills
All systems: All other systems were reviewed and were negative
Vital Signs
Temp Pulse Resp BP Pulse Ox
98.0 F 92 22 89/63 94
03/10/24 07:35 03/10/24 07:30 03/10/24 07:30 03/10/24 06:00 03/10/24 07:30
Physical Exam
Physical Exam
Constitutional: No Acute Distress
Cardiovascular: Regular Rate and S1/S2; Negative Murmur or Rub
Pulmonary: Clear and Symmetric; Negative Wheezes, Rales or Rhonchi
Gastrointestinal: Soft, Non Tender, Non Distended and Normal Bowel Sounds
Skin: Warm and Dry; Negative Rash or Jaundice
Lab / Diagnostic Study Results
03/10/24 04:06
03/10/24 04:06
Abs Immat Gran (auto) 0.0 10^3/uL (0-0.05) 03/07/24 15:58
Absolute Neuts (auto) 5.8 10^3/uL (1.4-6.5) 03/07/24 15:58
Absolute Lymphs (auto) 0.2 10^3/uL (1.2-3.4) L 03/07/24 15:58
Absolute Monos (auto) 0.1 10^3/uL (0.1-0.6) 03/07/24 15:58
Absolute Basos (auto) 0.1 10^3/uL (0-0.2) 03/07/24 15:58
Total Counted 100 03/09/24 06:09
Immature Gran % 0.2 % (0-0.5) 03/07/24 15:58
Neutrophils % 94.2 % (42.2-75.2) H 03/07/24 15:58
Lymphocytes % 2.7 % (20.5-51.1) L 03/07/24 15:58
Monocytes % 1.6 % (1.7-9.3) L 03/07/24 15:58
Eosinophils % 0.5 % (0-6) 03/07/24 15:58
Basophils % 0.8 % (0-2) 03/07/24 15:58
Abs Neuts (Manual) 7.7 10^3/uL (1.4-6.5) H 03/09/24 06:09
Segmented Neutrophils 82 % (42-75) H 03/09/24 06:09
Band Neutrophils 9 % (0-3) H 03/09/24 06:09
Lymphocytes (Manual) 2 % (20-51) L 03/09/24 06:09
Eosinophils (Manual) 3 % (0-6) 03/09/24 06:09
PT 14.5 Sec (11.4-14.6) 03/09/24 06:09
INR 1.10 03/09/24 06:09
Lactic Acid Cancelled 03/08/24 07:28
Procalcitonin 0.55 ng/ml (0.0-0.25) H 03/09/24 06:09
Blood Culture Preliminary 03/10/24-819
S aureus-Methicillin Sensitive
Organism 1 S aureus-Methicillin Sensitive
1. S aureus-Methicillin Sensitive
M.I.C. RX
--------- ---
Amoxicillin/Potas. Clavulanate <=4/2 S
Ampicillin <=2 R
Clindamycin <=0.5 R
This isolate is presumed to be resistant based on the
detection of inducible clindamycin resistance. Clindamycin
may still be effective in some patients.
Gentamicin <=4 S
Erythromycin >4 R
Levofloxacin <=1 S
Oxacillin <=0.25 S
Tetracycline <=4 S
Trimethoprim/Sulfamethoxazole <=0.5/9.5 S
Vancomycin 1 S
Microbiology Results
Micro:
03/07/24 16:20 Blood Culture - Preliminary
Blood/Venous S aureus-Methicillin Sensitive
Gram Stain - Preliminary
03/07/24 15:58 Blood Culture - Preliminary
Blood/Venous No Growth in 48 hours- Final report to follow
03/09/24 14:40 Blood Culture - Pending
Blood/Venous
03/09/24 13:37 Blood Culture - Pending
Blood/Venous
03/07/24 22:09 Nasal Screen MRSA (PCR) - Final
Nose MRSA not detected - performed by PCR methodology.
Assessment / Plan
Fever
Persistent hypotension
MSSA bacteremia
Stage IV head and neck cancer
PICC - present on arrival
H/o trache - decannulated
Dysphagia
03/07 one of two blood cultures with MSSA
03/09 blood cultures x2 no growth to date
procalcitonin has improved by 75% on 03/09 - renal function stable throughout this time
will follow up echo - anticipated monday
dc PICC line
culture tip
start cefazolin, stop vancomycin and cefepime
- if patient continues with aggressive therapies can set up for a 2 week course of cefazolin at home, would need a new midline
- alternatively if patient transitions to hospice, which I would recommend, could complete a 2 week course of oral antibiotics
Note oncology opinion that hospice is appropriate and patient is not a candidate for chemotherapy however patient is confused when I bring up this subject; RN shares that while he did have a discussion with oncology yesterday, he seems to be in
denial. He repeatedly asked me about further chemotherapy and what his prognosis would be. Suggest a family meeting.
Care Review
Plan reviewed with: Nurse and Physician (Dr Hunter - [facility])
[2024-03-10] MEDS: DUONEB INH (11:29)
[2024-03-10] MEDS: ANCEF 10 IV ×2 (12:19→20:37)
--- NOTE | 2024-03-10 13:46 | W.PN.HOSP.TC ---
Addendum entered and electronically signed by Marc Pickering MD 03/10/24 13:56:
Note was signed to early
General: No Apparent Distress
HEENT: Normocephalic
Respiratory: Clear to Auscultation
Cardiac: Regular Rhythm and S1/S2
GI: Soft, Nontender, Nondistended and Normal Bowel Sounds
Skin: Warm
Neuro: Awake, Alert, Oriented and AO x 3
MSSA Bacteremia
-Repeat cultures
-2d ehco
-Ancef
-Stop Ceepime
-Consult ID
-DC Picc line
-Tip culture
Original Note:
Today's Communication/Plan
-
Assessment / Plan
Assessment / Plan
Impression:
Sepsis with septic shock not responding to IV fluids and requiring vasopressor
Pancytopenia secondary to chemotherapy
PICC line in place upon presentation
GPB - Staph aureus in 1 bottle
Squamous cell carcinoma of head and neck on chemotherapy with Taxol and gemfibrozil followed by G-CSF day prior to presentation.
Other conditions:
Squamous cell carcinoma of the head and neck diagnosed in rr.
Dysphagia secondary to above PEG tube in place. No oral intake at baseline.
Chronic hypotension on midodrine FINANCE BROKER.
Chronic right-sided infiltrate
History of tracheostomy status post decannulation.
Cachexia with severe protein calorie malnutrition BMI of 17.
Former smoker
Former alcohol use.
Emphysema by imaging.
Plan
Sepsis with septic shock not responding to IV fluids requiring initiation of Levophed.
Status post chemotherapy with Taxol and gemfibrozil
Chest x-ray with chronic right-sided infiltrate
Remains aspiration risk.
Known airway colonization with Pseudomonas.
PICC line in place upon presentation
Offers no gastrointestinal or urinary complaints.
Broad-spectrum antibiotics: Vancomycin and cefepime
Blood cultures pending.
Aspiration precautions.
Continue isotonic solution. Getting transfused packed red blood cells.
Attempt to wean off Levophed with reintroduction of midodrine.
Pancytopenia secondary to chemotherapy.
Status post G-CSF day prior to presentation.
Severe anemia secondary to chemotherapy. Patient reports minor bleeding from the right side of the neck tumor currently resolved. Hemoglobin at the lowest at 6.9. Being transfused 2 units of packed red blood cells. Follow CBC
Thrombocytopenia. Noted coagulopathy. Monitor platelet count closely. Vitamin K.
Chronic dysphagia with PEG tube in place.
Continue tube feeding with aspiration precautions.
Squamous cell carcinoma of the head and neck.
Recurrent
Recent PET scan reviewed. Known confluent pancho mass posterior to the angle of the right suprahyoid neck. No FDG uptake at the chest, abdomen and pelvis or bony metastatic process.
GPB - MSStaph aureus in 1 bottle, could be CoNs
-Repeat cultures
-2d ehco
-Ancef
-Stop Ceepime
-Consult ID
-DC Picc line
-Tip culture
Continue to have GoC discussion
Notified me that he would like to start home hospice, when asked about present infection and treatment, would be dependent on atb duration
CM consulted to begin Hospcie signing
DVT prophylaxis: Mechanical
DNR
Anticipated Discharge: 24 - 48 hours
Subjective/Interval History
-
Date of Service: March 10, 2024
seen and examined
no new complaits
no acute ovenright events
Objective Data
-
Labs:
Laboratory Results
03/10/24
04:06
WBC 13.3 H
Hgb 9.1 L
Hct 27.7 L
Plt Count 34 L D
Sodium 134 L
Potassium 3.6
Chloride 101
Carbon Dioxide 31 H
BUN 13
Creatinine 0.4 L
Glucose 93
Calcium 9.5
Vital Signs:
Vital Signs
Temp Pulse Resp BP Pulse Ox
98.2 F 89 17 84/64 97
03/10/24 11:50 03/10/24 12:00 03/10/24 12:00 03/10/24 12:00 03/10/24 12:00
I&O
03/09/24 03/10/24 03/11/24
06:59 06:59 06:59
Intake Total 2237.5 / 2237.5
Output Total 2099 / 2099 3050 / 3050
Balance 137.5 / 137.5 -3050 / -3050
--- NOTE | 2024-03-10 15:51 | CHAP ---
Mr. Daily was welcoming; he said he would be starting hospice. We discussed his feelings about that; he expressed acceptance. Emotional and spiritual support provided, along with assurance of our on-going availability.
[2024-03-11] VITALS: BP 80/55
--- NOTE | 2024-03-11 01:24 | VATNOTE ---
LEFT PICC d/c and tip cultured per MD order. New PIV established in right arm.
[2024-03-11 02:00] VITALS: BP 93/64
[2024-03-11 03:45] VITALS: BMI 17.2
[2024-03-11 04:00] VITALS: BP 90/64
[2024-03-11] MEDS: ANCEF 10 IV ×2 (04:08→14:03)
[2024-03-11 04:44] LABS: Blood Urea Nitrogen 10 mg/dl (9-20); Calcium 9.8 mg/dl (8.4-10.2); Carbon Dioxide 29 mmol/L (22-30); Chloride 99 mmol/L (98-107); Estimated Creatinine Clearance 98 ml/min; Glucose 96 mg/dl (70-99); Hematocrit 28.9 % (39.0-52.0); Hemoglobin 9.5 g/dL (13.0-18.0); Mean Corp Hgb Conc. 32.9 g/dL (33.0-37.0); Mean Corpuscular Hgb 29.1 pg (27.0-31.0); Mean Corpuscular Volume 88.7 fL (80.0-94.0); Platelet Count 28 10^3/uL (130-400); Potassium 3.1 mmol/L (3.5-5.1); Red Blood Cell Count 3.26 10^6/uL (4.70-6.10); Red Cell Dist. Width 14.8 % (11.5-14.5); Sodium 134 mmol/L (135-145); White Blood Cell Count 21.9 10^3/uL (4.8-10.8); eGFR > 60.00
[2024-03-11] MEDS: KCL ELIXIR 40 MEQ TUBE (05:09)
--- NOTE | 2024-03-11 05:59 | PTCARENOTE ---
Patient with order for picc line to be d/cd. VAT made aware and removed picc and sent to lab for culture. TF remains at 20ml/hr with 25/hr flush. No complaints of pain. Agitated with care at times.
[2024-03-11 06:00] VITALS: BP 100/72
[2024-03-11] MEDS: DUONEB 3 ML INH (07:42)
--- NOTE | 2024-03-11 08:18 | W.PN.ONC2 ---
Today's Communication / Plan
-
follow cultures, abx per ID
Hospice consult placed per pt request
Impression
Impression
Sepsis/ hypotension
cytopenias post chemotherapy, C3 02/27 s/p pegfilgrastim 03/07
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
Recurrent aspiration, Has PEG for alternate nutrition, malnutrition
History of tracheostomy status post decannulation
Symptomatic anemia
Loss of performance status
Plan
Plan
hospice appropriate currently not a chemotherapy candidate
Subjective/Objective
Subjective
no new complaints
Vital Signs:
Vital Signs
Temp Pulse Resp BP Pulse Ox
98 F 90 21 100/72 94
03/11/24 03:45 03/11/24 06:00 03/11/24 06:00 03/11/24 06:00 03/10/24 22:19
Lab Results:
Laboratory Data
WBC 21.9 10^3/uL (4.8-10.8) H 03/11/24 03:56
Hgb 9.5 g/dL (13.0-18.0) L 03/11/24 03:56
Plt Count 28 10^3/uL (130-400) L* 03/11/24 03:56
PT 14.5 Sec (11.4-14.6) 03/09/24 06:09
INR 1.10 03/09/24 06:09
APTT 42.6 Sec (23.4-35.0) H 03/09/24 06:09
eGFR > 60.00 03/11/24 03:56
Physical Exam
General: Appears Chronically Ill
HEENT: Negative Jaundice
Cardiology: RRR
Pulmonary: decreased breath sounds at bases
GI: Soft, feeding tube
Extremities: No C/C/E
[2024-03-11] MEDS: ROBITUSSIN 200 MG TUBE (08:59)
[2024-03-11] MEDS: ProAmatine 10 MG TUBE (08:59)
[2024-03-11] MEDS: PROTONIX IV 40 MG IV (08:59)
[2024-03-11] MEDS: NSS (PRESERVATIVE FREE) 10 ML IV (08:59)
--- NOTE | 2024-03-11 09:40 | PN.CDI ---
CDI
- -
CDI:
Physician Documentation Request
Admit Date: 03/07/24 19:24
Dear Doctor Jer,
Please review the following and provide your response in the progress notes.
Clinical Indicators:
- Progress notes indicate severe protein calorie malnutrition
- 03/08 Rivet Sorter indicates mild protein calorie malnutrition based on ASPEN criteria
- Mild subcutaneous loss over buccal
- Moderate muscle loss over calves, thighs
Based on the above information and your assessment, which of the following most accurately represents the patient's nutritional status?
Malnutrition (specify if mild, moderate or severe)
Other (please specify)
[place] Criteria ([facility] 2017)
2 or more criteria must be present for either
non severe or severe malnutrition
Note that the criteria differs related to the
presence of an acute or chronic illness
Acute Illness Chronic Illness
Energy Intake Non Severe: <75% for >7 days Non Severe: <75% for >1 month
Severe: <50% for >5 days Severe: <75% for >1 month
Weight Loss Non Severe: 1-2% over 1 week Non Severe: 5% over 1 month
5% over 1 month 7.5% over 3 months
7.5% over 3 months 10% over 6 months
1 year N/A 20% over 1 year
Severe: >2% over 1 week Severe: >5% over 1 month
>5% over 1 month >7.5% over 3 months
>7.5% over 3 months >10% over 6 months
1 year N/A >20% over 1 year
Body Fat Non Severe: Mild Decrease Non Severe: Mild Loss
Severe: Moderate Decrease Severe: Severe Loss
Muscle Mass Non Severe: Mild Decrease Non Severe: Mild Loss
Severe: Moderate Decrease Severe: Severe Loss
Fluid Accumulation Non Severe: Mild Accumulation Non Severe: Mild Accumulation
Severe: Moderate to severe Severe: Moderate to severe
accumulation accumulation
Reduced [employer] Strength Non Severe: N/A Non Severe: N/A
Severe: Measurably reduced Severe: Measurably reduced
Additional criteria that can be used to Determine if Mild or Moderate Malnutrition ([employer]ck Manual 2018)
Mild Moderate Severe
Albumin gm/dl <3.0 gm/dl <2.5 gm/dl <2.0 gm/dl
Pre Albumin mg/dl <15 gm/dl <10 mg/dl <5.0 mg/dl
BMI <18.5 <17 <16
Use of terms such as suspected, likely, concern for, or probable (associated with a specific diagnosis that is being evaluated, monitored, or treated as if it exists) are acceptable and can be coded in the inpatient setting, when documented at the
time of discharge.
Thank you,
Lm Lugo RN
CDI Specialist
Please use your independent medical judgment in providing your response.
--- NOTE | 2024-03-11 10:20 | HOSPNOTE ---
Hospice referral received and will meet with patient to discuss. More information to follow.
--- NOTE | 2024-03-11 11:33 | W.DS.TRANS ---
DC Summary - Sql Tech
-
Discharge Instructions:
Discharge Diagnosis/Procedures Sepsis with septic shock not responding to IV
fluids and requiring vasopressor
Squamous cell carcinoma of the head and neck
diagnosed in .
Diet Tube feeding
Instructions:
Stand-Alone Forms:
Changes to Home Medications: Yes
Discharge Medications:
DC Medications w/original date entered in [employer]
acetaminophen 500 mg tablet (Tylenol Extra Strength) 1,000 mg feeding tube Q6H PRN pain 07/11/22
albuterol sulfate 2.5 mg/3 mL (0.083 %) solution for nebulization 2.5 mg (3 mL) inhalation R Q4HPRN PRN SOB #75 mL 01/30/24
ipratropium 0.5 mg-albuterol 3 mg (2.5 mg base)/3 mL nebulization soln 3 ml inhalation R QID Cough #90 mL 01/30/24
guaifenesin 600 mg tablet, extended release 12 hr (Mucinex) 600 mg PO BID Congestion 02/16/24
ondansetron 8 mg disintegrating tablet 8 mg PO Q8H PRN nausea 02/16/24
Home Medication Changes
home hospice discharge
Pending Results: No
[2024-03-11] MEDS: DUONEB INH (11:47)
--- NOTE | 2024-03-11 12:03 | CM ---
CM following re: discharge planning.
Reviewed pt's chart, met with pt and spoke to pt's daughter Sofia over the phone.
Hospice consult noted. Pt referred to a preferred hospice. A referral to hospice made. CM spoke to [facility] liaison officer and she confirmed that pt is accepted for hospice care and 2:30 p.m. transportation time requested.
arranged S transportation with shredder picker time 2:30 p.m. PMNC completed and left with . Out of hospital DNR signed by and UC has it.
D/C plan: home with hospice. Daughter Sofia is aware of discharge time and she stated she will be home to accept her father.
[2024-03-11] MEDS: ROBITUSSIN TUBE (12:06)
[2024-03-11] MEDS: ANCEF IV (12:06)
--- NOTE | 2024-03-11 12:24 | W.PN.UPDATE ---
Update Note
Progress Note Update
Transitoned to hospice
antibiotics to stop at dc
ID service will no longer actively follow this patient please recall for further questions
--- NOTE | 2024-03-11 12:41 | HOSPNOTE ---
Met with family and patient and in agreement with hospice and the philosophy. The daughter will be primary caregiver. Attending and CM aware of plan. OOH DNR needed on chart. Transport is scheduled for 2:30pm.
[2024-03-11] MEDS: FLUSH (NSS) 2 FLUSH IV (14:04)
--- NOTE | 2024-03-11 15:07 | PTCARENOTE ---
Patient discharged to home on Hospice. Patient left via EMS. Patient left with all known belongings. Discharge instruction reviewed with patient and all questions answered.
== END 2024-03-11 14:33 | disposition hospice, home (50) | DRG 871 ==
LOC: IMU 19:24
PROVIDERS: Hospitalist; Nurse Practitioner; Nurse Practitioner Family; Nurse Practitioner Gerontology; Nurse Practitioner Primary Care; ADMITTING PHYSICIAN Hospitalist; ATTENDING PHYSICIAN Internal Medicine; CONSULT PHYSICIAN Internal Medicine Critical Care Medicine; CONSULT PHYSICIAN Internal Medicine Hematology & Oncology; CONSULT PHYSICIAN Student in an Organized Health Care Education/Training Program; EMERGENCY PHYSICIAN Emergency Medicine; FAMILY PHYSICIAN Family Medicine
DX: A41.9 Sepsis, unspecified organism (principal); D61.810 Antineoplastic chemotherapy induced pancytopenia; R65.21 Severe sepsis with septic shock; E43 Unspecified severe protein-calorie malnutrition; C77.0 Secondary and unspecified malignant neoplasm of lymph nodes of head, face and neck; Z68.1 Body mass index [BMI] 19.9 or less, adult; E87.3 Alkalosis; T45.1X5A Adverse effect of antineoplastic and immunosuppressive drugs, initial encounter; C14.0 Malignant neoplasm of pharynx, unspecified; Z66 Do not resuscitate; Z87.891 Personal history of nicotine dependence; R13.10 Dysphagia, unspecified; E83.42 Hypomagnesemia; E87.6 Hypokalemia; R62.7 Adult failure to thrive; J43.2 Centrilobular emphysema; Z79.899 Other long term (current) drug therapy
CPT/HCPCS: 71045; 80048; 80053; 80202; 81003; 82533; 82805; 83036; 83605; 83735; 84100; 84145; 85014; 85018; 85025; 85027; 85610; 85730; 86850; 86900; 86901; 86920; 87040; 87084; 87147; 87186; 87205; 87641; 93005; 94640; 96361; 96374; 96375; 97163; 97167; 99285; P9016